=== PATIENT | male | born 1955 | race Caucasian/White ===

== ENCOUNTER 2017-03-29 09:05 | Observation (INO) | payer OTHER ==
[~2017-03-29] VITALS: Ht 175.3 cm; Wt 115.0 kg
[~2017-03-29 09:05] MED LIST: ALT/10 PO; AMLO2.5T PO; ASPI81TA28 PO; ATEN50TA8 PO; BUSP15TA70 PO; CYAN100T6 PO; INSPMPNVLG; LPT/40 PO; METF1000 PO; MULT-506 PO; PANT1TAB48 PO; SERT1TAB68 PO
[2017-03-29] MEDS ORDERED: ASPIRIN 324 MG CHEW PO STA (09:20)
--- NOTE | 2017-03-29 09:25 | EMERGENCY ROOM VISIT NOTE ---
History First contact with patient: 09:11 Chief Complaint: CHEST PAIN Stated Complaint: CHEST PAIN Nursing Triage Summary: pt reports he started yesterday in back between shoulders, this am pain in mid chest. denies nay sob, feels nauseated History of Present Illness The patient is a 62 year old male who presents to the Emergency Room via private vehicle accompanied by with complaints of "chest pain". The patient states that yesterday morning, he began with pain in his left sub- scapular region. He thought this could be a kidney stone, however this morning it progressed to epigastric/mid sternal chest pain. He rates the pain as 6/10, sharp in nature. He notes that he has a history of renal calculi. He also has a pacemaker. This was placed because his rhythm was "slow". The patient notes that his most recent episode of chest pain began around 6 AM, is not constant. There is associated nausea. He denies any nausea, shortness of breath. No history of blood clots. His pacemaker was placed here 2 years ago. He has not had aspirin yet this morning. Review of Systems A complete 10-point Review of Systems was discussed with the patient, with pertinent positives and negatives listed in the History of Present Illness. All remaining Review of Systems questions can be considered negative unless otherwise specified. Past Medical/Surgical History Medical Problems: (1) CAD in [place] artery (2) Depression (3) Diabetes mellitus type 2, insulin dependent (4) H/O renal calculi (5) HLD (hyperlipidemia) (6) HTN (hypertension) (7) Pacemaker Surgical Problems: (1) Hx of cholecystectomy (2) S/P cholecystectomy (3) Status post laparoscopic hernia repair Family History Diabetes mellitus FH: heart disease Hypertension Kidney disease Kidney stones Social History Smoking Status: Former Smoker Alcohol Use: occasionally Drug Use: none Marital Status: Housing Status: lives with family Occupation Status: employed Current/Historical Medications Scheduled Amlodipine (Norvasc), 2.5 MG PO QPM Aspirin (Aspirin Ec), 81 MG PO QAM Atenolol (Tenormin), 50 MG PO QPM Atorvastatin (Lipitor), 40 MG PO QPM Buspirone Hcl (Buspar), 15 MG PO BID Cyanocobalamin (Vitamin B12 100 Mcg), 100 MCG PO QAM Insulin Aspart (novoLOG INSULIN PUMP ), 1 EA N/A UD Metformin Hcl (Glucophage), 1,000 MG PO BID Multivitamin (Multivitamin), 1 TAB PO QAM Pantoprazole (Protonix), 40 MG PO QAM Ramipril (Altace), 10 MG PO QPM Sertraline Hcl (Zoloft), 100 MG PO BID Physical Exam Vital Signs Date Time Temp Pulse Resp B/P (MAP) Pulse Ox O2 Delivery O2 Flow Rate FiO2 03/29/17 11:27 60 18 161/84 95 Room Air 03/29/17 09:19 61 03/29/17 09:09 36.7 69 20 140/81 94 Room Air 03/29/17 09:05 93 Room Air Physical Exam VITAL SIGNS - Vital signs and nursing notes were reviewed. GENERAL - 62-year-old male appearing his stated age who is in no acute distress. Communicates well with provider and answers questions appropriately. SKIN - Without rashes. HEAD - NC/AT. LUNGS - Chest wall symmetric without accessory muscle use, intercostals retractions, or central cyanosis. Normal vesicular breath sounds CTA B/L. No wheezes, rales, or rhonchi appreciated. CARDIAC - RRR with S1/S2. No murmur, rubs, or gallops appreciated. ABDOMEN - Abdominal contour without pulsations or visible masses. BS normoactive all four quadrants. There is generalized tenderness to palpation in the inferior quadrants. No palpable masses, hepatosplenomegaly, or ascites noted. EXTREMITIES - No clubbing or peripheral cyanosis. No pretibial edema present. +5 /5 strength noted in UE/LE bilaterally. NEUROLOGIC - Cranial nerves II through XII grossly intact. Sensory intact to light touch throughout. PSYCH - A&O.Pt is very pleasant and interacts well with examiner. Medical Decision & Procedures ER Provider Diagnostic Interpretation: ABDOMEN 2VIEW W/PA CHEST RTN CLINICAL HISTORY: Chest pain, abdominal discomfort pain COMPARISON STUDY: 05/10/2015 FINDINGS: The soft tissues, psoas shadows, renal outlines and intestinal gas pattern appear normal. There is no evidence for bowel obstruction. There is no evidence for free intraperitoneal air. No abnormal abdominal calcifications are seen. A frontal view of the chest was performed and is unremarkable. IMPRESSION: Normal study. The above report was generated using voice recognition software. It may contain grammatical, syntax or spelling errors. Electronically signed by: Cain Randolph M.D. 03/29/2017 10:42 AM Dictated Date/Time: 03/29/2017 10:40 AM Laboratory Results 03/29/17 09:18 Red Blood Count 5.03, Mean Corpuscular Volume 88.1, Mean Corpuscular Hemoglobin 31.2, Mean Corpuscular Hemoglobin Concent 35.4, Mean Platelet Volume 9.5, Neutrophils (%) (Auto) 44.2, Lymphocytes (%) (Auto) 36.9, Monocytes (%) (Auto) 16.9, Eosinophils (%) (Auto) 1.4, Basophils (%) (Auto) 0.3, Neutrophils # (Auto ) 1.55, Lymphocytes # (Auto) 1.29, Monocytes # (Auto) 0.59, Eosinophils # (Auto ) 0.05, Basophils # (Auto) 0.01 03/29/17 09:18 Test 03/29/17 09:18 03/29/17 10:00 03/29/17 11:35 White Blood Count 3.50 K/uL (4.8-10.8) Red Blood Count 5.03 M/uL (4.7-6.1) Hemoglobin 15.7 g/dL (14.0-18.0) Hematocrit 44.3 % (42-52) Mean Corpuscular Volume 88.1 fL (80-100) Mean Corpuscular Hemoglobin 31.2 pg (25-34) Mean Corpuscular Hemoglobin Concent 35.4 g/dl (32-36) Platelet Count 126 K/uL (130-400) Mean Platelet Volume 9.5 fL (7.4-10.4) Neutrophils (%) (Auto) 44.2 % Lymphocytes (%) (Auto) 36.9 % Monocytes (%) (Auto) 16.9 % Eosinophils (%) (Auto) 1.4 % Basophils (%) (Auto) 0.3 % Neutrophils # (Auto) 1.55 K/uL (1.4-6.5) Lymphocytes # (Auto) 1.29 K/uL (1.2-3.4) Monocytes # (Auto) 0.59 K/uL (0.11-0.59) Eosinophils # (Auto) 0.05 K/uL (0-0.5) Basophils # (Auto) 0.01 K/uL (0-0.2) RDW Standard Deviation 41.4 fL (36.4-46.3) RDW Coefficient of Variation 13.0 % (11.5-14.5) Immature Granulocyte % (Auto) 0.3 % Immature Granulocyte # (Auto) 0.01 K/uL (0.00-0.02) Prothrombin Time 10.3 SECONDS (9.0-12.0) Prothromb Time International Ratio 1.0 (0.9-1.1) Activated Partial Thromboplast Time 25.9 SECONDS (21.0-31.0) Partial Thromboplastin Ratio 1.0 D-Dimer 330 ug/L FEU (0-500) Anion Gap 7.0 mmol/L (3-11) Est Creatinine Clear Calc Drug Dose 98.5 ml/min Estimated GFR () 97.7 Estimated GFR (Non- 84.3 BUN/Creatinine Ratio 20.7 (10-20) Calcium Level 9.4 mg/dl (8.5-10.1) Magnesium Level 1.8 mg/dl (1.8-2.4) Total Bilirubin 0.5 mg/dl (0.2-1) Aspartate Amino Transf (AST/SGOT) 17 U/L (15-37) Alanine Aminotransferase (ALT/SGPT) 35 U/L (12-78) Alkaline Phosphatase 101 U/L (45-117) Total Protein 7.6 gm/dl (6.4-8.2) Albumin 3.9 gm/dl (3.4-5.0) Globulin 3.7 gm/dl (2.5-4.0) Albumin/Globulin Ratio 1.1 (0.9-2) Amylase Level 27 U/L (25-115) Lipase 71 U/L (73-393) Thyroid Stimulating Hormone (TSH) 1.830 uIu/ml (0.300-4.500) Urine Color DK YELLOW Urine Appearance CLEAR (CLEAR) Urine pH 5.5 (4.5-7.5) Urine Specific [place] 1.026 (1.000-1.030) Urine Protein TRACE (NEG) Urine Glucose (UA) TRACE (NEG) Urine Ketones TRACE (NEG) Urine Occult Blood NEG (NEG) Urine Nitrite NEG (NEG) Urine Bilirubin NEG (NEG) Urine Urobilinogen NEG (NEG) Urine Leukocyte Esterase NEG (NEG) Urine WBC (Auto) 1-5 /hpf (0-5) Urine RBC (Auto) 0-4 /hpf (0-4) Urine Hyaline Casts (Auto) 1-5 /lpf (0-5) Urine Epithelial Cells (Auto) 5-10 /lpf (0-5) Urine Bacteria (Auto) NEG (NEG) Bedside Troponin I < 0.030 ng/ml (0-0.045) Medications Administered Medications (Trade) Dose Ordered Sig/Ritu Route Start Time Stop Time Status Last Admin Dose Admin Aspirin (Aspirin Chew) 324 mg NOW STAT PO 03/29/17 09:20 03/29/17 09:24 DC 03/29/17 09:50 324 MG Al Hydroxide/Mg Hydroxide (Maalox Susp) 30 ml STK-MED ONCE .ROUTE 03/29/17 11:26 03/29/17 11:27 DC 03/29/17 11:28 30 ML Lidocaine HCl (Viscous Lidocaine 2% Soln) 20 ml STK-MED ONCE .ROUTE 03/29/17 11:26 03/29/17 11:27 DC 03/29/17 11:28 20 ML Medical Decision Patient was seen and evaluated as above. After obtaining a thorough history and physical examination IV access was initiated, and the above workup was performed. Patient presents to us today with chest pain, and minimal abdominal discomfort. The patient does have an underlying history of pacemaker placement. EKG reveals a paced rhythm. No ectopy or ischemic change reported. This was compared to previous EKG in the [facility] system, and it appears that the paced rhythm has replaced a sinus rhythm. CBC reveals white blood cell count decreased at 3.5, no abnormalities in hemoglobin, platelet count is decreased at 126,000, however it appears that he has had low platelet counts in the past. D-dimer negative, coagulation studies unremarkable. CMP reveals BUN elevated at 20, glucose at 104, and lipase low at 71. TSH unremarkable. Troponin negative 2. Urine is negative for blood. This was assessed secondary to patient's history of kidney stones. Chest and abdomen x-ray are ordered and were negative. Patient initially had slight abdominal discomfort upon his entrance, however upon reassessment was not feeling any pain. He was given aspirin during his stay here. Because the patient's age, and underlying comorbidities I do believe that inpatient management for cardiac etiology rule out is important. Patient is in agreement. Patient was educated upon findings of today's visit. Case was discussed with my attending. Patient will be admitted to the hospital for further evaluation and management. Please refer to further dictation regarding his stay. In the evaluation and treatment of this patient following differential diagnoses were entertained: ACS, PE, nephrolithiasis, costochondritis, GERD, among others. Medication Reconcilliation Current Medication List: was personally reviewed by me Blood Pressure Screening Patient's blood pressure: Elevated blood pressure Blood pressure disposition: Elevated BP felt to be situational Impression Primary Impression: Chest pain Departure Information Dispostion Admitted as an inpatient Condition FAIR Referrals Yoshi Buitrago M.D. (PCP) Patient Instructions My [facility]
[2017-03-29 09:28] LABS: BASO % 0.3 %; BASO ABS # 0.01 K/uL (0-0.2); COMPLETE YES; EOS % 1.4 %; HEMATOCRIT 44.3 % (42-52); IG% 0.3 %; LYMPH % 36.9 %; LYMPH ABS # 1.29 K/uL (1.2-3.4); MEAN CELL VOLUME 88.1 fL (80-100); MEAN CORPUSCULAR HEMOGLOBIN 31.2 pg (25-34); MEAN CORPUSCULAR HGB CONC 35.4 g/dl (32-36); MEAN PLATELET VOLUME 9.5 fL (7.4-10.4); MONO % 16.9 %; NEUT % 44.2 %; PLATELET COUNT 126 K/uL (130-400); RED BLOOD COUNT 5.03 M/uL (4.7-6.1)
[2017-03-29 09:54] LABS: PROTHROMBIN TIME (PATIENT) 10.3 SECONDS (9.0-12.0)
[2017-03-29 10:03] LABS: BUN/CREATININE RATIO 20.7 (10-20); CALCIUM 9.4 mg/dl (8.5-10.1); CREATININE 0.95 mg/dl (0.60-1.40); MAGNESIUM 1.8 mg/dl (1.8-2.4); POTASSIUM 3.9 mmol/L (3.5-5.1)
[2017-03-29 10:14] LABS: ALB/GLOB RATIO 1.1 (0.9-2); THYROID STIMULATING HORMONE 1.83 uIu/ml (0.300-4.500)
[2017-03-29 10:26] LABS: URINE APPEARANCE CLEAR (CLEAR); URINE BILIRUBIN NEG (NEG); URINE COLOR DK YELLOW; URINE NITRITE NEG (NEG); URINE PH 5.5 (4.5-7.5); URINE SPECIFIC GRAVITY 1.026 (1.000-1.030); UROBILINOGEN NEG (NEG); ZZUR CULT IF INDIC CLEAN CATCH NO
[2017-03-29 10:27] LABS: MANUAL MICROSCOPIC REQUIRED? NO; REVIEW REQ? NO
--- NOTE | 2017-03-29 10:44 | DIAGNOSTIC IMAGING REPORT ---
ABDOMEN 2VIEW W/PA CHEST RTN CLINICAL HISTORY: Chest pain, abdominal discomfort pain COMPARISON STUDY: 05/10/2015 FINDINGS: The soft tissues, psoas shadows, renal outlines and intestinal gas pattern appear normal. There is no evidence for bowel obstruction. There is no evidence for free intraperitoneal air. No abnormal abdominal calcifications are seen. A frontal view of the chest was performed and is unremarkable. IMPRESSION: Normal study. The above report was generated using voice recognition software. It may contain grammatical, syntax or spelling errors. Electronically signed by: Cain Randolph M.D. 03/29/2017 10:42 AM Dictated Date/Time: 03/29/2017 10:40 AM
[2017-03-29] MEDS ORDERED: GI COCKTAIL PO STA (10:59)
[2017-03-29] MEDS ORDERED: LIDOCAINE HCL 2% VISC SOLN 20 ML UDC ONE (11:26)
[2017-03-29] MEDS ORDERED: ALUMINUM/MAGNESIUM SUSP 30 ML UDC ONE (11:26)
[2017-03-29] MEDS ORDERED: MoRPHine SULFATE 2 MG/ML CARP IV PRN (13:15)
[2017-03-29] MEDS ORDERED: ONDANSETRON INJ 2 MG/ML 2 ML VIAL IV PRN (13:15)
[2017-03-29] MEDS ORDERED: ACETAMINOPHEN 325 MG TAB PO PRN (13:15)
[2017-03-29] MEDS ORDERED: NITROGLYCERIN 0.4 MG SL PER TAB CHARGE SL PRN (13:15)
[2017-03-29] MEDS ORDERED: IV FLUIDS COMPLETED PRN (13:30)
[2017-03-29 13:49] VITALS: BP 177/92; PULSE 66; TEMP 36.7; O2SAT 92; Ht 175.3 cm; Wt 115.0 kg
[2017-03-29] MEDS ORDERED: PHARMACY GLYCEMIC MGMT CONSULT PRN (14:03)
--- NOTE | 2017-03-29 14:12 | Cardiology Consultation ---
Cardiology Consultation Requesting Physician: Dr. Khanna Attending Cake Icer: Dr. Moris Crandall History of Present Illness Patient is a 62 year old male seen for evaluation of chest discomfort. Developed left-sided back pain which radiated to his anterior chest at 4 AM on . Discomfort waxed and waned. He went to work for approximately 2 hours and then returned home. There was no associated shortness of breath. He essentially laid in bed for the majority of the day without recurrent symptoms. The pain recurred again at 4 AM today. Again the pain was intermittent and lasting up to a few minutes. No associated shortness of breath. No diaphoresis. There is associated nausea without vomiting. The pain is not positional or reproducible with palpation. No lightheadedness, dizziness, palpitations, syncope or near-syncope. Patient carries history of essentially normal coronary arteries by catheterization performed in 2013 with 40% LAD bridging. He reported episode of atypical chest discomfort in August which was evaluated by follow-up echocardiography at my office. There were no wall motion and modalities on that study. Patient has a dual-chamber pacemaker due to history of second-degree AV block. Also has history of asymptomatic episodes of paroxysmal atrial fibrillation declining oral anticoagulation in the past. Currently the patient is resting comfortably. Denies any chest discomfort at this time. Telemetry demonstrates an AV paced rhythm. Past Medical/Surgical History Problem List: Medical Problems: (1) DM (diabetes mellitus) (2) HTN (hypertension) (3) Kidney stone (4) PNA (pneumonia) Surgical Problems: (1) S/P cholecystectomy History Past Medical History: 1. September 2013 cardiac catheterization at [facility] [place] demonstrated no significant CAD , mild LAD intramyocardial bridging with 40% narrowing during systole. 2. Admission to [facility] November 2013 after an episode of syncope demonstrating second-degree AV block. Renay was withheld. Patient treated for Lyme's disease, however, AV block persisted and a dual-chamber pacemaker was implanted 02/2014. 3. Paroxysmal atrial fibrillation chads 2 score equals 2 4. DM-2 treated with insulin pump 5. Hypertension 6. Dyslipidemia 7. Nephrolithiasis 8. Depression Past Surgical History: 1. Cardiac catheterization 2. Lithotripsy 3. Laparoscopic repair of an incarcerated ventral hernia 04/2015 Social History: Former tobacco abuse with a [id number] history. Social alcohol use. and works at [employer]. Family History: Father with diabetes and from complications at age 49. Mother of a heart attack at age 70. No premature coronary disease sudden cardiac , or cerebrovascular accident. Review Of Systems General: The patient denies weight change, night sweats, fever, chills. Head: The patient denies headache and prior head trauma. Cardiovascular: The patient denies chest pain or chest discomfort, dyspnea on exertion, palpitations, PND, orthopnea, edema, spontaneous shortness of breath, syncope and near syncope. Pulmonary: The patient denies cough, wheeze, pleurisy, hemoptysis, sputum, and excessive snoring. Gastrointestinal: The patient denies nausea, vomiting, diarrhea, constipation, bloating, hematemesis, hematochezia, and abdominal pain. Skin: The patient denies diaphoresis and rash. Musculoskeletal: The patient denies joint pain, joint swelling, myalgia, back pain, neck pain and prior injuries. Neurological: The patient denies prior stroke and seizures Allergies Coded Allergies: No Known Allergies (Verified , 05/06/15) Medications Reported Home Medications Medications Dose Route/Sig Max Daily Dose Days Date Category Tenormin (Atenolol) 50 Mg Tab 50 Mg PO QPM 05/03/15 Reported Altace (Ramipril) 10 Mg Cap 10 Mg PO QPM 02/24/14 Reported Multivitamin (Multivitamins) Tab 1 Tab PO QAM 02/17/14 Reported novoLOG INSULIN PUMP (Insulin Aspart) 1 Ea Inj 1 Ea N/A UD 11/29/13 Reported Aspirin Ec (Aspirin) 81 Mg Tab 81 Mg PO QAM 11/28/13 Reported Vitamin B12 100 Mcg (Cyanocobalamin) 100 Mcg Tab 100 Mcg PO QAM 11/28/13 Reported Lipitor (Atorvastatin) 40 Mg Tab 40 Mg PO QPM 11/28/13 Reported Norvasc (Amlodipine Besylate) 2.5 Mg Tab 2.5 Mg PO QPM 11/28/13 Reported Buspar (Buspirone Hcl) 15 Mg Tab 15 Mg PO BID 11/28/13 Reported Zoloft (Sertraline Hcl) 100 Mg Tab 100 Mg PO BID 11/28/13 Reported Protonix (Pantoprazole) 40 Mg Tab 40 Mg PO QAM 11/28/13 Reported Glucophage (Metformin Hcl) 1,000 Mg Tab 1,000 Mg PO BID 11/28/13 Reported Physical Exam Vital Signs (Last 8hrs): Last 8 Hrs Date Time Temp Pulse Resp B/P (MAP) Pulse Ox O2 Delivery O2 Flow Rate FiO2 03/29/17 12:41 62 03/29/17 12:32 60 16 158/93 94 Room Air 03/29/17 11:27 60 18 161/84 95 Room Air 03/29/17 09:19 61 03/29/17 09:09 36.7 69 20 140/81 94 Room Air 03/29/17 09:05 93 Room Air General Appearance: Alert and Oriented x3. NAD. Head: Normocephalic Atraumatic. Eyes: PERRLA, EOMI, conjunctiva and sclera clear Neck: Supple. No carotid bruits noted. No JVD. No HJD. Respiratory: Breath sounds clear to auscultation bilaterally. No w/r/r. Cardiovascular: Reg rate and rhythm. S1 and S2 noted. No murmurs, rubs, gallops. PMI non displace. Abdomen: Normal bowel sounds, soft nontender. no abdominal bruits. Extremities: No edema, no clubbing or cyanosis. distal pulses 2/4 bilaterally. Neuro: No focal deficits. Psychiatric: Normal affect. Data Last 24 Hours Test 03/29/17 09:18 03/29/17 09:22 03/29/17 10:00 03/29/17 11:35 White Blood Count 3.50 K/uL Red Blood Count 5.03 M/uL Hemoglobin 15.7 g/dL Hematocrit 44.3 % Mean Corpuscular Volume 88.1 fL Mean Corpuscular Hemoglobin 31.2 pg Mean Corpuscular Hemoglobin Concent 35.4 g/dl Platelet Count 126 K/uL Mean Platelet Volume 9.5 fL Neutrophils (%) (Auto) 44.2 % Lymphocytes (%) (Auto) 36.9 % Monocytes (%) (Auto) 16.9 % Eosinophils (%) (Auto) 1.4 % Basophils (%) (Auto) 0.3 % Neutrophils # (Auto) 1.55 K/uL Lymphocytes # (Auto) 1.29 K/uL Monocytes # (Auto) 0.59 K/uL Eosinophils # (Auto) 0.05 K/uL Basophils # (Auto) 0.01 K/uL RDW Standard Deviation 41.4 fL RDW Coefficient of Variation 13.0 % Immature Granulocyte % (Auto) 0.3 % Immature Granulocyte # (Auto) 0.01 K/uL Prothrombin Time 10.3 SECONDS Prothromb Time International Ratio 1.0 Activated Partial Thromboplast Time 25.9 SECONDS Partial Thromboplastin Ratio 1.0 D-Dimer 330 ug/L FEU Sodium Level 140 mmol/L Potassium Level 3.9 mmol/L Chloride Level 106 mmol/L Carbon Dioxide Level 27 mmol/L Anion Gap 7.0 mmol/L Blood Urea Nitrogen 20 mg/dl Creatinine 0.95 mg/dl Est Creatinine Clear Calc Drug Dose 98.5 ml/min Estimated GFR () 97.7 Estimated GFR (Non- 84.3 BUN/Creatinine Ratio 20.7 Random Glucose 104 mg/dl Calcium Level 9.4 mg/dl Magnesium Level 1.8 mg/dl Total Bilirubin 0.5 mg/dl Aspartate Amino Transf (AST/SGOT) 17 U/L Alanine Aminotransferase (ALT/SGPT) 35 U/L Alkaline Phosphatase 101 U/L Total Protein 7.6 gm/dl Albumin 3.9 gm/dl Globulin 3.7 gm/dl Albumin/Globulin Ratio 1.1 Amylase Level 27 U/L Lipase 71 U/L Thyroid Stimulating Hormone (TSH) 1.830 uIu/ml Bedside Troponin I < 0.030 ng/ml < 0.030 ng/ml Urine Color DK YELLOW Urine Appearance CLEAR Urine pH 5.5 Urine Specific [place] 1.026 Urine Protein TRACE Urine Glucose (UA) TRACE Urine Ketones TRACE Urine Occult Blood NEG Urine Nitrite NEG Urine Bilirubin NEG Urine Urobilinogen NEG Urine Leukocyte Esterase NEG Urine WBC (Auto) 1-5 /hpf Urine RBC (Auto) 0-4 /hpf Urine Hyaline Casts (Auto) 1-5 /lpf Urine Epithelial Cells (Auto) 5-10 /lpf Urine Bacteria (Auto) NEG Imaging: Chest and abdominal x-ray within normal limits EKG: AV sequential pacing Telemetry reviewed: AV sequential pacing Assessment & Plan Final impression: 1. Atypical back and chest discomfort 2. Paroxysmal atrial fibrillation currently AV paced. Patient asymptomatic during episodes of atrial fibrillation in the past. He declines anticoagulation. 3. History of nonobstructive coronary disease with myocardial bridging involving the LAD in 2013. 4. Second-degree AV block status post permanent pacemaker implantation 5. Dyslipidemia 6. History of nephrolithiasis and lithotripsy Recommendations/discussion: Chronic care troponins are negative 2. Patient's ECG is nondiagnostic due to AV sequential pacing. I will obtain resting 2-D transthoracic echo to assess for any regional wall motion abnormalities. Cardiac enzymes will be cycled 3 sets for completeness. If cardiac testing is unremarkable would recommend pursuing noncardiac etiologies of back and chest discomfort including potential nephrolithiasis given character of pain described at this time. Musculoskeletal and gastroenterologic etiologies are also not excluded at this time. Continue telemetry monitoring during hospitalization to correlate any perceived symptoms with ECG abnormality. He will continue current cardiovascular medications as previously ordered. Further recommendations pending clinical course and results of testing. Thank you for allow me to take part in the care of your patient. Moris Crandall DO, FACC
[2017-03-29] MEDS ORDERED: INSULIN ASPART 100 UNITS/ML VIAL SC PRN (14:30)
[2017-03-29] MEDS ORDERED: GLUCAGON FOR INJ 1 MG VIAL SQ PRN (14:30)
[2017-03-29] MEDS ORDERED: GLUCOSE 10 TABS/TUBE PO PRN (14:30)
[2017-03-29] MEDS ORDERED: DEXTROSE 50% 50 ML SYR IV PRN (14:30)
[2017-03-29] MEDS ORDERED: GLUCOSE 40% GEL 15 GM TUBE PO PRN (14:30)
--- NOTE | 2017-03-29 14:32 | History and Physical ---
History & Physical Date & Time of Service: Mar 29, 2017 at 14:05 Chief Complaint: Chest Pain, back pain Primary Care Physician: Yoshi Buitrago M.D. History of Present Illness Source: patient This is a 62yo M with a PMH of CAD (non-obstructive), DM II on insulin-pump, HTN , HLD, A fib (not on anti-coagulation), GERD and h/o kidney stones who presents with chest pain x 1 day. Patient states that he started to experience bilateral flank pain yesterday with some associated nausea that felt similar to times he has passed kidney stones in the past. However, he did not have any urinary symptoms. This morning, pt was walking around at work when he started to experience a dull, aching chest pain located in left chest/mid-sternal region that radiated to his back. Pain is constant, 5/10 and does not improve with rest. Endorses associated nausea but denies any diaphoresis, palpitations, shortness of breath, abdominal pain, vomiting or MSK pain in his torso. Also says he has been under more emotional stress lately due to caring for his sick mother. Cardiac cath performed in 2013 showed mild LAD intramyocardial bridge causing 40% narrowing during systole. Echo in 01/23 showed a normal EF of 60-64% . As for back pain, patient states that pain has improved since yesterday and that he has not experienced any typical urinary symptoms, like as dysuria or hematuria, from kidney stones in the past. Past Medical/Surgical History Medical Problems: (1) DM (diabetes mellitus) Status: Chronic (2) HTN (hypertension) Status: Chronic (3) Kidney stone Status: Resolved (4) PNA (pneumonia) Status: Resolved Surgical Problems: (1) S/P cholecystectomy Status: Resolved Family History Diabetes mellitus FH: heart disease Hypertension Kidney disease Kidney stones Social History Smoking Status: Former Smoker (20 pack years) Alcohol Use: socially (1-2 drinks/week) Drug Use: none Marital Status: Occupational Status: employed Multi-Drug Resistant Organisms History of MDRO: No Allergies Coded Allergies: No Known Allergies (Verified , 05/06/15) Home Medications Scheduled Amlodipine (Norvasc), 2.5 MG PO QPM Aspirin (Aspirin Ec), 81 MG PO QAM Atenolol (Tenormin), 50 MG PO QPM Atorvastatin (Lipitor), 40 MG PO QPM Buspirone Hcl (Buspar), 15 MG PO BID Cyanocobalamin (Vitamin B12 100 Mcg), 100 MCG PO QAM Insulin Aspart (novoLOG INSULIN PUMP ), 1 EA N/A UD Metformin Hcl (Glucophage), 1,000 MG PO BID Multivitamin (Multivitamin), 1 TAB PO QAM Pantoprazole (Protonix), 40 MG PO QAM Ramipril (Altace), 10 MG PO QPM Sertraline Hcl (Zoloft), 100 MG PO BID Review of Systems Ten systems reviewed and negative except as noted in the HPI. Physical Exam Vital Signs Date Time Temp Pulse Resp B/P (MAP) Pulse Ox O2 Delivery O2 Flow Rate FiO2 03/29/17 12:41 62 03/29/17 12:32 60 16 158/93 94 Room Air 03/29/17 11:27 60 18 161/84 95 Room Air 03/29/17 09:19 61 03/29/17 09:09 36.7 69 20 140/81 94 Room Air 03/29/17 09:05 93 Room Air General Appearance: WD/WN, no apparent distress, + obese Head: normocephalic, atraumatic Eyes: normal inspection, PERRL ENT: normal ENT inspection, hearing grossly normal Neck: supple, thyroid normal, no JVD Respiratory/Chest: chest non-tender, lungs clear, normal breath sounds, no respiratory distress, no accessory muscle use Cardiovascular: regular rate, rhythm, no edema, no gallop, no murmur, normal peripheral pulses Abdomen/GI: normal bowel sounds, non tender, soft (protuberant abdomen) Back: normal inspection, no CVA tenderness, normal range of motion Extremities/Musculoskelatal: normal inspection, no calf tenderness, no pedal edema Neurologic/Psych: no motor/sensory deficits, alert, normal mood/affect, oriented x 3 Skin: normal color, warm/dry, no rash Lymphatic: no adenopathy Diagnostics Laboratory Results Results Past 24 Hours Test 03/29/17 09:18 03/29/17 09:22 03/29/17 10:00 03/29/17 11:35 Range/Units White Blood Count 3.50 4.8-10.8 K/uL Red Blood Count 5.03 4.7-6.1 M/uL Hemoglobin 15.7 14.0-18.0 g/dL Hematocrit 44.3 42-52 % Mean Corpuscular Volume 88.1 80-100 fL Mean Corpuscular Hemoglobin 31.2 25-34 pg Mean Corpuscular Hemoglobin Concent 35.4 32-36 g/dl Platelet Count 126 130-400 K/uL Mean Platelet Volume 9.5 7.4-10.4 fL Neutrophils (%) (Auto) 44.2 % Lymphocytes (%) (Auto) 36.9 % Monocytes (%) (Auto) 16.9 % Eosinophils (%) (Auto) 1.4 % Basophils (%) (Auto) 0.3 % Neutrophils # (Auto) 1.55 1.4-6.5 K/uL Lymphocytes # (Auto) 1.29 1.2-3.4 K/uL Monocytes # (Auto) 0.59 0.11-0.59 K/uL Eosinophils # (Auto) 0.05 0-0.5 K/uL Basophils # (Auto) 0.01 0-0.2 K/uL RDW Standard Deviation 41.4 36.4-46.3 fL RDW Coefficient of Variation 13.0 11.5-14.5 % Immature Granulocyte % (Auto) 0.3 % Immature Granulocyte # (Auto) 0.01 0.00-0.02 K/uL Prothrombin Time 10.3 9.0-12.0 SECONDS Prothromb Time International Ratio 1.0 0.9-1.1 Activated Partial Thromboplast Time 25.9 21.0-31.0 SECONDS Partial Thromboplastin Ratio 1.0 D-Dimer 330 0-500 ug/L FEU Sodium Level 140 136-145 mmol/L Potassium Level 3.9 3.5-5.1 mmol/L Chloride Level 106 98-107 mmol/L Carbon Dioxide Level 27 21-32 mmol/L Anion Gap 7.0 3-11 mmol/L Blood Urea Nitrogen 20 7-18 mg/dl Creatinine 0.95 0.60-1.40 mg/dl Est Creatinine Clear Calc Drug Dose 98.5 ml/min Estimated GFR () 97.7 Estimated GFR (Non- 84.3 BUN/Creatinine Ratio 20.7 10-20 Random Glucose 104 70-99 mg/dl Calcium Level 9.4 8.5-10.1 mg/dl Magnesium Level 1.8 1.8-2.4 mg/dl Total Bilirubin 0.5 0.2-1 mg/dl Aspartate Amino Transf (AST/SGOT) 17 15-37 U/L Alanine Aminotransferase (ALT/SGPT) 35 12-78 U/L Alkaline Phosphatase 101 45-117 U/L Total Protein 7.6 6.4-8.2 gm/dl Albumin 3.9 3.4-5.0 gm/dl Globulin 3.7 2.5-4.0 gm/dl Albumin/Globulin Ratio 1.1 0.9-2 Amylase Level 27 25-115 U/L Lipase 71 73-393 U/L Thyroid Stimulating Hormone (TSH) 1.830 0.300-4.500 uIu/ml Bedside Troponin I < 0.030 < 0.030 0-0.045 ng/ml Urine Color DK YELLOW Urine Appearance CLEAR CLEAR Urine pH 5.5 4.5-7.5 Urine Specific [place] 1.026 1.000-1.030 Urine Protein TRACE NEG Urine Glucose (UA) TRACE NEG Urine Ketones TRACE NEG Urine Occult Blood NEG NEG Urine Nitrite NEG NEG Urine Bilirubin NEG NEG Urine Urobilinogen NEG NEG Urine Leukocyte Esterase NEG NEG Urine WBC (Auto) 1-5 0-5 /hpf Urine RBC (Auto) 0-4 0-4 /hpf Urine Hyaline Casts (Auto) 1-5 0-5 /lpf Urine Epithelial Cells (Auto) 5-10 0-5 /lpf Urine Bacteria (Auto) NEG NEG CXR normal EKG 03/29/17: AV dual-paced rhythm. Impression Assessment and Plan Assessment: This is a 62yo M with a PMH of CAD (non-obstructive), DM II on insulin-pump, HTN, HLD, A fib (not on anti-coagulation), GERD and h/o kidney stones who presents with atypical chest pain and back pain. Plan: Chest pain, atypical: -R/o ACS; risk factors include CAD, DM II, HTN, HLD, obese. -Initial troponin negative x 2. -EKG-AV paced dual rhythm. No ischemia or elevated ST elevations present. -CXR-normal -Cardiac consult: ordered 2-D transthoracic echo to assess for any wall motion abnormalities as well as 3 sets of cardiac enzymes for completeness. -Due to atypical CP presentation, also need to explore other potential etiologies like potential nephrolithiasis, since pain originated in his back and radiated forward. -Also considering costochondritis, reflux and anxiety as other etiologies if cardiac work up continues to be negative. CAD (non-obstructed): -Cardiac cath in 2013 with mild LAD intramyocardial bridge causing 40% narrowing during systole. -Last echo in 01/23 showing normal EF of 60-64%. Repeating echo today. 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 Briefly 62M presents with chest pain. Patient had bilateral flank pain yesterday and he thought from kidney stones as he has history of them but in the morning today noticed retro sternal dull chest pain 5 /10 in severity radiating to back associated with nausea which prompted him to come to [facility]. Denies sob or sweating. No dizziness. no cough. No fever/chills. Currently resting comfortably and hemodynamically stable. p/e Ge . 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 Y/N: Yes Risk Level: High Given or contraindicated: Enoxaparin (Lovenox)SQ Social Service Consult None Apply
--- NOTE | 2017-03-29 14:35 | Pharmacy Progress Note ---
Glycemic Control Intl Consult Date of Service Mar 29, 2017. Scope Glycemic Pharmacist consulted by Dora Meyer PA-C on 03/29/2017 for glycemic control and to write orders per [facility] inpatient glycemic control protocol Objective Weight (Kilograms): 115.600 Accuchecks BSG (last 24hrs): Test 03/29/17 09:18 Random Glucose 104 mg/dl (70-99) Laboratory Data (last 24hrs) Test 03/29/17 09:18 Anion Gap 7.0 mmol/L BUN/Creatinine Ratio 20.7 Blood Urea Nitrogen 20 mg/dl Creatinine 0.95 mg/dl Potassium Level 3.9 mmol/L Sodium Level 140 mmol/L White Blood Count 3.50 K/uL Red Blood Count 5.03 M/uL Hemoglobin 15.7 g/dL Hematocrit 44.3 % Mean Corpuscular Volume 88.1 fL Mean Corpuscular Hemoglobin 31.2 pg Mean Corpuscular Hemoglobin Concent 35.4 g/dl Platelet Count 126 K/uL Mean Platelet Volume 9.5 fL Neutrophils (%) (Auto) 44.2 % Lymphocytes (%) (Auto) 36.9 % Monocytes (%) (Auto) 16.9 % Eosinophils (%) (Auto) 1.4 % Basophils (%) (Auto) 0.3 % Neutrophils # (Auto) 1.55 K/uL Lymphocytes # (Auto) 1.29 K/uL Monocytes # (Auto) 0.59 K/uL Eosinophils # (Auto) 0.05 K/uL Basophils # (Auto) 0.01 K/uL HbA1c Test 03/29/17 09:18 Recent Pertinent Medications Outpatient Anti-diabetic Regimen: * Novolog Pump (CR = 15 and CF = ?) * Basal pump: * midnight to 3 AM: 3.7 units/hr * 3 AM to 1700: 4 units/hr * 1700 to 3.7 units/hr * A1c = 7.2 % (date unknown) Risk Factors for Insulin Resistance: * Diet: diabetic diet Assessment & Plan ASSESSMENT: * Pt is to manage BSGs with insulin pump per outpatient settings. * RN will have patient read and sign agreement [id number] Insulin Pump Therapy Patient Agreement. * RN will provide and explain form [id number] Flowsheet for Patient * Patient will document their insulin dose given on NS-824 which is kept at the bedside, available to caregivers upon request, and which becomes part of the permanent medical record. If at any time the patients condition evidences that he/she is not able to manage the insulin pump (i.e. frequent hypo/hyperglycemia) Pharmacy will assume glycemic control by discontinuing the pump & managing with SQ basal bolus insulin regimen for the interim. PLAN FOR INPATIENT GLYCEMIC CONTROL: * Novolog Pump with parameters as above * patient to continue same regimen if NPO (confirmed this with Pierre pharmacist at [facility]) PLAN FOR DISCHARGE * Patient works intensely with glycemic pharmacist at [facility]. Can continue with pharmacist there to improve glycemic control. * Please note that the plan above was derived based on current level of insulin resistance and hospital stress. These recommendations are appropriate for inpatient admission only. Plan of care upon discharge will need to be reassessed to avoid potential outpatient hypo/hyperglycemia. Thank you.
[2017-03-29] MEDS ORDERED: CLONIDINE HCL 0.1 MG TAB PO PRN (15:45)
[2017-03-29 15:52] LABS: CKMB/CK RATIO 3.6 (0-3.0)
--- NOTE | 2017-03-29 16:32 | ECHOCARDIOGRAM REPORT ---
*NOTICE TO RECEIVING REPUBLICAN AGENCY This information is strictly Confidential and protected under [place] law. [place] law prohibits you from making any further disclosure of this information unless further disclosure is expressly permitted by the written consent of the person to whom it pertains or is authorized by law. A general authorization for the release of medical or other information is not sufficient for this purpose. Hospital accepts no responsibility if the information is made available to any other person, INCLUDING THE PATIENT. Interpretation Summary * Name: MILLIE SALMON Study Date: 03/29/2017 02:38 PM BP: 177/92 mmHg * Patient Location: [facility]\S\N280\S\2 HR: 64 * : 1955 (M/d/yyyy) Gender: Male Height: 69 in * Age: 62 yrs Ethnicity: [place] Weight: 254 lb * Ordering Physician: Suresh Crandall * Referring Physician: Self, Referred * Performed By: Supriya Adhikari RCS * * Reason For Study: CHEST PAIN * BSA: 2.3 m2 * The study was technically adequate. * There is no comparison study available. * -- Conclusions -- * Ejection Fraction = 60-65%. * There is moderate concentric left ventricular hypertrophy. * The left atrium is moderately dilated. * Grade I diastolic dysfunction, (abnormal relaxation pattern). * There is no pericardial effusion. * No significant valvular pathology. Procedure Details * A complete two-dimensional transthoracic echocardiogram was performed (2D, M-mode, Doppler and color flow Doppler). Left Ventricle * The left ventricle is normal in size. * There is moderate concentric left ventricular hypertrophy. * Left ventricular systolic function is normal. * Ejection Fraction = 60-65%. * The left ventricular wall motion is normal. Right Ventricle * The right ventricle is normal size. * The right ventricular systolic function is normal as assessed by tricuspid annular plane systolic excursion (TAPSE) (normal >1.5 cm). Atria * The left atrium is moderately dilated. * Right atrial size is normal. * There is no evidence of atrial septal defect, but resolution does not allow assessment for a patent foramen ovale. Mitral Valve * The mitral valve is normal. * There is mild mitral annular calcification. * There is no mitral valve stenosis. * Significant mitral regurgitation is absent. Tricuspid Valve * The tricuspid valve is normal. * There is no tricuspid stenosis. * Significant tricuspid regurgitation is absent. Aortic Valve * The aortic valve is trileaflet. * Aortic stenosis is absent. * There is no significant aortic regurgitation. Pulmonic Valve * The pulmonary valve is not well seen, but the Doppler examination is normal without significant regurgitation or stenosis. Great Vessels * The aortic root is normal size. Pericardium/Pleural * There is no pericardial effusion. Great Vessels * Normal inferior vena cava diameter and respiratory variation suggests normal central venous pressure. Left Ventricular Diastolic Function * Grade I diastolic dysfunction, (abnormal relaxation pattern). MMode 2D Measurements and Calculations IVSd 1.5 cm IVSs 1.8 cm LVIDd 5.4 cm LVIDs 3.5 cm LVPWd 1.4 cm LVPWs 1.7 cm IVS/LVPW 1.0 FS 35.4 % EDV(Teich) 143.1 ml ESV(Teich) 51.2 ml EF(Teich) 64.3 % EDV(cubed) 160.1 ml ESV(cubed) 43.2 ml EF(cubed) 73.0 % % IVS thick 19.3 % % LVPW thick 20.0 % LV mass(C)d 353.5 grams LV mass(C)dI 154.6 grams/m\S\2 LV mass(C)s 251.9 grams LV mass(C)sI 110.2 grams/m\S\2 SV(Teich) 92.0 ml SI(Teich) 40.2 ml/m\S\2 SV(cubed) 116.9 ml SI(cubed) 51.1 ml/m\S\2 Ao root diam 3.7 cm Ao root area 10.9 cm\S\2 ACS 2.3 cm LA dimension 4.6 cm LA/Ao 1.2 LVOT diam 2.0 cm LVOT area 3.3 cm\S\2 Doppler Measurements and Calculations MV E max dangelo 99.2 cm/sec MV A max dangelo 122.4 cm/sec MV E/A 0.81 MV P1/2t max dangelo 108.3 cm/sec MV P1/2t 97.0 msec MVA(P1/2t) 2.3 cm\S\2 MV dec slope 326.9 cm/sec\S\2 MV dec time 0.33 sec Ao V2 max 133.0 cm/sec Ao max PG 7.1 mmHg Ao max PG (full) 1.1 mmHg CLEOPATRA(V,A) 3.0 cm\S\2 CLEOPATRA(V,D) 3.0 cm\S\2 LV V1 max PG 6.0 mmHg LV V1 max 122.2 cm/sec PA V2 max 135.4 cm/sec PA max PG 7.3 mmHg
[2017-03-29] MEDS: NovoLOG INSULIN PUMP SCH ×2 (17:22→22:00)
[2017-03-29 19:44] VITALS: BP 161/91; PULSE 61; TEMP 36.6; O2SAT 96
[2017-03-29] MEDS ORDERED: ENALAPRIL MALEATE 10 MG TAB PO SCH (21:00)
[2017-03-29] MEDS ORDERED: ATORVASTATIN 20 MG TAB PO SCH (21:00)
[2017-03-29] MEDS ORDERED: NON-FORMULARY MEDICATION (Ramipril (Altace) 10 MG) PO SCH (21:00)
[2017-03-29] MEDS ORDERED: AMLODIPINE BESYLATE 5 MG TAB PO SCH (21:00)
[2017-03-29] MEDS ORDERED: ENOXAPARIN 40 MG/0.4 ML SYR SC SCH (21:00)
--- NOTE | 2017-03-29 21:09 | DIAGNOSTIC IMAGING REPORT ---
EXAMINATION: RENAL ULTRASOUND CLINICAL HISTORY: Back pain COMPARISON STUDY: None FINDINGS: The right kidney measures 13.1 cm. The left kidney measures 13.4 cm. There is no evidence of hydronephrosis. There are no renal masses. No bladder abnormalities were identified. The left ureteral jet was not visualized. IMPRESSION : Nonvisualization of the left ureteral jet. Otherwise normal renal ultrasound. Electronically signed by: Bunny Wilkes M.D. 03/29/2017 9:08 PM Dictated Date/Time: 03/29/2017 9:07 PM
[2017-03-29] MEDS: BusPIRone 15 MG TAB PO SCH (21:53)
[2017-03-29] MEDS: SERTRALINE HCL 100 MG TAB PO SCH (21:56)
[2017-03-29 23:25] VITALS: BP 150/78; PULSE 60; TEMP 36.6; O2SAT 93
[2017-03-30] MEDS ORDERED: NURSING VERBAL MED ORDER ONE
[2017-03-30 03:56] VITALS: BP 151/82; PULSE 63; TEMP 36.6; O2SAT 92
[2017-03-30] MEDS: NovoLOG INSULIN PUMP SCH ×2 (06:00→15:02)
[2017-03-30 07:04] LABS: CHOLESTEROL/HDL RATIO 4.5
[2017-03-30 07:24] LABS: ESTIMATED AVERAGE GLUCOSE 177 mg/dl; HA1C FLAG Normal (Normal)
[2017-03-30 08:00] VITALS: O2SAT 92
[2017-03-30 08:02] VITALS: BP 144/80; PULSE 62; TEMP 36.8; O2SAT 93
[2017-03-30] MEDS ORDERED: CYANOCOBALAMIN 100 MCG TAB (VIT B-12) PO SCH (09:00)
[2017-03-30] MEDS ORDERED: ASPIRIN 81 MG ECTAB PO SCH (09:00)
[2017-03-30] MEDS ORDERED: PANTOprazole SOD 40 MG TAB PO SCH (09:00)
[2017-03-30] MEDS ORDERED: MULTIVITAMIN TAB PO SCH (09:00)
--- NOTE | 2017-03-30 12:08 | Progress Note ---
Internal Med Progress Note Date of Service: Mar 30, 2017. Provider Documentation: SUBJECTIVE: Seen and examined at bedside. Feels better today Denies chest pain, SOB, dizziness Flank pain resolved OBJECTIVE: Vital Signs-as noted below Physical Exam: General Appearance:Moderately built and nourished, no apparent distress Head: normocephalic, Atraumatic Eyes: normal inspection, EOMI, PERRL Neck: supple, Trachea midline Respiratory/Chest: Normal breath sounds, CTA Cardiovascular: S1, S2, No murmur Abdomen/GI:Soft, Non tender, Bowel sounds present Extremities/Musculoskelatal:normal inspection, no edema Neurologic/Psych:AAOX3, grossly no focal neurological deficits Skin: normal color, warm Lab data as noted below. ASSESSMENT & PLAN: Chest pain, atypical: R/o ACS: risk factors include CAD, DM II, HTN, HLD, obese. 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 * There is moderate concentric left ventricular hypertrophy. * The left atrium is moderately dilated. * Grade I diastolic dysfunction, (abnormal relaxation pattern). * There is no pericardial effusion. * No significant valvular pathology. Vital Signs: Date Time Temp Pulse Resp B/P (MAP) Pulse Ox O2 Delivery O2 Flow Rate FiO2 03/30/17 08:02 36.8 62 18 144/80 (101) 93 Room Air 03/30/17 04:00 Room Air 03/30/17 04:00 Room Air 03/30/17 03:56 36.6 63 18 151/82 (105) 92 Room Air 03/30/17 00:00 Room Air 03/29/17 23:25 36.6 60 20 150/78 (102) 93 Room Air 03/29/17 20:00 Room Air 03/29/17 19:44 36.6 61 20 161/91 (114) 96 Room Air 03/29/17 16:00 Room Air 03/29/17 13:49 36.7 66 16 177/92 92 Room Air 03/29/17 12:41 62 03/29/17 12:32 60 16 158/93 94 Room Air Lab Results: Results Past 24 Hours Test 03/29/17 15:15 03/29/17 16:43 03/29/17 19:51 03/29/17 21:24 Range/Units Total Creatine Kinase 59 60 39-308 U/L Creatine Kinase MB 2.1 2.4 0.5-3.6 ng/ml Creatine Kinase MB Ratio 3.6 4.0 0-3.0 Troponin I < 0.015 < 0.015 0-0.045 ng/ml Bedside Glucose 121 123 70-99 mg/dl Test 03/30/17 05:58 03/30/17 06:10 Range/Units Triglycerides Level 225 0-150 mg/dl Cholesterol Level 104 0-200 mg/dl HDL Cholesterol 23 mg/dl LDL Cholesterol, Calculated 36 mg/dl VLDL Cholesterol, Calculated 45 mg/dl Cholesterol/HDL Ratio 4.5 Bedside Glucose 77 70-99 mg/dl
--- NOTE | 2017-03-30 12:10 | Discharge Summary ---
Discharge Summary Date of Service Mar 30, 2017. Discharge Summary Admission Date: Mar 29, 2017 at 12:25 Discharge Date: Mar 30, 2017 Discharge Disposition: Home Principal Diagnosis: Atypical chest pain Procedures: Renal USD; : Nonvisualization of the left ureteral jet. Otherwise normal renal ultrasound. Chest/Abd X ray: : Normal study. ECHO: * Ejection Fraction = 60-65%. * There is moderate concentric left ventricular hypertrophy. * The left atrium is moderately dilated. * Grade I diastolic dysfunction, (abnormal relaxation pattern). * There is no pericardial effusion. * No significant valvular pathology. Consultations: Cardiology Pending Studies/Follow-Up: Follow up with on 04/04/17 at 2:00pm Follow up with your institutional research director to get stress test as outpatient Medication Reconciliation Continued Medications: Amlodipine (Norvasc) 2.5 Mg Tab 2.5 MG PO QPM, TAB Aspirin (Aspirin Ec) 81 Mg Tab 81 MG PO QAM Atenolol (Tenormin) 50 Mg Tab 50 MG PO QPM, TAB Atorvastatin (Lipitor) 40 Mg Tab 40 MG PO QPM, TAB Buspirone Hcl (Buspar) 15 Mg Tab 15 MG PO BID, TAB Cyanocobalamin (Vitamin B12 100 Mcg) 100 Mcg Tab 100 MCG PO QAM, TAB Insulin Aspart (novoLOG INSULIN PUMP ) 1 Ea Inj 1 EA N/A UD, EA Metformin Hcl (Glucophage) 1,000 Mg Tab 1000 MG PO BID, TAB Multivitamin (Multivitamin) Tab 1 TAB PO QAM, TAB Pantoprazole (Protonix) 40 Mg Tab 40 MG PO QAM, #30 TAB Ramipril (Altace) 10 Mg Cap 10 MG PO QPM, CAP Sertraline Hcl (Zoloft) 100 Mg Tab 100 MG PO BID, TAB Admission Information HPI (per Admitting provider): This is a 62yo M with a PMH of CAD (non-obstructive), DM II on insulin-pump, HTN , HLD, A fib (not on anti-coagulation), GERD and h/o kidney stones who presents with chest pain x 1 day. Patient states that he started to experience bilateral flank pain yesterday with some associated nausea that felt similar to times he has passed kidney stones in the past. However, he did not have any urinary symptoms. This morning, pt was walking around at work when he started to experience a dull, aching chest pain located in left chest/mid-sternal region that radiated to his back. Pain is constant, 5/10 and does not improve with rest. Endorses associated nausea but denies any diaphoresis, palpitations, shortness of breath, abdominal pain, vomiting or MSK pain in his torso. Also says he has been under more emotional stress lately due to caring for his sick mother. Cardiac cath performed in 2013 showed mild LAD intramyocardial bridge causing 40% narrowing during systole. Echo in 01/23 showed a normal EF of 60-64% . As for back pain, patient states that pain has improved since yesterday and that he has not experienced any typical urinary symptoms, like as dysuria or hematuria, from kidney stones in the past. Physical Exam (per Admitting): General Appearance: WD/WN, no apparent distress, + obese Head: normocephalic, atraumatic Eyes: normal inspection, PERRL ENT: normal ENT inspection, hearing grossly normal Neck: supple, thyroid normal, no JVD Respiratory/Chest: chest non-tender, lungs clear, normal breath sounds, no respiratory distress, no accessory muscle use Cardiovascular: regular rate, rhythm, no edema, no gallop, no murmur, normal peripheral pulses Abdomen/GI: normal bowel sounds, non tender, soft (protuberant abdomen) Back: normal inspection, no CVA tenderness, normal range of motion Extremities/Musculoskelatal: normal inspection, no calf tenderness, no pedal edema Neurologic/Psych: no motor/sensory deficits, alert, normal mood/affect, oriented x 3 Skin: normal color, warm/dry, no rash Lymphatic: no adenopathy Hospital Course Chest pain, atypical: R/o ACS: risk factors include CAD, DM II, HTN, HLD, obese. 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 * There is moderate concentric left ventricular hypertrophy. * The left atrium is moderately dilated. * Grade I diastolic dysfunction, (abnormal relaxation pattern). * There is no pericardial effusion. * No significant valvular pathology. Total time spent on discharge = This includes examination of the patient, discharge planning, medication reconciliation, and communication with other providers. Discharge Instructions Discharge Instructions Date of Service Mar 30, 2017. Admission Reason for Admission: Chest Pain Discharge Discharge Diagnosis / Problem: Atypical chest pain Discharge Goals Goal(s): Decrease discomfort, Improve function Activity Recommendations Activity Limitations: resume your previous activity Exercise/Sports Limitations: as tolerated . Instructions / Follow-Up Instructions / Follow-Up Follow up with on 04/04/17 at 2:00pm Follow up with your institutional research director to get stress test as outpatient Seek immediate medical attention if your symptoms reoccur or worsen Current Hospital Diet Patient's current hospital diet: Diabetes Type 2 Diet, AHA Diet (Heart Healthy) Discharge Diet Recommended Diet: AHA Diet (Heart Healthy), Diabetes Type 2 Diet Pending Studies Studies pending at discharge: no Laboratory Results Hemoglobin A1c Test 03/29/17 09:18 Range/Units Estimated Average Glucose 177 mg/dl Hemoglobin A1c 7.8 H 4.5-5.6 % Lipid Panel Test 03/30/17 05:58 Range/Units Triglycerides Level 225 H 0-150 mg/dl Cholesterol Level 104 0-200 mg/dl HDL Cholesterol 23 mg/dl Cholesterol/HDL Ratio 4.5 LDL Cholesterol, Calculated 36 mg/dl Medical Emergencies . Who to Call and When: Medical Emergencies: If at any time you feel your situation is an emergency, please call 911 immediately. . Non-Emergent Contact Non-Emergency issues call your: Primary Care Provider, Dispersion Mixer Call Non-Emergent contact if: you have a fever, your pain is not controlled, your pain is worsening, your pain is unusual for you, you have any medication questions . . "Provider Documentation" section prepared by Patrick Barr. . VTE Core Measure Inpt VTE Proph given/why not?: Enoxaparin (Lovenox)SQ
[2017-03-30] MEDS: SERTRALINE HCL 100 MG TAB PO SCH (12:12)
[2017-03-30] MEDS: BusPIRone 15 MG TAB PO SCH (12:12)
[2017-03-30 15:49] VITALS: BP 90/48; PULSE 93; TEMP 36.4; O2SAT 96
[2017-03-30] MEDS ORDERED: AMLODIPINE BESYLATE 5 MG TAB PO SCH (21:00)
--- NOTE | 2017-03-31 00:49 | PROGRESS NOTE ---
DATE: 03/30/2017 CARDIOLOGY CONSULTATION FOLLOWUP The patient was seen and examined. Chart, laboratory studies, and telemetry were reviewed. SUBJECTIVE: The patient has had no further chest pain or back pain. Overnight, he has had some minimal right lower quadrant pain. Notes no dysuria or hematuria. Notes no tachypalpitations or dizziness. OBJECTIVE: VITAL SIGNS: Heart rate is 62 and blood pressure is 144/80. NECK: Thick, but there is no jugular venous distention. There are no carotid bruits. LUNGS: Reveal good aeration to the bases. CARDIOVASCULAR: Regular with normal S1 and S2. There is no murmur, gallop or rub. ABDOMEN: Soft. EXTREMITIES: Without cyanosis or clubbing. There is no peripheral edema of significance. DATA: Chest x-ray on admission revealed normal study. EKG this morning demonstrates AV sequential pacing. LABORATORY STUDIES: Revealed negative troponins x2. No CPK elevation. Cholesterol was 104. Glucose is 77. IMPRESSION: This 62-year-old male was admitted with atypical chest and back discomfort without signs or symptoms of acute myocardial ischemia by enzymatic examination. EKG limited by AV sequential pacing. Symptoms appear noncardiac in nature. Blood pressures have been trending slightly higher. RECOMMENDATIONS: Increase amlodipine to 5 mg per day. Assess for alternate source of symptoms. I would recommend stress nuclear imaging as an outpatient and the patient may be discharged for further cardiac evaluation. Arrangements were made for outpatient stress testing. [facility]
== END 2017-03-30 14:00 | disposition home or self-care (01) ==
LOC: C.EDB 09:06 → C.MED 12:25 → ENRESERV 12:46
PROVIDERS: ADMIT Internal Medicine; ATTEND Internal Medicine
DX: R07.89 Other chest pain (principal); I25.10 Atherosclerotic heart disease of native coronary artery without angina pectoris; I10 Essential (primary) hypertension; E78.5 Hyperlipidemia, unspecified; E11.9 Type 2 diabetes mellitus without complications; I48.91 Unspecified atrial fibrillation; K21.9 Gastro-esophageal reflux disease without esophagitis; Z87.891 Personal history of nicotine dependence; Z79.4 Long term (current) use of insulin; Z79.899 Other long term (current) drug therapy; Z79.82 Long term (current) use of aspirin; Z95.0 Presence of cardiac pacemaker; F32.9 Major depressive disorder, single episode, unspecified

== ENCOUNTER 2017-10-10 14:13 | Emergency (ER) | payer OTHER ==
[~2017-10-10] VITALS: Ht 175.3 cm; Wt 114.7 kg
[~2017-10-10 14:13] MED LIST changes: +PANT1TAB3 PO; -PANT1TAB48 PO
[2017-10-10 14:20] VITALS: BP 141/79; PULSE 79; TEMP 37.1; O2SAT 93; Ht 175.3 cm; Wt 114.7 kg
== END 2017-10-10 15:17 | disposition left against medical advice (07) ==
LOC: C.EDB 14:14
DX: R07.9 Chest pain, unspecified (principal)

== ENCOUNTER 2020-09-16 13:24 | Inpatient (IN) ==
[2020-09-16] MEDS ORDERED: SODIUM CHLORIDE 0.9% 500 ML IV SCH (14:00)
[2020-09-16] MEDS ORDERED: MoRPHine SULFATE 4 MG/ML 1 ML CARP\\VIAL IV STA (14:00)
[2020-09-16] MEDS ORDERED: ONDANSETRON INJ 2 MG/ML 2 ML VIAL IV STA (14:00)
--- NOTE | 2020-09-16 14:03 | Emergency Department Note ---
History of Present Illness General Chief Complaint: Abdominal Pain Stated Complaint: ABOMINAL PAIN, VOMITING Time Seen by Provider: 09/16/20 13:52 Source: patient Mode of arrival: ambulatory Limitations: no limitations History of Present Illness Provider Complaint: abdominal pain Maximum Pain Intensity: 6 This is a 65-year-old male who presents to the ED with a chief complaint of abdominal pain that started last night around 8 PM. He states that nausea and vomiting followed. He had a normal bowel movement yesterday afternoon. He reports that the pain is in the lower abdominal region diffusely. He reports that it is a constant pressure type pain with occasional sharp stabbing pains. He rates it a 5 out of 10. Occasionally radiates to the back. Denies any other symptoms. No fevers or urinary symptoms. Home Medications Medication Instructions Recorded Confirmed Type Novolog Insulin Pump 1 dose pk NOT APPLICABLE UD 06/20/19 08/05/20 History amlodipine 2.5 mg PO DAILY 06/20/19 08/05/20 History apixaban [Eliquis] 5 mg PO BID 06/20/19 08/05/20 History aspirin 81 mg PO DAILY 06/20/19 08/05/20 History atorvastatin 40 mg PO DAILY 06/20/19 08/05/20 History cyanocobalamin (vitamin B-12) 100 mcg PO DAILY 06/20/19 08/05/20 History [Vitamin B-12] furosemide [Lasix] 20 mg PO DAILY 06/20/19 08/05/20 History losartan 50 mg PO DAILY 06/20/19 08/05/20 History magnesium oxide 400 mg PO DAILY 06/20/19 08/05/20 History metformin 1,000 mg PO BID 06/20/19 08/05/20 History metoprolol succinate 100 mg PO DAILY 06/20/19 08/05/20 History multivitamin 1 tab PO DAILY 06/20/19 08/05/20 History pantoprazole 40 mg PO DAILY 06/20/19 08/05/20 History potassium chloride 10 meq PO DAILY 06/20/19 08/05/20 History sertraline [Zoloft] 50 mg PO DAILY 06/20/19 08/05/20 History sertraline [Zoloft] 100 mg PO DAILY 06/20/19 08/05/20 History ondansetron 4 mg PO Q8H PRN #10 tab 08/05/20 Rx oxycodone [Roxicodone] 5 mg PO Q6H PRN #12 tab 08/05/20 Rx tamsulosin [Flomax] 0.4 mg PO DAILY #14 cap 08/05/20 Rx Allergies Allergy/AdvReac Type Severity Reaction Status Date / Time No Known Allergies Allergy Verified 08/05/20 08:39 Past Med/Surg History Medical History CAD in tetlin artery Chest pain Diabetes Effusion of knee joint right H/O renal calculi HLD (hyperlipidemia) HTN (hypertension) Pacemaker Surgical History Hx of cholecystectomy S/P cholecystectomy Status post laparoscopic hernia repair Social History Smoking Status: Never smoker Feels Safe at Home: Yes Review of Systems A total of 10 systems reviewed and were otherwise negative Physical Exam Vital Signs: Vital Signs - 24 hr 09/16/20 13:26 Temperature 36.6 C Temperature Source Oral Pulse Rate 70 Respiratory Rate 16 Blood Pressure 126/65 Blood Pressure Scarlet n 85 Pulse Oximetry 92 Oxygen Delivery Me thod Room Air Sepsis Recent Feve r Within 48 Hours No Sepsis New/Unexpla ined Change in Men sada Status N/A Sepsis Action Take n by Nursing No Action Required Physical Exam: CONSTITUTIONAL/VITAL SIGNS: Reviewed / noted above. GENERAL: Non-toxic in appearance. INTEGUMENTARY: Warm, dry, and [place]. HEAD: Normocephalic. EYES: without scleral icterus or trauma. ENT/OROPHARYNX: clear and moist. LYMPHADENOPATHY/NECK: Is supple without lymphadenopathy or meningismus. RESPIRATORY: Lungs clear and equal. CARDIOVASCULAR: Regular rate and rhythm. GI/ABDOMEN: Soft and tender in the right as well as left lower quadrants. No organomegaly or pulsatile mass. No rebound or guarding. Normal bowel sounds. EXTREMITIES: Warm and well perfused. BACK: No CVA tenderness. NEUROLOGICAL: Intact without focal deficits. PSYCHIATRIC: normal affect. MUSCULOSKELETAL: Normally developed with good muscle tone. TRIAGE NURSING DOCUMENTATION REVIEWED. Course Administered Medications Discontinued Medications Sodium Chloride (Nss) 500 mls @ 999 mls/hr IV .Q31M FILIPE Stop: 09/16/20 14:30 Last Infusion: 09/16/20 15:16 Dose: 0 mls/hr Documented by: [id number] Admin: 09/16/20 14:42 Dose: 999 mls/hr Documented by: [id number] Morphine Sulfate (Morphine Sulfate 4 Mg/Ml 1 Ml Carp\Vial) 4 mg IV NOW STA Stop: 09/16/20 14:01 Last Admin: 09/16/20 14:42 Dose: 4 mg Documented by: [id number] Ondansetron HCl (Ondansetron Inj 2 Mg/Ml 2 Ml Vial) 4 mg IV NOW STA Stop: 09/16/20 14:01 Last Admin: 09/16/20 14:42 Dose: 4 mg Documented by: [id number] Medical Decision Making Differential Diagnosis Differential considered: pancreatitis, hepatitis, acute cholecystitis, AAA, UTI, pyelonephritis, kidney stones, appendicitis, diverticulitis, shingles, bowel obstruction, mesenteric ischemia, intussusception,hernia, testicular t orsion. Medical Records Attestation: I reviewed the patient's medical records. Home Medications Current Medication List: was personally reviewed by me Laboratory Data Attestation: I reviewed the patient's lab results. Result diagrams: 09/16/20 14:14 09/16/20 14:14 Lab Results 09/16/20 09/16/20 Range/Units 14:14 14:14 WBC 6.63 (4.8-10.8) K/uL RBC 5.29 (4.7-6.1) M/uL Hgb 13.9 L (14.0-18.0) g/dL Hct 43.6 (42-52) % MCV 82.4 (80-100) fL MCH 26.3 (25-34) pg MCHC 31.9 L (32-36) g/dL RDW Std Deviation 42.2 (36.4-46.3) fL RDW Coeff of Manoj 14.3 (11.5-14.5) % Plt Count 153 (130-400) K/uL MPV 9.4 (7.4-10.4) fL Immature Gran % (Auto) 0.3 % Neut % (Auto) 70.1 % Lymph % (Auto) 16.3 % [place] % (Auto) 13.3 % Eos % (Auto) 0.0 % Baso % (Auto) 0.0 % Neut # (Auto) 4.65 (1.4-6.5) K/uL Lymph # (Auto) 1.08 L (1.2-3.4) K/uL [place] # (Auto) 0.88 H (0.11-0.59) K/uL Eos # (Auto) 0.00 (0-0.5) K/uL Baso # (Auto) 0.00 (0-0.2) K/uL Immature Gran # (Auto) 0.02 (0.00-0.02) K/uL Sodium 140 (136-145) mmol/L Potassium 3.9 (3.5-5.1) mmol/L Chloride 106 (98-107) mmol/L Carbon Dioxide 30 (21-32) mmol/L Anion Gap 4.0 (3-11) BUN 29 H (7-18) mg/dl Creatinine 1.06 (0.6-1.4) mg/dl Est Cr Clr Drug Dosing 87.8 ml/min Est GFR ( Amer) 83.8 Est GFR (Non-Af Amer) 72.3 BUN/Creatinine Ratio 27.1 H (10-20) Glucose 107 H (70-99) mg/dl Calcium 9.6 (8.5-10.1) mg/dl Total Bilirubin 0.5 (0.2-1) mg/dl AST 20 (15-37) U/L ALT 38 (12-78) U/L Alkaline Phosphatase 119 H (45-117) U/L Total Protein 8.3 H (6.4-8.2) gm/dl Albumin 4.1 (3.4-5.0) gm/dl Globulin 4.2 H (2.5-4.0) gm/dl Albumin/Globulin Ratio 1.0 (0.9-2) Lipase 65 L (73-393) U/L Imaging Data Radiologist's Impression: CT scan of the abdomen pelvis:IMPRESSION: 1. Proximal small bowel obstructive pattern. No mass identified at the left upper quadrant transition zone 2. Bilateral nephrolithiasis. No ureteral or bladder calculi identified 3. Surgically absent gallbladder 4. Mild splenomegaly 5. Colonic diverticulosis. No evidence of acute diverticulitis. Normal appendix. MDM Narrative Patient presents with lower abdominal pain followed by nausea and vomiting started yesterday evening. Persist today. His exam reveals some tenderness in the lower abdomen. History of cholecystectomy and hernia repair in the past. Vital signs are normal. The CT scan of the abdomen pelvis shows a proximal small bowel obstruction. CBC and chemistry panel was unremarkable. BUN is 29. Lipase was negative. The patient was told the results of the test. An NG tube was ordered. I spoke with medicine and surgical service. They will see the patient. He was given IV morphine and IV fluids as well as IV Zofran during his stay. He did not have any vomiting while here. Impression & Plan SBO (small bowel obstruction) Discharge Plan Visit Data Chief Complaint: Abdominal Pain Stated Complaint: ABOMINAL PAIN, VOMITING ED Provider: Karlos Benítez Discharge Problem: SBO (small bowel obstruction) Patient Disposition: Being Evaluated by Hospitalist Forms Stand Alone Forms: My [facility] Prescriptions Prescriptions: No Action amlodipine 2.5 mg Tablet 2.5 mg PO DAILY RF: 0 Eliquis 5 mg Tablet 5 mg PO BID RF: 0 aspirin 81 mg Tablet,Delayed Release (Dr/Ec) 81 mg PO DAILY RF: 0 atorvastatin 40 mg Tablet 40 mg PO DAILY RF: 0 furosemide [Lasix] 20 mg Tablet 20 mg PO DAILY RF: 0 Novolog Insulin Pump 1 EA 1 dose pk Not Applicable UD RF: 0 losartan 50 mg Tablet 50 mg PO DAILY RF: 0 magnesium oxide 400 mg magnesium Capsule 400 mg PO DAILY RF: 0 metformin 1,000 mg Tablet 1,000 mg PO BID RF: 0 metoprolol succinate 100 mg Tablet Extended Release 24 Hr 100 mg PO DAILY RF: 0 multivitamin Tablet 1 tab PO DAILY RF: 0 pantoprazole 40 mg Tablet,Delayed Release (Dr/Ec) 40 mg PO DAILY RF: 0 potassium chloride 10 mEq Tablet Extended Release 10 meq PO DAILY RF: 0 cyanocobalamin (vitamin B-12) [Vitamin B-12] 100 mcg Tablet 100 mcg PO DAILY RF: 0 sertraline [Zoloft] 100 mg Tablet 100 mg PO DAILY RF: 0 sertraline [Zoloft] 50 mg Tablet 50 mg PO DAILY RF: 0 tamsulosin [Flomax] 0.4 mg capsule 0.4 mg PO DAILY Qty: 14 RF: 0 ondansetron 4 mg tablet,disintegrating 4 mg PO Q8H PRN (Reason: nausea and vomiting) Qty: 10 RF: 0 oxycodone [Roxicodone] 5 mg tablet 5 mg PO Q6H PRN (Reason: pain) Qty: 12 RF: 0 Referrals Referrals: Yoshi Buitrago MD [Primary Care Provider] -
[2020-09-16 14:32] LABS: Hematocrit (blood only) 43.6 % (42-52); Hemoglobin 13.9 g/dL (14.0-18.0); Immature Granulocytes # (auto) 0.02 K/uL (0.00-0.02); Immature Granulocytes % (auto) 0.3 %; Lymphocytes # (auto) 1.08 K/uL (1.2-3.4); Lymphocytes % (auto) 16.3 %; Mean Corpuscular Hemoglobin 26.3 pg (25-34); Mean Corpuscular Hgb Conc 31.9 g/dL (32-36); Mean Corpuscular Volume 82.4 fL (80-100); Mean Platelet Volume 9.4 fL (7.4-10.4); Monocytes # (auto) 0.88 K/uL (0.11-0.59); Monocytes % (auto) 13.3 %; Neutrophils # (auto) 4.65 K/uL (1.4-6.5); Neutrophils % (auto) 70.1 %; Platelet Count 153 K/uL (130-400); RDW Coefficient of Variation 14.3 % (11.5-14.5); RDW Standard Deviation 42.2 fL (36.4-46.3); Red Blood Count 5.29 M/uL (4.7-6.1); White Blood Count 6.63 K/uL (4.8-10.8)
[2020-09-16 14:54] LABS: Albumin Level 4.1 gm/dl (3.4-5.0); BUN Creatinine Ratio 27.1 (10-20); Calcium 9.6 mg/dl (8.5-10.1); Creatinine Clr Calc Pharmacy 87.8 ml/min; Est GFR (African American) 83.8; Est GFR (Non-African American) 72.3; Potassium 3.9 mmol/L (3.5-5.1)
[2020-09-16 14:57] LABS: Bilirubin,Total 0.5 mg/dl (0.2-1); Globulin 4.2 gm/dl (2.5-4.0); Total Protein 8.3 gm/dl (6.4-8.2)
--- NOTE | 2020-09-16 15:10 | CT Scan Report ---
CT SCAN OF THE ABDOMEN AND PELVIS WITHOUT CONTRAST CLINICAL HISTORY: Abdominal pain, nausea, vomiting. History of cholecystectomy. COMPARISON STUDY: 08/05/2020 TECHNIQUE: CT scan of the abdomen and pelvis was performed from the lung bases to the proximal femurs . Images are reviewed in the axial, sagittal, and coronal planes. IV contrast was not administered fo r this examination. A dose lowering technique was utilized adhering to the principles of ALARA. CT DOSE: 1495.40 mGy.cm FINDINGS: Lower chest: The heart is enlarged. There is a small pericardial effusion. There are dependent parenc hymal opacities statistically atelectatic. Liver: The unenhanced liver is normal in size, contour, and attenuation. There is no intrahepatic mac iary ductal dilatation. Gallbladder: Surgically absent Spleen: Minimally enlarged measuring 12.8 cm Pancreas: There is a stable 1 cm hypodense pancreatic tail lesion, likely representing a side branch IPMN. A few smaller subcentimeter low-density lesions are also present. Adrenal glands: There is mild low density adrenal gland thickening unchanged from the prior study Kidneys: There is a punctate lower pole right renal calculus. Several left renal calculi are visualiz ed, the largest of which measures 5 mm. There is a stable hyperdense 13 mm left renal cortical lesion likely representing a hyperdense cyst. There is minor perinephric stranding. There is no significant hydronephrosis. No ureteral or bladder calculi are visualized. Bowel: There are dilated proximal small bowel loops demonstrating formed fecal material. The distal s mall bowel is of normal caliber. The findings are indicative of a small bowel obstruction. There is a left upper quadrant transition zone. No lesion is visualized at the level of transition. The appendi x appears normal. There is colonic diverticulosis. There are no acute peridiverticular inflammatory c hanges. Peritoneum: There is no free air. There is no ascites. There is a fat-containing umbilical hernia. Th ere is a fat-containing ventral hernia status post mesh repair. There is also additional upper abdomi nal small fat-containing ventral hernia similar to the prior study. There is a stable adjacent small nodule. This likely represents a postsurgical hernia. Vasculature: The abdominal aorta is normal in course and caliber. Adenopathy: None. Pelvic viscera: The bladder, and pelvic viscera are unremarkable. Skeletal structures: No destructive osseous lesions are seen. There is a prominent L5-S1 disc osteoph yte complex IMPRESSION: 1. Proximal small bowel obstructive pattern. No mass identified at the left upper quadrant transition zone 2. Bilateral nephrolithiasis. No ureteral or bladder calculi identified 3. Surgically absent gallbladder 4. Mild splenomegaly 5. Colonic diverticulosis. No evidence of acute diverticulitis. Normal appendix. ACT 112: Negative or not required by law. Electronically signed by: Bunny Wilkes M.D. 09/16/2020 3:09 PM
--- NOTE | 2020-09-16 16:14 | Surgery Consultation ---
Date of Consultation September 16, 2020 Assessment & Plan (1) SBO (small bowel obstruction): No previous history of obstruction but several surgeries. No acute abdominal findings. NG to LIWS. Hopefully will resolve, although hold Eliquis if possible. Supervising Physician Co-Signing Physician Notes Patient seen and examined, labs and imaging reviewed, agree with above. 65-year-old male with history of laparoscopic cholecystectomy and a laparoscopic ventral hernia repair, presented to the emergency department with abdominal pain with nausea and vomiting. Normal bowel yesterday, but not passing flatus today. On exam he is afebrile stable vitals. His abdomen is soft, minimally tender to palpation, moderately distended. Labs are unremarkable. CT scan shows small bowel obstruction with some fecalization of the small bowel and possible transition point in left upper quadrant. At this point we will proceed with nonoperative management. Appreciate medicine admission of this patient. Continue NG tube, repeat KUB in the morning. Surgery will continue to follow. May consider contrasted study if not improved in the next few days. History of Present Illness History of Present Illness 65 y/o male with abdominal pain, N/V that began last evening and continued into today. No previous illness or obstruction. Has been eating more salads recently. Had lap jill and lap repair of umbilical hernia. Had colonoscopy 3 months ago. Allergies Allergy/AdvReac Type Severity Reaction Status Date / Time No Known Allergies Allergy Verified 08/05/20 08:39 Home Medications Medication Instructions Recorded Confirmed Type Novolog Insulin Pump 1 dose pk NOT APPLICABLE UD 06/20/19 09/16/20 History apixaban [Eliquis] 5 mg PO BID 06/20/19 09/16/20 History aspirin 81 mg PO DAILY 06/20/19 09/16/20 History atorvastatin 40 mg PO DAILY 06/20/19 09/16/20 History cyanocobalamin (vitamin B-12) 100 mcg PO DAILY 06/20/19 09/16/20 History [Vitamin B-12] losartan 50 mg PO DAILY 06/20/19 09/16/20 History magnesium oxide 400 mg PO DAILY 06/20/19 09/16/20 History metformin 1,000 mg PO BID 06/20/19 09/16/20 History metoprolol succinate 100 mg PO BID 06/20/19 09/16/20 History multivitamin 1 tab PO DAILY 06/20/19 09/16/20 History pantoprazole 40 mg PO DAILY 06/20/19 09/16/20 History potassium chloride 10 meq PO DAILY 06/20/19 09/16/20 History sertraline [Zoloft] 150 mg PO DAILY 06/20/19 09/16/20 History ondansetron 4 mg PO Q8H PRN #10 tab 08/05/20 09/16/20 Rx tamsulosin [Flomax] 0.4 mg PO DAILY #14 cap 08/05/20 09/16/20 Rx acetaminophen [Tylenol Extra 1,000 mg PO Q6H PRN 09/16/20 09/16/20 History Strength] albuterol sulfate 2 puff INHALATION Q4H PRN 09/16/20 09/16/20 History empagliflozin [Jardiance] 10 mg PO DAILY 09/16/20 09/16/20 History furosemide 40 mg PO DAILY 09/16/20 09/16/20 History umeclidinium [Incruse Ellipta] 1 inh INHALATION DAILY 09/16/20 09/16/20 History Patient History Medical History CAD in [place] artery Chest pain Diabetes Effusion of knee joint right H/O renal calculi HLD (hyperlipidemia) HTN (hypertension) Pacemaker Surgical History Hx of cholecystectomy S/P cholecystectomy Status post laparoscopic hernia repair Social History Smoking Status: Never smoker Hx Alcohol Use: Yes Alcohol type: beer Hx Substance Use: No Preferred Language: Upper Sorbian Communication Ability: Effective Frame Hand Required: No Beliefs That Will Affect Care: None Current Living Situation: Spouse Other Information That Helps Us Care for You: No Feels Safe at Home: Yes Safety Concerns: Feels Safe At This Time Assistive Devices: Denture - Upper, Denture - Lower and Glasses Review of Systems Review of Systems: All systems reviewed & are unremarkable except as noted in HPI & below Gastrointestinal: + abdominal pain, + nausea and + vomiting Physical Exam Constitutional: WD/WN, vitals as above Respiratory: normal respiratory effort Cardiovascular: Rate/Rhythm: regular rate Gastrointestinal (Abdomen): Inspection/Auscultation: + abdomen distended (mild) Percussion/Palpation: + abdomen tender (mild) and abdomen soft Results & Data ([facility]) Vital Signs (Past 12 Hours) Vital Signs Temp Pulse Resp BP Pulse Ox 09/16/20 13:26 36.6 C 70 16 126/65 92 PG Care Time/CCT Total # of Minutes Spent Total Time Spent with Patient: Total time spent is greater than 50% in coordination of care (as documented) at patient's floor/unit and/or counseling patient: Coding Level of Care Code 63409 Initial Inpt Care Lvl 1 Diagnoses SBO (small bowel obstruction) K56.609
--- NOTE | 2020-09-16 17:11 | XRay Report ---
XR KUB/Abdomen 1 view CLINICAL HISTORY: Evaluate nasogastric tube placement COMPARISON STUDY: Chest x-ray dated 03/29/2017 FINDINGS: A single view centered on hemidiaphragms is provided for interpretation. The heart is enlar ged. Pacemaker is visualized. There is an enteric tube with its tip projected over the gastric cardia . IMPRESSION: The recently placed enteric tube is positioned with its tip at the level of the gastric cardia. Consideration should be given to slight tube advancement. ACT 112: Negative or not required by law. Electronically signed by: Bunny Wilkes M.D. 09/16/2020 5:10 PM
--- NOTE | 2020-09-16 17:31 | History & Physical Report ---
Date of Service September 16, 2020 Assessment & Plan (1) SBO (small bowel obstruction): Pt is 65 y/o M with PMH insulin dependent DM II, atrial fibrillation on Eliquis, diastolic heart failure, intermittent heart block s/p pacemaker, HTN, dyslipidemia, GERD, depression, obesity presented to ER with complaint of abdominal pain started last evening. H/O cholecystectomy and hernia repair In ER patient afebrile, vitals stable. No leukocytosis. CT abdomen pelvis:proximal small bowel obstructive pattern. No mass identified at the left upper quadrant transition zone In ER was given morphine 4 mg IV, Zofran 4 mg IV, 500 mL NSS bolus. NG tube was placed with 300 mL output. KUB after NG tube placement and NG tube was further advanced by ER nurse NPO IVF Continue NG tube KUB in a.m. General surgical consult, saw patient in ER. Conservative measures at this time AM labs (2) Atrial fibrillation: On Eliquis Will convert oral metoprolol to IV Lopressor Hold Eliquis. Heparin SC for now (3) Chronic diastolic (congestive) heart failure: No significant fluid overload at this time Hold oral Lasix for now and monitor volume status closely (4) Diabetes mellitus type 2, insulin dependent: On insulin pump A1c: 8.7 on 07/2020 Turn off patient's insulin pump and managed with basal bolus insulin. Glycemic pharmacist consult for assistance and glycemic management (5) History of heart block: S/p pacemaker (6) HTN (hypertension): BP stable Will hold losartan for now and monitor closely. May need to consider resuming tomorrow or using different agent Oral metoprolol converted to IV Lopressor (7) HLD (hyperlipidemia): Hold statin for now since n.p.o. (8) Depression: Hold Zoloft for now (9) BPH (benign prostatic hyperplasia): Hold Flomax for now DVT Prophylaxis -Heparin SQ DNR/DNI as per discussion with pt Follows with Dr Buitrago for routine care Pt was seen and care coordinated with Dr Aparicio. See addendum History of Present Illness Chief Complaint: Abdominal pain Primary Care Provider: Yoshi Buitrago MD Pt is 65 y/o M with PMH insulin dependent DM II, atrial fibrillation on Eliquis, diastolic heart failure, intermittent heart block s/p pacemaker, HTN, dyslipidemia, GERD, depression, obesity presented to ER with complaint of abdominal pain started last evening. Patient states last night started with periumbilical and lower abdominal aching with intermittent sharp pains. Started with nausea and vomiting. Has had 3 total episodes of vomiting. Last BM was yesterday. Reports not passing flatus today. Last ate a piece of toast this morning and vomited after. No prior treatment. History cholecystectomy and hernia repair.Denies fever/chills, diaphoresis, hematochezia, melena, hematemesis AZEVEDO, dizziness, syncope, vision changes, neck pain, CP, SOB, orthopne a, palpitations, cough, sore throat, choking, otalgia, rhinorrhea, paresthesias, weakness, extremity weakness, extremity edema, rashes, urinary symptoms. Allergies Allergy/AdvReac Type Severity Reaction Status Date / Time No Known Allergies Allergy Verified 08/05/20 08:39 Home Medications Medication Instructions Recorded Confirmed Type Novolog Insulin Pump 1 dose pk NOT APPLICABLE UD 06/20/19 09/16/20 History apixaban [Eliquis] 5 mg PO BID 06/20/19 09/16/20 History aspirin 81 mg PO DAILY 06/20/19 09/16/20 History atorvastatin 40 mg PO DAILY 06/20/19 09/16/20 History cyanocobalamin (vitamin B-12) 100 mcg PO DAILY 06/20/19 09/16/20 History [Vitamin B-12] losartan 50 mg PO DAILY 06/20/19 09/16/20 History magnesium oxide 400 mg PO DAILY 06/20/19 09/16/20 History metformin 1,000 mg PO BID 06/20/19 09/16/20 History metoprolol succinate 100 mg PO BID 06/20/19 09/16/20 History multivitamin 1 tab PO DAILY 06/20/19 09/16/20 History pantoprazole 40 mg PO DAILY 06/20/19 09/16/20 History potassium chloride 10 meq PO DAILY 06/20/19 09/16/20 History sertraline [Zoloft] 150 mg PO DAILY 06/20/19 09/16/20 History ondansetron 4 mg PO Q8H PRN #10 tab 08/05/20 09/16/20 Rx tamsulosin [Flomax] 0.4 mg PO DAILY #14 cap 08/05/20 09/16/20 Rx acetaminophen [Tylenol Extra 1,000 mg PO Q6H PRN 09/16/20 09/16/20 History Strength] albuterol sulfate 2 puff INHALATION Q4H PRN 09/16/20 09/16/20 History empagliflozin [Jardiance] 10 mg PO DAILY 09/16/20 09/16/20 History furosemide 40 mg PO DAILY 09/16/20 09/16/20 History umeclidinium [Incruse Ellipta] 1 inh INHALATION DAILY 09/16/20 09/16/20 History Past Med/Surg History Medical History (Updated 09/16/20 @ 19:36 by Dariana Pinto PA-C) BPH (benign prostatic hyperplasia) CAD in [place] artery Chest pain Diabetes Effusion of knee joint right H/O renal calculi History of heart block HLD (hyperlipidemia) HTN (hypertension) Pacemaker Surgical History Hx of cholecystectomy S/P cholecystectomy Status post laparoscopic hernia repair Social History Smoking Status: Never smoker Hx Alcohol Use: Yes Alcohol type: beer Hx Substance Use: No Preferred Language: Faroese Communication Ability: Effective Dairy Consultant Required: No Beliefs That Will Affect Care: None Current Living Situation: Spouse Other Information That Helps Us Care for You: No Feels Safe at Home: Yes Safety Concerns: Feels Safe At This Time Assistive Devices: Denture - Upper, Denture - Lower and Glasses Review of Systems Review of Systems: All systems reviewed & are unremarkable except as noted in HPI & below Physical Exam Physical Exam: General: no distress, obese Head: normocephalic, atraumatic Eyes: PERRL, conjunctiva non-injected, anicteric ENT: normal inspection external ears, nose, mucous membranes moist Neck: supple, trachea midline Lungs: clear, no respiratory distress, no wheezing/rhonchi/rales CV: Irregularly irregular, 1+ pretibial edema Abd: Protuberant, hypoactive BS, soft, +tenderness palpation epigastric, RLQ, LLQ without rebound Ext: no cyanosis, no calf tenderness Neuro: A&O x 3, no focal deficits noted, normal affect Skin: warm, dry Results & Data Results & Data ([facility]) Vital Signs (Past 12 Hours) Vital Signs Temp Pulse Resp BP Pulse Ox 09/16/20 13:26 36.6 C 70 16 126/65 92 Laboratory Results Short CBC 09/16/20 Range/Units 14:14 WBC 6.63 (4.8-10.8) K/uL Hgb 13.9 L (14.0-18.0) g/dL Hct 43.6 (42-52) % Plt Count 153 (130-400) K/uL BMP 09/16/20 14:14 Sodium 140 Potassium 3.9 Chloride 106 Carbon Dioxide 30 BUN 29 H Creatinine 1.06 Glucose 107 H Calcium 9.6 Liver Function 09/16/20 Range/Units 14:14 Total Bilirubin 0.5 (0.2-1) mg/dl AST 20 (15-37) U/L ALT 38 (12-78) U/L Alkaline Phosphatase 119 H (45-117) U/L Albumin 4.1 (3.4-5.0) gm/dl Diagnostic Findings CT ABD/PELVIS: IMPRESSION: 1. Proximal small bowel obstructive pattern. No mass identified at the left upper quadrant transition zone 2. Bilateral nephrolithiasis. No ureteral or bladder calculi identified 3. Surgically absent gallbladder 4. Mild splenomegaly 5. Colonic diverticulosis. No evidence of acute diverticulitis. Normal appendix. KUB: IMPRESSION: The recently placed enteric tube is positioned with its tip at the level of the gastric cardia. Consideration should be given to slight tube advancement. ECG Findings: + paced rhythm Code Status & VTE Plan VTE Prophylaxis Plan VTE Prophylaxis will be ordered: Yes Supervising Physician Co-Signing Physician Notes Pt seen and examined by me, care coordinated with Thao Pinto PA-C, pls refer to her note above for further detail. Pt is 65 y/o M with insulin dependent DM II, atrial fibrillation on Eliquis, diastolic heart failure, intermittent heart block s/p pacemaker, HTN, dyslipidemia, GERD, depression, obesity who presents w/ abdominal pain that started last evening. + nausea and vomiting. Last BM was yesterday. Reports not passing flatus today. Last ate a piece of toast this morning and vomited after. No prior treatment. History cholecystectomy and hernia repair.Denies fever/chills, diaphoresis, hematochezia, melena, hematemesis AZEVEDO, dizziness, syncope,CP, SOB. In the ED CT abd. pelvis obtained c/w SBO, NG tube was placed and surgery was consulted. Currently pt is laying in bed in NAD, reports he feels better now. He is alert and oriented and answering questions appropriately. NG tube is placed. Abdomen is distended, but soft, obese, not rigid. Lungs are clear to auscultation, heart sounds irregular. Moves extremities. Cont. to closely monitor. Cont. NG tube for now, NPO. Monitor electrolytes. Repeat KUB in the morning. Atilio Aparicio MD
[2020-09-16] MEDS ORDERED: GLUCAGON FOR INJ 1 MG VIAL SQ PRN (19:44)
[2020-09-16] MEDS ORDERED: MoRPHine SULFATE 2 MG/ML CARP IV PRN (19:44)
[2020-09-16] MEDS ORDERED: DEXTROSE 50% 50 ML SYRINGE IV PRN (19:44)
[2020-09-16] MEDS ORDERED: SODIUM CHLORIDE 0.9% 1000ML 1,000 ML IV SCH (19:44)
[2020-09-16] MEDS ORDERED: METOPROLOL TARTRATE 1 MG/ML VIAL IV PRN (19:44)
[2020-09-16] MEDS ORDERED: GLUCOSE 10 TABS/TUBE PO PRN (19:44)
[2020-09-16] MEDS ORDERED: ALBUTEROL HFA 8 GM INHALER INH PRN (19:44)
[2020-09-16] MEDS ORDERED: ONDANSETRON INJ 2 MG/ML 2 ML VIAL IV PRN (19:44)
[2020-09-16] MEDS ORDERED: GLUCOSE 40% GEL 15 GM TUBE PO PRN (19:44)
[2020-09-16] MEDS ORDERED: PHARMACY GLYCEMIC MGMT CONSULT PRN (19:48)
[2020-09-16] MEDS: METOPROLOL TARTRATE 1 MG/ML VIAL IV SCH ×2 (20:45→23:50)
--- NOTE | 2020-09-16 20:56 | Pharmacy Report ---
Pharmacy Glycemic Short Note 2 - Date of Service September 16, 2020 - Glycemic Short BSG Results (Last 24 hours): 09/16/20 09/16/20 09/16/20 14:14 20:22 20:23 Glucose 107 H POC Glucose 63 L* 65 L* OUTPATIENT ANTIDIABETIC REGIMEN: Novolog insulin pump * Basal rates * Midnight-0500: 4.5 units/hr * 8566-1850: 5.2 units/hr * 1900-Midnight: 4.5 units/hr * Bolus: per bolus wizard * Insulin/carb ratio: 1 unit: 2.5 g carbs * Sensitivity factor: 20 * BSG goal: 120-150 mg/dL Metformin 1 g PO BIDM Jardiance 10 mg PO daily ASSESSMENT: * RR is a 65 year old male admitted for inpatient treatment of small bowel obstruction * Plan is for nonoperative management - NG tube placed * Discussed with admitting PA and decided to discontinue insulin pump, as patient will be NPO and patient is not confident in ability to manually adjust insulin pump settings * BSG of 107 mg/dL on presentation and 65 mg/dL HS * Confirmed with RN that pump is disconnected * Dextrose added to fluids by hospitalist (now D5/NSS @ 80 mL/hr) * Will plan to give less than 50% of home basal dose given NPO status and hypoglycemia PLAN FOR INPATIENT GLYCEMIC CONTROL: * Hold outpatient oral diabetes medications * Basal insulin * Lantus scale at 0000 to provide 35-55 units of Lantus (~30-50% of home basal) * Bolus insulin * NovoLog per scale ACHS or Q6hrs while NPO * Goal Range: Low 120 mg/dL - High 150 mg/dL * Correction Factor: 20 mg/dL/unit * Nutritional / Prandial insulin per carb ratio of 1 unit per 2.5 grams CHO consumed PLAN FOR DISCHARGE: * Will require transition back to insulin pump prior to discharge
[2020-09-16] MEDS: INSULIN ASPART 100 UNITS/ML 3 ML PEN SC SCH (21:24)
[2020-09-16] MEDS: D5W AND NSS 1,000 ML IV SCH (22:43)
[2020-09-16] MEDS: HEPARIN SOD 5,000 UNIT/0.5 ML VIAL SQ SCH (22:44)
[2020-09-17] MEDS ORDERED: INSULIN GLARGINE SOLOSTAR 100 UNITS/ML 3 ML PEN SC SCH
[2020-09-17] MEDS: INSULIN ASPART 100 UNITS/ML 3 ML PEN SC SCH ×6 (00:56→20:40)
[2020-09-17] MEDS: HEPARIN SOD 5,000 UNIT/0.5 ML VIAL SQ SCH ×3 (04:16→20:40)
[2020-09-17] MEDS: METOPROLOL TARTRATE 1 MG/ML VIAL IV SCH ×4 (04:59→22:59)
[2020-09-17 05:35] LABS: Appearance Urine Clear (Clear); Bacteria Urine Automated Negative (Negative); Bilirubin Urine Negative (Negative); Blood Urine Negative (Negative); Color Urine Dark Yellow; Epithelial Cell Urine Auto 20-30 /lpf (0-5); Glucose Urine UA 3+ (Negative); Ketones Urine Trace (Negative); Leukocyte Esterase Urine Negative (Negative); Nitrite Urine Negative (Negative); Protein Urine 1+ (Negative); RBC Urine Automated 0-4 /hpf (0-4); Specific Gravity Urine 1.035 (1.000-1.030); Urobilinogen Urine Negative (Negative)
[2020-09-17 07:56] LABS: Hematocrit (blood only) 40.7 % (42-52); Hemoglobin 12.6 g/dL (14.0-18.0); Mean Corpuscular Hemoglobin 26.4 pg (25-34); Mean Corpuscular Volume 85.1 fL (80-100); Mean Platelet Volume 9.2 fL (7.4-10.4); Platelet Count 136 K/uL (130-400); RDW Coefficient of Variation 14.5 % (11.5-14.5); RDW Standard Deviation 45.1 fL (36.4-46.3); Red Blood Count 4.78 M/uL (4.7-6.1); White Blood Count 4.05 K/uL (4.8-10.8)
--- NOTE | 2020-09-17 08:24 | Hospitalist Progress Note ---
Date of Service September 17, 2020 Assessment & Plan (1) SBO (small bowel obstruction): Pt is 65 y/o M with PMH insulin dependent DM II, atrial fibrillation on Eliquis, diastolic heart failure, intermittent heart block s/p pacemaker, HTN, dyslipidemia, GERD, depression, obesity presented to ER with complaint of abdominal pain started last evening. H/O cholecystectomy and hernia repair In ER patient afebrile, vitals stable. No leukocytosis. CT abdomen pelvis:proximal small bowel obstructive pattern. No mass identified at the left upper quadrant transition zone In ER was given morphine 4 mg IV, Zofran 4 mg IV, 500 mL NSS bolus. NG tube was placed with 300 mL output. KUB after NG tube placement and NG tube was further advanced by ER nurse NPO IVF Continue NG tube KUB in a.m. done, shows some improvement General surgical consult, saw patient in ER and this AM. Conservative measures at this time, continue NGT for now Follow AM labs (2) Atrial fibrillation: On Eliquis Converted oral metoprolol to IV Lopressor Hold Eliquis. Heparin SC for now (3) Chronic diastolic (congestive) heart failure: No significant fluid overload at this time Hold oral Lasix for now and monitor volume status closely (4) Diabetes mellitus type 2, insulin dependent: On insulin pump A1c: 8.7 on 07/2020 Turn off patient's insulin pump and managed with basal bolus insulin. Glycemic pharmacist consult for assistance and glycemic management (5) History of heart block: S/p pacemaker (6) HTN (hypertension): BP stable Will hold losartan for now and monitor closely. May need to consider resuming tomorrow or using different agent Oral metoprolol converted to IV Lopressor (7) HLD (hyperlipidemia): Hold statin for now since n.p.o. (8) Depression: Hold Zoloft for now (9) BPH (benign prostatic hyperplasia): Hold Flomax for now DVT Prophylaxis -Heparin SQ DNR/DNI as per discussion with pt Follows with Dr Buitrago for routine care Admission and Anticipated Discharge Date Admission Date: September 16, 2020 Subjective Pt seen in follow up of SBO. Pt had uneventful night. NG tube placed. Seen by surgery this AM. He started to have small amount of flatus. No BM. No nausea. Abd. discomfort improved. No fever, chills, chest pain, shortness of breath. Review of Systems Review of Systems: All systems reviewed & are unremarkable except as noted in HPI & below Constitutional: no fever and no chills Respiratory: no cough and no dyspnea Cardiovascular: no chest pain, no palpitations and no edema Gastrointestinal: + abdominal pain (much improved); no nausea and no vomiting Physical Exam Physical Exam: General: obese male laying in bed, in NAD, NG tube placed Head: normocephalic, atraumatic Eyes: PERRL, EOMI, conjunctiva non-injected, anicteric ENT: normal inspection external ears, nose, mucous membranes moist Neck: supple, trachea midline Lungs: clear, no respiratory distress, no wheezing/rhonchi/rales CV: Irregularly irregular, 1+ pretibial edema Abd: Protuberant, hypoactive BS, soft, +tenderness palpation LLQ without rebound Ext: no cyanosis, no calf tenderness Neuro: A&O x 3, no focal deficits noted, normal affect Skin: warm, dry Results & Data Results & Data ([facility]) Vital Signs (Past 12 Hours) Vital Signs Temp Pulse Pulse Resp BP Pulse Ox 09/17/20 07:29 60 09/17/20 06:45 36.8 C 80 20 142/66 H 92 09/17/20 04:59 52 L 09/17/20 03:48 37.0 C 60 15 137/69 92 09/17/20 03:10 60 09/16/20 23:50 56 L 09/16/20 23:00 36.7 C 83 20 155/75 H 94 09/16/20 20:45 59 L Laboratory Results 09/17/20 09/17/20 09/17/20 Range/Units Unknown 07:35 07:31 WBC (4.8-10.8) K/uL RBC (4.7-6.1) M/uL Hgb (14.0-18.0) g/dL Hct (42-52) % MCV (80-100) fL MCH (25-34) pg MCHC (32-36) g/dL RDW Std Deviation (36.4-46.3) fL RDW Coeff of Manoj (11.5-14.5) % Plt Count (130-400) K/uL MPV (7.4-10.4) fL Immature Gran % (Auto) % Neut % (Auto) % Lymph % (Auto) % [place] % (Auto) % Eos % (Auto) % Baso % (Auto) % Neut # (Auto) (1.4-6.5) K/uL Lymph # (Auto) (1.2-3.4) K/uL [place] # (Auto) (0.11-0.59) K/uL Eos # (Auto) (0-0.5) K/uL Baso # (Auto) (0-0.2) K/uL Immature Gran # (Auto) (0.00-0.02) K/uL Sodium 143 (136-145) mmol/L Potassium 4.0 (3.5-5.1) mmol/L Chloride 109 H (98-107) mmol/L Carbon Dioxide 29 (21-32) mmol/L Anion Gap 6.0 (3-11) BUN 33 H (7-18) mg/dl Creatinine 1.15 (0.6-1.4) mg/dl Est Cr Clr Drug Dosing 80.4 ml/min Est GFR ( Amer) 75.9 Est GFR (Non-Af Amer) 65.5 BUN/Creatinine Ratio 28.3 H (10-20) Glucose 208 H (70-99) mg/dl POC Glucose 205 H (70-99) mg/dl Calcium 9.1 (8.5-10.1) mg/dl Magnesium 2.1 (1.8-2.4) mg/dl Total Bilirubin (0.2-1) mg/dl AST (15-37) U/L ALT (12-78) U/L Alkaline Phosphatase (45-117) U/L Total Protein (6.4-8.2) gm/dl Albumin (3.4-5.0) gm/dl Globulin (2.5-4.0) gm/dl Albumin/Globulin Ratio (0.9-2) Lipase (73-393) U/L Urine Color Dark Yellow Urine Appearance Clear (Clear) Urine pH 5.0 (4.5-7.5) Ur Specific [place] 1.035 H (1.000-1.030) Urine Protein 1+ H (Negative) Urine Glucose (UA) 3+ H (Negative) Urine Ketones Trace H (Negative) Urine Blood Negative (Negative) Urine Nitrite Negative (Negative) Urine Bilirubin Negative (Negative) Urine Urobilinogen Negative (Negative) Ur Leukocyte Esterase Negative (Negative) Urine WBC (Auto) 10-30 H (0-5) /hpf Urine RBC (Auto) 0-4 (0-4) /hpf U Hyaline Cast (Auto) 5-10 H (0-5) /lpf U Epithel Cells (Auto) 20-30 H (0-5) /lpf Urine Bacteria (Auto) Negative (Negative) COVID-19 Eval Order SARS-CoV-2, RNA, NAAT (NEGATIVE) 09/17/20 09/17/20 09/17/20 Range/Units 07:31 03:54 00:53 WBC 4.05 L (4.8-10.8) K/uL RBC 4.78 (4.7-6.1) M/uL Hgb 12.6 L (14.0-18.0) g/dL Hct 40.7 L (42-52) % MCV 85.1 (80-100) fL MCH 26.4 (25-34) pg MCHC 31.0 L (32-36) g/dL RDW Std Deviation 45.1 (36.4-46.3) fL RDW Coeff of Manoj 14.5 (11.5-14.5) % Plt Count 136 (130-400) K/uL MPV 9.2 (7.4-10.4) fL Immature Gran % (Auto) % Neut % (Auto) % Lymph % (Auto) % [place] % (Auto) % Eos % (Auto) % Baso % (Auto) % Neut # (Auto) (1.4-6.5) K/uL Lymph # (Auto) (1.2-3.4) K/uL [place] # (Auto) (0.11-0.59) K/uL Eos # (Auto) (0-0.5) K/uL Baso # (Auto) (0-0.2) K/uL Immature Gran # (Auto) (0.00-0.02) K/uL Sodium (136-145) mmol/L Potassium (3.5-5.1) mmol/L Chloride (98-107) mmol/L Carbon Dioxide (21-32) mmol/L Anion Gap (3-11) BUN (7-18) mg/dl Creatinine (0.6-1.4) mg/dl Est Cr Clr Drug Dosing ml/min Est GFR ( Amer) Est GFR (Non-Af Amer) BUN/Creatinine Ratio (10-20) Glucose (70-99) mg/dl POC Glucose 183 H 149 H (70-99) mg/dl Calcium (8.5-10.1) mg/dl Magnesium (1.8-2.4) mg/dl Total Bilirubin (0.2-1) mg/dl AST (15-37) U/L ALT (12-78) U/L Alkaline Phosphatase (45-117) U/L Total Protein (6.4-8.2) gm/dl Albumin (3.4-5.0) gm/dl Globulin (2.5-4.0) gm/dl Albumin/Globulin Ratio (0.9-2) Lipase (73-393) U/L Urine Color Urine Appearance (Clear) Urine pH (4.5-7.5) Ur Specific [place] (1.000-1.030) Urine Protein (Negative) Urine Glucose (UA) (Negative) Urine Ketones (Negative) Urine Blood (Negative) Urine Nitrite (Negative) Urine Bilirubin (Negative) Urine Urobilinogen (Negative) Ur Leukocyte Esterase (Negative) Urine WBC (Auto) (0-5) /hpf Urine RBC (Auto) (0-4) /hpf U Hyaline Cast (Auto) (0-5) /lpf U Epithel Cells (Auto) (0-5) /lpf Urine Bacteria (Auto) (Negative) COVID-19 Eval Order SARS-CoV-2, RNA, NAAT (NEGATIVE) 09/16/20 09/16/20 09/16/20 Range/Units 21:49 20:23 20:22 WBC (4.8-10.8) K/uL RBC (4.7-6.1) M/uL Hgb (14.0-18.0) g/dL Hct (42-52) % MCV (80-100) fL MCH (25-34) pg MCHC (32-36) g/dL RDW Std Deviation (36.4-46.3) fL RDW Coeff of Manoj (11.5-14.5) % Plt Count (130-400) K/uL MPV (7.4-10.4) fL Immature Gran % (Auto) % Neut % (Auto) % Lymph % (Auto) % [place] % (Auto) % Eos % (Auto) % Baso % (Auto) % Neut # (Auto) (1.4-6.5) K/uL Lymph # (Auto) (1.2-3.4) K/uL [place] # (Auto) (0.11-0.59) K/uL Eos # (Auto) (0-0.5) K/uL Baso # (Auto) (0-0.2) K/uL Immature Gran # (Auto) (0.00-0.02) K/uL Sodium (136-145) mmol/L Potassium (3.5-5.1) mmol/L Chloride (98-107) mmol/L Carbon Dioxide (21-32) mmol/L Anion Gap (3-11) BUN (7-18) mg/dl Creatinine (0.6-1.4) mg/dl Est Cr Clr Drug Dosing ml/min Est GFR ( Amer) Est GFR (Non-Af Amer) BUN/Creatinine Ratio (10-20) Glucose (70-99) mg/dl POC Glucose 79 65 L* 63 L* (70-99) mg/dl Calcium (8.5-10.1) mg/dl Magnesium (1.8-2.4) mg/dl Total Bilirubin (0.2-1) mg/dl AST (15-37) U/L ALT (12-78) U/L Alkaline Phosphatase (45-117) U/L Total Protein (6.4-8.2) gm/dl Albumin (3.4-5.0) gm/dl Globulin (2.5-4.0) gm/dl Albumin/Globulin Ratio (0.9-2) Lipase (73-393) U/L Urine Color Urine Appearance (Clear) Urine pH (4.5-7.5) Ur Specific [place] (1.000-1.030) Urine Protein (Negative) Urine Glucose (UA) (Negative) Urine Ketones (Negative) Urine Blood (Negative) Urine Nitrite (Negative) Urine Bilirubin (Negative) Urine Urobilinogen (Negative) Ur Leukocyte Esterase (Negative) Urine WBC (Auto) (0-5) /hpf Urine RBC (Auto) (0-4) /hpf U Hyaline Cast (Auto) (0-5) /lpf U Epithel Cells (Auto) (0-5) /lpf Urine Bacteria (Auto) (Negative) COVID-19 Eval Order SARS-CoV-2, RNA, NAAT (NEGATIVE) 09/16/20 09/16/20 09/16/20 Range/Units 16:23 16:23 14:14 WBC (4.8-10.8) K/uL RBC (4.7-6.1) M/uL Hgb (14.0-18.0) g/dL Hct (42-52) % MCV (80-100) fL MCH (25-34) pg MCHC (32-36) g/dL RDW Std Deviation (36.4-46.3) fL RDW Coeff of Manoj (11.5-14.5) % Plt Count (130-400) K/uL MPV (7.4-10.4) fL Immature Gran % (Auto) % Neut % (Auto) % Lymph % (Auto) % [place] % (Auto) % Eos % (Auto) % Baso % (Auto) % Neut # (Auto) (1.4-6.5) K/uL Lymph # (Auto) (1.2-3.4) K/uL [place] # (Auto) (0.11-0.59) K/uL Eos # (Auto) (0-0.5) K/uL Baso # (Auto) (0-0.2) K/uL Immature Gran # (Auto) (0.00-0.02) K/uL Sodium 140 (136-145) mmol/L Potassium 3.9 (3.5-5.1) mmol/L Chloride 106 (98-107) mmol/L Carbon Dioxide 30 (21-32) mmol/L Anion Gap 4.0 (3-11) BUN 29 H (7-18) mg/dl Creatinine 1.06 (0.6-1.4) mg/dl Est Cr Clr Drug Dosing 87.8 ml/min Est GFR ( Amer) 83.8 Est GFR (Non-Af Amer) 72.3 BUN/Creatinine Ratio 27.1 H (10-20) Glucose 107 H (70-99) mg/dl POC Glucose (70-99) mg/dl Calcium 9.6 (8.5-10.1) mg/dl Magnesium (1.8-2.4) mg/dl Total Bilirubin 0.5 (0.2-1) mg/dl AST 20 (15-37) U/L ALT 38 (12-78) U/L Alkaline Phosphatase 119 H (45-117) U/L Total Protein 8.3 H (6.4-8.2) gm/dl Albumin 4.1 (3.4-5.0) gm/dl Globulin 4.2 H (2.5-4.0) gm/dl Albumin/Globulin Ratio 1.0 (0.9-2) Lipase 65 L (73-393) U/L Urine Color Urine Appearance (Clear) Urine pH (4.5-7.5) Ur Specific [place] (1.000-1.030) Urine Protein (Negative) Urine Glucose (UA) (Negative) Urine Ketones (Negative) Urine Blood (Negative) Urine Nitrite (Negative) Urine Bilirubin (Negative) Urine Urobilinogen (Negative) Ur Leukocyte Esterase (Negative) Urine WBC (Auto) (0-5) /hpf Urine RBC (Auto) (0-4) /hpf U Hyaline Cast (Auto) (0-5) /lpf U Epithel Cells (Auto) (0-5) /lpf Urine Bacteria (Auto) (Negative) COVID-19 Eval Order Covid19 IDNow [facility] SARS-CoV-2, RNA, NAAT NEGATIVE (NEGATIVE) 09/16/20 Range/Units 14:14 WBC 6.63 (4.8-10.8) K/uL RBC 5.29 (4.7-6.1) M/uL Hgb 13.9 L (14.0-18.0) g/dL Hct 43.6 (42-52) % MCV 82.4 (80-100) fL MCH 26.3 (25-34) pg MCHC 31.9 L (32-36) g/dL RDW Std Deviation 42.2 (36.4-46.3) fL RDW Coeff of Manoj 14.3 (11.5-14.5) % Plt Count 153 (130-400) K/uL MPV 9.4 (7.4-10.4) fL Immature Gran % (Auto) 0.3 % Neut % (Auto) 70.1 % Lymph % (Auto) 16.3 % [place] % (Auto) 13.3 % Eos % (Auto) 0.0 % Baso % (Auto) 0.0 % Neut # (Auto) 4.65 (1.4-6.5) K/uL Lymph # (Auto) 1.08 L (1.2-3.4) K/uL [place] # (Auto) 0.88 H (0.11-0.59) K/uL Eos # (Auto) 0.00 (0-0.5) K/uL Baso # (Auto) 0.00 (0-0.2) K/uL Immature Gran # (Auto) 0.02 (0.00-0.02) K/uL Sodium (136-145) mmol/L Potassium (3.5-5.1) mmol/L Chloride (98-107) mmol/L Carbon Dioxide (21-32) mmol/L Anion Gap (3-11) BUN (7-18) mg/dl Creatinine (0.6-1.4) mg/dl Est Cr Clr Drug Dosing ml/min Est GFR ( Amer) Est GFR (Non-Af Amer) BUN/Creatinine Ratio (10-20) Glucose (70-99) mg/dl POC Glucose (70-99) mg/dl Calcium (8.5-10.1) mg/dl Magnesium (1.8-2.4) mg/dl Total Bilirubin (0.2-1) mg/dl AST (15-37) U/L ALT (12-78) U/L Alkaline Phosphatase (45-117) U/L Total Protein (6.4-8.2) gm/dl Albumin (3.4-5.0) gm/dl Globulin (2.5-4.0) gm/dl Albumin/Globulin Ratio (0.9-2) Lipase (73-393) U/L Urine Color Urine Appearance (Clear) Urine pH (4.5-7.5) Ur Specific [place] (1.000-1.030) Urine Protein (Negative) Urine Glucose (UA) (Negative) Urine Ketones (Negative) Urine Blood (Negative) Urine Nitrite (Negative) Urine Bilirubin (Negative) Urine Urobilinogen (Negative) Ur Leukocyte Esterase (Negative) Urine WBC (Auto) (0-5) /hpf Urine RBC (Auto) (0-4) /hpf U Hyaline Cast (Auto) (0-5) /lpf U Epithel Cells (Auto) (0-5) /lpf Urine Bacteria (Auto) (Negative) COVID-19 Eval Order SARS-CoV-2, RNA, NAAT (NEGATIVE) Medications Administered Current Inpatient Medications Acetaminophen (Acetaminophen 1000 Mg/100 Ml Iv) 1,000 mg IV Q8H PRN PRN Reason: Pain or Fever Stop: 09/19/20 19:43 Albuterol (Albuterol Hfa 8 Gm Inhaler) 2 puffs INH Q4R PRN PRN Reason: Shortness Of Breath Or Wheezing Stop: 10/16/20 19:43 Dextrose (Dextrose 50% 50 Ml Syringe) 25 - 50 ml IV UD PRN; Protocol PRN Reason: Hypoglycemia Protocol Stop: 10/16/20 19:43 Glucagon (Glucagon For Inj 1 Mg Vial) 1 mg SQ UD PRN; Protocol PRN Reason: Hypoglycemia Protocol Stop: 10/16/20 19:43 Glucose (Glucose 10 Tabs/Tube) 4 - 8 tabs PO UD PRN; Protocol PRN Reason: Hypoglycemia Protocol Stop: 10/16/20 19:43 Glucose (Glucose 40% Gel 15 Gm Tube) 15 - 30 gm PO UD PRN; Protocol PRN Reason: Hypoglycemia Protocol Stop: 10/16/20 19:43 Heparin Sodium (Porcine) (Heparin Sod 5,000 Unit/0.5 Ml Vial) 5,000 units SQ Q8 FILIPE Stop: 10/16/20 21:59 Last Admin: 09/17/20 04:16 Dose: 5,000 units Documented by: Dextrose/Sodium Chloride (D5w And Nss) 1,000 mls @ 80 mls/hr IV .[id number] FILIPE Stop: 10/16/20 21:59 Last Admin: 09/16/20 22:43 Dose: 80 mls/hr Documented by: Insulin Aspart (Insulin Aspart 100 Units/Ml 3 Ml Pen) 0 units SC ACHS [facility] Stop: 10/16/20 20:59 Last Admin: 09/16/20 21:24 Dose: Not Given Documented by: Metoprolol Tartrate (Metoprolol Tartrate 1 Mg/Ml Vial) 5 mg IV Q6 FILIPE Stop: 10/16/20 19:59 Last Admin: 09/17/20 04:59 Dose: Not Given Documented by: Metoprolol Tartrate (Metoprolol Tartrate 1 Mg/Ml Vial) 2.5 mg IV Q6 PRN PRN Reason: tachycardia Stop: 10/16/20 19:43 Miscellaneous (Carbohydrates For Hypoglycemia ) 15 - 30 gm PO UD PRN PRN Reason: Hypoglycemia Protocol Stop: 10/16/20 19:43 Miscellaneous Information (Pharmacy Glycemic Mgmt Consult) 1 ea N/A UD PRN; Protocol PRN Reason: Consult Stop: 10/16/20 19:47 Morphine Sulfate (Morphine Sulfate 2 Mg/Ml Carp) 2 mg IV Q4H PRN PRN Reason: Severe Pain Stop: 09/30/20 19:43 Last Admin: 09/17/20 02:53 Dose: 2 mg Documented by: Ondansetron HCl (Ondansetron Inj 2 Mg/Ml 2 Ml Vial) 4 mg IV Q6H PRN PRN Reason: Nausea Stop: 10/16/20 19:43
[2020-09-17 08:27] LABS: BUN Creatinine Ratio 28.3 (10-20); Calcium 9.1 mg/dl (8.5-10.1); Creatinine Clr Calc Pharmacy 80.4 ml/min; Est GFR (African American) 75.9; Est GFR (Non-African American) 65.5; Magnesium 2.1 mg/dl (1.8-2.4)
--- NOTE | 2020-09-17 08:53 | Surgery Progress Note ---
Date of Service September 17, 2020 Assessment & Plan (1) SBO (small bowel obstruction): KUB slightly less bowel gas, not much colon gas cont NGT, IVF Admission and Anticipated Discharge Date Admission Date: September 16, 2020 Supervising Physician Co-Signing Physician Notes Patient seen and examined, labs and imaging reviewed, agree with above. [age]-year-old male admitted with small bowel obstruction. Feels slightly better than he did yesterday. He has passed a very small amount of flatus. On exam he is afebrile with stable vitals. His abdomen is soft, distended, nontender. NG tube with 250 overnight. Labs unremarkable. KUB difficult to appreciate but appears to have some persistent dilated small bowel loops. Continue with nonoperative management, no surgical intervention at this time. Surgery will continue to follow. Subjective less pain, no flatus, no BM Physical Exam Gastrointestinal (Abdomen): Inspection/Auscultation: + abdomen distended Percussion/Palpation: abdomen soft; abdomen nontender NG 250 overnight Results & Data ([facility]) Vital Signs (Past 12 Hours) Vital Signs Temp Pulse Pulse Resp BP Pulse Ox 09/17/20 07:29 60 09/17/20 06:45 36.8 C 80 20 142/66 H 92 09/17/20 04:59 52 L 09/17/20 03:48 37.0 C 60 15 137/69 92 09/17/20 03:10 60 09/16/20 23:50 56 L 09/16/20 23:00 36.7 C 83 20 155/75 H 94 PG Care Time/CCT Total # of Minutes Spent Total Time Spent with Patient: Total time spent is greater than 50% in coordination of care (as documented) at patient's floor/unit and/or counseling patient: Coding Level of Care Code 61327 Inpt Consult Level 1 Diagnoses SBO (small bowel obstruction) K56.609
--- NOTE | 2020-09-17 09:06 | XRay Report ---
KUB HISTORY: Follow up study in a patient with small bowel obstruction SBO COMPARISON: KUB and CT abdomen and pelvis 09/16/2020 FINDINGS: Cholecystectomy. Distal tip of enteric tube projects over the abdominal left upper quadrant in the expected location of the proximal gastric lumen. Cardiomegaly. Clear lung bases. Air-filled m ildly distended loop of large bowel within the right lower quadrant measures 7.7 cm transversely. No dilated small bowel identified. Left nephrolithiasis. Mild lumbar levoscoliosis. No acute fracture. IMPRESSION: 1. Distal tip of enteric tube projects over the abdominal left upper quadrant in the expected locatio n of the proximal gastric lumen. 2. Left nephrolithiasis. ACT 112: Negative or not required by law. The above report was generated using voice recognition software. It may contain grammatical, syntax o r spelling errors. Electronically signed by: Jose Flynn M.D. 09/17/2020 9:05 AM
[2020-09-17] MEDS ORDERED: INSULIN GLARGINE SOLOSTAR 100 UNITS/ML 3 ML PEN SC ONE ×2 (09:30→12:45)
[2020-09-17] MEDS: D5W AND NSS 1,000 ML IV SCH ×2 (10:11→22:46)
--- NOTE | 2020-09-17 11:06 | Electrocardiogram Report ---
Test Reason : Blood Pressure : / mmHG Vent. Rate : 061 BPM Atrial Rate : 060 BPM P-R Int : 000 ms QRS Dur : 164 ms QT Int : 512 ms P-R-T Axes : 000 -70 102 degrees QTc Int : 515 ms Ventricular-paced rhythm Abnormal ECG When compared with ECG of 24-JUN-2019 20:36, Vent. rate has decreased BY 19 BPM Confirmed by Ishaan Alas ([id number]) on 09/17/2020 11:05:43 AM Referred By: REFERRED SELF Confirmed By:Holland Alas
[2020-09-17] MEDS: ACETAMINOPHEN 1000 MG/100 ML IV IV PRN (15:14)
[2020-09-17] MEDS: INSULIN GLARGINE SOLOSTAR 100 UNITS/ML 3 ML PEN SC SCH (20:40)
[2020-09-18] MEDS: METOPROLOL TARTRATE 1 MG/ML VIAL IV SCH ×5 (00:12→23:43)
[2020-09-18] MEDS: ACETAMINOPHEN 1000 MG/100 ML IV IV PRN ×3 (00:12→20:21)
[2020-09-18] MEDS ORDERED: Nursing to Pharmacy Communication SCH (00:15)
[2020-09-18] MEDS: HEPARIN SOD 5,000 UNIT/0.5 ML VIAL SQ SCH ×3 (05:40→22:11)
[2020-09-18] MEDS: INSULIN ASPART 100 UNITS/ML 3 ML PEN SC SCH ×4 (05:46→23:51)
--- NOTE | 2020-09-18 07:42 | Hospitalist Progress Note ---
Date of Service September 18, 2020 Assessment & Plan (1) SBO (small bowel obstruction): Pt is 65 y/o M with PMH insulin dependent DM II, atrial fibrillation on Eliquis, diastolic heart failure, intermittent heart block s/p pacemaker, HTN, dyslipidemia, GERD, depression, obesity presented to ER with complaint of abdominal pain started last evening. H/O cholecystectomy and hernia repair In ER patient afebrile, vitals stable. No leukocytosis. CT abdomen pelvis:proximal small bowel obstructive pattern. No mass identified at the left upper quadrant transition zone In ER was given morphine 4 mg IV, Zofran 4 mg IV, 500 mL NSS bolus. NG tube was placed with 300 mL output. KUB after NG tube placement and NG tube was further advanced by ER nurse NPO IVF Continue NG tube KUB in a.m. done, shows improvement General surgical consulted. Conservative measures at this time, continue NGT for now Follow AM labs (2) Atrial fibrillation: On Eliquis Converted oral metoprolol to IV Lopressor Hold Eliquis. Heparin SC for now (3) Chronic diastolic (congestive) heart failure: No significant fluid overload at this time Hold oral Lasix for now and monitor volume status closely (4) Diabetes mellitus type 2, insulin dependent: On insulin pump A1c: 8.7 on 07/2020 Turn off patient's insulin pump and managed with basal bolus insulin. Glycemic pharmacist consult for assistance and glycemic management (5) History of heart block: S/p pacemaker (6) HTN (hypertension): BP stable Will hold losartan for now and monitor closely. May need to consider resuming tomorrow or using different agent Oral metoprolol converted to IV Lopressor (7) HLD (hyperlipidemia): Hold statin for now since n.p.o. (8) Depression: Hold Zoloft for now (9) BPH (benign prostatic hyperplasia): Hold Flomax for now DVT Prophylaxis -Heparin SQ DNR/DNI as per discussion with pt Follows with Dr Buitrago for routine care Admission and Anticipated Discharge Date Admission Date: September 16, 2020 Subjective Pt seen in a follow up of SBO. Pt is currently laying in bed in NAD. Reports having rough night d/t abdom. discomfort, now feeling much better though. NGT placed. Pt reports passing flatus, no BM yet. Denies fever, chills, chest pain, shortness of breath. Review of Systems Review of Systems: All systems reviewed & are unremarkable except as noted in HPI & below Constitutional: no fever and no chills Respiratory: no cough and no dyspnea Cardiovascular: no chest pain and no palpitations Gastrointestinal: + abdominal pain (much improved); no nausea and no vomiting Physical Exam Physical Exam: General: obese male laying in bed, in NAD, NG tube placed Head: normocephalic, atraumatic Eyes: PERRL, EOMI, conjunctiva non-injected, anicteric ENT: normal inspection external ears, nose, mucous membranes moist Neck: supple, trachea midline Lungs: clear, no respiratory distress, no wheezing/rhonchi/rales CV: Irregularly irregular, 1+ pretibial edema Abd: Protuberant, hypoactive BS, soft, +tenderness palpation LLQ without rebound Ext: no cyanosis, no calf tenderness Neuro: A&O x 3, no focal deficits noted, normal affect Skin: warm, dry Results & Data Results & Data ([facility]) Vital Signs (Past 12 Hours) Vital Signs Temp Pulse Pulse Resp BP BP Pulse Ox 09/18/20 07:37 36.4 C L 66 16 155/71 H 92 09/18/20 07:12 77 09/18/20 05:39 82 173/77 H 09/18/20 03:41 36.6 C 59 L 20 173/77 H 92 09/18/20 03:09 68 09/18/20 00:12 82 179/78 H 09/17/20 23:52 36.7 C 60 20 179/78 H 92 Laboratory Results 09/18/20 09/18/20 09/18/20 Range/Units 07:58 07:58 07:30 WBC 3.44 L (4.8-10.8) K/uL RBC 5.01 (4.7-6.1) M/uL Hgb 13.2 L (14.0-18.0) g/dL Hct 42.6 (42-52) % MCV 85.0 (80-100) fL MCH 26.3 (25-34) pg MCHC 31.0 L (32-36) g/dL RDW Std Deviation 44.8 (36.4-46.3) fL RDW Coeff of Manoj 14.6 H (11.5-14.5) % Plt Count 114 L (130-400) K/uL MPV 9.1 (7.4-10.4) fL Sodium 144 (136-145) mmol/L Potassium 3.6 (3.5-5.1) mmol/L Chloride 111 H (98-107) mmol/L Carbon Dioxide 29 (21-32) mmol/L Anion Gap 5.0 (3-11) BUN 29 H (7-18) mg/dl Creatinine 0.92 (0.6-1.4) mg/dl Est Cr Clr Drug Dosing 100.1 ml/min Est GFR ( Amer) 99.4 Est GFR (Non-Af Amer) 85.8 BUN/Creatinine Ratio 31.0 H (10-20) Glucose 174 H (70-99) mg/dl POC Glucose 157 H (70-99) mg/dl Calcium 9.3 (8.5-10.1) mg/dl Phosphorus 2.2 L (2.5-4.9) mg/dl Magnesium 2.2 (1.8-2.4) mg/dl 09/18/20 09/18/20 09/17/20 Range/Units 05:45 03:38 23:54 WBC (4.8-10.8) K/uL RBC (4.7-6.1) M/uL Hgb (14.0-18.0) g/dL Hct (42-52) % MCV (80-100) fL MCH (25-34) pg MCHC (32-36) g/dL RDW Std Deviation (36.4-46.3) fL RDW Coeff of Manoj (11.5-14.5) % Plt Count (130-400) K/uL MPV (7.4-10.4) fL Sodium (136-145) mmol/L Potassium (3.5-5.1) mmol/L Chloride (98-107) mmol/L Carbon Dioxide (21-32) mmol/L Anion Gap (3-11) BUN (7-18) mg/dl Creatinine (0.6-1.4) mg/dl Est Cr Clr Drug Dosing ml/min Est GFR ( Amer) Est GFR (Non-Af Amer) BUN/Creatinine Ratio (10-20) Glucose (70-99) mg/dl POC Glucose 171 H 173 H 165 H (70-99) mg/dl Calcium (8.5-10.1) mg/dl Phosphorus (2.5-4.9) mg/dl Magnesium (1.8-2.4) mg/dl 09/17/20 09/17/20 09/17/20 Range/Units 20:05 16:37 11:25 WBC (4.8-10.8) K/uL RBC (4.7-6.1) M/uL Hgb (14.0-18.0) g/dL Hct (42-52) % MCV (80-100) fL MCH (25-34) pg MCHC (32-36) g/dL RDW Std Deviation (36.4-46.3) fL RDW Coeff of Manoj (11.5-14.5) % Plt Count (130-400) K/uL MPV (7.4-10.4) fL Sodium (136-145) mmol/L Potassium (3.5-5.1) mmol/L Chloride (98-107) mmol/L Carbon Dioxide (21-32) mmol/L Anion Gap (3-11) BUN (7-18) mg/dl Creatinine (0.6-1.4) mg/dl Est Cr Clr Drug Dosing ml/min Est GFR ( Amer) Est GFR (Non-Af Amer) BUN/Creatinine Ratio (10-20) Glucose (70-99) mg/dl POC Glucose 175 H 199 H 213 H (70-99) mg/dl Calcium (8.5-10.1) mg/dl Phosphorus (2.5-4.9) mg/dl Magnesium (1.8-2.4) mg/dl Medications Administered Current Inpatient Medications Acetaminophen (Acetaminophen 1000 Mg/100 Ml Iv) 1,000 mg IV Q8H PRN PRN Reason: Pain or Fever Stop: 09/19/20 19:43 Last Admin: 09/18/20 00:12 Dose: 1,000 mg Documented by: Albuterol (Albuterol Hfa 8 Gm Inhaler) 2 puffs INH Q4R PRN PRN Reason: Shortness Of Breath Or Wheezing Stop: 10/16/20 19:43 Dextrose (Dextrose 50% 50 Ml Syringe) 25 - 50 ml IV UD PRN; Protocol PRN Reason: Hypoglycemia Protocol Stop: 10/16/20 19:43 Glucagon (Glucagon For Inj 1 Mg Vial) 1 mg SQ UD PRN; Protocol PRN Reason: Hypoglycemia Protocol Stop: 10/16/20 19:43 Glucose (Glucose 10 Tabs/Tube) 4 - 8 tabs PO UD PRN; Protocol PRN Reason: Hypoglycemia Protocol Stop: 10/16/20 19:43 Glucose (Glucose 40% Gel 15 Gm Tube) 15 - 30 gm PO UD PRN; Protocol PRN Reason: Hypoglycemia Protocol Stop: 10/16/20 19:43 Heparin Sodium (Porcine) (Heparin Sod 5,000 Unit/0.5 Ml Vial) 5,000 units SQ Q8 FILIPE Stop: 10/16/20 21:59 Last Admin: 09/18/20 05:40 Dose: 5,000 units Documented by: Dextrose/Sodium Chloride (D5w And Nss) 1,000 mls @ 80 mls/hr IV .[id number] FILIPE Stop: 10/16/20 21:59 Last Admin: 09/17/20 22:46 Dose: 80 mls/hr Documented by: Potassium Chloride (K Morgan / Wtr) 10 meq in 100 mls @ 100 mls/hr IV Q1H STA Stop: 09/18/20 10:10 Insulin Aspart (Insulin Aspart 100 Units/Ml 3 Ml Pen) 0 units SC Q6 FILIPE Stop: 10/18/20 05:59 Last Admin: 09/18/20 05:46 Dose: 2 units Documented by: Insulin Glargine (Insulin Glargine Solostar 100 Units/Ml 3 Ml Pen) 0 units SC BID [facility]; Protocol Stop: 10/17/20 20:59 Last Admin: 09/18/20 07:51 Dose: 50 units Documented by: Ketorolac Tromethamine (Ketorolac Tromethamine 15 Mg/Ml Vial) 15 mg IV Q6H PRN PRN Reason: Pain Stop: 09/23/20 09:02 Metoprolol Tartrate (Metoprolol Tartrate 1 Mg/Ml Vial) 5 mg IV Q6 FILIPE Stop: 10/16/20 19:59 Last Admin: 09/18/20 05:39 Dose: 5 mg Documented by: Metoprolol Tartrate (Metoprolol Tartrate 1 Mg/Ml Vial) 2.5 mg IV Q6 PRN PRN Reason: tachycardia Stop: 10/16/20 19:43 Miscellaneous (Carbohydrates For Hypoglycemia ) 15 - 30 gm PO UD PRN PRN Reason: Hypoglycemia Protocol Stop: 10/16/20 19:43 Miscellaneous Information (Pharmacy Glycemic Mgmt Consult) 1 ea N/A UD PRN; Protocol PRN Reason: Consult Stop: 10/16/20 19:47 Morphine Sulfate (Morphine Sulfate 2 Mg/Ml Carp) 2 mg IV Q4H PRN PRN Reason: Severe Pain Stop: 09/30/20 19:43 Last Admin: 09/17/20 02:53 Dose: 2 mg Documented by: Ondansetron HCl (Ondansetron Inj 2 Mg/Ml 2 Ml Vial) 4 mg IV Q6H PRN PRN Reason: Nausea Stop: 10/16/20 19:43 Potassium Phosphate (Potassium Phos 3 Mmol/1 Ml Infusion) 9 mmol IV NOW STA Stop: 09/18/20 09:13
[2020-09-18] MEDS: INSULIN GLARGINE SOLOSTAR 100 UNITS/ML 3 ML PEN SC SCH ×2 (07:51→20:14)
[2020-09-18 08:09] LABS: Hematocrit (blood only) 42.6 % (42-52); Hemoglobin 13.2 g/dL (14.0-18.0); Mean Corpuscular Hemoglobin 26.3 pg (25-34); Mean Platelet Volume 9.1 fL (7.4-10.4); Platelet Count 114 K/uL (130-400); RDW Coefficient of Variation 14.6 % (11.5-14.5); RDW Standard Deviation 44.8 fL (36.4-46.3); Red Blood Count 5.01 M/uL (4.7-6.1); White Blood Count 3.44 K/uL (4.8-10.8)
--- NOTE | 2020-09-18 08:29 | Surgery Progress Note ---
Date of Service September 18, 2020 Assessment & Plan (1) SBO (small bowel obstruction): Patient here with SBO Reporting some abdominal pain and mild nausea this AM On exam patient's abdomen is distended and with generalized abdominal ttp HR 50-60's NGT with 350cc documented Will review KUB from this AM, if continues passing flatus or has a BM can consider removal of NGT later For now continue NGT, may consider contrast study within 24-48 hours if not much improvement Admission and Anticipated Discharge Date Admission Date: September 16, 2020 Supervising Physician Co-Signing Physician Notes Patient seen and examined, imaging reviewed, agree with above. 65-year-old male admitted with small bowel obstruction, NG tube in place. Feels better than he did prior to admission and even better than yesterday. He did pass some more gas last night and thought he was going to have a bowel movement but did not. His abdomen is still slightly distended and minimally tender. On exam his abdomen is soft, obese, minimally tender to palpation with no guarding. KUB from today reviewed and is difficult to interpret based on body habitus but does show no evidence of air-fluid levels or significant bowel dilation. At this point we will continue with nonoperative management. If he passes more gas today or has a bowel movement we can consider clamping the NG tube or removing it. He may then start on clear liquids. If he shows no improvement over the next 24 to 48 hours we will consider contrasted study to further evaluate. Surgery will continue to follow Subjective Patient still has some abdominal pain and some mild nausea, but reports feeling better overall then yesterday. Says he is passing some amounts of flatus. No BM yet. Physical Exam Physical Exam: awake/alert, sitting at bedside Respiratory: normal respiratory effort Gastrointestinal (Abdomen): Inspection/Auscultation: + abdomen distended Percussion/Palpation: + abdomen tender NGT with 350cc documented Results & Data ([facility]) Vital Signs (Past 12 Hours) Vital Signs Temp Pulse Pulse Resp BP BP Pulse Ox 09/18/20 07:37 36.4 C L 66 16 155/71 H 92 09/18/20 07:12 77 09/18/20 05:39 82 173/77 H 09/18/20 03:41 36.6 C 59 L 20 173/77 H 92 09/18/20 03:09 68 09/18/20 00:12 82 179/78 H 09/17/20 23:52 36.7 C 60 20 179/78 H 92 PG Care Time/CCT Total # of Minutes Spent Total Time Spent with Patient: Total time spent is greater than 50% in coordination of care (as documented) at patient's floor/unit and/or counseling patient: Coding Level of Care Code 68411 Subseq Hosp Care Lvl 1 Diagnoses SBO (small bowel obstruction) K56.609
[2020-09-18 08:43] LABS: Calcium 9.3 mg/dl (8.5-10.1); Creatinine Clr Calc Pharmacy 100.1 ml/min; Est GFR (African American) 99.4; Est GFR (Non-African American) 85.8; Magnesium 2.2 mg/dl (1.8-2.4); Phosphorus 2.2 mg/dl (2.5-4.9); Potassium 3.6 mmol/L (3.5-5.1)
[2020-09-18] MEDS ORDERED: KETOROLAC TROMETHAMINE 15 MG/ML VIAL IV PRN (09:03)
[2020-09-18] MEDS ORDERED: POTASSIUM PHOS 3 MMOL/1 ML INFUSION IV STA (09:12)
[2020-09-18] MEDS ORDERED: POTASSIUM PHOSPHATE 9 MMOL in SODIUM CHLORIDE 0.9% 250 ML IV ONE (09:30)
--- NOTE | 2020-09-18 09:34 | XRay Report ---
XR KUB/Abdomen 1 view CLINICAL HISTORY: Abdominal pain and small bowel obstruction COMPARISON STUDY: 09/17/2020 FINDINGS: There is no pathologic bowel dilatation. There are surgical clips within the right upper qu adrant consistent with a prior cholecystectomy. There is a 2 mm calcification projected over the left renal shadow consistent with a calculus. There is an enteric tube at the level of the gastric cardia . The tube is looped back upon itself. IMPRESSION: 1. No evidence of pathologic bowel dilatation 2. Left-sided nephrolithiasis ACT 112: Negative or not required by law. Electronically signed by: Bunny Wilkes M.D. 09/18/2020 9:33 AM
[2020-09-18] MEDS: POTASSIUM CHLORIDE / WTR 10 MEQ/100 ML PLCT IV SCH ×2 (09:40→11:09)
[2020-09-18] MEDS: D5W AND NSS 1,000 ML IV SCH ×2 (10:23→23:40)
--- NOTE | 2020-09-18 14:01 | Pharmacy Report ---
Pharmacy Glycemic Short Note 2 - Date of Service September 18, 2020 - Glycemic Short BSG Results (Last 24 hours): 09/17/20 09/17/20 09/17/20 16:37 20:05 23:54 Glucose POC Glucose 199 H 175 H 165 H 09/18/20 09/18/20 09/18/20 03:38 05:45 07:30 Glucose POC Glucose 173 H 171 H 157 H 09/18/20 09/18/20 07:58 11:26 Glucose 174 H POC Glucose 160 H OUTPATIENT ANTIDIABETIC REGIMEN: Novolog insulin pump * Basal rates * Midnight-0500: 4.5 units/hr * 5171-7721: 5.2 units/hr * 1900-Midnight: 4.5 units/hr * Bolus: per bolus wizard * Insulin/carb ratio: 1 unit: 2.5 g carbs * Sensitivity factor: 20 * BSG goal: 120-150 mg/dL Metformin 1 g PO BIDM Jardiance 10 mg PO daily ASSESSMENT: 09/17: * Dale received 113 units of insulin yesterday (this is similar to home basal usage of ~118 units/day) * He remains NPO on D5NS @ 80 ml/hr * Fasting BSG of 171 mg/dL remains above goal but is trending downward. Continue basal insulin dosed per scale. Suspect he will require ~100 units/day. * Post prandial BSGs are improving. Continue current Novolog orders which were based on home regimen. 09/16: * RR is a 65 year old male admitted for inpatient treatment of small bowel obstruction * Plan is for nonoperative management - NG tube placed * Discussed with admitting PA and decided to discontinue insulin pump, as patient will be NPO and patient is not confident in ability to manually adjust insulin pump settings * BSG of 107 mg/dL on presentation and 65 mg/dL HS * Confirmed with RN that pump is disconnected * Dextrose added to fluids by hospitalist (now D5/NSS @ 80 mL/hr) * Will plan to give less than 50% of home basal dose given NPO status and hypoglycemia PLAN FOR INPATIENT GLYCEMIC CONTROL: * Hold outpatient oral diabetes medications * Basal insulin * Lantus per scale BID: * 40 units for BSG 100 mg/dL or less * 50 units for BSG 101-160 mg/dL * 55 units for BSG greater than 160 mg/dL * Bolus insulin * NovoLog per scale ACHS or Q6hrs while NPO * Goal Range: Low 120 mg/dL - High 150 mg/dL * Correction Factor: 15 mg/dL/unit * Nutritional / Prandial insulin per carb ratio of 1 unit per 2.5 grams CHO consumed PLAN FOR DISCHARGE: * Will require transition back to insulin pump prior to discharge
[2020-09-19] MEDS ORDERED: hydrALAZINE HCL 20 MG/ML VIAL IV ONE (04:22)
[2020-09-19] MEDS: METOPROLOL TARTRATE 1 MG/ML VIAL IV SCH ×2 (05:59→12:03)
[2020-09-19] MEDS: HEPARIN SOD 5,000 UNIT/0.5 ML VIAL SQ SCH ×3 (06:02→20:58)
[2020-09-19] MEDS: INSULIN ASPART 100 UNITS/ML 3 ML PEN SC SCH ×4 (06:09→20:59)
[2020-09-19 07:05] LABS: Hematocrit (blood only) 41.3 % (42-52); Hemoglobin 12.8 g/dL (14.0-18.0); Mean Corpuscular Hemoglobin 26.1 pg (25-34); Mean Corpuscular Volume 84.1 fL (80-100); Mean Platelet Volume 9.7 fL (7.4-10.4); Platelet Count 149 K/uL (130-400); RDW Coefficient of Variation 14.6 % (11.5-14.5); RDW Standard Deviation 44.7 fL (36.4-46.3); Red Blood Count 4.91 M/uL (4.7-6.1); White Blood Count 4.43 K/uL (4.8-10.8)
[2020-09-19 07:36] LABS: BUN Creatinine Ratio 30.4 (10-20); Calcium 9.3 mg/dl (8.5-10.1); Creatinine Clr Calc Pharmacy 109.6 ml/min; Est GFR (Non-African American) 90.6; Potassium 3.5 mmol/L (3.5-5.1)
--- NOTE | 2020-09-19 07:55 | Surgery Progress Note ---
Date of Service September 19, 2020 Assessment & Plan (1) SBO (small bowel obstruction): NG output increased but taking more ice will clamp NG Admission and Anticipated Discharge Date Admission Date: September 16, 2020 Supervising Physician Co-Signing Physician Notes Patient seen and examined, agree with above. 65-year-old male admitted with small bowel obstruction. He has continued to pass some flatus. His abdominal pain is mostly resolved. He has been taking ice chips so his NG tube output is slightly increased. On exam he is afebrile with stable vitals. His abdomen is obese and nontender. His x-ray from yesterday was again reviewed and showed no pathologic bowel dilation. At this point we will proceed with an NG tube clamp trial, if he tolerates and has minimal residuals we will pull the tube and advance him to clear liquids. Surgery will continue to follow. Subjective some flatus, has had 2 cups ice Physical Exam Gastrointestinal (Abdomen): Inspection/Auscultation: + abdomen distended (similar) Percussion/Palpation: abdomen soft; abdomen nontender Results & Data ([facility]) Vital Signs (Past 12 Hours) Vital Signs Temp Pulse Pulse Resp BP BP Pulse Ox 09/19/20 05:59 75 176/78 H 09/19/20 05:32 176/78 H 09/19/20 03:54 36.5 C 61 15 183/77 H 94 09/19/20 00:05 64 09/18/20 23:43 67 182/77 H 09/18/20 23:12 36.4 C L 67 18 182/77 H 95 09/18/20 20:11 36.6 C 64 15 190/78 H 97 PG Care Time/CCT Total # of Minutes Spent Total Time Spent with Patient: Total time spent is greater than 50% in coor dination of care (as documented) at patient's floor/unit and/or counseling patient: Coding Level of Care Code 44202 Subseq Hosp Care Lvl 1 Diagnoses SBO (small bowel obstruction) K56.609
--- NOTE | 2020-09-19 08:02 | Hospitalist Progress Note ---
Date of Service September 19, 2020 Assessment & Plan (1) SBO (small bowel obstruction): Pt is 65 y/o M with PMH insulin dependent DM II, atrial fibrillation on Eliquis, diastolic heart failure, intermittent heart block s/p pacemaker, HTN, dyslipidemia, GERD, depression, obesity presented to ER with complaint of abdominal pain started last evening. H/O cholecystectomy and hernia repair In ER patient afebrile, vitals stable. No leukocytosis. CT abdomen pelvis:proximal small bowel obstructive pattern. No mass identified at the left upper quadrant transition zone In ER was given morphine 4 mg IV, Zofran 4 mg IV, 500 mL NSS bolus. NG tube was placed with 300 mL output. KUB after NG tube placement and NG tube was further advanced by ER nurse NPO IVF Continue NG tube KUB in a.m. done, shows improvement General surgical consulted. Conservative measures at this time, continue NGT for now Clinically much improved, abdominal pain improved/ resolved, passing flatus, but no BM yet NGT clamped now (09/19/2020) Follow AM labs Hypokalemia - d/t NPO status replete and monitor (2) Atrial fibrillation: On Eliquis Converted oral metoprolol to IV Lopressor Hold Eliquis. Heparin SC for now (3) Chronic diastolic (congestive) heart failure: No significant fluid overload at this time Hold oral Lasix for now and monitor volume status closely (4) Diabetes mellitus type 2, insulin dependent: On insulin pump A1c: 8.7 on 07/2020 Turn off patient's insulin pump and managed with basal bolus insulin. Glycemic pharmacist consult for assistance and glycemic management (5) History of heart block: S/p pacemaker (6) HTN (hypertension): BP stable Will hold losartan for now and monitor closely. May need to consider resuming tomorrow or using different agent Oral metoprolol converted to IV Lopressor (7) HLD (hyperlipidemia): Hold statin for now since n.p.o. (8) Depression: Hold Zoloft for now (9) BPH (benign prostatic hyperplasia): Hold Flomax for now DVT Prophylaxis: Heparin SQ DNR/DNI as per discussion with pt Follows with Dr Buitrago for routine care Admission and Anticipated Discharge Date Admission Date: September 16, 2020 Subjective Pt seen in follow up of SBO. No acute events overnight. Pt is ambulating and passing flatus. Abdominal pain now seems resolved. No BM yet though. Plan to clamp NGT by surgery today. No fever, chills, chest pain, shortness of breath. Review of Systems Review of Systems: All systems reviewed & are unremarkable except as noted in HPI & below Constitutional: no fever and no chills Respiratory: no cough and no dyspnea Cardiovascular: no chest pain and no palpitations Gastrointestinal: + abdominal pain (much improved); no nausea and no vomiting Physical Exam Physical Exam: General: obese male sitting up in bed, in NAD, NG tube placed- now clamped Head: normocephalic, atraumatic Eyes: PERRL, EOMI, conjunctiva non-injected, anicteric ENT: normal inspection external ears, nose, mucous membranes moist Neck: supple, trachea midline Lungs: clear, no respiratory distress, no wheezing/rhonchi/rales CV: Irregularly irregular, 1+ pretibial edema Abd: Protuberant, hypoactive BS, soft, mild tenderness palpation LLQ without rebound (much improved) Ext: no cyanosis, no calf tenderness Neuro: A&O x 3, no focal deficits noted, normal affect Skin: warm, dry Results & Data Results & Data ([facility]) Vital Signs (Past 12 Hours) Vital Signs Temp Pulse Pulse Resp BP BP Pulse Ox 09/19/20 05:59 75 176/78 H 09/19/20 05:32 176/78 H 09/19/20 03:54 36.5 C 61 15 183/77 H 94 09/19/20 00:05 64 09/18/20 23:43 67 182/77 H 09/18/20 23:12 36.4 C L 67 18 182/77 H 95 09/18/20 20:11 36.6 C 64 15 190/78 H 97 Laboratory Results 09/19/20 09/19/20 09/19/20 Range/Units 07:20 06:20 06:20 WBC 4.43 L (4.8-10.8) K/uL RBC 4.91 (4.7-6.1) M/uL Hgb 12.8 L (14.0-18.0) g/dL Hct 41.3 L (42-52) % MCV 84.1 (80-100) fL MCH 26.1 (25-34) pg MCHC 31.0 L (32-36) g/dL RDW Std Deviation 44.7 (36.4-46.3) fL RDW Coeff of Manoj 14.6 H (11.5-14.5) % Plt Count 149 (130-400) K/uL MPV 9.7 (7.4-10.4) fL Sodium 146 H (136-145) mmol/L Potassium 3.5 (3.5-5.1) mmol/L Chloride 112 H (98-107) mmol/L Carbon Dioxide 28 (21-32) mmol/L Anion Gap 7.0 (3-11) BUN 26 H (7-18) mg/dl Creatinine 0.84 (0.6-1.4) mg/dl Est Cr Clr Drug Dosing 109.6 ml/min Est GFR ( Amer) 105.0 Est GFR (Non-Af Amer) 90.6 BUN/Creatinine Ratio 30.4 H (10-20) Glucose 158 H (70-99) mg/dl POC Glucose 161 H (70-99) mg/dl Calcium 9.3 (8.5-10.1) mg/dl Phosphorus 3.0 (2.5-4.9) mg/dl Magnesium 2.0 (1.8-2.4) mg/dl 09/19/20 09/18/20 09/18/20 Range/Units 03:55 23:34 20:12 WBC (4.8-10.8) K/uL RBC (4.7-6.1) M/uL Hgb (14.0-18.0) g/dL Hct (42-52) % MCV (80-100) fL MCH (25-34) pg MCHC (32-36) g/dL RDW Std Deviation (36.4-46.3) fL RDW Coeff of Manoj (11.5-14.5) % Plt Count (130-400) K/uL MPV (7.4-10.4) fL Sodium (136-145) mmol/L Potassium (3.5-5.1) mmol/L Chloride (98-107) mmol/L Carbon Dioxide (21-32) mmol/L Anion Gap (3-11) BUN (7-18) mg/dl Creatinine (0.6-1.4) mg/dl Est Cr Clr Drug Dosing ml/min Est GFR ( Amer) Est GFR (Non-Af Amer) BUN/Creatinine Ratio (10-20) Glucose (70-99) mg/dl POC Glucose 133 H 147 H 160 H (70-99) mg/dl Calcium (8.5-10.1) mg/dl Phosphorus (2.5-4.9) mg/dl Magnesium (1.8-2.4) mg/dl 09/18/20 09/18/20 09/18/20 Range/Units 16:28 11:26 07:58 WBC (4.8-10.8) K/uL RBC (4.7-6.1) M/uL Hgb (14.0-18.0) g/dL Hct (42-52) % MCV (80-100) fL MCH (25-34) pg MCHC (32-36) g/dL RDW Std Deviation (36.4-46.3) fL RDW Coeff of Manoj (11.5-14.5) % Plt Count (130-400) K/uL MPV (7.4-10.4) fL Sodium 144 (136-145) mmol/L Potassium 3.6 (3.5-5.1) mmol/L Chloride 111 H (98-107) mmol/L Carbon Dioxide 29 (21-32) mmol/L Anion Gap 5.0 (3-11) BUN 29 H (7-18) mg/dl Creatinine 0.92 (0.6-1.4) mg/dl Est Cr Clr Drug Dosing 100.1 ml/min Est GFR ( Amer) 99.4 Est GFR (Non-Af Amer) 85.8 BUN/Creatinine Ratio 31.0 H (10-20) Glucose 174 H (70-99) mg/dl POC Glucose 153 H 160 H (70-99) mg/dl Calcium 9.3 (8.5-10.1) mg/dl Phosphorus 2.2 L (2.5-4.9) mg/dl Magnesium 2.2 (1.8-2.4) mg/dl 09/18/20 Range/Units 07:58 WBC 3.44 L (4.8-10.8) K/uL RBC 5.01 (4.7-6.1) M/uL Hgb 13.2 L (14.0-18.0) g/dL Hct 42.6 (42-52) % MCV 85.0 (80-100) fL MCH 26.3 (25-34) pg MCHC 31.0 L (32-36) g/dL RDW Std Deviation 44.8 (36.4-46.3) fL RDW Coeff of Manoj 14.6 H (11.5-14.5) % Plt Count 114 L (130-400) K/uL MPV 9.1 (7.4-10.4) fL Sodium (136-145) mmol/L Potassium (3.5-5.1) mmol/L Chloride (98-107) mmol/L Carbon Dioxide (21-32) mmol/L Anion Gap (3-11) BUN (7-18) mg/dl Creatinine (0.6-1.4) mg/dl Est Cr Clr Drug Dosing ml/min Est GFR ( Amer) Est GFR (Non-Af Amer) BUN/Creatinine Ratio (10-20) Glucose (70-99) mg/dl POC Glucose (70-99) mg/dl Calcium (8.5-10.1) mg/dl Phosphorus (2.5-4.9) mg/dl Magnesium (1.8-2.4) mg/dl Medications Administered Current Inpatient Medications Acetaminophen (Acetaminophen 1000 Mg/100 Ml Iv) 1,000 mg IV Q8H PRN PRN Reason: Pain or Fever Stop: 09/19/20 19:43 Last Admin: 09/18/20 20:21 Dose: 1,000 mg Documented by: Albuterol (Albuterol Hfa 8 Gm Inhaler) 2 puffs INH Q4R PRN PRN Reason: Shortness Of Breath Or Wheezing Stop: 10/16/20 19:43 Dextrose (Dextrose 50% 50 Ml Syringe) 25 - 50 ml IV UD PRN; Protocol PRN Reason: Hypoglycemia Protocol Stop: 10/16/20 19:43 Glucagon (Glucagon For Inj 1 Mg Vial) 1 mg SQ UD PRN; Protocol PRN Reason: Hypoglycemia Protocol Stop: 10/16/20 19:43 Glucose (Glucose 10 Tabs/Tube) 4 - 8 tabs PO UD PRN; Protocol PRN Reason: Hypoglycemia Protocol Stop: 10/16/20 19:43 Glucose (Glucose 40% Gel 15 Gm Tube) 15 - 30 gm PO UD PRN; Protocol PRN Reason: Hypoglycemia Protocol Stop: 10/16/20 19:43 Heparin Sodium (Porcine) (Heparin Sod 5,000 Unit/0.5 Ml Vial) 5,000 units SQ Q8 FILIPE Stop: 10/16/20 21:59 Last Admin: 09/19/20 06:02 Dose: 5,000 units Documented by: Dextrose/Sodium Chloride (D5w And Nss) 1,000 mls @ 80 mls/hr IV .[id number] [facility] Stop: 10/16/20 21:59 Last Admin: 09/18/20 23:40 Dose: 80 mls/hr Documented by: Potassium Chloride (K Morgan / Wtr) 10 meq in 100 mls @ 100 mls/hr IV Q1H [facility] Stop: 09/19/20 10:29 Potassium Chloride/Dextrose/Sod Cl (D5w And 1/2nss + 20meq Kcl) 20 meq in 1,000 mls @ 80 mls/hr IV .[id number] [facility] Stop: 10/19/20 08:14 Insulin Aspart (Insulin Aspart 100 Units/Ml 3 Ml Pen) 0 units SC Q6 [facility] Stop: 10/18/20 05:59 Last Admin: 09/19/20 06:09 Dose: Not Given Documented by: Insulin Glargine (Insulin Glargine Solostar 100 Units/Ml 3 Ml Pen) 0 units SC BID [facility]; Protocol Stop: 10/17/20 20:59 Last Admin: 09/18/20 20:14 Dose: 50 units Documented by: Ketorolac Tromethamine (Ketorolac Tromethamine 15 Mg/Ml Vial) 15 mg IV Q6H PRN PRN Reason: Pain Stop: 09/23/20 09:02 Metoprolol Tartrate (Metoprolol Tartrate 1 Mg/Ml Vial) 5 mg IV Q6 [facility] Stop: 10/16/20 19:59 Last Admin: 09/19/20 05:59 Dose: 5 mg Documented by: Metoprolol Tartrate (Metoprolol Tartrate 1 Mg/Ml Vial) 2.5 mg IV Q6 PRN PRN Reason: tachycardia Stop: 10/16/20 19:43 Miscellaneous (Carbohydrates For Hypoglycemia ) 15 - 30 gm PO UD PRN PRN Reason: Hypoglycemia Protocol Stop: 10/16/20 19:43 Miscellaneous Information (Pharmacy Glycemic Mgmt Consult) 1 ea N/A UD PRN; Protocol PRN Reason: Consult Stop: 10/16/20 19:47 Morphine Sulfate (Morphine Sulfate 2 Mg/Ml Carp) 2 mg IV Q4H PRN PRN Reason: Severe Pain Stop: 09/30/20 19:43 Last Admin: 09/17/20 02:53 Dose: 2 mg Documented by: Ondansetron HCl (Ondansetron Inj 2 Mg/Ml 2 Ml Vial) 4 mg IV Q6H PRN PRN Reason: Nausea Stop: 10/16/20 19:43 Last Admin: 09/18/20 22:09 Dose: 4 mg Documented by:
[2020-09-19] MEDS: INSULIN GLARGINE SOLOSTAR 100 UNITS/ML 3 ML PEN SC SCH ×2 (08:07→20:59)
[2020-09-19] MEDS: POTASSIUM CHLORIDE / WTR 10 MEQ/100 ML PLCT IV SCH ×2 (08:56→09:59)
[2020-09-19] MEDS ORDERED: D5W AND 1/2NSS + 20MEQ KCL 20 MEQ/1,000 ML BAG IV SCH (09:00)
[2020-09-19] MEDS ORDERED: Nursing to Pharmacy Communication SCH (15:15)
[2020-09-19] MEDS ORDERED: hydrALAZINE 10 MG TAB PO PRN (15:59)
[2020-09-19] MEDS: ASPIRIN 81 MG ECTAB PO SCH (17:01)
[2020-09-19] MEDS: POTASSIUM CHLORIDE 10 MEQ TABCR PO SCH (17:03)
[2020-09-19] MEDS: MAGNESIUM OXIDE 400 MG TAB PO SCH (17:03)
[2020-09-19] MEDS: SERTRALINE HCL 50 MG TABLET PO SCH (17:04)
[2020-09-19] MEDS: TAMSULOSIN HCL 0.4 MG CAP PO SCH (17:04)
[2020-09-19] MEDS: METOPROLOL SUCC 50MG EXT REL TAB PO SCH (17:48)
[2020-09-20 06:05] LABS: Hematocrit (blood only) 37.5 % (42-52); Hemoglobin 11.7 g/dL (14.0-18.0); Mean Corpuscular Hemoglobin 26.1 pg (25-34); Mean Corpuscular Hgb Conc 31.2 g/dL (32-36); Mean Corpuscular Volume 83.5 fL (80-100); Mean Platelet Volume 9.9 fL (7.4-10.4); Platelet Count 134 K/uL (130-400); RDW Coefficient of Variation 14.4 % (11.5-14.5); Red Blood Count 4.49 M/uL (4.7-6.1); White Blood Count 3.52 K/uL (4.8-10.8)
[2020-09-20] MEDS: HEPARIN SOD 5,000 UNIT/0.5 ML VIAL SQ SCH (06:10)
[2020-09-20 06:50] LABS: BUN Creatinine Ratio 29.2 (10-20); Calcium 8.8 mg/dl (8.5-10.1); Creatinine Clr Calc Pharmacy 131.9 ml/min; Est GFR (African American) 113.2; Est GFR (Non-African American) 97.7; Phosphorus 3.9 mg/dl (2.5-4.9)
[2020-09-20] MEDS: CARBOHYDRATES FOR HYPOGLYCEMIA PO PRN ×3 (06:56→16:41)
[2020-09-20] MEDS: INSULIN ASPART 100 UNITS/ML 3 ML PEN SC SCH ×4 (07:34→20:11)
[2020-09-20] MEDS: TAMSULOSIN HCL 0.4 MG CAP PO SCH (07:35)
[2020-09-20] MEDS: SERTRALINE HCL 50 MG TABLET PO SCH (07:35)
[2020-09-20] MEDS: METOPROLOL SUCC 50MG EXT REL TAB PO SCH ×2 (07:35→20:09)
[2020-09-20] MEDS: MAGNESIUM OXIDE 400 MG TAB PO SCH (07:35)
[2020-09-20] MEDS: ASPIRIN 81 MG ECTAB PO SCH (07:35)
[2020-09-20] MEDS: POTASSIUM CHLORIDE 10 MEQ TABCR PO SCH (07:35)
[2020-09-20] MEDS: PANTOprazole 40 MG TAB PO SCH (07:35)
--- NOTE | 2020-09-20 08:35 | Hospitalist Progress Note ---
Date of Service September 20, 2020 Assessment & Plan (1) SBO (small bowel obstruction): Pt is 65 y/o M with PMH insulin dependent DM II, atrial fibrillation on Eliquis, diastolic heart failure, intermittent heart block s/p pacemaker, HTN, dyslipidemia, GERD, depression, obesity presented to ER with complaint of abdominal pain started last evening. H/O cholecystectomy and hernia repair In ER patient afebrile, vitals stable. No leukocytosis. CT abdomen pelvis:proximal small bowel obstructive pattern. No mass identified at the left upper quadrant transition zone In ER was given morphine 4 mg IV, Zofran 4 mg IV, 500 mL NSS bolus. NG tube was placed with 300 mL output. NPO initially, NGT placed on admission IVF Repeat KUB showed improvement General surgical consulted. Conservative measures at this time, continued NGT until 09/19/20 Clinically much improved, abdominal pain improved/ resolved, pt had a BM on 09/19/20 NGT removed (09/19/2020) Tolerating clear liquid diet, plan to switch to full liquid now (09/20) Follow AM labs Hypokalemia - d/t NPO status replete and monitor (2) Atrial fibrillation: On Eliquis Converted oral metoprolol to IV Lopressor Hold Eliquis. Heparin SC for now (3) Chronic diastolic (congestive) heart failure: No significant fluid overload at this time Hold oral Lasix for now and monitor volume status closely (4) Diabetes mellitus type 2, insulin dependent: On insulin pump A1c: 8.7 on 07/2020 Turn off patient's insulin pump and managed with basal bolus insulin. Glycemic pharmacist consult for assistance and glycemic management (5) History of heart block: S/p pacemaker (6) HTN (hypertension): BP stable Will hold losartan for now and monitor closely. May need to consider resuming tomorrow or using different agent Oral metoprolol converted to IV Lopressor (7) HLD (hyperlipidemia): Hold statin for now since n.p.o. (8) Depression: resumed Zoloft (9) BPH (benign prostatic hyperplasia): Resumed Flomax DVT Prophylaxis: Heparin SQ DNR/DNI as per discussion with pt Follows with Dr Buitrago for routine care Admission and Anticipated Discharge Date Admission Date: September 16, 2020 Subjective Pt seen in follow up of SBO. NGT removed yesterday. Pt had BM yesterday. Started on clear liquid diet which he's tolerating w/o issues. Abdominal pain resolved. No fever, chills, chest pain, shortness of breath. Ambulating. Review of Systems Review of Systems: All systems reviewed & are unremarkable except as noted in HPI & below Constitutional: no fever and no chills Respiratory: no cough and no dyspnea Cardiovascular: no chest pain and no palpitations Gastrointestinal: no abdominal pain, no nausea and no vomiting Physical Exam Physical Exam: General: obese male sitting up in bed, in NAD, NG tube removed (09/19/20) Head: normocephalic, atraumatic Eyes: PERRL, EOMI, conjunctiva non-injected, anicteric ENT: normal inspection external ears, nose, mucous membranes moist Neck: supple, trachea midline Lungs: clear, no respiratory distress, no wheezing/rhonchi/rales CV: Irregularly irregular, 1+ pretibial edema Abd: Protuberant, hypoactive BS, soft, no tenderness palpation Ext: no cyanosis, no calf tenderness Neuro: A&O x 3, no focal deficits noted, normal affect Skin: warm, dry Results & Data Results & Data ([facility]) Vital Signs (Past 12 Hours) Vital Signs Temp Pulse Pulse Resp BP BP Pulse Ox 09/20/20 07:12 36.7 C 63 16 138/70 94 09/20/20 03:00 36.5 C 48 L 20 93/53 L 90 09/20/20 00:15 62 09/19/20 23:43 36.8 C 63 20 125/79 93 Laboratory Results 09/20/20 09/20/20 09/20/20 Range/Units 07:32 07:15 07:13 WBC (4.8-10.8) K/uL RBC (4.7-6.1) M/uL Hgb (14.0-18.0) g/dL Hct (42-52) % MCV (80-100) fL MCH (25-34) pg MCHC (32-36) g/dL RDW Std Deviation (36.4-46.3) fL RDW Coeff of Manoj (11.5-14.5) % Plt Count (130-400) K/uL MPV (7.4-10.4) fL Sodium (136-145) mmol/L Potassium (3.5-5.1) mmol/L Chloride (98-107) mmol/L Carbon Dioxide (21-32) mmol/L Anion Gap (3-11) BUN (7-18) mg/dl Creatinine (0.6-1.4) mg/dl Est Cr Clr Drug Dosing ml/min Est GFR ( Amer) Est GFR (Non-Af Amer) BUN/Creatinine Ratio (10-20) Glucose (70-99) mg/dl POC Glucose 86 63 L* 58 L* (70-99) mg/dl Calcium (8.5-10.1) mg/dl Phosphorus (2.5-4.9) mg/dl Magnesium (1.8-2.4) mg/dl 09/20/20 09/20/20 09/20/20 Range/Units 06:54 06:53 05:33 WBC (4.8-10.8) K/uL RBC (4.7-6.1) M/uL Hgb (14.0-18.0) g/dL Hct (42-52) % MCV (80-100) fL MCH (25-34) pg MCHC (32-36) g/dL RDW Std Deviation (36.4-46.3) fL RDW Coeff of Manoj (11.5-14.5) % Plt Count (130-400) K/uL MPV (7.4-10.4) fL Sodium 142 (136-145) mmol/L Potassium 3.0 L (3.5-5.1) mmol/L Chloride 109 H (98-107) mmol/L Carbon Dioxide 30 (21-32) mmol/L Anion Gap 3.0 (3-11) BUN 20 H (7-18) mg/dl Creatinine 0.70 (0.6-1.4) mg/dl Est Cr Clr Drug Dosing 131.9 ml/min Est GFR ( Amer) 113.2 Est GFR (Non-Af Amer) 97.7 BUN/Creatinine Ratio 29.2 H (10-20) Glucose 48 L* (70-99) mg/dl POC Glucose 60 L* 60 L* (70-99) mg/dl Calcium 8.8 (8.5-10.1) mg/dl Phosphorus 3.9 (2.5-4.9) mg/dl Magnesium 2.0 (1.8-2.4) mg/dl 09/20/20 09/19/20 09/19/20 Range/Units 05:33 20:00 16:23 WBC 3.52 L (4.8-10.8) K/uL RBC 4.49 L (4.7-6.1) M/uL Hgb 11.7 L (14.0-18.0) g/dL Hct 37.5 L (42-52) % MCV 83.5 (80-100) fL MCH 26.1 (25-34) pg MCHC 31.2 L (32-36) g/dL RDW Std Deviation 44.0 (36.4-46.3) fL RDW Coeff of Manoj 14.4 (11.5-14.5) % Plt Count 134 (130-400) K/uL MPV 9.9 (7.4-10.4) fL Sodium (136-145) mmol/L Potassium (3.5-5.1) mmol/L Chloride (98-107) mmol/L Carbon Dioxide (21-32) mmol/L Anion Gap (3-11) BUN (7-18) mg/dl Creatinine (0.6-1.4) mg/dl Est Cr Clr Drug Dosing ml/min Est GFR ( Amer) Est GFR (Non-Af Amer) BUN/Creatinine Ratio (10-20) Glucose (70-99) mg/dl POC Glucose 112 H 154 H (70-99) mg/dl Calcium (8.5-10.1) mg/dl Phosphorus (2.5-4.9) mg/dl Magnesium (1.8-2.4) mg/dl 09/19/20 Range/Units 11:26 WBC (4.8-10.8) K/uL RBC (4.7-6.1) M/uL Hgb (14.0-18.0) g/dL Hct (42-52) % MCV (80-100) fL MCH (25-34) pg MCHC (32-36) g/dL RDW Std Deviation (36.4-46.3) fL RDW Coeff of Manoj (11.5-14.5) % Plt Count (130-400) K/uL MPV (7.4-10.4) fL Sodium (136-145) mmol/L Potassium (3.5-5.1) mmol/L Chloride (98-107) mmol/L Carbon Dioxide (21-32) mmol/L Anion Gap (3-11) BUN (7-18) mg/dl Creatinine (0.6-1.4) mg/dl Est Cr Clr Drug Dosing ml/min Est GFR ( Amer) Est GFR (Non-Af Amer) BUN/Creatinine Ratio (10-20) Glucose (70-99) mg/dl POC Glucose 154 H (70-99) mg/dl Calcium (8.5-10.1) mg/dl Phosphorus (2.5-4.9) mg/dl Magnesium (1.8-2.4) mg/dl Medications Administered Current Inpatient Medications Albuterol (Albuterol Hfa 8 Gm Inhaler) 2 puffs INH Q4R PRN PRN Reason: Shortness Of Breath Or Wheezing Stop: 10/16/20 19:43 Aspirin (Aspirin 81 Mg Ectab) 81 mg PO DAILY FILIPE Stop: 10/19/20 16:59 Last Admin: 09/20/20 07:35 Dose: 81 mg Documented by: Dextrose (Dextrose 50% 50 Ml Syringe) 25 - 50 ml IV UD PRN; Protocol PRN Reason: Hypoglycemia Protocol Stop: 10/16/20 19:43 Glucagon (Glucagon For Inj 1 Mg Vial) 1 mg SQ UD PRN; Protocol PRN Reason: Hypoglycemia Protocol Stop: 10/16/20 19:43 Glucose (Glucose 10 Tabs/Tube) 4 - 8 tabs PO UD PRN; Protocol PRN Reason: Hypoglycemia Protocol Stop: 10/16/20 19:43 Glucose (Glucose 40% Gel 15 Gm Tube) 15 - 30 gm PO UD PRN; Protocol PRN Reason: Hypoglycemia Protocol Stop: 10/16/20 19:43 Heparin Sodium (Porcine) (Heparin Sod 5,000 Unit/0.5 Ml Vial) 5,000 units SQ Q8 FILIPE Stop: 10/16/20 21:59 Last Admin: 09/20/20 06:10 Dose: 5,000 units Documented by: Hydralazine HCl (Hydralazine 10 Mg Tab) 10 mg PO Q4H PRN PRN Reason: hypertension Stop: 10/19/20 15:59 Dextrose/Sodium Chloride (D5w And Nss) 1,000 mls @ 80 mls/hr IV .[id number] [facility] Stop: 10/16/20 21:59 Last Infusion: 09/19/20 12:16 Dose: Infused Documented by: Insulin Aspart (Insulin Aspart 100 Units/Ml 3 Ml Pen) 0 units SC ACHS [facility] Stop: 10/18/20 05:59 Last Admin: 09/20/20 07:34 Dose: Not Given Documented by: Insulin Glargine (Insulin Glargine Solostar 100 Units/Ml 3 Ml Pen) 0 units SC BID [facility]; Protocol Stop: 10/17/20 20:59 Last Admin: 09/19/20 20:59 Dose: 55 units Documented by: Ketorolac Tromethamine (Ketorolac Tromethamine 15 Mg/Ml Vial) 15 mg IV Q6H PRN PRN Reason: Pain Stop: 09/23/20 09:02 Magnesium Oxide (Magnesium Oxide 400 Mg Tab) 400 mg PO DAILY [facility] Stop: 10/19/20 16:59 Last Admin: 09/20/20 07:35 Dose: 400 mg Documented by: Metoprolol Succinate (Metoprolol Succ 50mg Ext Rel Tab) 100 mg PO BID [facility] Stop: 10/19/20 20:59 Last Admin: 09/20/20 07:35 Dose: 100 mg Documented by: Metoprolol Tartrate (Metoprolol Tartrate 1 Mg/Ml Vial) 2.5 mg IV Q6 PRN PRN Reason: tachycardia Stop: 10/16/20 19:43 Miscellaneous (Carbohydrates For Hypoglycemia ) 15 - 30 gm PO UD PRN PRN Reason: Hypoglycemia Protocol Stop: 10/16/20 19:43 Last Admin: 09/20/20 07:18 Dose: 15 gm Documented by: Miscellaneous Information (Pharmacy Glycemic Mgmt Consult) 1 ea N/A UD PRN; Protocol PRN Reason: Consult Stop: 10/16/20 19:47 Morphine Sulfate (Morphine Sulfate 2 Mg/Ml Carp) 2 mg IV Q4H PRN PRN Reason: Severe Pain Stop: 09/30/20 19:43 Last Admin: 09/17/20 02:53 Dose: 2 mg Documented by: Ondansetron HCl (Ondansetron Inj 2 Mg/Ml 2 Ml Vial) 4 mg IV Q6H PRN PRN Reason: Nausea Stop: 10/16/20 19:43 Last Admin: 09/18/20 22:09 Dose: 4 mg Documented by: Pantoprazole Sodium (Pantoprazole 40 Mg Tab) 40 mg PO DAILY FILIPE Stop: 10/20/20 08:59 Last Admin: 09/20/20 07:35 Dose: 40 mg Documented by: Potassium Chloride (Potassium Chloride 10 Meq Tabcr) 10 meq PO DAILY FILIPE Stop: 10/19/20 16:59 Last Admin: 09/20/20 07:35 Dose: 10 meq Documented by: Potassium Chloride (Potassium Chloride Crtab 20 Meq Tabcr) 40 meq PO NOW STA Stop: 09/20/20 08:26 Sertraline HCl (Sertraline Hcl 50 Mg Tablet) 150 mg PO DAILY FILIPE Stop: 10/19/20 16:59 Last Admin: 09/20/20 07:35 Dose: 150 mg Documented by: Tamsulosin HCl (Tamsulosin Hcl 0.4 Mg Cap) 0.4 mg PO DAILY FILIPE Stop: 10/19/20 16:59 Last Admin: 09/20/20 07:35 Dose: 0.4 mg Documented by:
[2020-09-20] MEDS ORDERED: POTASSIUM CHLORIDE CRTAB 20 MEQ TABCR PO ONE (08:45)
[2020-09-20] MEDS: APIXABAN 5 MG TABLET PO SCH ×2 (09:06→20:08)
--- NOTE | 2020-09-20 09:49 | Pharmacy Report ---
Pharmacy Glycemic Short Note 2 - Date of Service September 20, 2020 - Glycemic Short BSG Results (Last 24 hours): 09/19/20 09/19/20 09/19/20 11:26 16:23 20:00 Glucose POC Glucose 154 H 154 H 112 H 09/20/20 09/20/20 09/20/20 05:33 06:53 06:54 Glucose 48 L* POC Glucose 60 L* 60 L* 09/20/20 09/20/20 09/20/20 07:13 07:15 07:32 Glucose POC Glucose 58 L* 63 L* 86 OUTPATIENT ANTIDIABETIC REGIMEN: Novolog insulin pump * Basal rates * Midnight-0500: 4.5 units/hr * 2596-6844: 5.2 units/hr * 1900-Midnight: 4.5 units/hr * Bolus: per bolus wizard * Insulin/carb ratio: 1 unit: 2.5 g carbs * Sensitivity factor: 20 * BSG goal: 120-150 mg/dL Metformin 1 g PO BIDM Jardiance 10 mg PO daily ASSESSMENT: 09/20 * Patient received total of 124 units of insulin yesterday, of which 105 units were basal (still decrease in basal from home regimen) * Fasting BSG lower this AM in 60s, treated per hypoglycemia protocol and on recheck 86 mg/dL. Lower BSG this AM likely related to too much basal insulin in addition to lack of PO intake and discontinued of IV fluids with dextrose * Plan to hold basal insulin this AM to ensure BSGs trending upward, will restart later today - plan to decrease ~40-50% * Diet had been resumed yesterday with dinner, BSG from dinner to HS trending down - may loosen CR PLAN FOR INPATIENT GLYCEMIC CONTROL: * Hold outpatient oral diabetes medications * Basal insulin * Lantus per scale HS * 40 units for BSG 100 mg/dL or less * 50 units for BSG 101-160 mg/dL * 55 units for BSG greater than 160 mg/dL * Bolus insulin * NovoLog per scale ACHS or Q6hrs while NPO * Goal Range: Low 120 mg/dL - High 150 mg/dL * Correction Factor: 15 mg/dL/unit * Nutritional / Prandial insulin per carb ratio of 1 unit per 4 grams CHO consumed PLAN FOR DISCHARGE: * Will require transition back to insulin pump prior to discharge
--- NOTE | 2020-09-20 11:30 | Surgery Progress Note ---
Date of Service September 20, 2020 Assessment & Plan (1) SBO (small bowel obstruction): 65-year-old male with clinically resolved small bowel obstruction. Advance to low fiber diet as tolerated Possible discharge this evening or tomorrow morning Patient made aware that small bowel obstructions may recur Surgery will follow peripherally, call with questions or concerns Admission and Anticipated Discharge Date Admission Date: September 16, 2020 Subjective 65-year-old male here for small bowel obstruction likely secondary to adhesions from prior surgery. Tolerated NG tube clamping trial yesterday with minimal residuals and the tube was removed. He has had several bowel movements since yesterday. He is not having any the symptoms he had on admission. He tolerated clear liquids and is scheduled to get a full liquid tray for lunch. Physical Exam Constitutional: WD/WN, vitals as above + obese Gastrointestinal (Abdomen): normal bowel sounds, soft, nontender, no hepatosplenomegaly Inspection/Auscultation: + abdominal surgical scar Results & Data ([facility]) Vital Signs (Past 12 Hours) Vital Signs Temp Pulse Pulse Resp BP BP Pulse Ox 09/20/20 11:22 36.4 C L 95 H 16 132/66 95 09/20/20 07:12 36.7 C 63 16 138/70 94 09/20/20 03:00 36.5 C 48 L 20 93/53 L 90 09/20/20 00:15 62 09/19/20 23:43 36.8 C 63 20 125/79 93 PG Care Time/CCT Total # of Minutes Spent Total Time Spent with Patient: Total time spent is greater than 50% in coordination of care (as documented) at patient's floor/unit and/or counseling patient: Coding Level of Care Code 82941 Inpt Consult Level 3 Diagnoses SBO (small bowel obstruction) K56.609
[2020-09-20] MEDS: INSULIN GLARGINE SOLOSTAR 100 UNITS/ML 3 ML PEN SC SCH (20:10)
[2020-09-21 06:05] LABS: Hematocrit (blood only) 36.7 % (42-52); Hemoglobin 11.6 g/dL (14.0-18.0); Mean Corpuscular Hemoglobin 26.2 pg (25-34); Mean Corpuscular Hgb Conc 31.6 g/dL (32-36); Mean Platelet Volume 9.2 fL (7.4-10.4); Platelet Count 140 K/uL (130-400); RDW Coefficient of Variation 14.5 % (11.5-14.5); RDW Standard Deviation 43.4 fL (36.4-46.3); Red Blood Count 4.42 M/uL (4.7-6.1); White Blood Count 2.81 K/uL (4.8-10.8)
[2020-09-21 06:59] LABS: BUN Creatinine Ratio 18.8 (10-20); Calcium 8.6 mg/dl (8.5-10.1); Creatinine Clr Calc Pharmacy 105.5 ml/min; Est GFR (Non-African American) 88.9; Potassium 3.6 mmol/L (3.5-5.1)
[2020-09-21] MEDS: CARBOHYDRATES FOR HYPOGLYCEMIA PO PRN (07:06)
[2020-09-21] MEDS: INSULIN ASPART 100 UNITS/ML 3 ML PEN SC SCH ×4 (08:02→20:49)
[2020-09-21] MEDS: SERTRALINE HCL 50 MG TABLET PO SCH (08:11)
[2020-09-21] MEDS: MAGNESIUM OXIDE 400 MG TAB PO SCH (08:12)
[2020-09-21] MEDS: ASPIRIN 81 MG ECTAB PO SCH (08:12)
[2020-09-21] MEDS: APIXABAN 5 MG TABLET PO SCH ×2 (08:12→19:53)
[2020-09-21] MEDS: POTASSIUM CHLORIDE 10 MEQ TABCR PO SCH (08:12)
[2020-09-21] MEDS: METOPROLOL SUCC 50MG EXT REL TAB PO SCH ×2 (08:12→19:52)
[2020-09-21] MEDS: TAMSULOSIN HCL 0.4 MG CAP PO SCH (08:12)
[2020-09-21] MEDS: PANTOprazole 40 MG TAB PO SCH (08:12)
--- NOTE | 2020-09-21 15:35 | Pharmacy Report ---
Pharmacy Glycemic Short Note 2 - Date of Service September 21, 2020 - Glycemic Short BSG Results (Last 24 hours): 09/20/20 09/20/20 09/20/20 16:37 16:38 16:57 Glucose POC Glucose 62 L* 59 L* 70 09/20/20 09/21/20 09/21/20 20:10 05:47 07:03 Glucose 49 L* POC Glucose 161 H 59 L* 09/21/20 09/21/20 07:21 11:13 Glucose POC Glucose 74 102 H OUTPATIENT ANTIDIABETIC REGIMEN: Novolog insulin pump * Basal rates * Midnight-0500: 4.5 units/hr * 4407-6363: 5.2 units/hr * 1900-Midnight: 4.5 units/hr * Bolus: per bolus wizard * Insulin/carb ratio: 1 unit: 2.5 g carbs * Sensitivity factor: 20 * BSG goal: 120-150 mg/dL Metformin 1 g PO BIDM Jardiance 10 mg PO daily ASSESSMENT: 09/21: * Patient received total 64 units of insulin yesterday: 50 units of Lantus + 14 units of bolus insulin. * Fasting BSG today was low and patient hypoglycemic despite basal insulin being reduced by 50% and Novolog parameters loosened yesterday. * Low BSGs were most likely due to IV infusion with D5 being stopped yesterday and patient with poor oral intake. * Lantus dose based on BSG scale is further reduced for tonight. * Novolog CR was also reduced. 09/20 * Patient received total of 124 units of insulin yesterday, of which 105 units were basal (still decrease in basal from home regimen) * Fasting BSG lower this AM in 60s, treated per hypoglycemia protocol and on recheck 86 mg/dL. Lower BSG this AM likely related to too much basal insulin in addition to lack of PO intake and discontinued of IV fluids with dextrose * Plan to hold basal insulin this AM to ensure BSGs trending upward, will res tart later today - plan to decrease ~40-50% * Diet had been resumed yesterday with dinner, BSG from dinner to HS trending down - may loosen CR PLAN FOR INPATIENT GLYCEMIC CONTROL: * Hold outpatient oral diabetes medications * Basal insulin: reduced * Lantus per scale HS * 35 units for BSG less than 200 mg/dL * 40 units for BSG 200 mg/dl or greater * Bolus insulin: loosened CR * NovoLog per scale ACHS or Q6hrs while NPO * Goal Range: Low 120 mg/dL - High 150 mg/dL * Correction Factor: 15 mg/dL/unit * Nutritional / Prandial insulin per carb ratio of 1 unit per 5 grams CHO consumed PLAN FOR DISCHARGE: * Will require transition back to insulin pump prior to discharge
--- NOTE | 2020-09-21 16:10 | Hospitalist Progress Note ---
Date of Service September 21, 2020 Assessment & Plan (1) SBO (small bowel obstruction): Patient is 65-year-old male with past medical history of diabetes mellitus type 2 on insulin pump, atrial fibrillation on Eliquis, diastolic heart failure, heart block status post pacemaker, hypertension, depression and GERD presented to the ED with abdominal pain. Patient was found to have small bowel obstruction. General surgery was consulted. His small bowel obstruction has resolved. Patient is currently tolerating solid diet. He is having bowel movement. Remains afebrile. White count is within normal limit. NG tube was placed which was removed on 09/19. Zofran as needed for nausea. Pancytopenia Possibly delusional. Remains afebrile. Lasix was held during this admission. Hypertension Systolic blood pressure in the 170s at this morning. Will start patient losartan 50 mg daily. Hypokalemia -resolved, 3.6 today (2) Atrial fibrillation: Toprol-XL 100 mg daily, aspirin and Eliquis was restarted. (3) Chronic diastolic (congestive) heart failure: Patient does not appear to be fluid overloaded at the moment. However Lasix was being held. Will be cautious with further fluids. (4) Diabetes mellitus type 2, insulin dependent: Patient is on insulin pump at home which is being held while inpatient. Last hemoglobin A1c at 8.7 in July 2020. Patient have had 2 episodes of hypoglycemia with glucose of 48 yesterday morning and 49 this morning. Continue with glycemic control per pharmacy. However will adjust regimen to prevent further hypoglycemic episodes. (5) History of heart block: S/p pacemaker (6) HTN (hypertension): Reported as above. Pressure in the 170s. Losartan has been restarted. (7) HLD (hyperlipidemia): We will restart Lipitor today. (8) Depression: Continue TOOLROOM MACHINIST Zoloft. (9) BPH (benign prostatic hyperplasia): Continued TOOLROOM MACHINIST Flomax. DVT Prophylaxis: Heparin SQ Patient is DNR/DNI. Admission and Anticipated Discharge Date Admission Date: September 16, 2020 Subjective Overall doing okay. Currently tolerating solid diet. He did have a bowel movement. Review of system is mainly negative. Denies any abdominal pain. However patient did have episode of hypoglycemia this morning with a glucose of 47 reports he really has these episodes at home. Patient is currently not on his sling pump while being inpatient. Also continues to be hypertensive with a pressure in the 170s this morning. Review of Systems Review of Systems: All systems reviewed & are unremarkable except as noted in HPI & below Physical Exam Physical Exam: General: A&Ox3. Currently having lunch, does not appear to be in any distress HENT: NCAT, MMM, EOMI Eyes: PERRLA Neck: Supple, normal range of motion CVS: normal rate and rhythm Resp: b/l good breath sounds Abdomen: Soft, nontender but distended Extremities: Absence of any edema Neuro: No gross focal deficits appreciated Skin: warm and dry, no rashes/lesions/errythema MSK: normal ROM, no joint swelling/erythema Results & Data Results & Data ([facility]) Vital Signs (Past 12 Hours) Vital Signs Temp Pulse Pulse Resp BP Pulse Ox 09/21/20 15:25 36.9 C 65 18 169/84 H 94 09/21/20 15:01 73 09/21/20 11:13 36.7 C 78 18 165/90 H 96 09/21/20 07:25 36.3 C L 80 18 172/72 H 95 Laboratory Results Laboratory Results - last 24 hr 09/20/20 09/20/20 09/20/20 16:37 16:38 16:57 WBC RBC Hgb Hct MCV MCH MCHC RDW Std Deviation RDW Coeff of Manoj Plt Count MPV Sodium Potassium Chloride Carbon Dioxide Anion Gap BUN Creatinine Est Cr Clr Drug Dosing Est GFR ( Amer) Est GFR (Non-Af Amer) BUN/Creatinine Ratio Glucose POC Glucose 62 L* 59 L* 70 Calcium 09/20/20 09/21/20 09/21/20 20:10 05:47 05:47 WBC 2.81 L RBC 4.42 L Hgb 11.6 L Hct 36.7 L MCV 83.0 MCH 26.2 MCHC 31.6 L RDW Std Deviation 43.4 RDW Coeff of Manoj 14.5 Plt Count 140 MPV 9.2 Sodium 141 Potassium 3.6 D Chloride 109 H Carbon Dioxide 29 Anion Gap 3.0 BUN 16 Creatinine 0.88 Est Cr Clr Drug Dosing 105.5 Est GFR ( Amer) 103.0 Est GFR (Non-Af Amer) 88.9 BUN/Creatinine Ratio 18.8 Glucose 49 L* POC Glucose 161 H Calcium 8.6 01/09/21/20 09/21/20 07:03 07:21 11:13 WBC RBC Hgb Hct MCV MCH MCHC RDW Std Deviation RDW Coeff of Manoj Plt Count MPV Sodium Potassium Chloride Carbon Dioxide Anion Gap BUN Creatinine Est Cr Clr Drug Dosing Est GFR ( Amer) Est GFR (Non-Af Amer) BUN/Creatinine Ratio Glucose POC Glucose 59 L* 74 102 H Calcium
[2020-09-21] MEDS: ATORVASTATIN 40 MG TAB PO SCH (16:48)
[2020-09-21] MEDS: LOSARTAN POTASSIUM 50 MG TAB PO SCH (16:48)
[2020-09-21] MEDS: INSULIN GLARGINE SOLOSTAR 100 UNITS/ML 3 ML PEN SC SCH (20:50)
[2020-09-22 06:25] LABS: Calcium 8.8 mg/dl (8.5-10.1); Creatinine Clr Calc Pharmacy 43.1 ml/min; Est GFR (African American) 102.5; Est GFR (Non-African American) 88.5; Potassium 3.7 mmol/L (3.5-5.1)
[2020-09-22] MEDS: LOSARTAN POTASSIUM 50 MG TAB PO SCH (07:33)
[2020-09-22] MEDS: APIXABAN 5 MG TABLET PO SCH (07:34)
[2020-09-22] MEDS: ASPIRIN 81 MG ECTAB PO SCH (07:34)
[2020-09-22] MEDS: ATORVASTATIN 40 MG TAB PO SCH (07:35)
[2020-09-22] MEDS: TAMSULOSIN HCL 0.4 MG CAP PO SCH (07:35)
[2020-09-22] MEDS: POTASSIUM CHLORIDE 10 MEQ TABCR PO SCH (07:35)
[2020-09-22] MEDS: SERTRALINE HCL 50 MG TABLET PO SCH (07:36)
[2020-09-22] MEDS: PANTOprazole 40 MG TAB PO SCH (07:36)
[2020-09-22] MEDS: MAGNESIUM OXIDE 400 MG TAB PO SCH (07:36)
[2020-09-22] MEDS: METOPROLOL SUCC 50MG EXT REL TAB PO SCH (07:36)
[2020-09-22] MEDS: INSULIN ASPART 100 UNITS/ML 3 ML PEN SC SCH ×2 (08:47→13:28)
[2020-09-22] MEDS ORDERED: FUROSEMIDE 40 MG TAB PO SCH (09:00)
[2020-09-22] MEDS ORDERED: LOSARTAN POTASSIUM 50 MG TAB PO ONE (12:30)
--- NOTE | 2020-09-22 12:31 | Discharge Summary ---
Date of Service September 22, 2020 Admission HPI Per Admitting Provider Pt is 65 y/o M with PMH insulin dependent DM II, atrial fibrillation on Eliquis, diastolic heart failure, intermittent heart block s/p pacemaker, HTN, dyslipidemia, GERD, depression, obesity presented to ER with complaint of abdominal pain started last evening. Patient states last night started with periumbilical and lower abdominal aching with intermittent sharp pains. Started with nausea and vomiting. Has had 3 total episodes of vomiting. Last BM was yesterday. Reports not passing flatus today. Last ate a piece of toast this morning and vomited after. No prior treatment. History cholecystectomy and h ernia repair.Denies fever/chills, diaphoresis, hematochezia, melena, hematemesis AZEVEDO, dizziness, syncope, vision changes, neck pain, CP, SOB, orthopnea, palpitations, cough, sore throat, choking, otalgia, rhinorrhea, paresthesias, weakness, extremity weakness, extremity edema, rashes, urinary symptoms. Admission Exam Per Admitting Provider General: A&Ox3. Currently having lunch, does not appear to be in any distress HENT: NCAT, MMM, EOMI Eyes: PERRLA Neck: Supple, normal range of motion CVS: normal rate and rhythm Resp: b/l good breath sounds Abdomen: Soft, nontender but distended Extremities: Absence of any edema Neuro: No gross focal deficits appreciated Skin: warm and dry, no rashes/lesions/errythema MSK: normal ROM, no joint swelling/erythema Principal Diagnosis Small bowel obstruction Discharge Exam Patient was seen and examined on the day of discharge. Nothing concerning. Nothing changed from the day prior. Doing okay. No new complaints. Discharge Data Allergies Allergy/AdvReac Type Severity Reaction Status Date / Time No Known Allergies Allergy Verified 08/05/20 08:39 Consultations 09/16/20 15:51 ED Decision to Admit Stat 09/16/20 19:44 Consult General Surgery Routine Ordered Studies 09/16/20 14:00 CT abd pelvis wo con Stat Hospital Course (1) SBO (small bowel obstruction): Patient is 65-year-old male with past medical history of diabetes mellitus type 2 on insulin pump, atrial fibrillation on Eliquis, diastolic heart failure, heart block status post pacemaker, hypertension, depression and GERD presented to the ED with abdominal pain. Patient was found to have small bowel obstruction. General surgery was consulted. His small bowel obstruction resolved. Patient was tolerating solid diet. He was having bowel movement. NG tube was placed which was removed on 09/19. Zofran as needed for nausea. Pancytopenia Possibly delusional. Remains afebrile. Lasix was held during this admission. Hypertension Systolic blood pressure in the 170s at this morning. Lasix and losartan was resumed prior to discharge. Statin was increased 200 mg daily. Patient will need to follow-up with PCP for further management of hypertensive regimen. (2) Atrial fibrillation: Toprol-XL 100 mg daily, aspirin and Eliquis. (3) Chronic diastolic (congestive) heart failure: Patient does not appear to be fluid overloaded at the moment. However Lasix was being held. Will be cautious with further fluids. (4) Diabetes mellitus type 2, insulin dependent: Patient is on insulin pump at home which is being held while inpatient. Last hemoglobin A1c at 8.7 in July 2020. Patient have had 2 episodes of hypoglycemia with glucose of 48 yesterday morning and 49 this morning. Continue with glycemic control per pharmacy. Patient will need to follow-up with his plastic eye technician for management for insulin pump and further adjustment. (5) History of heart block: S/p pacemaker (6) HTN (hypertension): Reported as above. Pressure in the 170s. Losartan was increased to 200 mg daily. (7) HLD (hyperlipidemia): Continue with Lipitor. (8) Depression: Continue CIRCULATOR Zoloft. (9) BPH (benign prostatic hyperplasia): Continued CIRCULATOR Flomax. DVT Prophylaxis: Heparin SQ Patient is DNR/DNI. Total Time Total Time Spent Total Time Spent (In Minutes): 35 Discharge Plan Discharge Items Patient Disposition: Home - Self-Care Reason For Visit: SBO Activity: Resume your previous activity Non-emergency contact: Primary Care Provider Call non-emergency contact if: your symptoms worsen, your pain is worsening and your pain is unusual for you Follow-up/Referrals: Yoshi Buitrago MD [Primary Care Provider] - (Date & Time 09/26/2020 12:40 PM Provider Yoshi Buitrago MD Department Internal Medicine [facility] ) Diet: Low Fiber Addtl Attending Provider Instructions: Follow-up with your family care doctor within the next 3 days. Losartan dose has been increased to 100 mg daily. Please monitor your blood pressure and consult with your family doctor regarding further recommendations. Pending Studies at Discharge: No Stand-Alone Forms: [facility], Smoking Cessation Medications and DC Order Prescriptions: Continued Eliquis 5 mg Tablet 5 mg PO BID RF: 0 aspirin 81 mg Tablet,Delayed Release (Dr/Ec) 81 mg PO DAILY RF: 0 atorvastatin 40 mg Tablet 40 mg PO DAILY RF: 0 Novolog Insulin Pump 1 EA 1 dose pk Not Applicable UD RF: 0 magnesium oxide 400 mg magnesium Capsule 400 mg PO DAILY RF: 0 metformin 1,000 mg Tablet 1,000 mg PO BID RF: 0 metoprolol succinate 100 mg Tablet Extended Release 24 Hr 100 mg PO BID RF: 0 multivitamin Tablet 1 tab PO DAILY RF: 0 pantoprazole 40 mg Tablet,Delayed Release (Dr/Ec) 40 mg PO DAILY RF: 0 potassium chloride 10 mEq Tablet Extended Release 10 meq PO DAILY RF: 0 cyanocobalamin (vitamin B-12) [Vitamin B-12] 100 mcg Tablet 100 mcg PO DAILY RF: 0 sertraline [Zoloft] 100 mg Tablet 150 mg PO DAILY RF: 0 acetaminophen [Tylenol Extra Strength] 500 mg Tablet 1,000 mg PO Q6H PRN (Reason: Pain) RF: 0 albuterol sulfate 90 mcg/actuation HFA aerosol inhaler 2 puff INHALATION Q4H PRN (Reason: Shortness Of Breath Or Wheezing) RF: 0 Incruse Ellipta 62.5 mcg/actuation blister with device 1 inh INHALATION DAILY RF: 0 furosemide 40 mg tablet 40 mg PO DAILY RF: 0 Jardiance 10 mg tablet 10 mg PO DAILY RF: 0 tamsulosin [Flomax] 0.4 mg capsule 0.4 mg PO DAILY Qty: 14 RF: 0 ondansetron 4 mg tablet,disintegrating 4 mg PO Q8H PRN (Reason: nausea and vomiting) Qty: 10 RF: 0 Changed losartan 50 mg Tablet 100 mg PO DAILY Qty: 60 RF: 0 Discharge Orders: Discharge Order (Routine); Ordered 09/22/20 Ordered By: Fidencio Arrington/Other Patient Handouts: Small Bowel Obstruction Admission Data Admit Date/Time: 09/16/20 16:14 Attending Provider: Fidencio Calvin Admit Provider: Milton Aparicio Primary Care Provider: Yoshi Buitrago Other Providers: Milton Aparicio ; Louie Wayne
== END 2020-09-22 13:50 | disposition home or self-care (01) | DRG 389 ==
LOC: ED 13:24 → SUATTDRO 16:14 → 2N 16:14

== ENCOUNTER 2021-07-18 14:01 | Inpatient (IN) ==
--- NOTE | 2021-07-18 15:45 | Emergency Department Note ---
History of Present Illness General Chief Complaint: Respiratory Problems Stated Complaint: TROUBLE BREATHING Time Seen by Provider: 07/18/21 15:34 History of Present Illness Provider Complaint: shortness of breath Onset (ago): day(s) (10) Severity: moderate Consistency/Duration: + progressively worsening Current Pain Intensity: 1 Relieved By: + upright position Exacerbated By: + lying flat and + exertion Context: no trauma/injury Known history of: congestive heart failure Associated symptoms: + chest pain and + orthopnea; no pain with inspiration, no fever, no cough, no wheezing, no sputum production, no lower extremity pain, no polyuria, no polydipsia, no paresthesias, no palpitations, no carpopedal spasm, no hemoptysis, no diaphoresis, no nausea/vomiting, no syncope, no abdominal pain, no rash, no sense of impending doom, no chest congestion, no dizziness or no lightheadedness Home Medications Medication Instructions Recorded Confirmed Type aspirin 81 mg tablet,delayed 81 mg PO QAM 06/20/19 07/18/21 History release atorvastatin 40 mg tablet 40 mg PO HS 06/20/19 07/18/21 History cyanocobalamin (vitamin B-12) 100 100 mcg PO QAM 06/20/19 07/18/21 History mcg tablet (Vitamin B-12) magnesium oxide 400 mg PO HS 06/20/19 07/18/21 History metformin 1,000 mg tablet 1,000 mg PO BID 06/20/19 07/18/21 History metoprolol succinate 100 mg 100 mg PO BID 06/20/19 07/18/21 History tablet,extended release 24 hr multivitamin 1 tab PO QAM 06/20/19 07/18/21 History pantoprazole 40 mg tablet,delayed 40 mg PO QAM 06/20/19 07/18/21 History release potassium chloride 10 mEq 10 meq PO BID 06/20/19 07/18/21 History tablet,extended release acetaminophen 500 mg tablet 1,000 mg PO Q6H PRN 09/16/20 07/18/21 History (Tylenol Extra Strength) albuterol sulfate 90 mcg/actuation 2 puff INHALATION Q4H PRN 09/16/20 07/18/21 History aerosol inhaler empagliflozin 10 mg tablet 10 mg PO QAM 09/16/20 07/18/21 History (Jardiance) furosemide 40 mg tablet See Rx Instructions .ROUTE .COMPLEX 09/16/20 07/18/21 History amlodipine 2.5 mg tablet 2.5 mg PO HS 03/03/21 07/18/21 History apixaban 5 mg tablet (Eliquis) 5 mg PO BID 03/03/21 07/18/21 History insulin aspart U-100 100 unit/mL 1 sliding scale dose CONTINUOUS 03/03/21 07/18/21 History subcutaneous solution (Novolog SUBCUTANEOUS INFUSION USEASDIRECTD U-100 Insulin aspart) losartan 100 mg tablet 100 mg PO HS 03/03/21 07/18/21 History ondansetron HCl 4 mg tablet 4 mg PO Q6H PRN #10 tab 03/04/21 07/18/21 Rx (Zofran) buspirone 10 mg tablet 10 mg PO QAM 07/10/21 07/18/21 History ropinirole 1 mg tablet 1 mg PO HS 07/10/21 07/18/21 History sertraline 100 mg tablet 100 mg PO QAM 07/10/21 07/18/21 History Allergies Allergy/AdvReac Type Severity Reaction Status Date / Time No Known Allergies Allergy Verified 07/18/21 17:40 Past Med/Surg History Medical History BPH (benign prostatic hyperplasia) CAD in [place] artery Chest pain Diabetes Effusion of knee joint right H/O renal calculi History of heart block HLD (hyperlipidemia) HTN (hypertension) Pacemaker SBO (small bowel obstruction) Surgical History Hx of cholecystectomy S/P cholecystectomy Status post laparoscopic hernia repair Social History Smoking Status: Former smoker Hx Alcohol Use: Yes Alcohol type: beer Hx Substance Use: No Preferred Language: Luxembourger Communication Ability: Effective Mmd Unit Teacher Required: No Beliefs That Will Affect Care: None Current Living Situation: Spouse Feels Safe at Home: Yes Assistive Devices: Glasses Review of Systems A total of 10 systems reviewed and were otherwise negative Physical Exam Vital Signs: Vital Signs - 24 hr 07/18/21 14:15 07/18/21 15:32 07/18/21 16:12 Temperature 36.2 C L Temperature Source Temporal Artery Sc an Pulse Rate 77 Pulse Rate [Apical ] 63 Pulse Rate [Left F issa] 64 Pulse Rhythm [Left Finger] Regular Pulse Strength [Le ft Finger] Normal Respiratory Rate 20 20 21 Respiratory Effort / Characteristics Non-Labored Sponta neous Spontaneous Respiratory Depth Normal Respiratory Patter n Regular Blood Pressure 130/71 Blood Pressure [Ri ght Arm] 137/68 Blood Pressure Scarlet n 90 Blood Pressure Scarlet n [Right Arm] 91 Blood Pressure Pos ition [Right Arm] Sitting Pulse Oximetry 92 94 93 Oxygen Delivery Me thod Room Air Room Air Room Air Oxygen Flow Rate Sepsis Recent Feve r Within 48 Hours No Sepsis New/Unexpla ined Change in Men sada Status No Sepsis Action Take n by Nursing No Action Required 07/18/21 16:39 07/18/21 16:44 Temperature Temperature Source Pulse Rate Pulse Rate [Apical ] 60 Pulse Rate [Left F issa] Pulse Rhythm [Left Finger] Pulse Strength [Le ft Finger] Respiratory Rate 22 Respiratory Effort / Characteristics Respiratory Depth Respiratory Patter n Blood Pressure Blood Pressure [Ri ght Arm] 148/70 H Blood Pressure Scarlet n Blood Pressure Scarlet n [Right Arm] 96 Blood Pressure Pos ition [Right Arm] Sitting Pulse Oximetry 85 L 95 Oxygen Delivery Me thod Room Air Nasal Cannula Oxygen Flow Rate 2 Sepsis Recent Feve r Within 48 Hours Sepsis New/Unexpla ined Change in Men sada Status Sepsis Action Take n by Nursing Physical Exam: Physical Exam GENERAL: He is oriented to person, place, and time. He appears well-developed and well-nourished. He does not appear distressed. HENT: Exam performed. - Head: Normocephalic and atraumatic. - Right Ear: External ear normal. No mastoid tenderness. - Left Ear: External ear normal. No mastoid tenderness. - Mouth/Throat: The oropharynx is clear and moist. No trismus in the jaw. No dental abscesses or uvula swelling. No oropharyngeal exudate or tonsillar abscesses. EYES: Conjunctivae and EOM are normal. Pupils are equal, round, and reactive to light. Right eye exhibits no discharge. Left eye exhibits no discharge. No scleral icterus. NECK: Normal range of motion. Neck supple. No JVD present. No spinous process tenderness present. No carotid bruit present. No rigidity. No tracheal deviation and normal range of motion present. No Brudzinski's sign and no Kernig's sign noted. CV: Normal rate, regular rhythm, normal heart sounds and intact distal pulses. Palpable radial pulses bue. PULM/CHEST: Inspiratory rales at the bases bilaterally. - Chest Wall: He exhibits no tenderness. ABD: The abdomen is soft. Bowel sounds are normal. He has no distension. No mass is present. There is no tenderness. There is no rebound, no guarding, no Swartz's sign and no tenderness at McBurney's point. Rovsig negative. MUSC/SKEL: Normal range of motion. 2+ pitting edema of the bilateral lower extremities. LYMPH: No cervical adenopathy. NEURO: He is alert and oriented to person, place, and time. He has normal strength. No cranial nerve deficit or sensory deficit. Coordination and gait normal. GCS eye subscore is 4. GCS verbal subscore is 5. GCS motor subscore is 6. Cerebellar tests wnl. SKIN: Skin is warm and dry. He is not diaphoretic. PSYCH: He has a normal mood and affect. Behavior is normal. Judgment and thought content normal. Course Course 1534: The patient was evaluated in room C1. A complete history and physical exam was performed Cardiac monitoring: An order was placed for continuous cardiac monitoring. The monitor shows a rate of 60 with paced rhythm 1715: While in the emergency department patient developed acute shortness of breath and became hypoxic on room air at 85%. Patient was given 1 sublingual nitro, 1 DuoNeb, and given 2 L nasal cannula oxygen. Patient's oxygen saturation is stable on 2 L nasal cannula. Patient is on Eliquis no concern for PE. Patient's labs show an elevated proBNP. Patient hyperglycemic alert and oriented x3. Patient tolerating p.o. Patient be given Lasix 40 mg IV push. [facility] Junie who states to admit to Dr. Paul Administered Medications Discontinued Medications Albuterol (Albut/Ipratrop 3mg/0.5mg Neb 3 Ml Vial) 3 ml NEB NOW STA Stop: 07/18/21 16:03 Last Admin: 07/18/21 16:12 Dose: 3 ml Documented by: [id number] Furosemide (Furosemide 40 Mg/4 Ml Vial) 40 mg IV ONE ONE Stop: 07/18/21 16:22 Last Admin: 07/18/21 16:40 Dose: 40 mg Documented by: [id number] Nitroglycerin (Nitroglycerin Sl 0.4 Mg/Tab Tab) 0.4 mg SL NOW STA Stop: 07/18/21 16:03 Last Admin: 07/18/21 16:04 Dose: 0.4 mg Documented by: [id number] Medical Decision Making Laboratory Data Result diagrams: 07/18/21 15:17 07/18/21 15:15 Lab Results 07/18/21 07/18/21 07/18/21 Range/Units 15:15 15:17 15:17 WBC 4.30 L (4.8-10.8) K/uL RBC 4.22 L (4.7-6.1) M/uL Hgb 9.6 L (14.0-18.0) g/dL Hct 33.3 L (42-52) % MCV 78.9 L (80-100) fL MCH 22.7 L (25-34) pg MCHC 28.8 L (32-36) g/dL RDW Std Deviation 56.6 H (36.4-46.3) fL RDW Coeff of Manoj 19.9 H (11.5-14.5) % Plt Count 164 (130-400) K/uL MPV 9.2 (7.4-10.4) fL Immature Gran % (Auto) 0.2 % Neut % (Auto) 64.3 % Lymph % (Auto) 16.7 % Boyle % (Auto) 16.0 % Eos % (Auto) 2.6 % Baso % (Auto) 0.2 % Neut # (Auto) 2.76 (1.4-6.5) K/uL Lymph # (Auto) 0.72 L (1.2-3.4) K/uL Boyle # (Auto) 0.69 H (0.11-0.59) K/uL Eos # (Auto) 0.11 (0-0.5) K/uL Baso # (Auto) 0.01 (0-0.2) K/uL Immature Gran # (Auto) 0.01 (0.00-0.02) K/uL PT 10.8 (9.0-12.0) Seconds INR 1.1 (0.9-1.1) APTT 27.2 (21.0-31.0) Seconds PTT Ratio 1.0 Sodium 143 (136-145) mmol/L Potassium 4.2 (3.5-5.1) mmol/L Chloride 111 H (98-107) mmol/L Carbon Dioxide 27 (21-32) mmol/L Anion Gap 5.0 (3-11) BUN 35 H (7-18) mg/dl Creatinine 1.02 (0.6-1.4) mg/dl Est Cr Clr Drug Dosing 89.1 ml/min Est GFR ( Amer) 87.1 ml/min Est GFR (Non-Af Amer) 75.2 ml/min BUN/Creatinine Ratio 33.9 H (10-20) Glucose 61 L (70-99) mg/dl POC Glucose (70-99) mg/dl Calcium 9.5 (8.5-10.1) mg/dl Total Bilirubin 0.7 (0.2-1) mg/dl AST 20 (15-37) U/L ALT 40 (12-78) U/L Alkaline Phosphatase 107 (45-117) U/L Troponin I < 0.015 (0-0.045) ng/ml NT-Pro-B Natriuret Pep 2226 H (0-900) pg/ml Total Protein 7.3 (6.4-8.2) gm/dl Albumin 3.6 (3.4-5.0) gm/dl Globulin 3.7 (2.5-4.0) gm/dl Albumin/Globulin Ratio 1.0 (0.9-2) COVID-19 Eval Order SARS-CoV-2 (PCR) (Negative) 07/18/21 07/18/21 07/18/21 Range/Units 16:19 16:19 18:13 WBC (4.8-10.8) K/uL RBC (4.7-6.1) M/uL Hgb (14.0-18.0) g/dL Hct (42-52) % MCV (80-100) fL MCH (25-34) pg MCHC (32-36) g/dL RDW Std Deviation (36.4-46.3) fL RDW Coeff of Manoj (11.5-14.5) % Plt Count (130-400) K/uL MPV (7.4-10.4) fL Immature Gran % (Auto) % Neut % (Auto) % Lymph % (Auto) % Boyle % (Auto) % Eos % (Auto) % Baso % (Auto) % Neut # (Auto) (1.4-6.5) K/uL Lymph # (Auto) (1.2-3.4) K/uL Boyle # (Auto) (0.11-0.59) K/uL Eos # (Auto) (0-0.5) K/uL Baso # (Auto) (0-0.2) K/uL Immature Gran # (Auto) (0.00-0.02) K/uL PT (9.0-12.0) Seconds INR (0.9-1.1) APTT (21.0-31.0) Seconds PTT Ratio Sodium (136-145) mmol/L Potassium (3.5-5.1) mmol/L Chloride (98-107) mmol/L Carbon Dioxide (21-32) mmol/L Anion Gap (3-11) BUN (7-18) mg/dl Creatinine (0.6-1.4) mg/dl Est Cr Clr Drug Dosing ml/min Est GFR ( Amer) ml/min Est GFR (Non-Af Amer) ml/min BUN/Creatinine Ratio (10-20) Glucose (70-99) mg/dl POC Glucose 57 L* (70-99) mg/dl Calcium (8.5-10.1) mg/dl Total Bilirubin (0.2-1) mg/dl AST (15-37) U/L ALT (12-78) U/L Alkaline Phosphatase (45-117) U/L Troponin I (0-0.045) ng/ml NT-Pro-B Natriuret Pep (0-900) pg/ml Total Protein (6.4-8.2) gm/dl Albumin (3.4-5.0) gm/dl Globulin (2.5-4.0) gm/dl Albumin/Globulin Ratio (0.9-2) COVID-19 Eval Order Covid19 at [facility] SARS-CoV-2 (PCR) POSITIVE A* (Negative) Imaging Data Radiologist's Impression: Chest X-Ray 07/18/21 15:06 XR chest 1V portable CLINICAL HISTORY: Chest Pain. COMPARISON STUDY: 07/10/2021 TECHNIQUE: 1 view of the chest FINDINGS: Single frontal view of the chest demonstrates the heart to again be mildly en larged with a 2-lead permanent cardiac pacer again seen. The lungs are clear of alveolar opacities. There is no evidence for pleural effusion. There is no evidence for vascular congestion. There is no acute osseous pathology. IMPRESSION: No acute cardiopulmonary disease. There is no significant interval change. ACT 112: Negative or not required by law. Electronically signed by: Kvng Sue M.D. 07/18/2021 3:56 PM ECG Data Interpretation: Paced rhythm with a rate of 62. QRS [address] elevation or ST depression. MDM Narrative While in the emergency department patient developed acute shortness of breath and became hypoxic on room air at 85%. Patient was given 1 sublingual nitro, 1 DuoNeb, and given 2 L nasal cannula oxygen. Patient's oxygen saturation is stable on 2 L nasal cannula. Patient is on Eliquis no concern for PE. Patient's labs show an elevated proBNP. Patient hyperglycemic alert and oriented x3. Patient tolerating p.o. Patient be given Lasix 40 mg IV push. [facility] with Junie who states to admit to Dr. Paul Impression & Plan Hypoxia, CHF exacerbation Critical Care Time Critical Care Time: Yes Total Critical Care Time: 39 I have personally spent greater than 39 minutes of critical care time in the direct management of this patient. This includes bedside care, interpretation of diagnostic studies, and testing, discussion with consultants, patient, and family members, and other required patient management activities. This 39 minutes is in excess of all separately billable procedures. Discharge Plan Visit Data Chief Complaint: Respiratory Problems Stated Complaint: TROUBLE BREATHING Discharge Problem: Hypoxia, CHF exacerbation Patient Disposition: Admitted As Inpatient Forms Stand Alone Forms: My [facility] Prescriptions Prescriptions: No Action aspirin 81 mg Tablet,Delayed Release (Dr/Ec) 81 mg PO QAM RF: 0 atorvastatin 40 mg Tablet 40 mg PO HS RF: 0 magnesium oxide 400 mg magnesium Capsule 400 mg PO HS RF: 0 metformin 1,000 mg Tablet 1,000 mg PO BID RF: 0 metoprolol succinate 100 mg Tablet Extended Release 24 Hr 100 mg PO BID RF: 0 multivitamin Tablet 1 tab PO QAM RF: 0 pantoprazole 40 mg Tablet,Delayed Release (Dr/Ec) 40 mg PO QAM RF: 0 potassium chloride 10 mEq Tablet Extended Release 10 meq PO BID RF: 0 cyanocobalamin (vitamin B-12) [Vitamin B-12] 100 mcg Tablet 100 mcg PO QAM RF: 0 acetaminophen [Tylenol Extra Strength] 500 mg Tablet 1,000 mg PO Q6H PRN (Reason: Pain) RF: 0 albuterol sulfate 90 mcg/actuation HFA aerosol inhaler 2 puff INHALATION Q4H PRN (Reason: Shortness Of Breath Or Wheezing) RF: 0 furosemide 40 mg tablet See Rx Instructions .ROUTE .COMPLEX RF: 0 Jardiance 10 mg tablet 10 mg PO QAM RF: 0 ropinirole 1 mg tablet 1 mg PO HS RF: 0 sertraline 100 mg tablet 100 mg PO QAM RF: 0 buspirone 10 mg tablet 10 mg PO QAM RF: 0 amlodipine 2.5 mg Tablet 2.5 mg PO HS RF: 0 insulin aspart U-100 [Novolog U-100 Insulin aspart] 100 unit/mL Solution 1 sliding scale dose continuous subcutaneous infusion USEASDIRECTD RF: 0 losartan 100 mg Tablet 100 mg PO HS RF: 0 Eliquis 5 mg Tablet 5 mg PO BID RF: 0 ondansetron HCl [Zofran] 4 mg tablet 4 mg PO Q6H PRN (Reason: nausea and vomiting) Qty: 10 RF: 0 Referrals Referrals: Yoshi Buitrago MD [Primary Care Provider] -
--- NOTE | 2021-07-18 15:57 | XRay Report ---
XR chest 1V portable CLINICAL HISTORY: Chest Pain. COMPARISON STUDY: 07/10/2021 TECHNIQUE: 1 view of the chest FINDINGS: Single frontal view of the chest demonstrates the heart to again be mildly enlarged with a 2-lead per manent cardiac pacer again seen. The lungs are clear of alveolar opacities. There is no evidence for pleural effusion. There is no evidence for vascular congestion. There is no acute osseous pathology. IMPRESSION: No acute cardiopulmonary disease. There is no significant interval change. ACT 112: Negative or not required by law. Electronically signed by: Kvng Sue M.D. 07/18/2021 3:56 PM
[2021-07-18 15:58] LABS: INR 1.1 (0.9-1.1); Partial Thromboplastin Time 27.2 Seconds (21.0-31.0); Prothrombin Time 10.8 Seconds (9.0-12.0)
[2021-07-18] MEDS ORDERED: ALBUT/IPRATROP 3MG/0.5MG NEB 3 ML VIAL NEB STA (16:02)
[2021-07-18] MEDS ORDERED: NITROGLYCERIN SL 0.4 MG/TAB TAB SL STA (16:02)
[2021-07-18 16:06] LABS: Albumin Level 3.6 gm/dl (3.4-5.0); Aspartate Aminotransferase 20 U/L (15-37); BUN Creatinine Ratio 33.9 (10-20); Blood Urea Nitrogen 35 mg/dl (7-18); Calcium 9.5 mg/dl (8.5-10.1); Carbon Dioxide 27 mmol/L (21-32); Chloride 111 mmol/L (98-107); Creatinine Clr Calc Pharmacy 89.1 ml/min; Est GFR (African American) 87.1 ml/min; Est GFR (Non-African American) 75.2 ml/min; Glucose 61 mg/dl (70-99); Potassium 4.2 mmol/L (3.5-5.1); Sodium 143 mmol/L (136-145)
[2021-07-18 16:11] LABS: Alanine Aminotransferase 40 U/L (12-78); Alkaline Phosphatase 107 U/L (45-117); Bilirubin,Total 0.7 mg/dl (0.2-1); Globulin 3.7 gm/dl (2.5-4.0); NT Pro B Type Natriuretic Pept 2226 pg/ml (0-900); Total Protein 7.3 gm/dl (6.4-8.2); Troponin I < 0.015 ng/ml (0-0.045)
[2021-07-18] MEDS ORDERED: FUROSEMIDE 40 MG/4 ML VIAL IV ONE (16:21)
[2021-07-18 16:41] LABS: Basophils # (auto) 0.01 K/uL (0-0.2); Basophils % (auto) 0.2 %; Eosinophils # (auto) 0.11 K/uL (0-0.5); Eosinophils % (auto) 2.6 %; Hematocrit (blood only) 33.3 % (42-52); Hemoglobin 9.6 g/dL (14.0-18.0); Immature Granulocytes # (auto) 0.01 K/uL (0.00-0.02); Immature Granulocytes % (auto) 0.2 %; Lymphocytes # (auto) 0.72 K/uL (1.2-3.4); Lymphocytes % (auto) 16.7 %; Mean Corpuscular Hemoglobin 22.7 pg (25-34); Mean Corpuscular Hgb Conc 28.8 g/dL (32-36); Mean Corpuscular Volume 78.9 fL (80-100); Mean Platelet Volume 9.2 fL (7.4-10.4); Monocytes # (auto) 0.69 K/uL (0.11-0.59); Neutrophils # (auto) 2.76 K/uL (1.4-6.5); Neutrophils % (auto) 64.3 %; Platelet Count 164 K/uL (130-400); RDW Coefficient of Variation 19.9 % (11.5-14.5); RDW Standard Deviation 56.6 fL (36.4-46.3); Red Blood Count 4.22 M/uL (4.7-6.1)
--- NOTE | 2021-07-18 17:26 | History & Physical Report ---
Date of Service July 18, 2021 Assessment & Plan (1) Acute on chronic diastolic CHF (congestive heart failure): Plan: -Admit to telemetry -Check 2D echo, last echo done in July 2020,With a preserved EF of 55-59%, was noted to have septal motion abnormal consistent with right ventricular pacemaker, diastolic dysfunction, mild aortic sclerosis, calcification of the posterior mitral valve, secondary mitral regurg - BNP elevated at 2226, -Daily weights, strict I's and O's, fluid restriction of 1500 mL -Continue aggressive diuresis, Lasix 40 mg BID, hold p.o. Lasix (had taken 80 mg x 2 days), continue with IV -Follow BMP to follow electrolytes with aggressive diuresis, currently WNL -Kidney function is stable with creatinine 1.02, BUN 35, monitor -Cardiology consulted -COVID-19 positive, hx of positive on 05/30/21 sp monoclonal antibody treatment (2) CAD in [place] artery: Plan: -History of such, continue antihypertensives, anticoagulation on Eliquis, Lasix (3) HTN (hypertension): Plan: -Continue metoprolol and amlodipine (4) HLD (hyperlipidemia): Plan: -Continue statin therapy, last lipid panel reviewed in [facility], stable (5) Atrial fibrillation: Plan: -Anticoagulated on Eliquis, rate controlled on metoprolol (6) Diabetes mellitus type 2, insulin dependent: Plan: - Labs were drawn as an outpatient today and showed A1c = 7.2 - ISS with accuchecks achs - Has insulin pump, continue - to bring in refill cartridge as typically changes every other day, refilled it on 07/18 prior to coming to ER - Consult glycemic pharmacy - Hold jardiance for now (7) Pacemaker: Plan: - Sp ventricular pacemaker -Was evaluated on 06/20/2021 and was functioning properly, 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 -Continue on Eliquis, baby aspirin, metoprolol (8) COPD (chronic obstructive pulmonary disease): Plan: -Given inhaler during last ER visit, has not seen significant improvement with using it -PFTs reported as normal from 09/23/2019 does not follow routinely with pulmonology as an outpatient - Does not wear supplemental O2 at baseline, currently requiring 2 L (9) COVID-19: Plan: -Previously was positive on 05/30/2021, received monoclonal antibody treatment and finished on 06/04, reviewed in epic -COVID-19 positive on admission today, will continue isolation for now -Possible reinfection, pt at bedside without symptoms -Previously vaccinated with Moderna in December-January 2021. (10) Morbid obesity: Plan: - BMI of 39.1, diet and exercise encouraged at bedside (11) Depression: Plan: -Continue BuSpar, sertraline 200 mg daily DVT ppx: - tedmeenu Delmymarleneis CODE: Full Dispo: From home, likely to remain in the hospital x 1-2 days History of Present Illness Chief Complaint: Shortness of breath Primary Care Provider: Yoshi Buitrago MD This is a 66-year-old male with PMHx of chronic diastolic CHF, HTN, A. fib on Eliquis CAD, HLD, DM type II, status post pacemaker insertion, COPD, morbid obesity with BMI of 39.4, depression, diabetic polyneuropathy, who presents with worsening shortness of breath, worsening edema in his lower legs and dyspnea on exertion. He initially presented to [facility] ER on 07/10/2021 with shortness of breath that had started 1-2 weeks prior to that. His chest x-ray at that time was clear. He was sent home with a rescue inhaler but reports that it has not improved his symptoms. Since that timeframe he has had worsening shortness of breath and has gained approximately 9 pounds in the last couple of weeks per his . His dry weight is 260 lbs. Patient admits to orthopnea and has been sleeping sitting upright in a recliner. Pt is having increased edema in his legs and feels his abdomen is swollen. Typically does not require supplemental O2, however here he is requiring 2 L on room air to maintain saturations. At home he takes Lasix 40 mg daily and has not missed any doses. Yesterday he doubled his dose per instruction from his PCP. Of note he was positive for Covid on 05/25/2021 and underwent monoclonal antibody treatment on 05/30/2021. He initially was better but now is more short of breath again. He again tested positive for COVID-19 on admission today. He admits to having a dry cough, but does not endorse any other symptoms. 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 BNP elevated at 2226, CXR reviewed and is clear, electrolytes are within normal limits. Was given 40 mg IV Lasix in the ER. Since Lasix administration he has urinated twice, is out total 625 mL urine in bedside urinal. COVID-19 positive on admission. Family history of heart disease. Allergies Allergy/AdvReac Type Severity Reaction Status Date / Time No Known Allergies Allergy Verified 07/18/21 17:40 Home Medications Medication Instructions Recorded Confirmed Type atorvastatin 40 mg tablet 40 mg PO HS 06/20/19 07/18/21 History cyanocobalamin (vitamin B-12) 100 100 mcg PO QAM 06/20/19 07/18/21 History mcg tablet (Vitamin B-12) magnesium oxide 400 mg PO HS 06/20/19 07/18/21 History metformin 1,000 mg tablet 1,000 mg PO BID 06/20/19 07/18/21 History metoprolol succinate 100 mg 100 mg PO BID 06/20/19 07/18/21 History tablet,extended release 24 hr multivitamin 1 tab PO QAM 06/20/19 07/18/21 History pantoprazole 40 mg tablet,delayed 40 mg PO QAM 06/20/19 07/18/21 History release potassium chloride 10 mEq 10 meq PO BID 06/20/19 07/18/21 History tablet,extended release albuterol sulfate 90 mcg/actuation 2 puff INHALATION Q4H PRN 09/16/20 07/18/21 History aerosol inhaler empagliflozin 10 mg tablet 10 mg PO QAM 09/16/20 07/18/21 History (Jardiance) furosemide 40 mg tablet See Rx Instructions .ROUTE .COMPLEX 09/16/20 07/18/21 History amlodipine 2.5 mg tablet 2.5 mg PO QAM 03/03/21 07/18/21 History apixaban 5 mg tablet (Eliquis) 5 mg PO BID 03/03/21 07/18/21 History insulin aspart U-100 100 unit/mL 1 sliding scale dose CONTINUOUS 03/03/21 07/18/21 History subcutaneous solution (Novolog SUBCUTANEOUS INFUSION USEASDIRECTD U-100 Insulin aspart) losartan 100 mg tablet 100 mg PO HS 03/03/21 07/18/21 History ondansetron HCl 4 mg tablet 4 mg PO Q6H PRN #10 tab 03/04/21 07/18/21 Rx (Zofran) buspirone 10 mg tablet 10 mg PO QAM 07/10/21 07/18/21 History ropinirole 1 mg tablet 1 mg PO HS 07/10/21 07/18/21 History sertraline 100 mg tablet 200 mg PO QAM 07/10/21 07/18/21 History dexamethasone 6 mg tablet 6 mg PO DAILY #7 tab 07/20/21 Rx Past Med/Surg History Medical History BPH (benign prostatic hyperplasia) CAD in [place] artery Chest pain Diabetes Effusion of knee joint right H/O renal calculi History of heart block HLD (hyperlipidemia) HTN (hypertension) Pacemaker SBO (small bowel obstruction) Surgical History Hx of cholecystectomy S/P cholecystectomy Status post laparoscopic hernia repair Social History Smoking Status: Former smoker Cigarettes Per Day: 2; Smoking End Date: 1982; Second Hand Exposure: No; Do You Dip or Chew Tobacco: Yes; Tobacco Cessation Education Requested by Patient: No Hx Alcohol Use: Yes Alcohol type: beer and hard liquor Hx Substance Use: No Preferred Language: Croatian Communication Ability: Effective Delineator Required: No Beliefs That Will Affect Care: None marital status: Current Living Situation: Spouse Other Information That Helps Us Care for You: No Feels Safe at Home: Yes Safety Concerns: Feels Safe At This Time Assistive Devices: Oxygen - Continuous Review of Systems Review of Systems: Constitutional: No fever, sweats or chills Eyes: No diplopia, no worsening or blurred vision ENT: normal hearing, no trouble swallowing Respiratory:+ dry cough, no sputum,+ dyspnea with minimal exertion and ADLs. Unable to walk more than 3 steps without becoming SOB> Cardiovascular: + chest pain substernal today, no radiation, tightness or pal pitations Abdomen: + Bloated, No pain, nausea, vomiting, diarrhea or constipation Musculoskeletal: No joint pain, calf pain, + lower extremity swelling Neurologic: No weakness, numbness/tingling, or balance problems Psychiatric: No anxiety or depression Skin: No rash or itch Physical Exam Physical Exam: General: awake, alert, no apparent distress, morbidly obese with BMI of 39.4 Head: Normocephalic, atraumatic ENT: PERRL, EOMI, no pharyngeal exudate, mucous membranes moist, JVD difficult to assess secondary to neck habitus Chest: On 2 LPM NC, faint crackles at bases bilaterally, no adventitious breath sounds Cardiac: Regular rate and rhythm, no murmur, no JVD, normal peripheral pulses, good capillary refill Abdominal: NABS x 4 quadrants, soft, + distended, nontender to palpation, no rebound or guarding, no fluid wave Extremities: Normal inspection, 2+ peripheral edema bilaterally, no erythema, calfs nontender to palpation Psych: Normal mood and affect Neuro: AAO x 3, strength intact bilaterally and rated 5/5, no motor deficits, speech is clear, no peripheral sensory deficits Results & Data Results & Data ([facility]) Vital Signs (Past 12 Hours) Vital Signs Temp Pulse Pulse Pulse Resp BP BP 07/18/21 16:44 07/18/21 16:39 60 22 148/70 H 07/18/21 16:12 63 21 07/18/21 15:32 64 20 137/68 07/18/21 14:15 36.2 C L 77 20 130/71 Pulse Ox 07/18/21 16:44 95 07/18/21 16:39 85 L 07/18/21 16:12 93 07/18/21 15:32 94 07/18/21 14:15 92 Laboratory Results Labs 07/18/21 07/18/21 07/18/21 15:15 15:17 15:17 WBC 4.30 L RBC 4.22 L Hgb 9.6 L Hct 33.3 L MCV 78.9 L MCH 22.7 L MCHC 28.8 L RDW Std Deviation 56.6 H RDW Coeff of Manoj 19.9 H Plt Count 164 MPV 9.2 Immature Gran % (Auto) 0.2 Neut % (Auto) 64.3 Lymph % (Auto) 16.7 [place] % (Auto) 16.0 Eos % (Auto) 2.6 Baso % (Auto) 0.2 Neut # (Auto) 2.76 Lymph # (Auto) 0.72 L [place] # (Auto) 0.69 H Eos # (Auto) 0.11 Baso # (Auto) 0.01 Immature Gran # (Auto) 0.01 PT 10.8 INR 1.1 APTT 27.2 PTT Ratio 1.0 Sodium 143 Potassium 4.2 Chloride 111 H Carbon Dioxide 27 Anion Gap 5.0 BUN 35 H Creatinine 1.02 Est Cr Clr Drug Dosing 89.1 Est GFR ( Amer) 87.1 Est GFR (Non-Af Amer) 75.2 BUN/Creatinine Ratio 33.9 H Glucose 61 L Calcium 9.5 Total Bilirubin 0.7 AST 20 ALT 40 Alkaline Phosphatase 107 Troponin I < 0.015 NT-Pro-B Natriuret Pep 2226 H Total Protein 7.3 Albumin 3.6 Globulin 3.7 Albumin/Globulin Ratio 1.0 COVID-19 Eval Order SARS-CoV-2 (PCR) 07/18/21 07/18/21 16:19 16:19 WBC RBC Hgb Hct MCV MCH MCHC RDW Std Deviation RDW Coeff of Manoj Plt Count MPV Immature Gran % (Auto) Neut % (Auto) Lymph % (Auto) [place] % (Auto) Eos % (Auto) Baso % (Auto) Neut # (Auto) Lymph # (Auto) [place] # (Auto) Eos # (Auto) Baso # (Auto) Immature Gran # (Auto) PT INR APTT PTT Ratio Sodium Potassium Chloride Carbon Dioxide Anion Gap BUN Creatinine Est Cr Clr Drug Dosing Est GFR ( Amer) Est GFR (Non-Af Amer) BUN/Creatinine Ratio Glucose Calcium Total Bilirubin AST ALT Alkaline Phosphatase Troponin I NT-Pro-B Natriuret Pep Total Protein Albumin Globulin Albumin/Globulin Ratio COVID-19 Eval Order Covid19 at [facility] SARS-CoV-2 (PCR) POSITIVE A* Diagnostic Findings Chest X-Ray 07/18/21 15:06 XR chest 1V portable CLINICAL HISTORY: Chest Pain. COMPARISON STUDY: 07/10/2021 TECHNIQUE: 1 view of the chest FINDINGS: Single frontal view of the chest demonstrates the heart to again be mildly enlarged with a 2-lead permanent cardiac pacer again seen. The lungs are clear of alveolar opacities. There is no evidence for pleural effusion. There is no evidence for vascular congestion. There is no acute osseous pathology. IMPRESSION: No acute cardiopulmonary disease. There is no significant interval change. ACT 112: Negative or not required by law. Electronically signed by: Kvng Sue M.D. 07/18/2021 3:56 PM ECG Additional Comments: 18-JUL-2021 15:20:40 [facility]-EDSTAT ROUTINE RETRIEVAL Ventricular-paced rhythm Abnormal ECG When compared with ECG of 10-JUL-2021 08:02, Vent. rate has decreased BY 2 BPM 25mm/s 10mm/mV 150Hz 9.0.9 12SL 241 FLY: 13 Referred by: REFERRED SELF Unconfirmed Vent. rate 62 BPM LA interval * ms QRS duration 160 ms QT/QTc 502/509 ms Supervising Physician Co-Signing Physician Notes Pt was seen and examined. Agreed with Junie Bethea exam, assessment and plan. 66-year-old male with PMHx of chronic diastolic CHF, HTN, A. fib on Eliquis CAD, HLD, DM type II, status post pacemaker insertion, COPD, morbid obesity with BMI of 39.4, depression, diabetic polyneuropathy, who presents with worsening shortness of breath and edema in his lower legs and dyspnea on exertion. Pt said that symptoms started about 2 weeks ago. he said that SOB worsening with minimal exertion. said that he gained about 9 lbs in the last few weeks. Pt was seen in the ER last week for SOB. He was sent home with a rescue inhaler but reports that it has not improved his symptoms. Lab on admission showed elevated proBNP 2226, COVID 19 positive. CXR on admission showed no acute cardiopulmonary disease. Outpatient documentation showed he was positive for Covid on 05/25/2021 and underwent monoclonal antibody treatment on 05/30/2021.Received lasix 40mg IV on admission. Will continue Lasix 40mg IV BID. Will consult cardiology. Will start on fluid restriction 1.5L daily. Monitor I/O. Will monitor BMP while on IV lasix. Doubt pt was reinfected for COVID 19, but will continue airborne precaution. Will continue monitor closely. MD Oleg
[2021-07-18] MEDS ORDERED: PHARMACY GLYCEMIC MGMT CONSULT PRN (18:21)
[2021-07-18] MEDS ORDERED: ACETAMINOPHEN 325 MG TAB PO PRN (22:37)
[2021-07-18] MEDS ORDERED: CARBOHYDRATES FOR HYPOGLYCEMIA PO PRN (22:37)
[2021-07-18] MEDS ORDERED: GLUCAGON FOR INJ 1 MG VIAL SQ PRN (22:37)
[2021-07-18] MEDS ORDERED: ONDANSETRON INJ 2 MG/ML 2 ML VIAL IV PRN (22:37)
[2021-07-18] MEDS ORDERED: GLUCOSE 10 TABS/TUBE PO PRN (22:37)
[2021-07-18] MEDS ORDERED: GLUCOSE 40% GEL 15 GM TUBE PO PRN (22:37)
[2021-07-18] MEDS ORDERED: DEXTROSE 50% 50 ML SYRINGE IV PRN (22:37)
[2021-07-18] MEDS: INSULIN ASPART 100 UNITS/ML 3 ML PEN SC SCH ×3 (23:04→23:06)
[2021-07-18] MEDS: ATORVASTATIN 40 MG TAB PO SCH (23:52)
[2021-07-18] MEDS: POTASSIUM CHLORIDE 10 MEQ TABCR PO SCH (23:52)
[2021-07-18] MEDS: APIXABAN 5 MG TABLET PO SCH (23:52)
[2021-07-18] MEDS: LOSARTAN POTASSIUM 50 MG TAB PO SCH (23:53)
[2021-07-18] MEDS: FUROSEMIDE 40 MG/4 ML VIAL IV SCH (23:53)
[2021-07-18] MEDS: MAGNESIUM OXIDE 400 MG TAB PO SCH (23:53)
[2021-07-18] MEDS: METOPROLOL SUCC 50MG EXT REL TAB PO SCH (23:54)
[2021-07-19] MEDS ORDERED: INSULIN GLARGINE SOLOSTAR 100 UNITS/ML 3 ML PEN SC SCH
[2021-07-19] MEDS: rOPINIRole HCL 1 MG TABLET PO SCH ×2 (00:07→21:09)
[2021-07-19] MEDS: INSULIN ASPART 100 UNITS/ML 3 ML PEN SC SCH ×6 (00:11→22:19)
[2021-07-19 07:30] LABS: Albumin Level 3.4 gm/dl (3.4-5.0); BUN Creatinine Ratio 28.9 (10-20); Calcium 8.9 mg/dl (8.5-10.1); Creatinine Clr Calc Pharmacy 80.8 ml/min; Est GFR (African American) 77.8 ml/min; Est GFR (Non-African American) 67.1 ml/min; Magnesium 2.3 mg/dl (1.8-2.4); Potassium 4.1 mmol/L (3.5-5.1)
[2021-07-19 07:32] LABS: Bilirubin,Total 1.1 mg/dl (0.2-1); Globulin 3.5 gm/dl (2.5-4.0); Total Protein 6.9 gm/dl (6.4-8.2)
[2021-07-19 08:08] LABS: Hematocrit (blood only) 30.4 % (42-52); Hemoglobin 8.7 g/dL (14.0-18.0); Mean Corpuscular Hemoglobin 22.4 pg (25-34); Mean Corpuscular Hgb Conc 28.6 g/dL (32-36); Mean Corpuscular Volume 78.4 fL (80-100); Mean Platelet Volume 9.4 fL (7.4-10.4); Platelet Count 154 K/uL (130-400); RDW Coefficient of Variation 19.8 % (11.5-14.5); RDW Standard Deviation 56.3 fL (36.4-46.3); Red Blood Count 3.88 M/uL (4.7-6.1); White Blood Count 4.03 K/uL (4.8-10.8)
[2021-07-19] MEDS: amLODIPine BESYLATE 5 MG TAB PO SCH (08:50)
[2021-07-19] MEDS: APIXABAN 5 MG TABLET PO SCH ×2 (08:50→21:10)
[2021-07-19] MEDS: FUROSEMIDE 40 MG/4 ML VIAL IV SCH ×2 (08:50→21:10)
[2021-07-19] MEDS: ASPIRIN 81 MG ECTAB PO SCH (08:50)
[2021-07-19] MEDS: busPIRone 5 MG TAB PO SCH ×2 (08:50→21:09)
[2021-07-19] MEDS: SERTRALINE HCL 100 MG TABLET PO SCH (08:51)
[2021-07-19] MEDS: CYANOCOBALAMIN (VITAMIN B-12) 100 MCG TABLET PO SCH (08:51)
[2021-07-19] MEDS: METOPROLOL SUCC 50MG EXT REL TAB PO SCH ×2 (08:51→21:24)
[2021-07-19] MEDS: PANTOprazole 40 MG TAB PO SCH (08:51)
[2021-07-19] MEDS: POTASSIUM CHLORIDE 10 MEQ TABCR PO SCH ×2 (08:51→21:07)
--- NOTE | 2021-07-19 11:58 | Cardiology Consultation ---
Date of Consultation July 19, 2021 Assessment & Plan (1) Acute on chronic diastolic CHF (congestive heart failure): (2) COVID-19: (3) Atrial fibrillation: (4) HTN (hypertension): Continue intravenous furosemide 40 mg twice daily. Follow daily weight, GFR, electrolytes, and fluid balance. Agree with fluid restriction to less than 1500 cc daily. Results of bedside 2D transthoracic echocardiogram discussed. LV systolic function within normal limits. Telemetry reveals rate controlled atrial fibrillation. Continue metoprolol and apixaban as previously ordered. Continue management of hypertension with amlodipine and losartan as ordered. Thank you for allow me to participate in the care of your patient. History of Present Illness Reason for Consultation: CHF Requesting Physician: Dr. Salcedo Attending Physician: Flores Salcedo MD History of Present Illness 66-year-old patient presented emergency department with within 1 week of progressive dyspnea, weight gain, lower extremity edema. Followed in the cardiology clinic for history of chronic A. fib, pacemaker, chronic diastolic heart failure, and hypertension. Diagnosed with COVID-19 infection approximately 8 weeks ago. Notes chronic dyspnea and cough since that time. Again he tested positive for COVID-19 on admission. Treated with intravenous furosemide with 1.8 L diuresis overnight. Continues to report orthopnea and edema. Wearing compression stockings. Preliminary review of bedside 2D transthoracic echocardiogram demonstrates preserved LV systolic function, no significant valvular pathology, and diastolic dysfunction. Allergies Allergy/AdvReac Type Severity Reaction Status Date / Time No Known Allergies Allergy Verified 07/18/21 17:40 Home Medications Medication Instructions Recorded Confirmed Type aspirin 81 mg tablet,delayed 81 mg PO QAM 06/20/19 07/18/21 History release atorvastatin 40 mg tablet 40 mg PO HS 06/20/19 07/18/21 History cyanocobalamin (vitamin B-12) 100 100 mcg PO QAM 06/20/19 07/18/21 History mcg tablet (Vitamin B-12) magnesium oxide 400 mg PO HS 06/20/19 07/18/21 History metformin 1,000 mg tablet 1,000 mg PO BID 06/20/19 07/18/21 History metoprolol succinate 100 mg 100 mg PO BID 06/20/19 07/18/21 History tablet,extended release 24 hr multivitamin 1 tab PO QAM 06/20/19 07/18/21 History pantoprazole 40 mg tablet,delayed 40 mg PO QAM 06/20/19 07/18/21 History release potassium chloride 10 mEq 10 meq PO BID 06/20/19 07/18/21 History tablet,extended release albuterol sulfate 90 mcg/actuation 2 puff INHALATION Q4H PRN 09/16/20 07/18/21 History aerosol inhaler empagliflozin 10 mg tablet 10 mg PO QAM 09/16/20 07/18/21 History (Jardiance) furosemide 40 mg tablet See Rx Instructions .ROUTE .COMPLEX 09/16/20 07/18/21 History amlodipine 2.5 mg tablet 2.5 mg PO QAM 03/03/21 07/18/21 History apixaban 5 mg tablet (Eliquis) 5 mg PO BID 03/03/21 07/18/21 History insulin aspart U-100 100 unit/mL 1 sliding scale dose CONTINUOUS 03/03/21 07/18/21 History subcutaneous solution (Novolog SUBCUTANEOUS INFUSION USEASDIRECTD U-100 Insulin aspart) losartan 100 mg tablet 100 mg PO HS 03/03/21 07/18/21 History ondansetron HCl 4 mg tablet 4 mg PO Q6H PRN #10 tab 03/04/21 07/18/21 Rx (Zofran) buspirone 10 mg tablet 10 mg PO QAM 07/10/21 07/18/21 History ropinirole 1 mg tablet 1 mg PO HS 07/10/21 07/18/21 History sertraline 100 mg tablet 200 mg PO QAM 07/10/21 07/18/21 History Patient History Medical History BPH (benign prostatic hyperplasia) CAD in [place] artery Chest pain Diabetes Effusion of knee joint right H/O renal calculi History of heart block HLD (hyperlipidemia) HTN (hypertension) Pacemaker SBO (small bowel obstruction) Surgical History Hx of cholecystectomy S/P cholecystectomy Status post laparoscopic hernia repair Social History Smoking Status: Former smoker Cigarettes Per Day: 2; Smoking End Date: 1982; Second Hand Exposure: No; Do You Dip or Chew Tobacco: Yes; Tobacco Cessation Education Requested by Patient: No Hx Alcohol Use: Yes Alcohol type: beer and hard liquor Hx Substance Use: No Preferred Language: Romanian Communication Ability: Effective Advanced Seal Delivery System Required: No Beliefs That Will Affect Care: None marital status: Current Living Situation: Spouse Other Information That Helps Us Care for You: No Feels Safe at Home: Yes Safety Concerns: Feels Safe At This Time Assistive Devices: Oxygen - Continuous Review of Systems Review of Systems: All systems reviewed & are unremarkable except as noted in Subjective Physical Exam Constitutional: well developed, well nourished and + obese Respiratory: no respiratory distress, no labored breathing and no retractions Auscultation: + rales (Bases bilateral); no rhonchi and no wheezes Cardiovascular: Rate/Rhythm: + irregularly irregular Heart Sounds: normal S1 and normal S2; no murmur Vessels: + JVD and radial pulses present; no carotid bruit Extremities: + edema (1+ bilateral pretibial edema) Gastrointestinal (Abdomen): Inspection/Auscultation: abdomen normal to inspection and normal bowel sounds; abdomen not distended Percussion/Palpation: abdomen soft; abdomen nontender, no guarding and abdomen not rigid Neurologic: CN's II-XI intact bilaterally and moves all extremities; no focal motor deficits Motor/Sensory: no tremor Psychiatric: A+Ox3, euthymic affect Results & Data ([facility]) Vital Signs (Past 12 Hours) Vital Signs Temp Pulse Pulse Resp BP Pulse Ox 07/19/21 10:36 67 07/19/21 07:56 36.3 C L 62 18 164/85 H 96 07/19/21 04:00 36.6 C 61 18 128/60 95 07/19/21 00:27 64
--- NOTE | 2021-07-19 13:25 | Electrocardiogram Report ---
Test Reason : Blood Pressure : / mmHG Vent. Rate : 062 BPM Atrial Rate : 300 BPM P-R Int : 000 ms QRS Dur : 160 ms QT Int : 502 ms P-R-T Axes : 000 -61 099 degrees QTc Int : 509 ms Ventricular-paced rhythm Abnormal ECG When compared with ECG of 10-JUL-2021 08:02, Vent. rate has decreased BY 2 BPM Confirmed by Nick Duckworth ([id number]) on 07/19/2021 1:25:20 PM Referred By: REFERRED SELF Confirmed By:Nick Duckworth
[2021-07-19] MEDS: INSULIN GLARGINE SOLOSTAR 100 UNITS/ML 3 ML PEN SC SCH ×2 (13:30→22:19)
--- NOTE | 2021-07-19 14:33 | Pharmacy Report ---
Pharmacy Glycemic Short Note 2 - Date of Service July 19, 2021 - Glycemic Short BSG Results (Last 24 hours): 07/18/21 07/18/21 07/18/21 15:15 18:13 18:28 Glucose 61 L POC Glucose 57 L* 91 07/18/21 07/18/21 07/18/21 21:10 21:40 23:50 Glucose POC Glucose 63 L* 89 175 H 07/19/21 07/19/21 07/19/21 04:30 06:25 07:52 Glucose 158 H POC Glucose 162 H 163 H 07/19/21 11:51 Glucose POC Glucose 231 H OUTPATIENT ANTIDIABETIC REGIMEN: * Metformin 1gm PO BID * Jardiance 10mg PO daily * Novolog insulin pump * Basal: 9647-9517 4.5 units/hr 7866-2204 5.2 units/hr 3430-9057 4.5 units/hr (117.8 units/day) * Bolus: Correction factor: 20mg/dL/unit (goal: 120-150mg/dL) Carb ratio: 1 unit per 2.2gm CHO * HbA1c: 7.2% (07/18/21) ASSESSMENT: * Mr Massey was admitted 11/9 pm with COVID-19. * Pt's insulin pump was placed on hold in the ED d/t hypoglycemia. Pt was initiated on SQ basal/bolus insulin on admission. * Will continue to adjust SQ insulin as needed. Plan to resume patient's insulin pump prior to discharge (likely Saturday morning). PLAN FOR INPATIENT GLYCEMIC CONTROL: * Hold outpatient oral diabetes medications * Basal insulin * Lantus 20 units SQ BID * Bolus insulin * NovoLog per scale ACHS or Q6hrs while NPO * Goal Range: Low 110 mg/dL - High 140 mg/dL * Correction Factor: 20 mg/dL/unit * Nutritional / Prandial insulin per carb ratio of 1 unit per 4 grams CHO consumed PLAN FOR DISCHARGE: * A1c: 7.2% * Anticipate that patient may resume insulin pump prior to discharge. * Pt was hypoglycemic on admission -- if this is a trend, patient will need to work with outpt providers to adjust insulin pump settings.
--- NOTE | 2021-07-19 16:47 | Hospitalist Progress Note ---
Date of Service July 19, 2021 Assessment & Plan (1) Acute on chronic diastolic CHF (congestive heart failure): Plan: -Check 2D echo, last echo done in July 2020,With a preserved EF of 55-59%, was noted to have septal motion abnormal consistent with right ventricular pacemaker, diastolic dysfunction, mild aortic sclerosis, calcification of the posterior mitral valve, secondary mitral regurg - BNP elevated at 2226, -Daily weights, strict I's and O's, fluid restriction of 1500 mL -Continue aggressive diuresis, Lasix 40 mg BID, hold p.o. Lasix (had taken 80 mg x 2 days), continue with IV -Follow BMP to follow electrolytes with aggressive diuresis, currently WNL -Kidney function is stable with creatinine 1.02, BUN 35, monitor -Cardiology consulted-appreciate input and recommendation (2) COVID-19: Plan: -Previously was positive on 05/30/2021, received monoclonal antibody treatment and finished on 06/04, reviewed in [facility] -COVID-19 positive on admission today, will continue isolation for now -Possible reinfection, pt at bedside without symptoms -Previously vaccinated with Moderna in December-January 2021. -Has been requiring up to 3 L of oxygen to maintain saturation -We will start dexamethasone (3) CAD in [place] artery: Plan: -History of such, continue antihypertensives, anticoagulation on Eliquis, Lasix (4) HTN (hypertension): Plan: -Continue metoprolol and amlodipine -Blood pressure is controlled (5) HLD (hyperlipidemia): Plan: -Continue statin therapy, last lipid panel reviewed in [facility], stable (6) Atrial fibrillation: Plan: -Anticoagulated on Eliquis, rate controlled on metoprolol (7) Diabetes mellitus type 2, insulin dependent: Plan: - Labs were drawn as an outpatient today and showed A1c = 7.2 - ISS with accuchecks achs - Has insulin pump, continue - to bring in refill cartridge as typically changes every other day, refilled it on 07/18 prior to coming to ER - Consult glycemic pharmacy - Hold jardiance for now (8) Pacemaker: Plan: - Sp ventricular pacemaker -Was evaluated on 06/20/2021 and was functioning properly, 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 -Continue on Eliquis, baby aspirin, metoprolol (9) COPD (chronic obstructive pulmonary disease): Plan: -Given inhaler during last ER visit, has not seen significant improvement with using it -PFTs reported as normal from 09/23/2019 does not follow routinely with pulmonology as an outpatient - Does not wear supplemental O2 at baseline, currently requiring 2 L -Will start dexamethasone for possible Covid pneumonia (10) Morbid obesity: Plan: - BMI of 39.1, diet and exercise encouraged at bedside (11) Depression: Plan: -Continue BuSpar, sertraline 200 mg daily DVT ppx: - Arley baum CODE: Full Dispo: From home, likely to remain in the hospital x 1-2 days Admission and Anticipated Discharge Date Admission Date: July 18, 2021 Subjective 07/19/2021 The patient was seen and examined in medical telemetry unit He has been feeling a little better and is still requiring 3 L of oxygen to maintain saturation Has cough and shortness of breath on minimal exertion Review of Systems Review of Systems: All systems reviewed and are unremarkable except as noted below Respiratory: Mild to moderate shortness of breath at rest and with exertion Physical Exam Physical Exam: Sitting at the edge of the bed with minimal distress Constitutional: well developed, well nourished, + ill appearing and + obese Eyes: PERRL, conjunctivae normal, anicteric sclerae ENMT: external ear and nose normal, oropharynx normal Neck: trachea midline, no thyromegaly Respiratory: + respiratory distress (Moderate shortness of breath at rest) and + cough Auscultation: + diminished lung sounds, + crackles (Crackles at the bases) and + wheezes (Minimal wheezing) Cardiovascular: Rate/Rhythm: regular rate and regular rhythm; not tachycardic Heart Sounds: normal S1 and normal S2; no murmur Extremities: no edema Gastrointestinal (Abdomen): Inspection/Auscultation: normal bowel sounds; abdomen not distended Percussion/Palpation: abdomen soft; abdomen nontender Musculoskeletal: No acute arthritis in any joint Neurologic: Alert, awake and oriented x3. No focal sensory and motor deficit appreciated Lymphatic: no cervical or axillary lymphadenopathy Results & Data Results & Data ([facility]) Vital Signs (Past 12 Hours) Vital Signs Temp Pulse Pulse Resp BP Pulse Ox 07/19/21 15:00 62 07/19/21 11:56 36.4 C L 86 16 131/63 99 07/19/21 11:04 98 07/19/21 10:36 67 07/19/21 07:56 36.3 C L 62 18 164/85 H 96 Laboratory Results Short CBC 07/19/21 Range/Units 06:25 WBC 4.03 L (4.8-10.8) K/uL Hgb 8.7 L (14.0-18.0) g/dL Hct 30.4 L (42-52) % Plt Count 154 (130-400) K/uL BMP 07/19/21 06:25 Sodium 141 Potassium 4.1 Chloride 108 H Carbon Dioxide 30 BUN 32 H Creatinine 1.12 Glucose 158 H Calcium 8.9 Liver Function 07/19/21 Range/Units 06:25 Total Bilirubin 1.1 H D (0.2-1) mg/dl AST 20 (15-37) U/L ALT 38 (12-78) U/L Alkaline Phosphatase 98 (45-117) U/L Albumin 3.4 (3.4-5.0) gm/dl Medications Administered Current Inpatient Medications Acetaminophen (Acetaminophen 325 Mg Tab) 650 mg PO Q4H PRN PRN Reason: Moderate Pain Stop: 08/17/21 22:36 Amlodipine Besylate (Amlodipine Besylate 5 Mg Tab) [facility] Stop: 08/18/21 08:59 Last Admin: 07/19/21 08:50 Dose: 2.5 mg Documented by: Apixaban (Apixaban 5 Mg Tablet) 5 mg PO BID [facility] Stop: 08/17/21 22:36 Last Admin: 07/19/21 08:50 Dose: 5 mg Documented by: Aspirin (Aspirin 81 Mg Ectab) 81 mg PO QAM [facility] Stop: 08/18/21 08:59 Last Admin: 07/19/21 08:50 Dose: 81 mg Documented by: Atorvastatin Calcium (Atorvastatin 40 Mg Tab) 40 mg PO HS [facility] Stop: 08/17/21 22:36 Last Admin: 07/18/21 23:52 Dose: 40 mg Documented by: Buspirone HCl (Buspirone 5 Mg Tab) 10 mg PO QAM [facility] Stop: 08/18/21 08:59 Last Admin: 07/19/21 08:50 Dose: 10 mg Documented by: Cyanocobalamin (Cyanocobalamin (Vitamin B-12) 100 Mcg Tablet) 100 mcg PO QAM [facility] Stop: 08/18/21 08:59 Last Admin: 07/19/21 08:51 Dose: 100 mcg Documented by: Dextrose (Dextrose 50% 50 Ml Syringe) 25 - 50 ml IV UD PRN; Protocol PRN Reason: Hypoglycemia Protocol Stop: 08/17/21 22:36 Furosemide (Furosemide 40 Mg/4 Ml Vial) 40 mg IV BID [facility] Stop: 08/17/21 22:36 Last Admin: 07/19/21 08:50 Dose: 40 mg Documented by: Glucagon (Glucagon For Inj 1 Mg Vial) 1 mg SQ UD PRN; Protocol PRN Reason: Hypoglycemia Protocol Stop: 08/17/21 22:36 Glucose (Glucose 10 Tabs/Tube) 4 - 8 tabs PO UD PRN; Protocol PRN Reason: Hypoglycemia Protocol Stop: 08/17/21 22:36 Glucose (Glucose 40% Gel 15 Gm Tube) 15 - 30 gm PO UD PRN; Protocol PRN Reason: Hypoglycemia Protocol Stop: 08/17/21 22:36 Insulin Aspart (Insulin Aspart 100 Units/Ml 3 Ml Pen) 0 units SC ACHS [facility]; Protocol Stop: 08/17/21 07:29 Last Admin: 07/19/21 12:15 Dose: 16 units Documented by: Insulin Glargine (Insulin Glargine Solostar 100 Units/Ml 3 Ml Pen) 20 units SC BID [facility]; Protocol Stop: 08/18/21 12:59 Last Admin: 07/19/21 13:30 Dose: 20 units Documented by: Losartan Potassium (Losartan Potassium 50 Mg Tab) 100 mg PO [facility] Stop: 08/17/21 22:36 Last Admin: 07/18/21 23:53 Dose: 100 mg Documented by: Magnesium Oxide (Magnesium Oxide 400 Mg Tab) 400 mg PO [facility] Stop: 08/17/21 22:36 Last Admin: 07/18/21 23:53 Dose: 400 mg Documented by: Metoprolol Succinate (Metoprolol Succ 50mg Ext Rel Tab) 100 mg PO BID [facility] Stop: 08/17/21 22:36 Last Admin: 07/19/21 08:51 Dose: 100 mg Documented by: Miscellaneous (Carbohydrates For Hypoglycemia ) 15 - 30 gm PO UD PRN PRN Reason: Hypoglycemia Protocol Stop: 08/17/21 22:36 Miscellaneous Information (Pharmacy Glycemic Mgmt Consult) 1 ea N/A UD PRN PRN Reason: Consult Stop: 08/17/21 18:20 Ondansetron HCl (Ondansetron Inj 2 Mg/Ml 2 Ml Vial) 4 mg IV Q4H PRN PRN Reason: Nausea And Vomiting Stop: 08/17/21 22:36 Pantoprazole Sodium (Pantoprazole 40 Mg Tab) 40 mg PO QAM [facility] Stop: 08/18/21 08:59 Last Admin: 07/19/21 08:51 Dose: 40 mg Documented by: Potassium Chloride (Potassium Chloride 10 Meq Tabcr) 10 meq PO BID [facility] Stop: 08/17/21 22:36 Last Admin: 07/19/21 08:51 Dose: 10 meq Documented by: Ropinirole HCl (Ropinirole Hcl 1 Mg Tablet) 1 mg PO HS [facility] Stop: 08/17/21 22:36 Last Admin: 07/19/21 00:07 Dose: 1 mg Documented by: Sertraline HCl (Sertraline Hcl 100 Mg Tablet) [facility] Stop: 08/18/21 08:59 Last Admin: 07/19/21 08:51 Dose: 200 mg Documented by:
[2021-07-19] MEDS: dexAMETHasone 6 MG in SYRINGE 0 ML IV SCH (18:42)
[2021-07-19] MEDS: LOSARTAN POTASSIUM 50 MG TAB PO SCH (21:08)
[2021-07-19] MEDS: ATORVASTATIN 40 MG TAB PO SCH (21:09)
[2021-07-19] MEDS: MAGNESIUM OXIDE 400 MG TAB PO SCH (21:10)
[2021-07-19] MEDS ORDERED: INSULIN HUMAN REGULAR PER UNIT 5 UNITS in SYRINGE 4.95 ML IV ONE (23:45)
[2021-07-20 06:35] LABS: Hematocrit (blood only) 30.6 % (42-52); Hemoglobin 9.1 g/dL (14.0-18.0); Mean Corpuscular Hgb Conc 29.7 g/dL (32-36); Mean Corpuscular Volume 77.5 fL (80-100); Mean Platelet Volume 8.8 fL (7.4-10.4); Platelet Count 146 K/uL (130-400); RDW Coefficient of Variation 19.3 % (11.5-14.5); Red Blood Count 3.95 M/uL (4.7-6.1); White Blood Count 3.73 K/uL (4.8-10.8)
[2021-07-20 06:45] LABS: Albumin Level 3.3 gm/dl (3.4-5.0); BUN Creatinine Ratio 32.9 (10-20); Creatinine Clr Calc Pharmacy 79.1 ml/min; Est GFR (African American) 75.4 ml/min; Potassium 4.5 mmol/L (3.5-5.1)
[2021-07-20 06:48] LABS: Albumin Globulin Ratio 0.9 (0.9-2); Globulin 3.7 gm/dl (2.5-4.0)
[2021-07-20] MEDS: METOPROLOL SUCC 50MG EXT REL TAB PO SCH (08:20)
[2021-07-20] MEDS: ASPIRIN 81 MG ECTAB PO SCH (08:21)
[2021-07-20] MEDS: PANTOprazole 40 MG TAB PO SCH (08:21)
[2021-07-20] MEDS: amLODIPine BESYLATE 5 MG TAB PO SCH (08:21)
[2021-07-20] MEDS: SERTRALINE HCL 100 MG TABLET PO SCH (08:21)
[2021-07-20] MEDS: POTASSIUM CHLORIDE 10 MEQ TABCR PO SCH (08:22)
[2021-07-20] MEDS: CYANOCOBALAMIN (VITAMIN B-12) 100 MCG TABLET PO SCH (08:22)
[2021-07-20] MEDS: APIXABAN 5 MG TABLET PO SCH (08:22)
[2021-07-20] MEDS: FUROSEMIDE 40 MG/4 ML VIAL IV SCH (08:22)
[2021-07-20] MEDS: dexAMETHasone 6 MG in SYRINGE 0 ML IV SCH (08:42)
[2021-07-20] MEDS: INSULIN ASPART 100 UNITS/ML 3 ML PEN SC SCH ×3 (08:51→17:45)
[2021-07-20] MEDS ORDERED: INSULIN GLARGINE SOLOSTAR 100 UNITS/ML 3 ML PEN SC SCH ×2 (09:00→18:00)
[2021-07-20] MEDS ORDERED: INSULIN HUMAN NPH SC SCH (09:00)
[2021-07-20 11:51] LABS: Iron 44 mcg/dl (35-175); Total Iron Binding Capacity 390 mcg/dl (250-450)
--- NOTE | 2021-07-20 13:07 | Cardiology Progress Note ---
Date of Service July 20, 2021 Assessment & Plan (1) Acute on chronic diastolic CHF (congestive heart failure): (2) COVID-19: (3) Atrial fibrillation: (4) HTN (hypertension): Plan: Transition patient to oral furosemide, 40 mg twice daily on Saturday, Saturday, a saturday, 40 mg daily on Saturday, , Saturday, and Saturday. Sodium restriction advised. Restrict fluid intake at home to less than 2 L daily. Results of bedside 2D transthoracic echocardiogram discussed. LV systolic function within normal limits. Telemetry reveals rate controlled atrial fibrillation. Continue metoprolol and apixaban as previously ordered. Continue management of hypertension with amlodipine and losartan as ordered. Outpatient cardiology follow-up in 1 week. Admission and Anticipated Discharge Date Admission Date: July 18, 2021 Subjective Patient seen examined the bedside. Feeling better from a cardiovascular perspective. Denies chest pain or dyspnea at rest. No orthopnea or PND. Fluid balance -1.6 L with two doses of intravenous furosemide. Telemetry reveals a ventricular paced rhythm in the 60s. Review of Systems Review of Systems: All systems reviewed & are unremarkable except as noted in Subjective Physical Exam Constitutional: well developed, well nourished and + obese Respiratory: no respiratory distress, no labored breathing and no retractions Auscultation: no rales, no rhonchi and no wheezes Cardiovascular: Rate/Rhythm: + irregularly irregular Heart Sounds: normal S1 and normal S2; no murmur Vessels: + JVD and radial pulses present; no carotid bruit Extremities: + edema (1+ bilateral pretibial edema) Gastrointestinal (Abdomen): Inspection/Auscultation: abdomen normal to inspection and normal bowel sounds; abdomen not distended Percussion/Palpation: abdomen soft; abdomen nontender, no guarding and abdomen not rigid Neurologic: CN's II-XI intact bilaterally and moves all extremities; no focal motor deficits Motor/Sensory: no tremor Psychiatric: A+Ox3, euthymic affect Results & Data ([facility]) Vital Signs (Past 12 Hours) Vital Signs Temp Pulse Pulse Pulse Pulse Pulse Pulse 07/20/21 12:10 79 78 79 68 07/20/21 08:00 36.6 C 65 65 07/20/21 04:48 36.8 C 61 Resp Resp Resp Resp Resp BP Pulse Ox 07/20/21 12:10 20 20 16 18 11/11/21 08:00 18 128/68 95 07/20/21 04:48 18 117/58 L 92 Pulse Ox Pulse Ox Pulse Ox Pulse Ox Pulse Ox 07/20/21 12:10 92 88 L 90 90 07/20/21 08:00 95 07/20/21 04:48
--- NOTE | 2021-07-20 14:10 | Pharmacy Report ---
Pharmacy Glycemic Short Note 2 - Date of Service July 20, 2021 - Glycemic Short BSG Results (Last 24 hours): 07/19/21 07/19/21 07/19/21 16:29 20:03 23:14 Glucose POC Glucose 174 H 173 H 307 H* 07/19/21 07/20/21 07/20/21 23:16 01:15 06:04 Glucose 268 H POC Glucose 348 H* 293 H 07/20/21 07/20/21 11:57 12:02 Glucose POC Glucose 307 H* 288 H OUTPATIENT ANTIDIABETIC REGIMEN: * Metformin 1gm PO BID * Jardiance 10mg PO daily * Novolog insulin pump * Basal: 7435-0102 4.5 units/hr 9594-8993 5.2 units/hr 8902-5957 4.5 units/hr (117.8 units/day) * Bolus: Correction factor: 20mg/dL/unit (goal: 120-150mg/dL) Carb ratio: 1 unit per 2.2gm CHO * HbA1c: 7.2% (07/18/21) ASSESSMENT: 07/20/21: * Mr Massey was started on IV dexamethasone last evening, which led to significant hyperglycemia. * NPH added this morning to help cover steroid-induced hyperglycemia. * Lantus also increased to more closely match patient's basal insulin needs from his pump. * Novolog parameters adjusted to provide additional carb coverage. * Will continue to adjust regimen as required. * If patient remains on IV steroids, likely will not be able to transition back to insulin pump tomorrow morning. 07/19 * Mr Massey was admitted 11/9 pm with COVID-19. * Pt's insulin pump was placed on hold in the ED d/t hypoglycemia. Pt was in itiated on SQ basal/bolus insulin on admission. * Will continue to adjust SQ insulin as needed. Plan to resume patient's insulin pump prior to discharge (likely Saturday morning). PLAN FOR INPATIENT GLYCEMIC CONTROL: * Hold outpatient oral diabetes medications * Basal insulin * Lantus 40 units SQ BID * Bolus insulin * NovoLog per scale ACHS or Q6hrs while NPO, plus 0000 and 0400 until BSGs stable * Goal Range: Low 110 mg/dL - High 140 mg/dL * Correction Factor: 20 mg/dL/unit * Nutritional / Prandial insulin per carb ratio of 1 unit per 3 grams CHO consumed PLAN FOR DISCHARGE: * A1c: 7.2% * Anticipate that patient may resume insulin pump prior to discharge. * Pt was hypoglycemic on admission -- if this is a trend, patient will need to work with outpt providers to adjust insulin pump settings. * It pt will be discharged on steroids, will likely require adjustments to pump settings to provide additional coverage.
--- NOTE | 2021-07-20 14:31 | Hospitalist Progress Note ---
Date of Service July 20, 2021 Assessment & Plan (1) Acute on chronic diastolic CHF (congestive heart failure): Plan: -Check 2D echo, last echo done in July 2020,With a preserved EF of 55-59%, was noted to have septal motion abnormal consistent with right ventricular pacemaker, diastolic dysfunction, mild aortic sclerosis, calcification of the posterior mitral valve, secondary mitral regurg - BNP elevated at 2226, -Daily weights, strict I's and O's, fluid restriction of 1500 mL -Continue aggressive diuresis, Lasix 40 mg BID, hold p.o. Lasix (had taken 80 mg x 2 days), continue with IV -Follow BMP to follow electrolytes with aggressive diuresis, currently WNL -Kidney function is stable with creatinine 1.02, BUN 35, monitor -Cardiology consulted-appreciate input and recommendation -Clinically not better and has been ambulating without any difficulties -He will be discharged home this afternoon Anemia Hemoglobin remains around 9 Iron studies have been negative B12 and folate are pending Has had colonoscopy as an outpatient May need to have a occult blood test and possible EGD down the line as an outpatient (2) COVID-19: Plan: -Previously was positive on 05/30/2021, received monoclonal antibody treatment and finished on 06/04, reviewed in [facility] -COVID-19 positive on admission today, will continue isolation for now -Possible reinfection, pt at bedside without symptoms -Previously vaccinated with Moderna in December-January 2021. -Has been requiring up to 3 L of oxygen to maintain saturation -We will start dexamethasone -Has had to do steps O2 saturation test done today and he will require 2 L of oxygen with ambulation -He will be discharged this afternoon (3) CAD in [place] artery: Plan: -History of such, continue antihypertensives, anticoagulation on Eliquis, Lasix (4) HTN (hypertension): Plan: -Continue metoprolol and amlodipine -Blood pressure is controlled (5) HLD (hyperlipidemia): Plan: -Continue statin therapy, last lipid panel reviewed in [facility], stable (6) Atrial fibrillation: Plan: -Anticoagulated on Eliquis, rate controlled on metoprolol (7) Diabetes mellitus type 2, insulin dependent: Plan: - Labs were drawn as an outpatient today and showed A1c = 7.2 - ISS with accuchecks achs - Has insulin pump, continue - to bring in refill cartridge as typically changes every other day, refilled it on 07/18 prior to coming to ER - Consult glycemic pharmacy - Hold jardiance for now -He can restart his insulin pump on discharge but he will need additional 30 units of NPH with the dose of dexamethasone daily for the next 7 days -This was discussed with the in detail (8) Pacemaker: Plan: - Sp ventricular pacemaker -Was evaluated on 06/20/2021 and was functioning properly, 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 -Continue on Eliquis, baby aspirin, metoprolol (9) COPD (chronic obstructive pulmonary disease): Plan: -Given inhaler during last ER visit, has not seen significant improvement with using it -PFTs reported as normal from 09/23/2019 does not follow routinely with pulmonology as an outpatient - Does not wear supplemental O2 at baseline, currently requiring 2 L -Will start dexamethasone for possible Covid pneumonia (10) Morbid obesity: Plan: - BMI of 39.1, diet and exercise encouraged at bedside (11) Depression: Plan: -Continue BuSpar, sertraline 200 mg daily DVT ppx: - teds, Eliquis CODE: Full Dispo: From home, likely to remain in the hospital x 1-2 days Will be discharged home this afternoon Admission and Anticipated Discharge Date Admission Date: July 18, 2021 Subjective 07/19/2021 The patient was seen and examined in medical telemetry unit He has been feeling a little better and is still requiring 3 L of oxygen to maintain saturation Has cough and shortness of breath on minimal exertion 07/20/2021 The patient was seen and examined in medical telemetry unit and in the Covid room He has been feeling much better and does not require any oxygen at rest Denies any chest pain, palpitation or dizziness No problem with urine and bowel habit He wants to go home today Review of Systems Review of Systems: All systems reviewed and are unremarkable except as noted below Respiratory: Mild to moderate shortness of breath at rest and with exertion Physical Exam Physical Exam: Sitting at the edge of the bed with minimal distress Constitutional: well developed, well nourished, + ill appearing and + obese Eyes: PERRL, conjunctivae normal, anicteric sclerae ENMT: external ear and nose normal, oropharynx normal Neck: trachea midline, no thyromegaly Respiratory: + respiratory distress (Moderate shortness of breath at rest) and + cough Auscultation: + diminished lung sounds, + crackles (Crackles at the bases) and + wheezes (Minimal wheezing) Cardiovascular: Rate/Rhythm: regular rate and regular rhythm; not tachycardic Heart Sounds: normal S1 and normal S2; no murmur Extremities: no edema Gastrointestinal (Abdomen): Inspection/Auscultation: normal bowel sounds; abdomen not distended Percussion/Palpation: abdomen soft; abdomen nontender Musculoskeletal: No acute arthritis in any joint Neurologic: Alert, awake and oriented x3. No focal sensory or motor deficit appreciated Lymphatic: no cervical or axillary lymphadenopathy Results & Data Results & Data ([facility]) Vital Signs (Past 12 Hours) Vital Signs Temp Pulse Pulse Pulse Pulse Pulse Pulse 07/20/21 12:10 79 78 79 68 07/20/21 08:00 36.6 C 65 65 07/20/21 04:48 36.8 C 61 Resp Resp Resp Resp Resp BP Pulse Ox 07/20/21 12:10 20 20 16 18 07/20/21 08:00 18 128/68 95 07/20/21 04:48 18 117/58 L 92 Pulse Ox Pulse Ox Pulse Ox Pulse Ox Pulse Ox 07/20/21 12:10 92 88 L 90 90 07/20/21 08:00 95 07/20/21 04:48 Laboratory Results Short CBC 07/20/21 Range/Units 06:04 WBC 3.73 L (4.8-10.8) K/uL Hgb 9.1 L (14.0-18.0) g/dL Hct 30.6 L (42-52) % Plt Count 146 (130-400) K/uL BMP 07/20/21 06:04 Sodium 137 Potassium 4.5 Chloride 105 Carbon Dioxide 26 BUN 38 H Creatinine 1.15 Glucose 268 H Calcium 9.0 Liver Function 07/20/21 Range/Units 06:04 Total Bilirubin 1.0 (0.2-1) mg/dl AST 11 L (15-37) U/L ALT 33 (12-78) U/L Alkaline Phosphatase 107 (45-117) U/L Albumin 3.3 L (3.4-5.0) gm/dl Medications Administered Current Inpatient Medications Acetaminophen (Acetaminophen 325 Mg Tab) 650 mg PO Q4H PRN PRN Reason: Moderate Pain Stop: 08/17/21 22:36 Amlodipine Besylate (Amlodipine Besylate 5 Mg Tab) 2.5 mg PO QAM [facility] Stop: 08/18/21 08:59 Last Admin: 07/20/21 08:21 Dose: 2.5 mg Documented by: Apixaban (Apixaban 5 Mg Tablet) 5 mg PO BID [facility] Stop: 08/17/21 22:36 Last Admin: 07/20/21 08:22 Dose: 5 mg Documented by: Atorvastatin Calcium (Atorvastatin 40 Mg Tab) 40 mg PO HS [facility] Stop: 08/17/21 22:36 Last Admin: 07/19/21 21:09 Dose: 40 mg Documented by: Buspirone HCl (Buspirone 5 Mg Tab) 10 mg PO QAM [facility] Stop: 08/18/21 08:59 Last Admin: 07/19/21 21:09 Dose: 10 mg Documented by: Cyanocobalamin (Cyanocobalamin (Vitamin B-12) 100 Mcg Tablet) 100 mcg PO QAM [facility] Stop: 08/18/21 08:59 Last Admin: 07/20/21 08:22 Dose: 100 mcg Documented by: Dextrose (Dextrose 50% 50 Ml Syringe) 25 - 50 ml IV UD PRN; Protocol PRN Reason: Hypoglycemia Protocol Stop: 08/17/21 22:36 Furosemide (Furosemide 40 Mg/4 Ml Vial) 40 mg IV BID [facility] Stop: 08/17/21 22:36 Last Admin: 07/20/21 08:22 Dose: 40 mg Documented by: Glucagon (Glucagon For Inj 1 Mg Vial) 1 mg SQ UD PRN; Protocol PRN Reason: Hypoglycemia Protocol Stop: 08/17/21 22:36 Glucose (Glucose 10 Tabs/Tube) 4 - 8 tabs PO UD PRN; Protocol PRN Reason: Hypoglycemia Protocol Stop: 08/17/21 22:36 Glucose (Glucose 40% Gel 15 Gm Tube) 15 - 30 gm PO UD PRN; Protocol PRN Reason: Hypoglycemia Protocol Stop: 08/17/21 22:36 Dexamethasone 6 mg/ Syringe 1.5 mls @ 1 mls/min IV Q24H [facility] Stop: 08/18/21 17:59 Last Admin: 07/20/21 08:42 Dose: 1 mls/min Documented by: Insulin Aspart (Insulin Aspart 100 Units/Ml 3 Ml Pen) 0 units SC ACHS [facility]; Protocol Stop: 12/09/21 07:29 Last Admin: 07/20/21 12:28 Dose: 25 units Documented by: Insulin Aspart (Insulin Aspart 100 Units/Ml 3 Ml Pen) 0 units SC 0000,0400 [facility]; Protocol Stop: 07/21/21 04:01 Insulin Glargine (Insulin Glargine Solostar 100 Units/Ml 3 Ml Pen) 40 units SC BID [facility]; Protocol Stop: 08/19/21 17:59 Insulin Human NPH (Insulin Human Nph) 35 units SC DAILY [facility] Stop: 08/19/21 08:59 Last Admin: 07/20/21 08:52 Dose: 35 units Documented by: Losartan Potassium (Losartan Potassium 50 Mg Tab) [address] [facility] Stop: 08/17/21 22:36 Last Admin: 07/19/21 21:08 Dose: 100 mg Documented by: Magnesium Oxide (Magnesium Oxide 400 Mg Tab) 400 mg PO HS [facility] Stop: 08/17/21 22:36 Last Admin: 07/19/21 21:10 Dose: 400 mg Documented by: Metoprolol Succinate (Metoprolol Succ 50mg Ext Rel Tab) 100 mg PO BID [facility] Stop: 08/17/21 22:36 Last Admin: 07/20/21 08:20 Dose: 100 mg Documented by: Miscellaneous (Carbohydrates For Hypoglycemia ) 15 - 30 gm PO UD PRN PRN Reason: Hypoglycemia Protocol Stop: 08/17/21 22:36 Miscellaneous Information (Pharmacy Glycemic Mgmt Consult) 1 ea N/A UD PRN PRN Reason: Consult Stop: 08/17/21 18:20 Ondansetron HCl (Ondansetron Inj 2 Mg/Ml 2 Ml Vial) 4 mg IV Q4H PRN PRN Reason: Nausea And Vomiting Stop: 08/17/21 22:36 Pantoprazole Sodium (Pantoprazole 40 Mg Tab) [facility] Stop: 08/18/21 08:59 Last Admin: 07/20/21 08:21 Dose: 40 mg Documented by: Potassium Chloride (Potassium Chloride 10 Meq Tabcr) 10 meq PO BID [facility] Stop: 08/17/21 22:36 Last Admin: 07/20/21 08:22 Dose: 10 meq Documented by: Ropinirole HCl (Ropinirole Hcl 1 Mg Tablet) [address] [facility] Stop: 08/17/21 22:36 Last Admin: 07/19/21 21:09 Dose: 1 mg Documented by: Sertraline HCl (Sertraline Hcl 100 Mg Tablet) [facility] Stop: 08/18/21 08:59 Last Admin: 07/20/21 08:21 Dose: 200 mg Documented by:
[2021-07-20 22:50] LABS: Folate (Folic Acid) > 20.00 ng/ml (>5.38); Vitamin B12 514 pg/ml (193-986)
[2021-07-21] MEDS ORDERED: INSULIN ASPART 100 UNITS/ML 3 ML PEN SC SCH
--- NOTE | 2021-07-21 08:20 | Discharge Summary ---
Date of Service July 21, 2021 Admission HPI Per Admitting Provider This is a 66-year-old male with PMHx of chronic diastolic CHF, HTN, A. fib on Eliquis CAD, HLD, DM type II, status post pacemaker insertion, COPD, morbid obesity with BMI of 39.4, depression, diabetic polyneuropathy, who presents with worsening shortness of breath, worsening edema in his lower legs and dyspnea on exertion. He initially presented to [facility] ER on 07/10/2021 with shortness of breath that had started 1-2 weeks prior to that. His chest x-ray at that time was clear. He was sent home with a rescue inhaler but reports that it has not improved his symptoms. Since that timeframe he has had worsening shortness of breath and has gained approximately 9 pounds in the last couple of weeks per his . His dry weight is 260 lbs. Patient admits to orthopnea and has been sleeping sitting upright in a recliner. Pt is having increased edema in his legs and feels his abdomen is swollen. Typically does not require supplemental O2, however here he is requiring 2 L on room air to maintain saturations. At home he takes Lasix 40 mg daily and has not missed any doses. Yesterday he doubled his dose per instruction from his PCP. Of note he was positive for Covid on 05/25/2021 and underwent monoclonal antibody treatment on 05/30/2021. He initially was better but now is more short of breath again. He again tested positive for COVID-19 on admission today. He admits to having a dry cough, but does not endorse any other symptoms. 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 BNP elevated at 2226, CXR reviewed and is clear, electrolytes are within normal limits. Was given 40 mg IV Lasix in the ER. Since Lasix administration he has urinated twice, is out total 625 mL urine in bedside urinal. COVID-19 positive on admission. Family history of heart disease. Admission Exam Per Admitting Provider Physical Exam: General: awake, alert, no apparent distress, morbidly obese with BMI of 39.4 Head: Normocephalic, atraumatic ENT: PERRL, EOMI, no pharyngeal exudate, mucous membranes moist, JVD difficult to assess secondary to neck habitus Chest: On 2 LPM NC, faint crackles at bases bilaterally, no adventitious breath sounds Cardiac: Regular rate and rhythm, no murmur, no JVD, normal peripheral pulses, good capillary refill Abdominal: NABS x 4 quadrants, soft, + distended, nontender to palpation, no rebound or guarding, no fluid wave Extremities: Normal inspection, 2+ peripheral edema bilaterally, no erythema, calfs nontender to palpation Psych: Normal mood and affect Neuro: AAO x 3, strength intact bilaterally and rated 5/5, no motor deficits, speech is clear, no peripheral sensory deficits Principal Diagnosis Acute on chronic diastolic CHF, COVID-19 infection, atrial fibrillation on Eliquis, COPD, diabetes on insulin pump, chronic anemia Discharge Exam Sitting at the edge of the bed with minimal distress Constitutional well developed, well nourished, + ill appearing and + obese Eyes PERRL, conjunctivae normal, anicteric sclerae ENMT external ear and nose normal, oropharynx normal Neck trachea midline, no thyromegaly Respiratory + respiratory distress (Moderate shortness of breath at rest) and + cough Auscultation: + diminished lung sounds, + crackles (Crackles at the bases) and + wheezes (Minimal wheezing) Cardiovascular Rate/Rhythm: regular rate and regular rhythm; not tachycardic Heart Sounds: normal S1 and normal S2; no murmur Extremities: no edema Gastrointestinal (Abdomen) Inspection/Auscultation: normal bowel sounds; abdomen not distended Percussion/Palpation: abdomen soft; abdomen nontender Lymphatic no cervical or axillary lymphadenopathy Discharge Data Allergies Allergy/AdvReac Type Severity Reaction Status Date / Time No Known Allergies Allergy Verified 07/18/21 17:40 Consultations 07/18/21 17:13 ED Decision to Admit Stat 07/18/21 22:37 Consult Cardiology Routine Hospital Course (1) Acute on chronic diastolic CHF (congestive heart failure): -Check 2D echo, last echo done in July 2020,With a preserved EF of 55- 59%, was noted to have septal motion abnormal consistent with right ventricular pacemaker, diastolic dysfunction, mild aortic sclerosis, calcification of the posterior mitral valve, secondary mitral regurg - BNP elevated at 2226, -Daily weights, strict I's and O's, fluid restriction of 1500 mL -Continue aggressive diuresis, Lasix 40 mg BID, hold p.o. Lasix (had taken 80 mg x 2 days), continue with IV -Follow BMP to follow electrolytes with aggressive diuresis, currently WNL -Kidney function is stable with creatinine 1.02, BUN 35, monitor -Cardiology consulted-appreciate input and recommendation -Clinically not better and has been ambulating without any difficulties -He will be discharged home this afternoon Anemia Hemoglobin remains around 9 Iron studies have been negative B12 and folate are pending Has had colonoscopy as an outpatient May need to have a occult blood test and possible EGD down the line as an outpatient (2) COVID-19: -Previously was positive on 05/30/2021, received monoclonal antibody treatment and finished on 06/04, reviewed in [facility] -COVID-19 positive on admission today, will continue isolation for now -Possible reinfection, pt at bedside without symptoms -Previously vaccinated with Moderna in December-January 2021. -Has been requiring up to 3 L of oxygen to maintain saturation -We will start dexamethasone -Has had to do steps O2 saturation test done today and he will require 2 L of oxygen with ambulation -He will be discharged this afternoon (3) CAD in [place] artery: -History of such, continue antihypertensives, anticoagulation on Eliquis, Lasix (4) HTN (hypertension): -Continue metoprolol and amlodipine -Blood pressure is controlled (5) HLD (hyperlipidemia): -Continue statin therapy, last lipid panel reviewed in [facility], stable (6) Atrial fibrillation: -Anticoagulated on Eliquis, rate controlled on metoprolol (7) Diabetes mellitus type 2, insulin dependent: - Labs were drawn as an outpatient today and showed A1c = 7.2 - ISS with accuchecks [facility] - Has insulin pump, continue - to bring in refill cartridge as typically changes every other day, refilled it on 07/18 prior to coming to ER - Consult glycemic pharmacy - Hold jardiance for now -He can restart his insulin pump on discharge but he will need additional 30 units of NPH with the dose of dexamethasone daily for the next 7 days -This was discussed with the in detail (8) Pacemaker: - Sp ventricular pacemaker -Was evaluated on 06/20/2021 and was functioning properly, device is nearing [employer], 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 -Continue on Eliquis, baby aspirin, metoprolol (9) COPD (chronic obstructive pulmonary disease): -Given inhaler during last ER visit, has not seen significant improvement with using it -PFTs reported as normal from 09/23/2019 does not follow routinely with pulmo nology as an outpatient - Does not wear supplemental O2 at baseline, currently requiring 2 L -Will start dexamethasone for possible Covid pneumonia (10) Morbid obesity: - BMI of 39.1, diet and exercise encouraged at bedside (11) Depression: -Continue BuSpar, sertraline 200 mg daily DVT ppx: - tedmeenu, Delmyquis CODE: Full Dispo: From home, likely to remain in the hospital x 1-2 days Will be discharged home this afternoon Total Time Total Time Spent Total Time Spent (In Minutes): 35 minutes Discharge Plan Discharge Items Patient Disposition: Home - Home Health Services Reason For Visit: CHF EXACERBATION Discharge Diagnosis: Acute on chronic diastolic CHF, COVID-19 infection, atrial fibrillation on Eliquis, COPD, diabetes on insulin pump, chronic anemia Activity: Resume your previous activity Non-emergency contact: Primary Care Provider Call non-emergency contact if: you have any medication questions and your symptoms worsen Follow-up/Referrals: Yoshi Buitrago MD [Primary Care Provider] - 07/25/21 2:20 pm Diet: Carb Consistent or DM2 and Heart Healthy Addtl Attending Provider Instructions: Patient was to avoid falls Please finish the course of steroid You can restart your pump as before but will need to take additional 30 units of insulin daily with the steroid(Dexamethasone) pill for 7 days only Please take oxygen as advised Please discuss with your primary care provider for additional work-up to find out the cause for your anemia Please maintain isolation precaution for 7 days as per CDC guidelines Home Isolation COVID-19 Instructions The following information about Home Isolation is from the CDC Website: https://www.cdc.gov/coronavirus/2019-ncov/hcp/rksbihhs-kacirvr-xhdjyb.html Stay home except to get medical care People who are mildly ill with COVID-19 are able to isolate at home during their illness. You should restrict activities outside your home, except for getting medical care. Do not go to work, school, or public areas. Avoid using public transportation, ride-sharing, or taxis. Separate yourself from other people and animals in your home People: As much as possible, you should stay in a specific room and away from other people in your home. Also, you should use a separate bathroom, if available. Animals: You should restrict contact with pets and other animals while you are sick with COVID-19, just like you would around other people. Although there have not been reports of pets or other animals becoming sick with COVID-19, it is still recommended that people sick with COVID-19 limit contact with animals until more information is known about the virus. When possible, have another member of your household care for your animals while you are sick. If you are sick with COVID-19, avoid contact with your pet, including petting, snuggling, being kissed or licked, and sharing food. If you must care for your pet or be around animals while you are sick, wash your hands before and after you interact with pets and wear a face mask. Call ahead before visiting your doctor If you have a medical appointment, call the healthcare provider and tell them that you have or may have COVID-19. This will help the healthcare providers office take steps to keep other people from getting infected or exposed. Wear a face mask You should wear a face mask when you are around other people (e.g., sharing a room or vehicle) or pets and before you enter a healthcare providers office. If you are not able to wear a face mask (for example, because it causes trouble breathing), then people who live with you should not stay in the same room with you, or they should wear a face mask if they enter your room. Cover your coughs and sneezes Cover your mouth and nose with a tissue when you cough or sneeze. Throw used tissues in a lined trash can. Immediately wash your hands with soap and water for at least 20 seconds or, if soap and water are not available, clean your hands with an alcohol-based hand export documents clerk that contains at least 60% alcohol. Clean your hands often Wash your hands often with soap and water for at least 20 seconds, especially after blowing your nose, coughing, or sneezing; going to the bathroom; and before eating or preparing food. If soap and water are not readily available, use an alcohol-based hand export documents clerk with at least 60% alcohol, covering all surfaces of your hands and rubbing them together until they feel dry. Soap and water are the best option if hands are visibly dirty. Avoid touching your eyes, nose, and mouth with unwashed hands. Avoid sharing personal household items You should not share dishes, drinking glasses, cups, eating utensils, towels, or bedding with other people or pets in your home. After using these items, they should be washed thoroughly with soap and water. Clean all high-touch surfaces everyday High touch surfaces include counters, tabletops, doorknobs, bathroom fixtures, toilets, phones, keyboards, tablets, and bedside tables. Also, clean any surfaces that may have blood, stool, or body fluids on them. Use a household cleaning spray or wipe, according to the label instructions. Labels contain instructions for safe and effective use of the cleaning product including precautions you should take when applying the product, such as wearing gloves and making sure you have good ventilation during use of the product. Monitor your symptoms Seek prompt medical attention if your illness is worsening (e.g., difficulty breathing).Beforeseeking care, call your healthcare provider and tell them that you have, or are being evaluated for, COVID-19. Put on a face mask before you enter the facility. These steps will help the healthcare providers office to keep other people in the office or waiting room from getting infected or exposed. Ask your healthcare provider to call the local or state health department. Persons who are placed under active monitoring or facilitated self- monitoring should follow instructions provided by their local health department or occupational health professionals, as appropriate. When working with your local health department check their available hours. If you have a medical emergency and need to call 911, notify the dispatch personnel that you have, or are being evaluated for COVID-19. If possible, put on a face mask before emergency medical services arrive. Discontinuing home isolation Patients with confirmed COVID-19 should remain under home isolation precautions until the risk of secondary transmission to others is thought to be low. The decision to discontinue home isolation precautions should be made on a [id number] basis, in consultation with healthcare providers and state and local health departments. Pending Studies at Discharge: No Stand-Alone Forms: My [employer], Smoking Cessation Medications and DC Order Prescriptions: New dexamethasone 6 mg tablet 6 mg PO DAILY Qty: 7 RF: 0 Continued atorvastatin 40 mg Tablet 40 mg PO HS RF: 0 magnesium oxide 400 mg magnesium Capsule 400 mg PO HS RF: 0 metformin 1,000 mg Tablet 1,000 mg PO BID RF: 0 metoprolol succinate 100 mg Tablet Extended Release 24 Hr 100 mg PO BID RF: 0 multivitamin Tablet 1 tab PO QAM RF: 0 pantoprazole 40 mg Tablet,Delayed Release (Dr/Ec) 40 mg PO QAM RF: 0 potassium chloride 10 mEq Tablet Extended Release 10 meq PO BID RF: 0 cyanocobalamin (vitamin B-12) [Vitamin B-12] 100 mcg Tablet 100 mcg PO QAM RF: 0 albuterol sulfate 90 mcg/actuation HFA aerosol inhaler 2 puff INHALATION Q4H PRN (Reason: Shortness Of Breath Or Wheezing) RF: 0 furosemide 40 mg tablet See Rx Instructions .ROUTE .COMPLEX RF: 0 Jardiance 10 mg tablet 10 mg PO QAM RF: 0 ropinirole 1 mg tablet 1 mg PO HS RF: 0 sertraline 100 mg tablet 200 mg PO QAM RF: 0 buspirone 10 mg tablet 10 mg PO QAM RF: 0 amlodipine 2.5 mg Tablet 2.5 mg PO QAM RF: 0 insulin aspart U-100 [Novolog U-100 Insulin aspart] 100 unit/mL Solution 1 sliding scale dose continuous subcutaneous infusion USEASDIRECTD RF: 0 losartan 100 mg Tablet 100 mg PO HS RF: 0 Eliquis 5 mg Tablet 5 mg PO BID RF: 0 ondansetron HCl [Zofran] 4 mg tablet 4 mg PO Q6H PRN (Reason: nausea and vomiting) Qty: 10 RF: 0 Discontinued aspirin 81 mg Tablet,Delayed Release (Dr/Ec) 81 mg PO QAM RF: 0 Discharge Orders: Discharge Order (Routine); Ordered 07/20/21 Ordered By: Flores Salcedo Admission Data Admit Date/Time: 07/18/21 17:32 Attending Provider: Flores Salcedo Admit Provider: Mercedes Dejesus Primary Care Provider: Yoshi Buitrago Other Providers: Mercedes Dejesus ; Suresh Crandall Other Interventions: Discharge Summary Assessment (RN) Last Done: 07/20/21 15:15
== END 2021-07-20 18:59 | disposition home health service (06) | DRG 291 ==
LOC: ED 14:01 → 2W 17:32 → SUATTDRO 17:32 → 2W 21:53
DX: Z90.49 Acquired absence of other specified parts of digestive tract; I11.0 Hypertensive heart disease with heart failure; I25.10 Atherosclerotic heart disease of native coronary artery without angina pectoris; I48.91 Unspecified atrial fibrillation; Z68.39 Body mass index [BMI] 39.0-39.9, adult; I50.33 Acute on chronic diastolic (congestive) heart failure; Z79.84 Long term (current) use of oral hypoglycemic drugs; E78.5 Hyperlipidemia, unspecified; F32.A Depression, unspecified; J44.9 Chronic obstructive pulmonary disease, unspecified; Z79.01 Long term (current) use of anticoagulants; Z87.891 Personal history of nicotine dependence; Z79.82 Long term (current) use of aspirin; Z95.0 Presence of cardiac pacemaker; E11.9 Type 2 diabetes mellitus without complications; E66.01 Morbid (severe) obesity due to excess calories; U07.1 COVID-19

== ENCOUNTER 2022-04-04 22:22 | Inpatient (IN) ==
[2022-04-04] MEDS ORDERED: ACETAMINOPHEN 1,000 MG/100 ML VIAL IV STA (23:39)
[2022-04-04] MEDS ORDERED: ONDANSETRON INJ 2 MG/ML 2 ML VIAL IV STA (23:39)
[2022-04-04] MEDS ORDERED: fentaNYL citrate 100 MCG/2 ML VIAL IV STA (23:39)
--- NOTE | 2022-04-05 00:17 | Emergency Department Note ---
History of Present Illness General Chief complaint: Abdominal Pain Stated complaint: ABDOMINAL PAIN Time Seen by Provider: 04/04/22 23:22 Source: patient Mode of arrival: ambulatory Limitations: no limitations History of Present Illness Provider complaint: Abdominal pain, nausea and Onset (ago): hour(s) 4 Location: abdomen Radiation: non-radiation Maximum Pain Intensity: 7 Associated symptoms: + fever/chills, + malaise and + nausea/vomiting Treatments prior to arrival: none This is a 67-year-old male presents emergency department with concern for abdominal pain, nausea and vomiting. He states symptoms began this evening shortly after dinner. He states he developed a lower abdominal pain first and then had evolving nausea which eventually led to recurrent vomiting. He denies any hematemesis. Patient states he did have a bowel movement earlier today that seemed loose compared to his usual. He denies any black or bloody stools. He denies fevers, states he does break out in a sweat and feel chilled with episodes of vomiting. Patient has had prior abdominal surgeries and is concerned for a bowel obstruction which she has had previously. Patient states he does feel bloated and distended. He denies any chest pain, shortness of breath. No recent URI symptoms. No recent medication changes. Pt seen during a time of high acuity and national emergency pandemic while wearing PPE. Home Medications Medication Instructions Recorded Confirmed Type atorvastatin 40 mg tablet 40 mg PO HS 06/20/19 04/05/22 History cyanocobalamin (vitamin B-12) 100 100 mcg PO QAM 06/20/19 04/05/22 History mcg tablet (Vitamin B-12) magnesium oxide 400 mg PO HS 06/20/19 04/05/22 History metformin 1,000 mg tablet 1,000 mg PO BID 06/20/19 04/05/22 History metoprolol succinate 100 mg 100 mg PO BID 06/20/19 04/05/22 History tablet,extended release 24 hr multivitamin 1 tab PO QAM 06/20/19 04/05/22 History pantoprazole 40 mg tablet,delayed 40 mg PO QAM 06/20/19 04/05/22 History release potassium chloride 10 mEq 20 meq PO QAM 06/20/19 04/05/22 History tablet,extended release empagliflozin 10 mg tablet 10 mg PO QAM 09/16/20 04/05/22 History (Jardiance) furosemide 40 mg tablet 40 mg PO AMHS 09/16/20 04/05/22 History amlodipine 2.5 mg tablet 2.5 mg PO QAM 03/03/21 04/05/22 History apixaban 5 mg tablet (Eliquis) 5 mg PO BID 03/03/21 04/05/22 History insulin aspart U-100 100 unit/mL 1 sliding scale dose continuous 03/03/21 04/05/22 History subcutaneous solution (Novolog subcutaneous infusion USEASDIRECTD U-100 Insulin aspart) ropinirole 1 mg tablet 1 mg PO HS 07/10/21 04/05/22 History sertraline 100 mg tablet 200 mg PO QAM 07/10/21 04/05/22 History buspirone 15 mg tablet 15 mg PO BID 04/05/22 04/05/22 History valsartan 80 mg tablet 80 mg PO QAM 04/05/22 04/05/22 History Allergies Allergy/AdvReac Type Severity Reaction Status Date / Time No Known Allergies Allergy Verified 04/05/22 03:02 Past Med/Surg History Medical History BPH (benign prostatic hyperplasia) CAD in [place] artery Chest pain Diabetes Effusion of knee joint right H/O renal calculi History of heart block HLD (hyperlipidemia) HTN (hypertension) Pacemaker SBO (small bowel obstruction) Surgical History Hx of cholecystectomy S/P cholecystectomy Status post laparoscopic hernia repair Social History Smoking Status: Never smoker Cigarettes Per Day: 2; Second Hand Exposure: No; Hx Alcohol Use: Yes Alcohol type: beer Hx Substance Use: No Preferred Language: Turkish Communication Ability: Effective Clerk Guide Required: No Beliefs That Will Affect Care: None marital status: Current Living Situation: Spouse Other Information That Helps Us Care for You: No Feels Safe at Home: Yes Safety Concerns: Feels Safe At This Time Assistive Devices: Glasses Review of Systems A total of 10 systems reviewed and were otherwise negative All systems reviewed & are unremarkable except as noted in HPI & below Physical Exam Vital Signs Vital Signs - 24 hr 04/04/22 22:31 04/05/22 00:22 Temperature 36.4 C L Temperature Source Temporal Artery Scan Pulse Rate 76 Pulse Rate [Apical] 60 Respiratory Rate 16 18 Respiratory Effort / Characteristics Non-Labored Spontaneous Non-Labored Spontaneous Respiratory Depth Normal Normal Blood Pressure 169/90 H Blood Pressure [Right Arm] 162/87 H Blood Pressure Mean 116 Blood Pressure Mean [Right Arm] 112 Blood Pressure Position Sitting Pulse Oximetry 94 92 Oxygen Delivery Method Room Air Sepsis Recent Fever Within 48 Hours No Sepsis New/Unexplained Change in Mental Status N/A Sepsis Action Taken by Nursing No Action Required GENERAL: alert, well appearing, well nourished, no distress, non-toxic EYE EXAM: normal conjunctiva, PERRL and EOM's grossly intact OROPHARYNX: no exudate, no erythema, lips, buccal mucosa, and tongue normal and mucous membranes are dry NECK: supple, no nuchal rigidity, no adenopathy, non-tender LUNGS: Clear to auscultation. Normal chest wall mechanics, no w/r/r HEART: no murmurs, S1 normal and S2 normal ABDOMEN: abdomen soft, tenderness noted central lower abdomen, normo-active bowel sounds, no masses, no rebound or guarding. BACK: Back is symmetrical on inspection and there is no deformity, no midline tenderness, no CVA tenderness. SKIN: no rashes and no bruising UPPER EXTREMITIES: upper extremities are grossly normal. FROM, nml pulses b/l. LOWER EXTREMITIES: No pitting edema. FROM, nml pulses b/l. NEURO EXAM: Normal sensorium, cranial nerves II-XII grossly intact, normal speech, no gross weakness of arms, no gross weakness of legs. Gross sensation intact. Course Course 0309: General surgery contacted about high-grade bowel obstruction. Will admit to medicine. They would like NG tube placed which I did discuss with the patient at bedside. Administered Medications Amlodipine Besylate (Amlodipine Besylate 5 Mg Tab) 2.5 mg PO QAM FILIEP Stop: 05/05/22 08:59 Last Admin: 04/06/22 07:38 Dose: 2.5 mg Documented By: Admin: 04/05/22 09:30 Dose: 2.5 mg Documented By: [place] Atorvastatin Calcium (Atorvastatin 40 Mg Tab) 40 mg PO FILIPE Stop: 05/05/22 20:59 Last Admin: 04/06/22 21:18 Dose: 40 mg Documented By: Admin: 04/05/22 20:42 Dose: 40 mg Documented By: Buspirone HCl (Buspirone 15 Mg Tab) 15 mg PO BID FILIPE Stop: 05/05/22 08:59 Last Admin: 04/06/22 21:18 Dose: 15 mg Documented By: Admin: 04/06/22 07:38 Dose: 15 mg Documented By: Admin: 04/05/22 20:42 Dose: 15 mg Documented By: Admin: 04/05/22 09:29 Dose: 15 mg Documented By: [place] Cyanocobalamin (Cyanocobalamin (B-12) 100 Mcg Tablet) 100 mcg PO QAM FILIPE Stop: 05/05/22 08:59 Last Admin: 04/06/22 07:38 Dose: 100 mcg Documented By: Admin: 04/05/22 09:29 Dose: 100 mcg Documented By: [place] Sodium Chloride (1/2 Nss) 1,000 mls @ 60 mls/hr IV .[id number] FILIPE Stop: 05/05/22 20:59 Last Admin: 04/06/22 12:09 Dose: 60 mls/hr Documented By: Infusion: 04/06/22 12:09 Dose: 60 mls/hr Documented By: Admin: 04/05/22 20:43 Dose: 60 mls/hr Documented By: Heparin Sodium/Dextrose (Heparin Sodium/Dextrose) 25,000 units in 500 mls @ 30 mls/hr IV .[id number] FILIPE; Protocol Stop: 05/05/22 05:14 Last Titration: 04/06/22 20:56 Dose: 1,500 units/hr, 30 mls/hr Documented By: PRETTY Co-signed By: Titration: 04/06/22 19:12 Dose: 1,500 units/hr, 30 mls/hr Documented By: PRETTY Co-signed By: [place] Titration: 04/06/22 14:15 Dose: 1,500 units/hr, 30 mls/hr Documented By: [place] Co-signed By: MALCOLM Admin: 04/06/22 11:57 Dose: 1,300 units/hr, 26 mls/hr Documented By: [place] Co-signed By: [id number] Titration: 04/06/22 11:57 Dose: 0 units/hr, 0 mls/hr Documented By: [place] Co-signed By: [id number] Titration: 04/06/22 08:00 Dose: 0 units/hr, 0 mls/hr Documented By: [place] Co-signed By: [id number] Titration: 04/06/22 07:26 Dose: 1,300 units/hr, 26 mls/hr Documented By: [place] Co-signed By: NHAN Admin: 04/06/22 06:46 Dose: 1,200 units/hr, 24 mls/hr Documented By: Co-signed By: [place] Titration: 04/06/22 06:46 Dose: 1,200 units/hr, 24 mls/hr Documented By: Co-signed By: [place] Titration: 04/06/22 04:31 Dose: 1,200 units/hr, 24 mls/hr Documented By: Co-signed By: [place](2) Titration: 04/05/22 20:08 Dose: 1,200 units/hr, 24 mls/hr Documented By: Co-signed By: [place](2) Titration: 04/05/22 18:56 Dose: 1,200 units/hr, 24 mls/hr Documented By: Co-signed By: [place] Titration: 04/05/22 12:40 Dose: 1,200 units/hr, 24 mls/hr Documented By: [place] Co-signed By: [id number] Admin: 04/05/22 06:09 Dose: 1,000 units/hr, 20 mls/hr Documented By: ELLYN Co-signed By: CC Acetaminophen (Ofirmev) 1,000 mg in 100 mls @ 400 mls/hr IV Q8H PRN PRN Reason: pain/fever Stop: 04/08/22 05:29 Last Infusion: 04/06/22 18:23 Dose: 0 mls/hr Documented By: Admin: 04/06/22 18:03 Dose: 400 mls/hr Documented By: Infusion: 04/06/22 06:08 Dose: 0 mls/hr Documented By: Admin: 04/06/22 05:47 Dose: 400 mls/hr Documented By: Infusion: 04/05/22 23:00 Dose: 0 mls/hr Documented By: Admin: 04/05/22 22:36 Dose: 400 mls/hr Documented By: Infusion: 04/05/22 12:15 Dose: 0 mls/hr Documented By: Admin: 04/05/22 11:58 Dose: 400 mls/hr Documented By: [place] Pantoprazole Sodium 40 mg/ (Syringe) 10 mls @ 5 mls/min IV DAILY@1100 [facility] Stop: 05/06/22 10:59 Last Admin: 04/06/22 12:09 Dose: 5 mls/min Documented By: [place] Insulin Aspart (Insulin Aspart Per Unit) 0 units SC Q6 FILIPE Stop: 05/05/22 05:59 Last Admin: 04/06/22 18:00 Dose: 1 units Documented By: [place] Co-signed By: PATRICIA Admin: 04/06/22 12:08 Dose: 1 units Documented By: [place] Co-signed By: PATRICIA Admin: 04/06/22 05:58 Dose: 2 units Documented By: PRETTY Co-signed By: [place](2) Admin: 04/06/22 00:18 Dose: 1 units Documented By: PRETTY Co-signed By: JUAN ALBERTO Admin: 04/05/22 18:04 Dose: 2 units Documented By: [place] Co-signed By: JACKIE Admin: 04/05/22 11:40 Dose: Not Given Documented By: Admin: 04/05/22 06:41 Dose: Not Given Documented By: ELLYN Co-signed By: IDRIS Metoprolol Tartrate (Metoprolol Tartrate 1 Mg/Ml Vial) 2.5 mg IV Q6 [facility] Stop: 05/05/22 05:59 Last Admin: 04/06/22 17:59 Dose: 2.5 mg Documented By: Admin: 04/06/22 12:08 Dose: 2.5 mg Documented By: Admin: 04/06/22 05:59 Dose: 2.5 mg Documented By: Admin: 04/06/22 00:23 Dose: 2.5 mg Documented By: Admin: 04/05/22 18:02 Dose: 2.5 mg Documented By: Admin: 04/05/22 11:53 Dose: 2.5 mg Documented By: Admin: 04/05/22 06:09 Dose: 2.5 mg Documented By: ELLYN Morphine Sulfate (Morphine Sulfate 4 Mg/Ml 1 Ml Carp\Vial) 4 mg IV Q2H PRN PRN Reason: moderate/severe Pain Stop: 04/20/22 07:49 Last Admin: 04/06/22 17:04 Dose: 4 mg Documented By: Admin: 04/06/22 14:09 Dose: 4 mg Documented By: [place] [facility]ivitamins ([facility]ivitamin Tab) [facility] [place]: 05/05/22 08:59 Last Admin: 04/06/22 07:38 Dose: 1 tab Documented By: Admin: 04/05/22 09:30 Dose: 1 tab Documented By: [place] Pantoprazole Sodium (Pantoprazole 40 Mg Tab) 40 mg PO QA FILIPE Stop: 05/05/22 08:59 Last Admin: 04/05/22 09:30 Dose: 40 mg Documented By: [place] Ropinirole HCl (Ropinirole Hcl 1 Mg Tablet) 1 mg PO HS [facility] Stop: 05/05/22 20:59 Last Admin: 04/06/22 21:18 Dose: 1 mg Documented By: Admin: 04/05/22 20:43 Dose: 1 mg Documented By: Sertraline HCl (Sertraline Hcl 100 Mg Tablet) [facility] [place]: 05/05/22 08:59 Last Admin: 04/06/22 07:38 Dose: 200 mg Documented By: Admin: 04/05/22 09:29 Dose: 200 mg Documented By: [place] Valsartan (Valsartan 80 Mg Tab) [facility] [place]: 05/05/22 08:59 Last Admin: 04/06/22 07:38 Dose: 80 mg Documented By: Admin: 04/05/22 09:29 Dose: 80 mg Documented By: [place] Discontinued Medications Fentanyl Citrate (Fentanyl Citrate 100 Mcg/2 Ml Vial) 50 mcg IV NOW STA Stop: 04/04/22 23:40 Last Admin: 04/05/22 00:44 Dose: 50 mcg Documented By: AKSalty Heparin Sodium (Porcine) (Heparin Sod (Porcine) 1000 Unit/Ml) 4,000 units IV ONE STA Stop: 04/06/22 14:18 Last Admin: 04/06/22 14:31 Dose: 4,000 units Documented By: [place] Co-signed By: NHAN Sodium Chloride (Nss 1000ml) 1,000 mls @ 250 mls/hr IV .Q4H FILIPE Stop: 05/04/22 23:44 Last Admin: 04/05/22 08:31 Dose: Not Given Documented By: Infusion: 04/05/22 08:30 Dose: 0 mls/hr Documented By: Admin: 04/05/22 00:45 Dose: 250 mls/hr Documented By: JEN Acetaminophen (Ofirmev) 1,000 mg in 100 mls @ 400 mls/hr IV NOW STA Stop: 04/04/22 23:53 Last Infusion: 04/05/22 08:30 Dose: 0 mls/hr Documented By: Admin: 04/05/22 00:44 Dose: 400 mls/hr Documented By: JEN Sodium Chloride (1/2 Nss) 1,000 mls @ 60 mls/hr IV .[id number] STA Stop: 04/05/22 20:45 Last Infusion: 04/05/22 20:46 Dose: 0 mls/hr Documented By: Admin: 04/05/22 04:18 Dose: 60 mls/hr Documented By: ELLYN Heparin Sodium (Porcine) 4,000 (units/ Syringe) 4 mls @ 10 mls/min IV NOW STA Stop: 04/05/22 13:04 Last Admin: 04/05/22 13:25 Dose: 10 mls/min Documented By: [place] Co-signed By: [id number] Insulin Glargine (Lantus Per Unit Charge) 35 units SQ ONE ONE Stop: 04/05/22 06:01 Last Admin: 04/05/22 06:57 Dose: 35 units Documented By: ELLYN Co-signed By: CDV Insulin Glargine (Lantus Per Unit Charge) 40 units SQ TODAY@0730 ONE Stop: 04/06/22 07:31 Last Admin: 04/06/22 07:33 Dose: 40 units Documented By: [place] Co-signed By: PATRICIA Ioversol (Optiray 320 100ml) 100 ml IV ONCE ONE Stop: 04/05/22 01:42 Last Admin: 04/05/22 01:41 Dose: 93 ml Documented By: BHARGAVI Morphine Sulfate (Morphine Sulfate 4 Mg/Ml 1 Ml Carp\Vial) 4 mg IV NOW STA Stop: 04/05/22 03:15 Last Admin: 04/05/22 04:18 Dose: 4 mg Documented By: ELLYN Ondansetron HCl (Ondansetron Inj 2 Mg/Ml 2 Ml Vial) 4 mg IV NOW STA Stop: 04/04/22 23:40 Last Admin: 04/05/22 00:44 Dose: 4 mg Documented By: JEN Medical Decision Making Differential Diagnosis Differential diagnoses includes but is not limited to gastritis, peptic ulcer disease, GERD, gallbladder disease, pancreatitis, small bowel obstruction, acute coronary syndrome, pericarditis, ischemic bowel, irritable bowel disease, irr itable bowel syndrome, appendicitis, diverticulitis, malignancy, hernia, urinary tract infection, torsion, [/ectopic (if female)], perforation, trauma, infectious. Medical Records Attestation: I reviewed the patient's medical records. Home Medications Current Medication List: was personally reviewed by me Laboratory Data Attestation: I reviewed the patient's lab results. Result diagrams: 04/06/22 06:23 04/06/22 06:23 Lab Results 04/05/22 04/05/22 04/05/22 Range/Units 00:09 00:09 00:09 WBC 4.72 L (4.8-10.8) K/ul RBC 5.75 (4.63-6.08) M/uL Hgb 16.0 (14.0-18.0) g/dl Hct 50.3 (40.1-51.0) % MCV 87.5 (80.0-100.0) fL MCH 27.8 (25.0-34.0) pg MCHC 31.8 L (32.0-36.0) g/dL RDW Std Deviation 45.3 (36.4-46.3) fL RDW Coeff of Manoj 14.3 (11.5-14.5) % Plt Count 128 L (130-400) K/uL MPV 9.3 L (9.4-12.4) fL Immature Gran % (Auto) 0.4 % Neut % (Auto) 65.8 % Lymph % (Auto) 16.7 % [place] % (Auto) 16.1 % Eos % (Auto) 0.8 % Baso % (Auto) 0.2 % Neut # (Auto) 3.10 (1.4-6.5) K/uL Lymph # (Auto) 0.79 L (1.2-3.4) K/uL [place] # (Auto) 0.76 (0.24-0.82) K/uL Eos # (Auto) 0.04 (0-0.50) K/uL Baso # (Auto) 0.01 (0-0.2) K/uL Immature Gran # (Auto) 0.02 (0.00-0.02) K/uL APTT (21.0-31.0) Seconds PTT Ratio Sodium 141 (136-145) mmol/L Potassium 4.3 (3.5-5.1) mmol/L Chloride 105 (98-107) mmol/L Carbon Dioxide 27 (21-32) mmol/L Anion Gap 9 (3-11) BUN 25 H (6-23) mg/dl Creatinine 1.17 (0.6-1.4) mg/dl Est Cr Clr Drug Dosing 75.5 ml/min Est GFR ( Amer) 73.3 ml/min Est GFR (Non-Af Amer) 63.2 ml/min BUN/Creatinine Ratio 21.4 H (10-20) Glucose 123 H (70-99(Fasting)) mg/dl Estimat Average Glucose mg/dl Hemoglobin A1c (4.5-5.6) % Lactate 0.9 (0.4-2.0) mmol/L Calcium 9.9 (8.5-10.1) mg/dl Magnesium 2.1 (1.7-2.4) mg/dl Total Bilirubin 0.7 (0.2-1.0) mg/dl AST 29 (13-39) U/L ALT 34 (7-52) U/L Alkaline Phosphatase 104 (34-104) U/L Total Protein 8.0 (6.0-8.3) gm/dl Albumin 4.7 (3.4-5.0) gm/dl Globulin 3.3 (2.5-4.0) gm/dl Albumin/Globulin Ratio 1.4 (0.9-2) Lipase 13 (11-82) U/L 04/05/22 04/05/22 Range/Units 00:09 00:09 WBC (4.8-10.8) K/ul RBC (4.63-6.08) M/uL Hgb (14.0-18.0) g/dl Hct (40.1-51.0) % MCV (80.0-100.0) fL MCH (25.0-34.0) pg MCHC (32.0-36.0) g/dL RDW Std Deviation (36.4-46.3) fL RDW Coeff of Manoj (11.5-14.5) % Plt Count (130-400) K/uL MPV (9.4-12.4) fL Immature Gran % (Auto) % Neut % (Auto) % Lymph % (Auto) % [place] % (Auto) % Eos % (Auto) % Baso % (Auto) % Neut # (Auto) (1.4-6.5) K/uL Lymph # (Auto) (1.2-3.4) K/uL [place] # (Auto) (0.24-0.82) K/uL Eos # (Auto) (0-0.50) K/uL Baso # (Auto) (0-0.2) K/uL Immature Gran # (Auto) (0.00-0.02) K/uL APTT 28.8 (21.0-31.0) Seconds PTT Ratio 1.0 Sodium (136-145) mmol/L Potassium (3.5-5.1) mmol/L Chloride (98-107) mmol/L Carbon Dioxide (21-32) mmol/L Anion Gap (3-11) BUN (6-23) mg/dl Creatinine (0.6-1.4) mg/dl Est Cr Clr Drug Dosing ml/min Est GFR ( Amer) ml/min Est GFR (Non-Af Amer) ml/min BUN/Creatinine Ratio (10-20) Glucose (70-99(Fasting)) mg/dl Estimat Average Glucose 206 mg/dl Hemoglobin A1c 8.8 H (4.5-5.6) % Lactate (0.4-2.0) mmol/L Calcium (8.5-10.1) mg/dl Magnesium (1.7-2.4) mg/dl Total Bilirubin (0.2-1.0) mg/dl AST (13-39) U/L ALT (7-52) U/L Alkaline Phosphatase (34-104) U/L Total Protein (6.0-8.3) gm/dl Albumin (3.4-5.0) gm/dl Globulin (2.5-4.0) gm/dl Albumin/Globulin Ratio (0.9-2) Lipase (11-82) U/L Imaging Data Radiologist's Impression: CT abdomen and pelvis with contrast: Dilated loops of small bowel measuring up to 5.4 cm in the central abdomen with a collapsed appearance of distal small bowel loops. Findings compatible with a high-grade small bowel obstruction potentially related to adhesions. Nonobstructive renal calyceal stones noted on the left. Status postcholecystectomy. Radiologist: Terrence Zapata MD ECG Data Attestation: I personally reviewed and interpreted this ECG as follows: Indication: + abdominal pain Rate (beats per minute): 62 Rhythm: + other ECG Intervals/blocks: + IVCD and + Prolonged QT ECG [place]: + Left axis deviation ECG ST segments: + Nonspecific ST abnormalities Additional Comments: Paced MDM Narrative An order was placed for continuous cardiac monitoring. The monitor shows a rate of _66_ with _paced__ rhythm. This is a 67-year-old male presents emergency department due to concern for abrupt onset of abdominal pain, nausea and vomiting similar to her prior bowel obstruction. Patient has had prior abdominal surgery. Patient was afebrile and hemodynamically stable. Labs drawn and sent, and patient sent for CT imaging. CT did reveal high-grade bowel obstruction and general surgery was contacted. They requested placement of an NG tube and admission to the hospitalist service, however the PA did come and see the patient at bedside. Patient updated on r esults and plan, verbalized understanding and was in agreement. I do not suspect other concurrent infectious etiology. Impression & Plan Abdominal pain, Small bowel obstruction Discharge Plan Visit Data Chief Complaint: Abdominal Pain Stated Complaint: ABDOMINAL PAIN ED Provider: Lilian Ornelas Discharge Problem: Abdominal pain, Small bowel obstruction Patient Disposition: Admitted As Inpatient Discharge Instructions Interventions: ED Discharge Assessment Last Done: 04/05/22 06:23
[2022-04-05 00:27] LABS: Basophils # (auto) 0.01 K/uL (0-0.2); Basophils % (auto) 0.2 %; Eosinophils # (auto) 0.04 K/uL (0-0.50); Eosinophils % (auto) 0.8 %; Hematocrit (blood only) 50.3 % (40.1-51.0); Immature Granulocytes # (auto) 0.02 K/uL (0.00-0.02); Immature Granulocytes % (auto) 0.4 %; Lymphocytes # (auto) 0.79 K/uL (1.2-3.4); Lymphocytes % (auto) 16.7 %; Mean Corpuscular Hemoglobin 27.8 pg (25.0-34.0); Mean Corpuscular Hgb Conc 31.8 g/dL (32.0-36.0); Mean Corpuscular Volume 87.5 fL (80.0-100.0); Mean Platelet Volume 9.3 fL (9.4-12.4); Monocytes # (auto) 0.76 K/uL (0.24-0.82); Monocytes % (auto) 16.1 %; Neutrophils % (auto) 65.8 %; Platelet Count 128 K/uL (130-400); RDW Coefficient of Variation 14.3 % (11.5-14.5); RDW Standard Deviation 45.3 fL (36.4-46.3); Red Blood Count 5.75 M/uL (4.63-6.08); White Blood Count 4.72 K/ul (4.8-10.8)
[2022-04-05] MEDS: SODIUM CHLORIDE 0.9% 1000ML 1,000 ML IV SCH ×2 (00:45→08:31)
[2022-04-05 01:02] LABS: Albumin Globulin Ratio 1.4 (0.9-2); Albumin Level 4.7 gm/dl (3.4-5.0); BUN Creatinine Ratio 21.4 (10-20); Bilirubin,Total 0.7 mg/dl (0.2-1.0); Calcium 9.9 mg/dl (8.5-10.1); Creatinine Clr Calc Pharmacy 75.5 ml/min; Est GFR (African American) 73.3 ml/min; Est GFR (Non-African American) 63.2 ml/min; Globulin 3.3 gm/dl (2.5-4.0); Magnesium 2.1 mg/dl (1.7-2.4); Potassium 4.3 mmol/L (3.5-5.1)
[2022-04-05] MEDS ORDERED: OPTIRAY 320 100ml IV ONE (01:41)
[2022-04-05] MEDS ORDERED: MoRPHine SULFATE 4 MG/ML 1 ML CARP\\VIAL IV STA (03:14)
--- NOTE | 2022-04-05 03:25 | History & Physical Report ---
Date of Service April 05, 2022 Assessment & Plan (1) Small bowel obstruction: Plan: HTN, elevated secondary to illness chronic diastolic heart failure, euvolemic to dry SSS status post PPM, paced rhythm on on Eliquis hx pulmonary hypertension hx CAD Stable pulmonary status COPD, DM2 insulin pump, suboptimal control as of recent hemoglobin A1c of 8.1 last February 2021 chronic thrombocytopenia as per records past tobacco abuse Medical telemetry given BP elevation and need for IV beta-agatha administration while NGT in place Bowel rest Surgery consult Re: SBO (Patient already seen by provider at the emergency room.) Pharmacy glycemic control consultation given history of DM2 on insulin pump, update hemoglobin A1c DVT prophylaxis. IV heparin while Eliquis on hold Full code Text document was generated using Qeexo voice recognition software. It may contain grammatical or spelling errors. Kindly contact undersigned for clarification of any documentation item in question. History of Present Illness Chief Complaint: Abdominal pain Primary Care Provider: Yoshi Buitrago MD History obtained from patient, family, and records. Medical history significant for chronic diastolic heart failure (EF 60 to 65%, TTE 2020), SSS status post PPM on Eliquis, pulmonary hypertension, CAD, hypertension, COPD, DM2 insulin pump, chronic thrombocytopenia as per records, past tobacco abuse. Last confinement July 2021 for decompensated heart failure, COVID-19 infection. Last night, patient noted achy lower abdominal pain going up followed by nausea, emesis. Stools in the morning. No fever, no chills, no chest pain, no SOB. Patient consulted ER for evaluation. 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 Allergies Allergy/AdvReac Type Severity Reaction Status Date / Time No Known Allergies Allergy Verified 04/05/22 03:02 Home Medications Medication Instructions Recorded Confirmed Type atorvastatin 40 mg tablet 40 mg PO HS 06/20/19 04/05/22 History cyanocobalamin (vitamin B-12) 100 100 mcg PO QAM 06/20/19 04/05/22 History mcg tablet (Vitamin B-12) magnesium oxide 400 mg PO HS 06/20/19 04/05/22 History metformin 1,000 mg tablet 1,000 mg PO BID 06/20/19 04/05/22 History metoprolol succinate 100 mg 100 mg PO BID 06/20/19 04/05/22 History tablet,extended release 24 hr multivitamin 1 tab PO QAM 06/20/19 04/05/22 History pantoprazole 40 mg tablet,delayed 40 mg PO QAM 06/20/19 04/05/22 History release potassium chloride 10 mEq 20 meq PO QAM 06/20/19 04/05/22 History tablet,extended release empagliflozin 10 mg tablet 10 mg PO QAM 09/16/20 04/05/22 History (Jardiance) furosemide 40 mg tablet 40 mg PO AMHS 09/16/20 04/05/22 History amlodipine 2.5 mg tablet 2.5 mg PO QAM 03/03/21 04/05/22 History apixaban 5 mg tablet (Eliquis) 5 mg PO BID 03/03/21 04/05/22 History insulin aspart U-100 100 unit/mL 1 sliding scale dose continuous 03/03/21 04/05/22 History subcutaneous solution (Novolog subcutaneous infusion USEASDIRECTD U-100 Insulin aspart) ropinirole 1 mg tablet 1 mg PO HS 07/10/21 04/05/22 History sertraline 100 mg tablet 200 mg PO QAM 07/10/21 04/05/22 History buspirone 15 mg tablet 15 mg PO BID 04/05/22 04/05/22 History valsartan 80 mg tablet 80 mg PO QAM 04/05/22 04/05/22 History Past Med/Surg History Medical History BPH (benign prostatic hyperplasia) CAD in [place] artery Chest pain Diabetes Effusion of knee joint right H/O renal calculi History of heart block HLD (hyperlipidemia) HTN (hypertension) Pacemaker SBO (small bowel obstruction) Surgical History Hx of cholecystectomy S/P cholecystectomy Status post laparoscopic hernia repair Social History Smoking Status: Former smoker Cigarettes Per Day: 2; Second Hand Exposure: No; Hx Alcohol Use: Yes Alcohol type: beer and hard liquor Hx Substance Use: No Preferred Language: Swiss Communication Ability: Effective 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 Beliefs That Will Affect Care: None marital status: Current Living Situation: Spouse Feels Safe at Home: Yes Assistive Devices: Oxygen - Continuous Review of Systems Review of Systems: As per HPI, all other systems reviewed and negative Physical Exam Physical Exam: GENERAL: Comfortable, pleasant, obese, no respiratory distress SKIN: Normal color, warm HEENT: Alopecia, Rives palpebral conjunctivae, no ptosis, dry buccal mucosa NECK : Supple, short neck, no tenderness CHEST : Decreased breath sounds, no tenderness HEART : RRR, no obvious murmurs ABDOMEN: Some distention, central abdominal tenderness EXTREMITIES : Minimal LE swelling, no LE tenderness, no other conspicuous deformities noted NEUROLOGIC : Coherent, no facial asymmetry, no other gross focality Results & Data Results & Data ([facility]) Vital Signs (Past 12 Hours) Vital Signs Temp Pulse Pulse Resp BP BP Pulse Ox 04/05/22 00:22 60 18 162/87 H 92 04/04/22 22:31 36.4 C L 76 16 169/90 H 94 O2 Del Method 04/05/22 00:22 04/04/22 22:31 Room Air Laboratory Results Laboratory Results WBC 4.72 K/ul (4.8-10.8) L 04/05/22 00:09 RBC 5.75 M/uL (4.63-6.08) 04/05/22 00:09 Hgb 16.0 g/dl (14.0-18.0) 04/05/22 00:09 Hct 50.3 % (40.1-51.0) 04/05/22 00:09 MCV 87.5 fL (80.0-100.0) 04/05/22 00:09 MCH 27.8 pg (25.0-34.0) 04/05/22 00:09 MCHC 31.8 g/dL (32.0-36.0) L 04/05/22 00:09 RDW Std Deviation 45.3 fL (36.4-46.3) 04/05/22 00:09 RDW Coeff of Manoj 14.3 % (11.5-14.5) 04/05/22 00:09 Plt Count 128 K/uL (130-400) L 04/05/22 00:09 MPV 9.3 fL (9.4-12.4) L 04/05/22 00:09 Immature Gran % (Auto) 0.4 % 04/05/22 00:09 Neut % (Auto) 65.8 % 04/05/22 00:09 Lymph % (Auto) 16.7 % 04/05/22 00:09 [place] % (Auto) 16.1 % 04/05/22 00:09 Eos % (Auto) 0.8 % 04/05/22 00:09 Baso % (Auto) 0.2 % 04/05/22 00:09 Neut # (Auto) 3.10 K/uL (1.4-6.5) 04/05/22 00:09 Lymph # (Auto) 0.79 K/uL (1.2-3.4) L 04/05/22 00:09 [place] # (Auto) 0.76 K/uL (0.24-0.82) 04/05/22 00:09 Eos # (Auto) 0.04 K/uL (0-0.50) 04/05/22 00:09 Baso # (Auto) 0.01 K/uL (0-0.2) 04/05/22 00:09 Immature Gran # (Auto) 0.02 K/uL (0.00-0.02) 04/05/22 00:09 Sodium 141 mmol/L (136-145) 04/05/22 00:09 Potassium 4.3 mmol/L (3.5-5.1) 04/05/22 00:09 Chloride 105 mmol/L (98-107) 04/05/22 00:09 Carbon Dioxide 27 mmol/L (21-32) 04/05/22 00:09 Anion Gap 9 (3-11) 04/05/22 00:09 BUN 25 mg/dl (6-23) H 04/05/22 00:09 Creatinine 1.17 mg/dl (0.6-1.4) 04/05/22 00:09 Est Cr Clr Drug Dosing 75.5 ml/min 04/05/22 00:09 Est GFR ( Amer) 73.3 ml/min 04/05/22 00:09 Est GFR (Non-Af Amer) 63.2 ml/min 04/05/22 00:09 BUN/Creatinine Ratio 21.4 (10-20) H 04/05/22 00:09 Glucose 123 mg/dl (70-99(Fasting)) H 04/05/22 00:09 Lactate 0.9 mmol/L (0.4-2.0) 04/05/22 00:09 Calcium 9.9 mg/dl (8.5-10.1) 04/05/22 00:09 Magnesium 2.1 mg/dl (1.7-2.4) 04/05/22 00:09 Total Bilirubin 0.7 mg/dl (0.2-1.0) 04/05/22 00:09 AST 29 U/L (13-39) 04/05/22 00:09 ALT 34 U/L (7-52) 04/05/22 00:09 Alkaline Phosphatase 104 U/L (34-104) 04/05/22 00:09 Total Protein 8.0 gm/dl (6.0-8.3) 04/05/22 00:09 Albumin 4.7 gm/dl (3.4-5.0) 04/05/22 00:09 Globulin 3.3 gm/dl (2.5-4.0) 04/05/22 00:09 Albumin/Globulin Ratio 1.4 (0.9-2) 04/05/22 00:09 Lipase 13 U/L (11-82) 04/05/22 00:[address] abdomen pelvis initial read: Dilated loops of small bowel measure up to 5.4 cmin the central abdomen with a collapsed appearance of distal small bowel loops. Findings compatible with a high-grade small bowel obstruction potentially related to adhesions. Nonobstructive renal calyceal stones noted on the left Status post cholecystectomy EKG as per my interpretation: Rate 60, paced rhythm
--- NOTE | 2022-04-05 03:42 | Surgery Consultation ---
Date of Consultation April 05, 2022 Assessment & Plan (1) Small bowel obstruction: I discussed with the treating emergency room physician and the patient will require admission to the hospital for this problem. Due to his multiple medical comorbidities we will request medical admission, proceeding as follows: Implement n.p.o. status Provide hydration with IV fluids Due to the CT scan findings and patient's clinical status I do feel he would benefit from NG tube decompression. The treating emergency room physician has ordered this modality and the patient is agreeable. I would like to place the NG tube to low continuous suction. I discussed with the patient the above and told him that his small bowel obstruction is likely on the basis of adhesions from prior surgeries. Hopefully will be able to manage this in a conservative manner, similar to his previous episode of small bowel obstruction. The patient takes Eliquis and would recommend holding this medication at this time. I have discussed with the admitting medical service and they feel that the patient does require anticoagulation so they will hold his Eliquis and place the patient on a heparin drip. If any procedures are required during his hospital course his heparin will have to be held accordingly. Management of his chronic medical problems as directed by the medical service as above. pt seen. still with some mild abdominal discomfort and distension. he did just have a bm and passed some gas continue conservative management. recheck KUB tomorrow. History of Present Illness Reason for Consultation: Small bowel obstruction History of Present Illness Is a 67-year-old male who presented to the emergency department secondary to abdominal pain. Patient reports that he does have a history of abdominal surgeries. He has had a cholecystectomy and he is also had a ventrl hernia repair utilizing mesh.Patient notes that he has had a prior history of small bowel obstruction on 1 occasion. This occurred in September 2020. During this admission the patient was treated successfully in a conservative manner with bowel rest and NG tube decompression. He did not require surgery. Patient no abe that he was in his usual state of health feeling fine on 04/03/2022, however after his evening meal on 04/04/2022 he developed some abdominal pain in his lower abdomen described as an ache. He said that the pain did not radiate. With this pain he had associated nausea and vomiting. He notes he was able to move his bowels the day prior to his symptoms beginning but when his symptoms began he was no longer able to pass flatus and has not had a bowel movement since. He therefore presented to the emergency department. He has had at least 1 episode of emesis since arrival to the emergency department. He denies any fevers, shakes, or chills. He does not note any modifying factors to his pain. Today in the emergency department patient had labs and imaging which I independently reviewed. CT scan of the abdomen and pelvis showed the patient had dilated loops of small bowel measuring up to 5.4 cm in the central abdomen. The distal small bowel appeared decompressed. This was felt to represent a high-grade small bowel obstruction likely related to adhesions. Patient's stomach appeared to have a moderate amount of fluid in it. There did not appear to be any intraperitoneal free air. Labs include a CBC were white blood cell count was 4.7. Hemoglobin, and hematocrit were noted to be normal. His platelet count was 120,000. Chemistry profile showed sodium and potassium are both normal. His BUN was slightly elevated at 25 but creatinine was normal. Lactic acid level was 0.9 which was nonelevated. There is no significant elevation of LFTs or lipase. An EKG showed a paced rhythm. At the time of my interview the patient was resting comfortably in bed and he was in no distress. Allergies Allergy/AdvReac Type Severity Reaction Status Date / Time No Known Allergies Allergy Verified 04/05/22 03:02 Home Medications Medication Instructions Recorded Confirmed Type atorvastatin 40 mg tablet 40 mg PO HS 06/20/19 04/05/22 History cyanocobalamin (vitamin B-12) 100 100 mcg PO QAM 06/20/19 04/05/22 History mcg tablet (Vitamin B-12) magnesium oxide 400 mg PO HS 06/20/19 04/05/22 History metformin 1,000 mg tablet 1,000 mg PO BID 06/20/19 04/05/22 History metoprolol succinate 100 mg 100 mg PO BID 06/20/19 04/05/22 History tablet,extended release 24 hr multivitamin 1 tab PO QAM 06/20/19 04/05/22 History pantoprazole 40 mg tablet,delayed 40 mg PO QAM 06/20/19 04/05/22 History release potassium chloride 10 mEq 20 meq PO QAM 06/20/19 04/05/22 History tablet,extended release empagliflozin 10 mg tablet 10 mg PO QAM 09/16/20 04/05/22 History (Jardiance) furosemide 40 mg tablet 40 mg PO AMHS 09/16/20 04/05/22 History amlodipine 2.5 mg tablet 2.5 mg PO QAM 03/03/21 04/05/22 History apixaban 5 mg tablet (Eliquis) 5 mg PO BID 03/03/21 04/05/22 History insulin aspart U-100 100 unit/mL 1 sliding scale dose continuous 03/03/21 04/05/22 History subcutaneous solution (Novolog subcutaneous infusion USEASDIRECTD U-100 Insulin aspart) ropinirole 1 mg tablet 1 mg PO HS 07/10/21 04/05/22 History sertraline 100 mg tablet 200 mg PO QAM 07/10/21 04/05/22 History buspirone 15 mg tablet 15 mg PO BID 04/05/22 04/05/22 History valsartan 80 mg tablet 80 mg PO QAM 04/05/22 04/05/22 History Patient History Medical History BPH (benign prostatic hyperplasia) CAD in [place] artery Chest pain Diabetes Effusion of knee joint right H/O renal calculi History of heart block HLD (hyperlipidemia) HTN (hypertension) Pacemaker SBO (small bowel obstruction) Surgical History Hx of cholecystectomy S/P cholecystectomy Status post laparoscopic hernia repair Social History Smoking Status: Never smoker Cigarettes Per Day: 2; Second Hand Exposure: No; Hx Alcohol Use: Yes Alcohol type: beer Hx Substance Use: No Preferred Language: [place] Communication Ability: Effective 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 Beliefs That Will Affect Care: None marital status: Current Living Situation: Spouse Other Information That Helps Us Care for You: No Feels Safe at Home: Yes Safety Concerns: Feels Safe At This Time Assistive Devices: Oxygen - Continuous Review of Systems Constitutional: no fever and no chills Eyes: no eye pain Ear, Nose, Mouth, Throat: no ear pain Respiratory: no cough and no dyspnea Cardiovascular: no chest pain Gastrointestinal: as per Subjective / HPI, + abdominal pain, + nausea and + vomiting Genitourinary: no dysuria Musculoskeletal: no back pain Integumentary: no rash Neurologic: no localized weakness Physical Exam Constitutional: well developed and well nourished; no acute distress Eyes: + anicteric sclerae; no conjunctival abnormality ENMT: Ears: no hearing impairment and no external ear abnormality Mouth: no oropharynx abnormality Neck: trachea midline Respiratory: normal respiratory effort; no respiratory distress and no labored breathing Cardiovascular: Rate/Rhythm: regular rate and regular rhythm Vessels: dorsalis pedis pulses present Gastrointestinal (Abdomen): Abdomen is rotund and mildly distended. The patient did have some high-pitched bowel sounds. He had pain with palpation which was greatest just below the umbilicus. I was unable to palpate any fascial defects. There is no rebound tenderness or guarding. There is tympany noted to percussion. Musculoskeletal: No calf tenderness, feet are warm and well-perfused Skin: no rashes Neurologic: moves all extremities Psychiatric: A+Ox3, euthymic affect Results & Data ([facility]) Vital Signs (Past 12 Hours) Vital Signs Temp Pulse Pulse Resp BP BP Pulse Ox 04/05/22 00:22 60 18 162/87 H 92 04/04/22 22:31 36.4 C L 76 16 169/90 H 94 O2 Del Method 04/05/22 00:22 04/04/22 22:31 Room Air PG Care Time/CCT Total # of Minutes Spent Total Time Spent with Patient: Total time spent is greater than 50% in coordination of care (as documented) at patient's floor/unit and/or counseling patient: Coding Level of Care Code 16941 Inpt Consult Level 5 Diagnoses Small bowel obstruction K56.609
[2022-04-05 03:54] LABS: Partial Thromboplastin Time 28.8 Seconds (21.0-31.0)
[2022-04-05] MEDS ORDERED: SODIUM CHLORIDE 0.45 % 1,000 ML IV STA (04:06)
[2022-04-05] MEDS ORDERED: Heparin IV Adult Wt-Based Low-Dose *NO* Bolus Protocol IV STA (05:15)
[2022-04-05] MEDS ORDERED: PHARMACY GLYCEMIC MGMT CONSULT PRN (05:30)
[2022-04-05] MEDS ORDERED: HEPARIN SODIUM/DEXTROSE 25,000 UNITS/500 ML BAG IV SCH (05:30)
[2022-04-05] MEDS ORDERED: PROMETHAZINE HCL 12.5 MG in SODIUM CHLORIDE 0.9% 50 ML IV PRN (05:30)
[2022-04-05] MEDS ORDERED: Heparin IV Adult Wt-Based Low-Dose *NO* Bolus Protocol IV ONE (05:30)
[2022-04-05] MEDS ORDERED: GLUCOSE 40% GEL 15 GM TUBE PO PRN (06:00)
[2022-04-05] MEDS ORDERED: GLUCOSE 10 TAB/TUBE PO PRN (06:00)
[2022-04-05] MEDS ORDERED: CARBOHYDRATES FOR HYPOGLYCEMIA PO PRN (06:00)
[2022-04-05] MEDS ORDERED: DEXTROSE 50% 50 ML SYRINGE IV PRN (06:00)
[2022-04-05] MEDS ORDERED: LANTUS PER UNIT CHARGE SQ ONE (06:00)
[2022-04-05] MEDS ORDERED: GLUCAGON FOR INJ 1 MG VIAL IM PRN (06:00)
[2022-04-05] MEDS: HEPARIN SODIUM/DEXTROSE 25,000 UNITS/500 ML BAG IV SCH (06:09)
[2022-04-05] MEDS: METOPROLOL TARTRATE 1 MG/ML VIAL IV SCH ×3 (06:09→18:02)
[2022-04-05] MEDS: INSULIN ASPART PER UNIT SC SCH ×3 (06:41→18:04)
--- NOTE | 2022-04-05 06:42 | XRay Report ---
KUB CLINICAL HISTORY: ngt placement COMPARISON STUDY: CT of the abdomen and pelvis performed earlier today. FINDINGS: Dual-lead left subclavian pacemaker is partially imaged. Tip of nasogastric tube projects o stacie the proximal body of the stomach. The tube could be advanced an additional 3 cm. Suspected dilate d small bowel loops are better depicted on CT. IMPRESSION: Tip of nasogastric tube projects over the proximal body of the stomach. The tube could b e advanced an additional 3 cm. ACT 112: Negative or not required by law. Electronically signed by: Rian Simon M.D. 04/05/2022 6:41 AM
[2022-04-05 07:38] LABS: Estimated Average Glucose 206 mg/dl; Hemoglobin A1C 8.8 % (4.5-5.6)
--- NOTE | 2022-04-05 08:35 | CT Scan Report ---
CT OF THE ABDOMEN AND PELVIS WITH CONTRAST CLINICAL HISTORY: Abdominal pain, nausea and vomiting. History of small bowel obstruction. COMPARISON STUDY: CT of the abdomen and pelvis March 03, 2021. TECHNIQUE: Following IV administration of 93 mL of Optiray, axial images of the abdomen and pelvis we re obtained from the lung bases to the proximal femurs. Images were reviewed in the axial, sagittal, and coronal planes. IV contrast was administered without complication. Automated exposure control wa s utilized for the study. A dose lowering technique was utilized adhering to the principles of ALARA . CT DOSE: 1667.25 mGy.cm FINDINGS: No pneumatosis, free air or portal venous gas is present. There are several loops of modera tely dilated proximal small bowel. Transition point within the mid jejunum on axial image 207 of 506 is noted. Distal small bowel is decompressed. There is no significant biliary ductal dilatation statu s post cholecystectomy. Spleen, adrenal glands and right kidney are unremarkable. Left renal calculi measure up to 5 mm. There are no ureteral calculi. There is no hydronephrosis. Innumerable small cyst ic lesions within the pancreas are noted. These measure up to approximately 2.3 cm. There is no pancr eatic ductal dilatation. No evidence for a bowel obstruction. Colonic diverticulosis is noted without evidence for acute diverticulitis. Previous ventral hernia repair with mesh is noted. There is a sma ll fat-containing umbilical hernia. A small fat-containing upper abdominal ventral hernia is noted wi th a stable adjacent 1.4 cm omental nodule. No acute fracture or suspicious lesion within the visuali zed skeletal structures. There is no lymphadenopathy. IMPRESSION: 1. Findings consistent with a proximal small bowel obstruction, as described above. 2. Left-sided nephrolithiasis. No ureteral calculi. 3. Numerous cystic lesions within the pancreas. These are indeterminate but low suspicion. Nonemergen t pancreatic protocol MRI could be obtained for further evaluation. ACT 112: Negative or not required by law. Electronically signed by: Rian Simon M.D. 04/05/2022 8:02 AM
--- NOTE | 2022-04-05 09:00 | Pharmacy Report ---
Pharmacy Glycemic Short Note 2 - Date of Service April 05, 2022 - Glycemic Short BSG Results (Last 24 hours): 04/05/22 04/05/22 00:09 06:34 Glucose 123 H POC Glucose 126 H OUTPATIENT ANTIDIABETIC REGIMEN: * Metformin 1gm PO BID * Jardiance 10mg PO daily * Novolog insulin pump - settings taken from 07/2021 admission * Basal: 0948-9284 4.5 units/hr 6857-0526 5.2 units/hr 9024-8046 4.5 units/hr (117.8 units/day) * Bolus: Correction factor: 20mg/dL/unit (goal: 120-150mg/dL) Carb ratio: 1 unit per 2.2gm CHO ASSESSMENT: * 67 year old male admitted with small bowel obstruction. Type 2 diabetic managed on insulin pump at home, typically up to 150 units/day of insulin. NPO currently, surgery consulted * Patient known to glycemic service from other admissions and insulin needs are typically much less. Lantus 35 units ordered for this morning for NPO status. PLAN FOR INPATIENT GLYCEMIC CONTROL: * Hold outpatient oral diabetes medications * Basal insulin * Lantus 35 units x 1 * Bolus insulin * NovoLog per scale ACHS or Q6hrs while NPO * Goal Range: Low 110 mg/dL - High 140 mg/dL * Correction Factor: 20 mg/dL/unit * Nutritional / Prandial insulin per carb ratio of 1 unit per 7 grams CHO consumed
[2022-04-05] MEDS: CYANOCOBALAMIN (B-12) 100 MCG TABLET PO SCH (09:29)
[2022-04-05] MEDS: busPIRone 15 MG TAB PO SCH ×2 (09:29→20:42)
[2022-04-05] MEDS: VALSARTAN 80 MG TAB PO SCH (09:29)
[2022-04-05] MEDS: SERTRALINE HCL 100 MG TABLET PO SCH (09:29)
[2022-04-05] MEDS: PANTOprazole 40 MG TAB PO SCH (09:30)
[2022-04-05] MEDS: MULTIVITAMIN TAB PO SCH (09:30)
[2022-04-05] MEDS: amLODIPine BESYLATE 5 MG TAB PO SCH (09:30)
[2022-04-05] MEDS: ACETAMINOPHEN 1,000 MG/100 ML VIAL IV PRN ×2 (11:58→22:36)
[2022-04-05 12:31] LABS: Partial Thromboplastin Ratio 1.3; Partial Thromboplastin Time 35.1 Seconds (21.0-31.0)
[2022-04-05] MEDS ORDERED: HEPARIN IV BOLUS 4,000 UNITS in SYRINGE 0 ML IV STA (13:03)
--- NOTE | 2022-04-05 13:16 | Hospitalist Progress Note ---
Date of Service April 05, 2022 Assessment & Plan (1) Small bowel obstruction: Plan: Admitted with abdominal pain, nausea and vomiting History of significant abdominal surgery in the past Intestinal obstruction is likely secondary to additions N.p.o., NGT for suction, IV fluid and pain medications Appreciate surgery input and recommendation Patient remains stable (2) Chronic diastolic (congestive) heart failure: Plan: Chronic diastolic heart failure, euvolemic to dry (3) Atrial fibrillation: Plan: SSS status post PPM, paced rhythm on on Eliquis (4) Diabetes mellitus type 2, insulin dependent: Plan: DM2 insulin pump, suboptimal control as of recent hemoglobin A1c of 8.1 last February 2021 Pharmacy glycemic control consultation given history of DM2 on insulin pump, update hemoglobin A1c (5) HTN (hypertension): Plan: HTN, elevated secondary to illness hx pulmonary hypertension Blood pressure remains mildly elevated and will monitor (6) Morbid obesity: Plan Stable pulmonary status COPD chronic thrombocytopenia as per records past tobacco abuse DVT prophylaxis. IV heparin while Eliquis on hold Full code Admission and Anticipated Discharge Date Admission Date: April 05, 2022 Subjective 04/05/2022 The patient was seen and examined in medical telemetry unit Has been complaining of a little more swelling of the abdomen with pain and nausea He has not passed any gas and bowel is not moved Review of Systems Review of Systems: All systems reviewed and are unremarkable except as noted below Physical Exam Physical Exam: Lying in bed with some discomfort due to abdominal distention and pain Constitutional: well developed, well nourished, + ill appearing and + obese Eyes: PERRL, conjunctivae normal, anicteric sclerae ENMT: external ear and nose normal, oropharynx normal Neck: trachea midline, no thyromegaly Respiratory: no respiratory distress Auscultation: + diminished lung sounds; no crackles Cardiovascular: Rate/Rhythm: regular rate and regular rhythm; not tachycardic Heart Sounds: normal S1, normal S2 and + murmur Extremities: + edema (Trace edema bilaterally) Gastrointestinal (Abdomen): Inspection/Auscultation: + abdomen distended; + abnormal bowel sounds Percussion/Palpation: + abdomen tender and abdomen soft Musculoskeletal: No acute arthritis in any joint Neurologic: Alert, awake and oriented x3. No focal sensory or no motor d eficit appreciated Psychiatric: A+Ox3, euthymic affect Lymphatic: no cervical or axillary lymphadenopathy Results & Data Results & Data ([facility]) Vital Signs (Past 12 Hours) Vital Signs Temp Pulse Pulse Resp BP BP Pulse Ox 04/05/22 11:53 61 168/89 H 04/05/22 11:53 36.8 C 61 18 168/89 H 92 04/05/22 08:00 36.5 C 60 18 138/72 94 04/05/22 09:00 61 04/05/22 07:50 61 18 125/74 93 04/05/22 06:28 04/05/22 06:15 64 18 149/90 H 96 04/05/22 06:09 66 137/74 Pulse Ox O2 Del Method O2 Del Method 04/05/22 11:53 04/05/22 11:53 Room Air 04/05/22 08:00 Room Air 04/05/22 09:00 04/05/22 07:50 Room Air 04/05/22 06:28 93 Room Air 04/05/22 06:15 Room Air 04/05/22 06:09 Laboratory Results Short CBC 04/05/22 Range/Units 00:09 WBC 4.72 L (4.8-10.8) K/ul Hgb 16.0 (14.0-18.0) g/dl Hct 50.3 (40.1-51.0) % Plt Count 128 L (130-400) K/uL BMP 04/05/22 00:09 Sodium 141 Potassium 4.3 Chloride 105 Carbon Dioxide 27 BUN 25 H Creatinine 1.17 Glucose 123 H Calcium 9.9 Liver Function 04/05/22 Range/Units 00:09 Total Bilirubin 0.7 (0.2-1.0) mg/dl AST 29 (13-39) U/L ALT 34 (7-52) U/L Alkaline Phosphatase 104 (34-104) U/L Albumin 4.7 (3.4-5.0) gm/dl Medications Administered Current Inpatient Medications Amlodipine Besylate (Amlodipine Besylate 5 Mg Tab) 2.5 mg PO QAM [facility] Stop: 05/05/22 08:59 Last Admin: 04/05/22 09:30 Dose: 2.5 mg Atorvastatin Calcium (Atorvastatin 40 Mg Tab) 40 mg PO HS [facility] Stop: 05/05/22 20:59 Buspirone HCl (Buspirone 15 Mg Tab) 15 mg PO BID [facility] Stop: 05/05/22 08:59 Last Admin: 04/05/22 09:29 Dose: 15 mg Cyanocobalamin (Cyanocobalamin (B-12) 100 Mcg Tablet) 100 mcg PO QAM [facility] Stop: 05/05/22 08:59 Last Admin: 04/05/22 09:29 Dose: 100 mcg Dextrose (Dextrose 50% 50 Ml Syringe) 25 - 50 ml IV UD PRN; Protocol PRN Reason: Hypoglycemia Protocol Stop: 05/05/22 05:59 Glucagon (Glucagon For Inj 1 Mg Vial) 1 mg IM UD PRN; Protocol PRN Reason: Hypoglycemia Protocol Stop: 05/05/22 05:59 Glucose (Glucose 40% Gel 15 Gm Tube) 15 - 30 gm PO UD PRN; Protocol PRN Reason: Hypoglycemia Protocol Stop: 05/05/22 05:59 Glucose (Glucose 10 Tab/Tube) 4 - 8 tab PO UD PRN; Protocol PRN Reason: Hypoglycemia Protocol Stop: 05/05/22 05:59 Sodium Chloride (1/2 Nss) 1,000 mls @ 60 mls/hr IV .[id number] Stop: 04/05/22 20:45 Last Admin: 04/05/22 04:18 Dose: 60 mls/hr Sodium Chloride (1/2 Nss) 1,000 mls @ 60 mls/hr IV .[id number] [facility] Stop: 05/05/22 20:59 Heparin Sodium/Dextrose (Heparin Sodium/Dextrose) 25,000 units in 500 mls @ 24 mls/hr IV .[id number] [facility]; Protocol Stop: 05/05/22 05:14 Last Titration: 04/05/22 12:40 Dose: 1,200 units/hr, 24 mls/hr Acetaminophen (Ofirmev) 1,000 mg in 100 mls @ 400 mls/hr IV Q8H PRN PRN Reason: pain/fever Stop: 04/08/22 05:29 Last Infusion: 04/05/22 12:15 Dose: Infused Promethazine HCl 12.5 mg/ (Sodium Chloride) 50.5 mls @ 202 mls/hr IV Q6H PRN PRN Reason: Nausea And Vomiting Stop: 05/05/22 05:29 Insulin Aspart (Insulin Aspart Per Unit) 0 units SC Q6 [facility] Stop: 05/05/22 05:59 Last Admin: 04/05/22 11:40 Dose: Not Given Metoprolol Tartrate (Metoprolol Tartrate 1 Mg/Ml Vial) 2.5 mg IV Q6 [facility] Stop: 05/05/22 05:59 Last Admin: 04/05/22 11:53 Dose: 2.5 mg Miscellaneous (Carbohydrates For Hypoglycemia ) 15 - 30 gm PO UD PRN PRN Reason: Hypoglycemia Treatment Stop: 05/05/22 05:59 Miscellaneous Information (Pharmacy Glycemic Mgmt Consult) 1 each N/A UD PRN PRN Reason: Consult Stop: 05/05/22 05:29 Multivitamins (Multivitamin Tab) 1 tab PO QAM [facility] Stop: 05/05/22 08:59 Last Admin: 04/05/22 09:30 Dose: 1 tab Pantoprazole Sodium (Pantoprazole 40 Mg Tab) 40 mg PO QAM [facility] Stop: 05/05/22 08:59 Last Admin: 04/05/22 09:30 Dose: 40 mg Ropinirole HCl (Ropinirole Hcl 1 Mg Tablet) 1 mg PO HS [facility] Stop: 05/05/22 20:59 Sertraline HCl (Sertraline Hcl 100 Mg Tablet) 200 mg PO QAM [facility] Stop: 05/05/22 08:59 Last Admin: 04/05/22 09:29 Dose: 200 mg Valsartan (Valsartan 80 Mg Tab) 80 mg PO QAM [facility] Stop: 05/05/22 08:59 Last Admin: 04/05/22 09:29 Dose: 80 mg
[2022-04-05] MEDS ORDERED: hydrALAZINE HCL 20 MG/ML VIAL IV PRN (13:30)
--- NOTE | 2022-04-05 17:31 | Electrocardiogram Report ---
Test Reason : Blood Pressure : / mmHG Vent. Rate : 062 BPM Atrial Rate : 057 BPM P-R Int : 000 ms QRS Dur : 172 ms QT Int : 502 ms P-R-T Axes : 000 -77 087 degrees QTc Int : 509 ms Ventricular-paced rhythm Abnormal ECG When compared with ECG of 18-JUL-2021 15:20, No significant change was found Confirmed by Efrain Jha ([id number]) on 04/05/2022 5:31:30 PM Referred By: REFERRED SELF Confirmed By:Efrain Jha
[2022-04-05 19:24] LABS: Partial Thromboplastin Ratio 1.7
[2022-04-05 19:59] LABS: Partial Thromboplastin Time 46.8 Seconds (21.0-31.0)
[2022-04-05] MEDS: ATORVASTATIN 40 MG TAB PO SCH (20:42)
[2022-04-05] MEDS: SODIUM CHLORIDE 0.45 % 1,000 ML IV SCH (20:43)
[2022-04-05] MEDS: rOPINIRole HCL 1 MG TABLET PO SCH (20:43)
[2022-04-06] MEDS: INSULIN ASPART PER UNIT SC SCH ×4 (00:18→18:00)
[2022-04-06] MEDS: METOPROLOL TARTRATE 1 MG/ML VIAL IV SCH ×4 (00:23→17:59)
[2022-04-06] MEDS: ACETAMINOPHEN 1,000 MG/100 ML VIAL IV PRN ×2 (05:47→18:03)
[2022-04-06] MEDS: HEPARIN SODIUM/DEXTROSE 25,000 UNITS/500 ML BAG IV SCH ×2 (06:46→11:57)
[2022-04-06 06:50] LABS: Basophils # (auto) 0.01 K/uL (0-0.2); Basophils % (auto) 0.4 %; Eosinophils # (auto) 0.04 K/uL (0-0.50); Eosinophils % (auto) 1.4 %; Hematocrit (blood only) 46.7 % (40.1-51.0); Hemoglobin 14.8 g/dl (14.0-18.0); Lymphocytes # (auto) 0.71 K/uL (1.2-3.4); Lymphocytes % (auto) 25.4 %; Mean Corpuscular Hemoglobin 27.9 pg (25.0-34.0); Mean Corpuscular Hgb Conc 31.7 g/dL (32.0-36.0); Mean Corpuscular Volume 88.1 fL (80.0-100.0); Mean Platelet Volume 9.7 fL (9.4-12.4); Monocytes % (auto) 21.4 %; Neutrophils # (auto) 1.44 K/uL (1.4-6.5); Neutrophils % (auto) 51.4 %; Platelet Count 101 K/uL (130-400); RDW Coefficient of Variation 14.2 % (11.5-14.5); RDW Standard Deviation 45.9 fL (36.4-46.3)
[2022-04-06 07:19] LABS: RBC Morphology Unremarkable
[2022-04-06 07:25] LABS: Partial Thromboplastin Ratio 1.4; Partial Thromboplastin Time 39.8 Seconds (21.0-31.0)
[2022-04-06] MEDS ORDERED: LANTUS PER UNIT CHARGE SQ ONE (07:30)
[2022-04-06] MEDS: busPIRone 15 MG TAB PO SCH ×2 (07:38→21:18)
[2022-04-06] MEDS: VALSARTAN 80 MG TAB PO SCH (07:38)
[2022-04-06] MEDS: CYANOCOBALAMIN (B-12) 100 MCG TABLET PO SCH (07:38)
[2022-04-06] MEDS: MULTIVITAMIN TAB PO SCH (07:38)
[2022-04-06] MEDS: amLODIPine BESYLATE 5 MG TAB PO SCH (07:38)
[2022-04-06] MEDS: SERTRALINE HCL 100 MG TABLET PO SCH (07:38)
[2022-04-06 07:41] LABS: BUN Creatinine Ratio 25.6 (10-20); Calcium 8.9 mg/dl (8.5-10.1); Creatinine Clr Calc Pharmacy 98.3 ml/min; Est GFR (African American) 100.6 ml/min; Est GFR (Non-African American) 86.8 ml/min; Potassium 4.2 mmol/L (3.5-5.1)
--- NOTE | 2022-04-06 07:54 | Surgery Progress Note ---
Date of Service April 06, 2022 Assessment & Plan (1) Abdominal pain: (2) Small bowel obstruction: Plan: will obtain sbft today. try and avoid surgery if possible. ngt appears in good position on kub. Admission and Anticipated Discharge Date Admission Date: April 05, 2022 Subjective pt continues to have diffuse abdominal discomfort. +flatus but no further bm. pain slightly improved from last night. Physical Exam Constitutional: WD/WN, vitals as above no acute distress and not ill appearing Eyes: PERRL, conjunctivae normal, anicteric sclerae EOM intact bilaterally ENMT: external ear and nose normal, oropharynx normal Ears: no hearing impairment Neck: trachea midline, no thyromegaly Respiratory: normal respiratory effort; no respiratory distress and does not use accessory muscles Cardiovascular: Rate/Rhythm: regular rate and regular rhythm Gastrointestinal (Abdomen): +softer/less distended than yesterday. mild diffuse ttp. no g/r/r. Skin: no rashes, warm and dry Psychiatric: Orientation: alert, oriented x 3 and cooperative Results & Data ([facility]) Vital Signs (Past 12 Hours) Vital Signs Temp Pulse Pulse Pulse Resp BP BP 04/06/22 07:00 62 04/06/22 06:28 04/06/22 06:00 04/06/22 05:59 60 175/84 H 04/06/22 05:53 60 22 175/84 H 04/06/22 03:10 36.7 C 62 18 154/87 H 04/06/22 00:44 61 04/06/22 00:23 60 146/80 H 04/06/22 00:07 36.6 C 60 18 146/80 H 04/05/22 19:59 36.6 C 61 18 155/77 H Pulse Ox Pulse Ox O2 Del Method O2 Del Method 04/06/22 07:00 04/06/22 06:28 Room Air 04/06/22 06:00 93 Room Air 04/06/22 05:59 04/06/22 05:53 93 Room Air 04/06/22 03:10 92 Room Air 04/06/22 00:44 04/06/22 00:23 04/06/22 00:07 91 Room Air 04/05/22 19:59 93 Room Air PG Care Time/CCT Total # of Minutes Spent Total Time Spent with Patient: Total time spent is greater than 50% in coordination of care (as documented) at patient's floor/unit and/or counseling patient: Coding Level of Care Code 30832 Subseq Hosp Care Lvl 3 Diagnoses Abdominal pain R10.9 Small bowel obstruction K56.609
--- NOTE | 2022-04-06 09:14 | Fluoroscopy Report ---
[place] small bowel follow through CLINICAL HISTORY: Small bowel obstruction. Follow-up. COMPARISON STUDY: Abdomen and pelvis CT 03/28/2022. FLUOROSCOPY TIME: None.. FINDINGS: A total of 300 cc of diluted Optiray 320 were placed in the indwelling nasogastric tube. 6 overhead images of the abdomen and pelvis were submitted. Hall Cleaner images demonstrate a prior cholecyste ctomy and bilateral nephrolithiasis. A few dilated gas-filled loops of small bowel noted within the l eft upper quadrant measuring up to 4.6 cm. Nasogastric tube terminates in the stomach. The proximal j ejunal loops are dilated up to 5.9 cm. However, these dilated loops of proximal small bowel taper to a normal caliber within the mid to distal small bowel segments. No clear transition point identified. The terminal ileum is normally distensible. Contrast reached the cecum by 20 minutes. IMPRESSION: Dilated proximal loops of small bowel within the left upper quadrant which taper to a nor mal caliber. There is no delay of contrast through the bowel. Therefore, this could represent a focal ileus or low-grade partial small bowel obstruction. ACT 112: Negative or not required by law. Electronically signed by: Lauro Rodriguez M.D. 04/06/2022 9:13 AM
--- NOTE | 2022-04-06 11:15 | Communication Note ---
Date of Service: April 06, 2022 Contrast reaches colon at 20 min Had BM before and two after SBFT will remove NG, ice for today and consider clears in AM
[2022-04-06] MEDS: SODIUM CHLORIDE 0.45 % 1,000 ML IV SCH (12:09)
[2022-04-06] MEDS: PANTOprazole 40 MG in SYRINGE 0 ML IV SCH (12:09)
--- NOTE | 2022-04-06 13:58 | Pharmacy Report ---
Pharmacy Glycemic Short Note 2 - Date of Service April 06, 2022 - Glycemic Short BSG Results (Last 24 hours): 04/05/22 04/06/22 04/06/22 17:59 00:11 05:52 Glucose POC Glucose 165 H 159 H 171 H 04/06/22 04/06/22 06:23 12:02 Glucose 168 H POC Glucose 160 H OUTPATIENT ANTIDIABETIC REGIMEN: * Metformin 1gm PO BID * Jardiance 10mg PO daily * Novolog insulin pump - settings taken from 07/2021 admission * Basal: 2539-0163 4.5 units/hr 5508-0001 5.2 units/hr 9111-0616 4.5 units/hr (117.8 units/day) * Bolus: Correction factor: 20mg/dL/unit (goal: 120-150mg/dL) Carb ratio: 1 unit per 2.2gm CHO ASSESSMENT: 04/06 * Patient continues to be NPO with consideration of Clears in AM, lantus dose to be reassessed at that time * Fasting this AM 171 mg/dL, increased lantus to 40 units * continue current novolog parameters 04/05 * 67 year old male admitted with small bowel obstruction. Type 2 diabetic managed on insulin pump at home, typically up to 150 units/day of insulin. NPO currently, surgery consulted * Patient known to glycemic service from other admissions and insulin needs are typically much less. Lantus 35 units ordered for this morning for NPO status. PLAN FOR INPATIENT GLYCEMIC CONTROL: * Hold outpatient oral diabetes medications * Basal insulin * Lantus 40 units x 1 * Bolus insulin * NovoLog per scale ACHS or Q6hrs while NPO * Goal Range: Low 110 mg/dL - High 140 mg/dL * Correction Factor: 20 mg/dL/unit * Nutritional / Prandial insulin per carb ratio of 1 unit per 7 grams CHO consumed
[2022-04-06 14:09] LABS: Partial Thromboplastin Ratio 1.2; Partial Thromboplastin Time 33.7 Seconds (21.0-31.0)
[2022-04-06] MEDS: MoRPHine SULFATE 4 MG/ML 1 ML CARP\\VIAL IV PRN ×2 (14:09→17:04)
[2022-04-06] MEDS ORDERED: HEPARIN SOD (PORCINE) 1000 UNIT/ML IV STA (14:17)
--- NOTE | 2022-04-06 15:38 | Hospitalist Progress Note ---
Date of Service April 06, 2022 Assessment & Plan (1) Small bowel obstruction: Plan: Admitted with abdominal pain, nausea and vomiting History of significant abdominal surgery in the past Intestinal obstruction is likely secondary to additions N.p.o., NGT for suction, IV fluid and pain medications Appreciate surgery input and recommendation Patient remains stable Feels much better today and the NG tube is out Decreasing abdominal distention and moved his bowel We will continue current management (2) Chronic diastolic (congestive) heart failure: Plan: Chronic diastolic heart failure, euvolemic to dry No signs and or symptoms of fluid overload (3) Atrial fibrillation: Plan: SSS status post PPM, paced rhythm on on Eliquis Eliquis is on hold now Has been on intravenous heparin (4) Diabetes mellitus type 2, insulin dependent: Plan: DM2 insulin pump, suboptimal control as of recent hemoglobin A1c of 8.1 last February 2021 Pharmacy glycemic control consultation given history of DM2 on insulin pump, update hemoglobin A1c (5) HTN (hypertension): Plan: HTN, elevated secondary to illness hx pulmonary hypertension Blood pressure remains mildly elevated and will monitor (6) Morbid obesity: Plan Stable pulmonary status COPD chronic thrombocytopenia as per records past tobacco abuse DVT prophylaxis. IV heparin while Eliquis on hold Full code Admission and Anticipated Discharge Date Admission Date: April 05, 2022 Subjective 04/05/2022 The patient was seen and examined in medical telemetry unit Has been complaining of a little more swelling of the abdomen with pain and nausea He has not passed any gas and bowel is not moved 04/06/2022 The patient was seen and examined in medical telemetry unit He has been feeling a little better and the NG tube is out Less abdominal distention and he has moved his bowel and passing gas normally Review of Systems Review of Systems: All systems reviewed and are unremarkable except as noted below Gastrointestinal: Improved abdominal distention and pain Physical Exam Physical Exam: Lying in bed with some discomfort due to abdominal distention and pain Constitutional: well developed, well nourished, + ill appearing and + obese Eyes: PERRL, conjunctivae normal, anicteric sclerae ENMT: external ear and nose normal, oropharynx normal Neck: trachea midline, no thyromegaly Respiratory: no respiratory distress Auscultation: + diminished lung so unds; no crackles Cardiovascular: Rate/Rhythm: regular rate and regular rhythm; not tachycardic Heart Sounds: normal S1, normal S2 and + murmur Extremities: + edema (Trace edema bilaterally) Gastrointestinal (Abdomen): Inspection/Auscultation: + abdomen distended and normal bowel sounds Percussion/Palpation: + abdomen tender (Minimally tender) and abdomen soft Musculoskeletal: No acute arthritis in any joint Neurologic: normal touch/pain/proprioception, CN's II-XI intact bilaterally and moves all extremities Psychiatric: A+Ox3, euthymic affect Lymphatic: no cervical or axillary lymphadenopathy Results & Data Results & Data ([facility]) Vital Signs (Past 12 Hours) Vital Signs Temp Pulse Pulse Pulse Resp BP BP 04/06/22 14:55 60 04/06/22 12:08 60 147/76 H 04/06/22 11:12 36.5 C 63 17 153/84 H 04/06/22 08:07 36.9 C 60 16 171/78 H 04/06/22 07:00 62 04/06/22 06:28 04/06/22 06:00 04/06/22 05:59 60 175/84 H 04/06/22 05:53 60 22 175/84 H Pulse Ox Pulse Ox O2 Del Method O2 Del Method 04/06/22 14:55 04/06/22 12:08 04/06/22 11:12 93 Room Air 04/06/22 08:07 89 L Nasal Cannula 04/06/22 07:00 04/06/22 06:28 Room Air 04/06/22 06:00 93 Room Air 04/06/22 05:59 04/06/22 05:53 93 Room Air Laboratory Results Short CBC 04/06/22 Range/Units 06:23 WBC 2.80 L (4.8-10.8) K/ul Hgb 14.8 (14.0-18.0) g/dl Hct 46.7 (40.1-51.0) % Plt Count 101 L (130-400) K/uL BMP 04/06/22 06:23 Sodium 138 Potassium 4.2 Chloride 105 Carbon Dioxide 26 BUN 23 Creatinine 0.90 Glucose 168 H Calcium 8.9 Medications Administered Current Inpatient Medications Amlodipine Besylate (Amlodipine Besylate 5 Mg Tab) 2.5 mg PO QAM [facility] Stop: 05/05/22 08:59 Last Admin: 04/06/22 07:38 Dose: 2.5 mg Atorvastatin Calcium (Atorvastatin 40 Mg Tab) 40 mg PO HS [facility] Stop: 05/05/22 20:59 Last Admin: 04/05/22 20:42 Dose: 40 mg Buspirone HCl (Buspirone 15 Mg Tab) 15 mg PO BID [facility] Stop: 05/05/22 08:59 Last Admin: 04/06/22 07:38 Dose: 15 mg Cyanocobalamin (Cyanocobalamin (B-12) 100 Mcg Tablet) 100 mcg PO QAM [facility] Stop: 05/05/22 08:59 Last Admin: 04/06/22 07:38 Dose: 100 mcg Dextrose (Dextrose 50% 50 Ml Syringe) 25 - 50 ml IV UD PRN; Protocol PRN Reason: Hypoglycemia Protocol Stop: 05/05/22 05:59 Glucagon (Glucagon For Inj 1 Mg Vial) 1 mg IM UD PRN; Protocol PRN Reason: Hypoglycemia Protocol Stop: 05/05/22 05:59 Glucose (Glucose 40% Gel 15 Gm Tube) 15 - 30 gm PO UD PRN; Protocol PRN Reason: Hypoglycemia Protocol Stop: 05/05/22 05:59 Glucose (Glucose 10 Tab/Tube) 4 - 8 tab PO UD PRN; Protocol PRN Reason: Hypoglycemia Protocol Stop: 05/05/22 05:59 Hydralazine HCl (Hydralazine Hcl 20 Mg/Ml Vial) 10 mg IV Q6H PRN PRN Reason: Blood Pressure - High >sys 160 Stop: 05/05/22 13:29 Sodium Chloride (1/2 Nss) 1,000 mls @ 60 mls/hr IV .[id number] [facility] Stop: 05/05/22 20:59 Last Admin: 04/06/22 12:09 Dose: 60 mls/hr Heparin Sodium/Dextrose (Heparin Sodium/Dextrose) 25,000 units in 500 mls @ 30 mls/hr IV .[id number] [facility]; Protocol Stop: 05/05/22 05:14 Last Titration: 04/06/22 14:15 Dose: 1,500 units/hr, 30 mls/hr Acetaminophen (Ofirmev) 1,000 mg in 100 mls @ 400 mls/hr IV Q8H PRN PRN Reason: pain/fever Stop: 04/08/22 05:29 Last Infusion: 04/06/22 06:08 Dose: Infused Promethazine HCl 12.5 mg/ (Sodium Chloride) 50.5 mls @ 202 mls/hr IV Q6H PRN PRN Reason: Nausea And Vomiting Stop: 05/05/22 05:29 Pantoprazole Sodium 40 mg/ (Syringe) 10 mls @ 5 mls/min IV DAILY@1100 [facility] Stop: 05/06/22 10:59 Last Admin: 04/06/22 12:09 Dose: 5 mls/min Insulin Aspart (Insulin Aspart Per Unit) 0 units SC Q6 [facility] Stop: 05/05/22 05:59 Last Admin: 04/06/22 12:08 Dose: 1 units Metoprolol Tartrate (Metoprolol Tartrate 1 Mg/Ml Vial) 2.5 mg IV Q6 [facility] Stop: 05/05/22 05:59 Last Admin: 04/06/22 12:08 Dose: 2.5 mg Miscellaneous (Carbohydrates For Hypoglycemia ) 15 - 30 gm PO UD PRN PRN Reason: Hypoglycemia Treatment Stop: 05/05/22 05:59 Miscellaneous Information (Pharmacy Glycemic Mgmt Consult) 1 each N/A UD PRN PRN Reason: Consult Stop: 05/05/22 05:29 Morphine Sulfate (Morphine Sulfate 4 Mg/Ml 1 Ml Carp\Vial) 4 mg IV Q2H PRN PRN Reason: moderate/severe Pain Stop: 04/20/22 07:49 Last Admin: 04/06/22 14:09 Dose: 4 mg Multivitamins (Multivitamin Tab) 1 tab PO QAM [facility] Stop: 05/05/22 08:59 Last Admin: 04/06/22 07:38 Dose: 1 tab Pantoprazole Sodium (Pantoprazole 40 Mg Tab) 40 mg PO QAM [facility] Stop: 05/05/22 08:59 Last Admin: 04/05/22 09:30 Dose: 40 mg Ropinirole HCl (Ropinirole Hcl 1 Mg Tablet) 1 mg PO HS [facility] Stop: 05/05/22 20:59 Last Admin: 04/05/22 20:43 Dose: 1 mg Sertraline HCl (Sertraline Hcl 100 Mg Tablet) [facility] [place] Stop: 05/05/22 08:59 Last Admin: 04/06/22 07:38 Dose: 200 mg Valsartan (Valsartan 80 Mg Tab) 80 mg PO QAM [facility] Stop: 05/05/22 08:59 Last Admin: 04/06/22 07:38 Dose: 80 mg
[2022-04-06 20:27] LABS: Partial Thromboplastin Ratio 1.9
[2022-04-06 20:29] LABS: Partial Thromboplastin Time 52.4 Seconds (21.0-31.0)
[2022-04-06] MEDS: rOPINIRole HCL 1 MG TABLET PO SCH (21:18)
[2022-04-06] MEDS: ATORVASTATIN 40 MG TAB PO SCH (21:18)
[2022-04-07] MEDS: METOPROLOL TARTRATE 1 MG/ML VIAL IV SCH ×4 (00:24→17:53)
[2022-04-07] MEDS: INSULIN ASPART PER UNIT SC SCH ×5 (00:24→20:21)
[2022-04-07] MEDS: ACETAMINOPHEN 1,000 MG/100 ML VIAL IV PRN (01:13)
[2022-04-07] MEDS: SODIUM CHLORIDE 0.45 % 1,000 ML IV SCH (04:21)
[2022-04-07] MEDS: HEPARIN SODIUM/DEXTROSE 25,000 UNITS/500 ML BAG IV SCH ×2 (04:22→20:55)
[2022-04-07 07:13] LABS: BUN Creatinine Ratio 18.2 (10-20); Creatinine Clr Calc Pharmacy 100.4 ml/min; Est GFR (African American) 101.6 ml/min; Est GFR (Non-African American) 87.6 ml/min; Magnesium 1.9 mg/dl (1.7-2.4); Phosphorus 2.7 mg/dl (2.5-4.9); Potassium 3.5 mmol/L (3.5-5.1)
[2022-04-07 07:22] LABS: Partial Thromboplastin Ratio 1.8
[2022-04-07] MEDS ORDERED: LANTUS PER UNIT CHARGE SQ ONE ×2 (07:30→21:00)
--- NOTE | 2022-04-07 08:17 | Surgery Progress Note ---
Date of Service April 07, 2022 Assessment & Plan (1) Small bowel obstruction: Plan: improving can start clears, d/c IVF if tolerates liquids can restart Eliquis tonight or tomorrow Admission and Anticipated Discharge Date Admission Date: April 05, 2022 Supervising Physician Co-Signing Physician Notes Pnt S&E, agree with above. Admitted with sbo, sbft yest with resolved obstruction, having mult loose bm's. afvss, abd benign. advance to low fiber as tolerated. surgery will follow. Subjective no nausea, upper abd pressure improved, bowels moving Physical Exam Gastrointestinal (Abdomen): Inspection/Auscultation: + abdomen distended (minimal) Percussion/Palpation: abdomen soft; abdomen nontender Results & Data ([facility]) Vital Signs (Past 12 Hours) Vital Signs Temp Pulse Pulse Resp BP BP Pulse Ox 04/07/22 06:00 04/07/22 06:00 04/07/22 05:52 72 160/91 H 04/07/22 03:23 36.9 C 69 18 134/74 90 04/07/22 00:24 62 134/73 04/06/22 23:42 60 04/06/22 22:44 37.2 C 66 18 134/73 90 Pulse Ox O2 Del Method O2 Del Method 04/07/22 06:00 95 Room Air 04/07/22 06:00 Room Air 04/07/22 05:52 04/07/22 03:23 Room Air 04/07/22 00:24 04/06/22 23:42 04/06/22 22:44 Room Air PG Care Time/CCT Total # of Minutes Spent Total Time Spent with Patient: Total time spent is greater than 50% in coordination of care (as documented) at patient's floor/unit and/or counseling patient: Coding Level of Care Code 71906 Subseq Hosp Care Lvl 1 Diagnoses Small bowel obstruction K56.609
[2022-04-07] MEDS: SERTRALINE HCL 100 MG TABLET PO SCH (09:05)
[2022-04-07] MEDS: busPIRone 15 MG TAB PO SCH ×2 (09:05→20:56)
[2022-04-07] MEDS: amLODIPine BESYLATE 5 MG TAB PO SCH (09:06)
[2022-04-07] MEDS: VALSARTAN 80 MG TAB PO SCH (09:06)
[2022-04-07] MEDS: CYANOCOBALAMIN (B-12) 100 MCG TABLET PO SCH (09:06)
[2022-04-07] MEDS: MULTIVITAMIN TAB PO SCH (09:10)
[2022-04-07] MEDS ORDERED: Nursing to Pharmacy Communication SCH (12:00)
[2022-04-07] MEDS: PANTOprazole 40 MG in SYRINGE 0 ML IV SCH (12:47)
--- NOTE | 2022-04-07 12:50 | Hospitalist Progress Note ---
Date of Service April 07, 2022 Assessment & Plan (1) Small bowel obstruction: Plan: Admitted with abdominal pain, nausea and vomiting History of significant abdominal surgery in the past Intestinal obstruction is likely secondary to additions Improving with conservative management. Small bowel xray 04/06 shows dilated proximal loops of small bowel within the left upper quadrant which taper to a normal caliber. There is no delay of contrast through the bowel. Therefore, this could represent a focal ileus or low-grade partial small bowel obstruction. Surgery following- clears today , ivf discontinued, start eliquis tonight or tomorrow depending on how he tolerates po intake (2) Chronic diastolic (congestive) heart failure: Plan: Chronic diastolic heart failure, euvolemic No signs and or symptoms of fluid overload. lasix on hold. resume as indicated. (3) Atrial fibrillation: Plan: SSS status post PPM, paced rhythm on on Eliquis On iv heparin, eliquis on hold (4) Diabetes mellitus type 2, insulin dependent: Plan: DM2 on insulin pump, suboptimal control as A1c 8.8 Glycemic pharmacist managing (5) HTN (hypertension): Plan: continue valsartan, lopressor, norvasc. (6) Morbid obesity: Plan DVT prophylaxis. IV heparin, Eliquis on hold Dispo- pending resolution of SBO and ability to tolerate diet without issues. Anticipate discharge in 1-2 days if continues to improve. Admission and Anticipated Discharge Date Admission Date: April 05, 2022 Subjective Feels better. No N/V. Had abd pain last night but none today. Had multiple BM after the contrast yesterday. He is ready to try clears today. Physical Exam Physical Exam: General: Lying comfortably in bed, not in distress, on room air HEENT: EOMI, EBER, MMM Chest: Clear breath sounds bilaterally, no wheezes or crackles CVS: Regular rate and rhythm, normal heart sounds, no murmur Abdomen: Soft, non tender, distended, normal bowel sounds Neuro: Awake, alert, oriented, conversing well, non focal Extremities: No cyanosis, clubbing or edema Results & Data Results & Data ([facility]) Vital Signs (Past 12 Hours) Vital Signs Temp Pulse Pulse Resp BP BP BP 04/07/22 11:55 36.6 C 64 20 171/79 H 04/07/22 08:00 36.6 C 67 20 166/83 H 04/07/22 06:00 04/07/22 06:00 04/07/22 05:52 72 160/91 H 04/07/22 03:23 36.9 C 69 18 134/74 Pulse Ox Pulse Ox O2 Del Method O2 Del Method 04/07/22 11:55 94 Room Air 04/07/22 08:00 94 Room Air 04/07/22 06:00 95 Room Air 04/07/22 06:00 Room Air 04/07/22 05:52 04/07/22 03:23 90 Room Air Laboratory Results [facility] 04/07/22 06:26 Sodium 138 Potassium 3.5 Chloride 103 Carbon Dioxide 29 BUN 16 Creatinine 0.88 Glucose 118 H Calcium 9.0 Medications Administered Current Inpatient Medications Amlodipine Besylate (Amlodipine Besylate 5 Mg Tab) 2.5 mg PO QAM [facility] Stop: 05/05/22 08:59 Last Admin: 04/07/22 09:06 Dose: 2.5 mg Atorvastatin Calcium (Atorvastatin 40 Mg Tab) 40 mg PO HS [facility] Stop: 05/05/22 20:59 Last Admin: 04/06/22 21:18 Dose: 40 mg Buspirone HCl (Buspirone 15 Mg Tab) 15 mg PO BID [facility] Stop: 05/05/22 08:59 Last Admin: 04/07/22 09:05 Dose: 15 mg Cyanocobalamin (Cyanocobalamin (B-12) 100 Mcg Tablet) 100 mcg PO QAM [facility] Stop: 05/05/22 08:59 Last Admin: 04/07/22 09:06 Dose: 100 mcg Dextrose (Dextrose 50% 50 Ml Syringe) 25 - 50 ml IV UD PRN; Protocol PRN Reason: Hypoglycemia Protocol Stop: 05/05/22 05:59 Glucagon (Glucagon For Inj 1 Mg Vial) 1 mg IM UD PRN; Protocol PRN Reason: Hypoglycemia Protocol Stop: 05/05/22 05:59 Glucose (Glucose 40% Gel 15 Gm Tube) 15 - 30 gm PO UD PRN; Protocol PRN Reason: Hypoglycemia Protocol Stop: 05/05/22 05:59 Glucose (Glucose 10 Tab/Tube) 4 - 8 tab PO UD PRN; Protocol PRN Reason: Hypoglycemia Protocol Stop: 05/05/22 05:59 Hydralazine HCl (Hydralazine Hcl 20 Mg/Ml Vial) 10 mg IV Q6H PRN PRN Reason: Blood Pressure - High >sys 160 Stop: 05/05/22 13:29 Heparin Sodium/Dextrose (Heparin Sodium/Dextrose) 25,000 units in 500 mls @ 30 mls/hr IV .[id number] [facility]; Protocol Stop: 05/05/22 05:14 Last Titration: 04/07/22 09:00 Dose: 1,500 units/hr, 30 mls/hr Acetaminophen (Ofirmev) 1,000 mg in 100 mls @ 400 mls/hr IV Q8H PRN PRN Reason: pain/fever Stop: 04/08/22 05:29 Last Infusion: 04/07/22 01:30 Dose: Infused Promethazine HCl 12.5 mg/ (Sodium Chloride) 50.5 mls @ 202 mls/hr IV Q6H PRN PRN Reason: Nausea And Vomiting Stop: 05/05/22 05:29 Pantoprazole Sodium 40 mg/ (Syringe) 10 mls @ 5 mls/min IV DAILY@1100 [facility] Stop: 05/06/22 10:59 Last Admin: 04/06/22 12:09 Dose: 5 mls/min Insulin Aspart (Insulin Aspart Per Unit) 0 units SC ACHS [facility] Stop: 05/05/22 05:59 Metoprolol Tartrate (Metoprolol Tartrate 1 Mg/Ml Vial) 2.5 mg IV Q6 [facility] Stop: 05/05/22 05:59 Last Admin: 04/07/22 05:52 Dose: 2.5 mg Miscellaneous (Carbohydrates For Hypoglycemia ) 15 - 30 gm PO UD PRN PRN Reason: Hypoglycemia Treatment Stop: 05/05/22 05:59 Miscellaneous Information (Pharmacy Glycemic Mgmt Consult) 1 each N/A UD PRN PRN Reason: Consult Stop: 05/05/22 05:29 Morphine Sulfate (Morphine Sulfate 4 Mg/Ml 1 Ml Carp\Vial) 4 mg IV Q2H PRN PRN Reason: moderate/severe Pain Stop: 04/20/22 07:49 Last Admin: 04/06/22 17:04 Dose: 4 mg Multivitamins (Multivitamin Tab) 1 tab PO QAM [facility] Stop: 05/05/22 08:59 Last Admin: 04/07/22 09:10 Dose: 1 tab Pantoprazole Sodium (Pantoprazole 40 Mg Tab) 40 mg PO QAM [facility] Stop: 05/05/22 08:59 Last Admin: 04/05/22 09:30 Dose: 40 mg Ropinirole HCl (Ropinirole Hcl 1 Mg Tablet) 1 mg PO HS [facility] Stop: 05/05/22 20:59 Last Admin: 04/06/22 21:18 Dose: 1 mg Sertraline HCl (Sertraline Hcl 100 Mg Tablet) 200 mg PO QAM [facility] Stop: 05/05/22 08:59 Last Admin: 04/07/22 09:05 Dose: 200 mg Valsartan (Valsartan 80 Mg Tab) 80 mg PO QAM [facility] Stop: 05/05/22 08:59 Last Admin: 04/07/22 09:06 Dose: 80 mg
[2022-04-07] MEDS: rOPINIRole HCL 1 MG TABLET PO SCH (20:56)
[2022-04-07] MEDS: METOPROLOL SUCC 25MG EXT REL TAB PO SCH (20:56)
[2022-04-07] MEDS: ATORVASTATIN 40 MG TAB PO SCH (20:56)
[2022-04-07] MEDS: MoRPHine SULFATE 4 MG/ML 1 ML CARP\\VIAL IV PRN (22:58)
[2022-04-08 07:58] LABS: Hemoglobin 13.6 g/dl (14.0-18.0); Mean Corpuscular Hgb Conc 32.4 g/dL (32.0-36.0); Mean Corpuscular Volume 86.4 fL (80.0-100.0); Mean Platelet Volume 9.4 fL (9.4-12.4); Platelet Count 93 K/uL (130-400); RDW Coefficient of Variation 14.2 % (11.5-14.5); Red Blood Count 4.86 M/uL (4.63-6.08); White Blood Count 1.88 K/ul (4.8-10.8)
[2022-04-08 08:00] LABS: BUN Creatinine Ratio 16.1 (10-20); Calcium 8.7 mg/dl (8.5-10.1); Creatinine Clr Calc Pharmacy 100.3 ml/min; Est GFR (African American) 102.1 ml/min; Est GFR (Non-African American) 88.1 ml/min; Potassium 3.5 mmol/L (3.5-5.1)
[2022-04-08 08:02] LABS: Partial Thromboplastin Ratio 1.7
[2022-04-08 08:03] LABS: Partial Thromboplastin Time 45.5 Seconds (21.0-31.0)
[2022-04-08 08:06] LABS: Eosinophils # (auto) 0.06 K/uL (0-0.50); Eosinophils % (auto) 3.2 %; Immature Granulocytes # (auto) 0.01 K/uL (0.00-0.02); Immature Granulocytes % (auto) 0.5 %; Lymphocytes # (auto) 0.36 K/uL (1.2-3.4); Lymphocytes % (auto) 19.1 %; Monocytes % (auto) 31.9 %; Neutrophils # (auto) 0.85 K/uL (1.4-6.5); Neutrophils % (auto) 45.3 %; Platelet Estimate Decreased (Normal)
[2022-04-08] MEDS: APIXABAN 5 MG TABLET PO SCH ×2 (09:00→21:44)
[2022-04-08] MEDS ORDERED: LANTUS PER UNIT CHARGE SQ SCH ×2 (09:00)
[2022-04-08] MEDS: busPIRone 15 MG TAB PO SCH ×2 (09:01→21:11)
[2022-04-08] MEDS: METOPROLOL SUCC 25MG EXT REL TAB PO SCH (09:01)
[2022-04-08] MEDS: SERTRALINE HCL 100 MG TABLET PO SCH (09:01)
[2022-04-08] MEDS: amLODIPine BESYLATE 5 MG TAB PO SCH (09:02)
[2022-04-08] MEDS: VALSARTAN 80 MG TAB PO SCH (09:02)
[2022-04-08] MEDS: MULTIVITAMIN TAB PO SCH (09:02)
[2022-04-08] MEDS: CYANOCOBALAMIN (B-12) 100 MCG TABLET PO SCH (09:03)
[2022-04-08] MEDS: INSULIN ASPART PER UNIT SC SCH ×4 (09:08→21:12)
--- NOTE | 2022-04-08 09:32 | Surgery Progress Note ---
Date of Service April 08, 2022 Assessment & Plan (1) Small bowel obstruction: Plan: resolved sbo advance to low fiber diet surgery will sign off, call with questions or concerns Admission and Anticipated Discharge Date Admission Date: April 05, 2022 Subjective sbo, resolved. tolerated liquids. Physical Exam Constitutional: WD/WN, vitals as above Gastrointestinal (Abdomen): normal bowel sounds, soft, nontender, no hepatosplenomegaly Results & Data ([facility]) Vital Signs (Past 12 Hours) Vital Signs Temp Pulse Pulse Resp BP BP Pulse Ox 04/08/22 08:00 36.7 C 77 18 166/80 H 93 04/08/22 07:12 72 04/08/22 06:00 167/92 H 04/08/22 05:25 04/08/22 05:25 04/08/22 04:55 36.7 C 62 18 183/72 H 92 04/07/22 23:42 164/90 H 04/07/22 22:49 36.6 C 70 20 182/80 H 93 04/07/22 23:07 71 Pulse Ox O2 Del Method O2 Del Method 04/08/22 08:00 Room Air 04/08/22 07:12 04/08/22 06:00 04/08/22 05:25 92 Room Air 04/08/22 05:25 Room Air 04/08/22 04:55 Room Air 04/07/22 23:42 04/07/22 22:49 Room Air 04/07/22 23:07 Laboratory Results Laboratory Results - last 24 hr 04/07/22 04/07/22 04/07/22 11:38 16:34 20:09 WBC RBC Hgb Hct MCV MCH MCHC RDW Std Deviation RDW Coeff of Manoj Plt Count MPV Immature Gran % (Auto) Neut % (Auto) Lymph % (Auto) [place] % (Auto) Eos % (Auto) Baso % (Auto) Neut # (Auto) Lymph # (Auto) [place] # (Auto) Eos # (Auto) Baso # (Auto) Immature Gran # (Auto) Platelet Estimate APTT PTT Ratio Sodium Potassium Chloride Carbon Dioxide Anion Gap BUN Creatinine Est Cr Clr Drug Dosing Est GFR ( Amer) Est GFR (Non-Af Amer) BUN/Creatinine Ratio Glucose POC Glucose 186 H 118 H 138 H Calcium 04/08/22 04/08/22 04/08/22 07:10 07:10 07:10 WBC 1.88 L RBC 4.86 Hgb 13.6 L Hct 42.0 MCV 86.4 MCH 28.0 MCHC 32.4 RDW Std Deviation 45.0 RDW Coeff of Manoj 14.2 Plt Count 93 L MPV 9.4 Immature Gran % (Auto) 0.5 Neut % (Auto) 45.3 Lymph % (Auto) 19.1 [place] % (Auto) 31.9 Eos % (Auto) 3.2 Baso % (Auto) 0.0 Neut # (Auto) 0.85 L* Lymph # (Auto) 0.36 L [place] # (Auto) 0.60 Eos # (Auto) 0.06 Baso # (Auto) 0.00 Immature Gran # (Auto) 0.01 Platelet Estimate Decreased L APTT 45.5 H* PTT Ratio 1.7 Sodium 140 Potassium 3.5 Chloride 106 Carbon Dioxide 27 Anion Gap 7 BUN 14 Creatinine 0.87 Est Cr Clr Drug Dosing 100.3 Est GFR ( Amer) 102.1 Est GFR (Non-Af Amer) 88.1 BUN/Creatinine Ratio 16.1 Glucose 176 H POC Glucose Calcium 8.7 04/08/22 07:49 WBC RBC Hgb Hct MCV MCH MCHC RDW Std Deviation RDW Coeff of Manoj Plt Count MPV Immature Gran % (Auto) Neut % (Auto) Lymph % (Auto) [place] % (Auto) Eos % (Auto) Baso % (Auto) Neut # (Auto) Lymph # (Auto) [place] # (Auto) Eos # (Auto) Baso # (Auto) Immature Gran # (Auto) Platelet Estimate APTT PTT Ratio Sodium Potassium Chloride Carbon Dioxide Anion Gap BUN Creatinine Est Cr Clr Drug Dosing Est GFR ( Amer) Est GFR (Non-Af Amer) BUN/Creatinine Ratio Glucose POC Glucose 180 H Calcium PG Care Time/CCT Total # of Minutes Spent Total Time Spent with Patient: Total time spent is greater than 50% in coordination of care (as documented) at patient's floor/unit and/or counseling patient: Coding Level of Care Code 88209 Inpt Consult Level 2 Diagnoses Small bowel obstruction K56.609
--- NOTE | 2022-04-08 09:40 | Pharmacy Report ---
Pharmacy Glycemic Short Note 2 - Date of Service April 08, 2022 - Glycemic Short BSG Results (Last 24 hours): 04/07/22 04/07/22 04/07/22 11:38 16:34 20:09 Glucose POC Glucose 186 H 118 H 138 H 04/08/22 04/08/22 07:10 07:49 Glucose 176 H POC Glucose 180 H OUTPATIENT ANTIDIABETIC REGIMEN: * Metformin 1gm PO BID * Jardiance 10mg PO daily * Novolog insulin pump - settings taken from 07/2021 admission * Basal: [id number] 4.5 units/hr [id number] 5.2 units/hr 4101-5259 4.5 units/hr (117.8 units/day) * Bolus: Correction factor: 20mg/dL/unit (goal: 120-150mg/dL) Carb ratio: 1 unit per 2.2gm CHO HbA1c: 8.8% (04/05/22) ASSESSMENT: 04/08 * BSGs remain reasonably well-controlled * Received 57 units of insulin yesterday (40 units of Lantus and 17 units of Novolog) * Diet advanced to clears yesterday and advanced again to low fiber today * Will tighten carb coverage today given elevation at lunchtime today * Elevated fasting BSG this morning (180 mg/dL), will increase basal insulin today 04/06 * Patient continues to be NPO with consideration of Clears in AM, lantus dose to be reassessed at that time * Fasting this AM 171 mg/dL, increased lantus to 40 units * continue current novolog parameters 04/05 * 67 year old male admitted with small bowel obstruction. Type 2 diabetic managed on insulin pump at home, typically up to 150 units/day of insulin. NPO currently, surgery consulted * Patient known to glycemic service from other admissions and insulin needs are typically much less. Lantus 35 units ordered for this morning for NPO status. PLAN FOR INPATIENT GLYCEMIC CONTROL: * Hold outpatient oral diabetes medications * Basal insulin - increase * Lantus 40 units SC daily, 5 units SC x 1 with lunch * Bolus insulin - tighten carb ratio * NovoLog per scale ACHS or Q6hrs while NPO * Goal Range: Low 110 mg/dL - High 140 mg/dL * Correction Factor: 20 mg/dL/unit * Nutritional / Prandial insulin per carb ratio of 1 unit per 5 grams CHO consumed
[2022-04-08] MEDS ORDERED: LANTUS PER UNIT CHARGE SQ ONE (12:15)
[2022-04-08] MEDS: PANTOprazole 40 MG in SYRINGE 0 ML IV SCH (13:02)
--- NOTE | 2022-04-08 13:53 | Hospitalist Progress Note ---
Date of Service April 08, 2022 Assessment & Plan (1) Small bowel obstruction: Plan: Admitted with abdominal pain, nausea and vomiting History of significant abdominal surgery in the past Intestinal obstruction is likely secondary to additions Improving with conservative management. Small bowel xray 04/06 shows dilated proximal loops of small bowel within the left upper quadrant which taper to a normal caliber. There is no delay of contrast through the bowel. Therefore, this could represent a focal ileus or low-grade partial small bowel obstruction. Surgery signed off- advanced diet to low fiber today. (2) Chronic diastolic (congestive) heart failure: Plan: Chronic diastolic heart failure, euvolemic No signs and or symptoms of fluid overload. lasix on hold. resume likely from tomorrow (3) Atrial fibrillation: Plan: SSS status post PPM, paced rhythm, on Eliquis s/p heparin drip (4) Diabetes mellitus type 2, insulin dependent: Plan: DM2 on insulin pump, suboptimal control as A1c 8.8 Glycemic pharmacist managing (5) HTN (hypertension): Plan: continue valsartan, toprol, norvasc. (6) Morbid obesity: Plan Neutropenia/leucopenia/thrombocytopenia- mild, no fever, heparin drip discontinued. Recheck labs in am DVT prophylaxis. eliquis Dispo- anticipate discharge tomorrow if tolerating diet well without issues and neutropenia improves Admission and Anticipated Discharge Date Admission Date: April 05, 2022 Subjective He feels better. Had abd pain last night but none today. Tolerating clears well without issues. ready for regular food. No N/V. Having bowel movements. Hopes to ambulate today now the drips are discontinued. Physical Exam Physical Exam: General: Sitting comfortably in bed, not in distress, on room air HEENT: EOMI, EBER, MMM Chest: Clear breath sounds bilaterally, no wheezes or crackles CVS: Regular rate and rhythm, normal heart sounds, no murmur Abdomen: Soft, non tender, distended, normal bowel sounds Neuro: Awake, alert, oriented, conversing well, non focal Extremities: No cyanosis, clubbing or edema Results & Data Results & Data [facility]) Vital Signs (Past 12 Hours) Vital Signs Temp Pulse Pulse Resp BP Pulse Ox Pulse Ox 04/08/22 11:24 36.7 C 109 H 18 151/91 H 92 04/08/22 08:00 36.7 C 77 18 166/80 H 93 04/08/22 07:12 72 04/08/22 06:00 167/92 H 04/08/22 05:25 92 04/08/22 05:25 04/08/22 04:55 36.7 C 62 18 183/72 H 92 O2 Del Method O2 Del Method 04/08/22 11:24 Room Air 04/08/22 08:00 Room Air 04/08/22 07:12 04/08/22 06:00 04/08/22 05:25 Room Air 04/08/22 05:25 Room Air 04/08/22 04:55 Room Air Laboratory Results Short CBC 04/08/22 Range/Units 07:10 WBC 1.88 L (4.8-10.8) K/ul Hgb 13.6 L (14.0-18.0) g/dl Hct 42.0 (40.1-51.0) % Plt Count 93 L (130-400) K/uL BMP 04/08/22 07:10 Sodium 140 Potassium 3.5 Chloride 106 Carbon Dioxide 27 BUN 14 Creatinine 0.87 Glucose 176 H Calcium 8.7 Medications Administered Current Inpatient Medications Amlodipine Besylate (Amlodipine Besylate 5 Mg Tab) 2.5 mg PO QAM [facility] Stop: 05/05/22 08:59 Last Admin: 04/08/22 09:02 Dose: 2.5 mg Apixaban (Apixaban 5 Mg Tablet) 5 mg PO BID [facility] Stop: 05/08/22 08:59 Last Admin: 04/08/22 09:00 Dose: 5 mg Atorvastatin Calcium (Atorvastatin 40 Mg Tab) 40 mg PO HS [facility] Stop: 05/05/22 20:59 Last Admin: 04/07/22 20:56 Dose: 40 mg Buspirone HCl (Buspirone 15 Mg Tab) 15 mg PO BID [facility] Stop: 05/05/22 08:59 Last Admin: 04/08/22 09:01 Dose: 15 mg Cyanocobalamin (Cyanocobalamin (B-12) 100 Mcg Tablet) 100 mcg PO QAM [facility] Stop: 05/05/22 08:59 Last Admin: 04/08/22 09:03 Dose: 100 mcg Dextrose (Dextrose 50% 50 Ml Syringe) 25 - 50 ml IV UD PRN; Protocol PRN Reason: Hypoglycemia Protocol Stop: 05/05/22 05:59 Glucagon (Glucagon For Inj 1 Mg Vial) 1 mg IM UD PRN; Protocol PRN Reason: Hypoglycemia Protocol Stop: 05/05/22 05:59 Glucose (Glucose 40% Gel 15 Gm Tube) 15 - 30 gm PO UD PRN; Protocol PRN Reason: Hypoglycemia Protocol Stop: 05/05/22 05:59 Glucose (Glucose 10 Tab/Tube) 4 - 8 tab PO UD PRN; Protocol PRN Reason: Hypoglycemia Protocol Stop: 05/05/22 05:59 Hydralazine HCl (Hydralazine Hcl 20 Mg/Ml Vial) 10 mg IV Q6H PRN PRN Reason: Blood Pressure - High >sys 160 Stop: 05/05/22 13:29 Promethazine HCl 12.5 mg/ (Sodium Chloride) 50.5 mls @ 202 mls/hr IV Q6H PRN PRN Reason: Nausea And Vomiting Stop: 05/05/22 05:29 Pantoprazole Sodium 40 mg/ (Syringe) 10 mls @ 5 mls/min IV DAILY@1100 [facility] Stop: 05/06/22 10:59 Last Admin: 04/08/22 13:02 Dose: 5 mls/min Insulin Aspart (Insulin Aspart Per Unit) 0 units SC ACHS [facility] Stop: 05/05/22 05:59 Last Admin: 04/08/22 13:04 Dose: 18 units Insulin Glargine (Lantus Per Unit Charge) 45 units SQ DAILY [facility] Stop: 05/09/22 08:59 Metoprolol Succinate (Metoprolol Succ 50mg Ext Rel Tab) 100 mg PO BID [facility] Stop: 05/08/22 20:59 Miscellaneous (Carbohydrates For Hypoglycemia ) 15 - 30 gm PO UD PRN PRN Reason: Hypoglycemia Treatment Stop: 05/05/22 05:59 Miscellaneous Information (Pharmacy Glycemic Mgmt Consult) 1 each N/A UD PRN PRN Reason: Consult Stop: 05/05/22 05:29 Morphine Sulfate (Morphine Sulfate 4 Mg/Ml 1 Ml Carp\Vial) 4 mg IV Q2H PRN PRN Reason: moderate/severe Pain Stop: 04/20/22 07:49 Last Admin: 04/07/22 22:58 Dose: 4 mg Multivitamins (Multivitamin Tab) 1 tab PO QAM [facility] Stop: 05/05/22 08:59 Last Admin: 04/08/22 09:02 Dose: 1 tab Pantoprazole Sodium (Pantoprazole 40 Mg Tab) 40 mg PO QAM [facility] Stop: 05/05/22 08:59 Last Admin: 04/05/22 09:30 Dose: 40 mg Ropinirole HCl (Ropinirole Hcl 1 Mg Tablet) 1 mg PO [facility] Stop: 05/05/22 20:59 Last Admin: 04/07/22 20:56 Dose: 1 mg Sertraline HCl (Sertraline Hcl 100 Mg Tablet) 200 mg PO QA [facility] Stop: 05/05/22 08:59 Last Admin: 04/08/22 09:01 Dose: 200 mg Valsartan (Valsartan 80 Mg Tab) 80 mg PO QA [facility] Stop: 05/05/22 08:59 Last Admin: 04/08/22 09:02 Dose: 80 mg
[2022-04-08] MEDS: FUROSEMIDE 40 MG TAB PO SCH (16:58)
[2022-04-08] MEDS: METOPROLOL SUCC 50MG EXT REL TAB PO SCH (21:11)
[2022-04-08] MEDS: rOPINIRole HCL 1 MG TABLET PO SCH (21:11)
[2022-04-08] MEDS: ATORVASTATIN 40 MG TAB PO SCH (21:11)
[2022-04-09] MEDS ORDERED: MELATONIN 3 MG TAB PO PRN (01:52)
[2022-04-09 06:45] LABS: Hematocrit (blood only) 42.1 % (40.1-51.0); Hemoglobin 13.4 g/dl (14.0-18.0); Mean Platelet Volume 10.1 fL (9.4-12.4); Platelet Count 100 K/uL (130-400); White Blood Count 2.29 K/ul (4.8-10.8)
[2022-04-09 07:12] LABS: Mean Corpuscular Hemoglobin 27.6 pg (25.0-34.0); Mean Corpuscular Hgb Conc 31.8 g/dL (32.0-36.0); Mean Corpuscular Volume 86.8 fL (80.0-100.0); RDW Standard Deviation 43.8 fL (36.4-46.3); Red Blood Count 4.85 M/uL (4.63-6.08); Tear Drop Cells 1+
[2022-04-09 07:13] LABS: BUN Creatinine Ratio 20.7 (10-20); Calcium 8.8 mg/dl (8.5-10.1); Creatinine Clr Calc Pharmacy 106.4 ml/min; Eosinophils # (auto) 0.07 K/uL (0-0.50); Eosinophils % (auto) 3.1 %; Est GFR (African American) 104.6 ml/min; Est GFR (Non-African American) 90.2 ml/min; Immature Granulocytes # (auto) 0.02 K/uL (0.00-0.02); Immature Granulocytes % (auto) 0.9 %; Lymphocytes # (auto) 0.63 K/uL (1.2-3.4); Lymphocytes % (auto) 27.5 %; Monocytes # (auto) 0.67 K/uL (0.24-0.82); Monocytes % (auto) 29.3 %; Neutrophils % (auto) 39.2 %; Potassium 3.4 mmol/L (3.5-5.1)
[2022-04-09] MEDS: FUROSEMIDE 40 MG TAB PO SCH (08:58)
[2022-04-09] MEDS: APIXABAN 5 MG TABLET PO SCH (08:58)
[2022-04-09] MEDS: busPIRone 15 MG TAB PO SCH (08:58)
[2022-04-09] MEDS: amLODIPine BESYLATE 5 MG TAB PO SCH (08:58)
[2022-04-09] MEDS: MULTIVITAMIN TAB PO SCH (08:59)
[2022-04-09] MEDS: CYANOCOBALAMIN (B-12) 100 MCG TABLET PO SCH (08:59)
[2022-04-09] MEDS: VALSARTAN 80 MG TAB PO SCH (08:59)
[2022-04-09] MEDS: METOPROLOL SUCC 50MG EXT REL TAB PO SCH (08:59)
[2022-04-09] MEDS: PANTOprazole 40 MG TAB PO SCH (08:59)
[2022-04-09] MEDS: SERTRALINE HCL 100 MG TABLET PO SCH (08:59)
[2022-04-09] MEDS ORDERED: FUROSEMIDE 40 MG TAB PO SCH (09:00)
[2022-04-09] MEDS ORDERED: LANTUS PER UNIT CHARGE SQ SCH (09:00)
[2022-04-09] MEDS: INSULIN ASPART PER UNIT SC SCH (09:00)
--- NOTE | 2022-04-09 13:21 | Discharge Summary ---
Date of Service April 09, 2022 Admission HPI Per Admitting Provider History obtained from patient, family, and records. Medical history significant for chronic diastolic heart failure (EF 60 to 65%, TTE 2020), SSS status post PPM on Eliquis, pulmonary hypertension, CAD, hypertension, COPD, DM2 insulin pump, chronic thrombocytopenia as per records, past tobacco abuse. Last confinement July 2021 for decompensated heart failure, COVID-19 infection. Last night, patient noted achy lower abdominal pain going up followed by nausea, emesis. Stools in the morning. No fever, no chills, no chest pain, no SOB. Patient consulted ER for evaluation. 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 Admission Exam Per Admitting Provider GENERAL: Comfortable, pleasant, obese, no respiratory distress SKIN: Normal color, warm HEENT: Alopecia, Delaplaine palpebral conjunctivae, no ptosis, dry buccal mucosa NECK : Supple, short neck, no tenderness CHEST : Decreased breath sounds, no tenderness HEART : RRR, no obvious murmurs ABDOMEN: Some distention, central abdominal tenderness EXTREMITIES : Minimal LE swelling, no LE tenderness, no other conspicuous deformities noted NEUROLOGIC : Coherent, no facial asymmetry, no other gross focality Principal Diagnosis SBO Discharge Exam General: Sitting comfortably in bed, not in distress, on room air HEENT: EOMI, EBER, MMM Chest: Clear breath sounds bilaterally, no wheezes or crackles CVS: Regular rate and rhythm, normal heart sounds, no murmur Abdomen: Soft, non tender, distended, normal bowel sounds Neuro: Awake, alert, oriented, conversing well, non focal Extremities: No cyanosis, clubbing or edema Discharge Data Allergies Allergy/AdvReac Type Severity Reaction Status Date / Time No Known Allergies Allergy Verified 04/05/22 03:02 Consultations 04/05/22 03:15 Consult General Surgery Routine Ordered Studies 04/04/22 23:39 CT abd pelvis IV con only Urgent 04/06/22 07:51 SBFT Modified Swallow [FL small bowel follow through] Urgent Laboratory Results WBC 2.29 K/ul (4.8-10.8) L 04/09/22 06:03 RBC 4.85 M/uL (4.63-6.08) 04/09/22 06:03 Hgb 13.4 g/dl (14.0-18.0) L 04/09/22 06:03 Hct 42.1 % (40.1-51.0) 04/09/22 06:03 MCV 86.8 fL (80.0-100.0) 04/09/22 06:03 MCH 27.6 pg (25.0-34.0) 04/09/22 06:03 MCHC 31.8 g/dL (32.0-36.0) L 04/09/22 06:03 RDW Std Deviation 43.8 fL (36.4-46.3) 04/09/22 06:03 RDW Coeff of Manoj 14.0 % (11.5-14.5) 04/09/22 06:03 Plt Count 100 K/uL (130-400) L 04/09/22 06:03 MPV 10.1 fL (9.4-12.4) 04/09/22 06:03 Immature Gran % (Auto) 0.9 % 04/09/22 06:03 Neut % (Auto) 39.2 % 04/09/22 06:03 Lymph % (Auto) 27.5 % 04/09/22 06:03 Gallia % (Auto) 29.3 % 04/09/22 06:03 Eos % (Auto) 3.1 % 04/09/22 06:03 Baso % (Auto) 0.0 % 04/09/22 06:03 Neut # (Auto) 0.90 K/uL (1.4-6.5) L* 04/09/22 06:03 Lymph # (Auto) 0.63 K/uL (1.2-3.4) L 04/09/22 06:03 Gallia # (Auto) 0.67 K/uL (0.24-0.82) 04/09/22 06:03 Eos # (Auto) 0.07 K/uL (0-0.50) 04/09/22 06:03 Baso # (Auto) 0.00 K/uL (0-0.2) 04/09/22 06:03 Immature Gran # (Auto) 0.02 K/uL (0.00-0.02) 04/09/22 06:03 Platelet Estimate Decreased (Normal) L 04/08/22 07:10 RBC Morphology Unremarkable 04/06/22 06:23 Tear Drop Cells 1+ 04/09/22 06:03 APTT 45.5 Seconds (21.0-31.0) H* 04/08/22 07:10 PTT Ratio 1.7 04/08/22 07:10 Sodium 139 mmol/L (136-145) 04/09/22 06:03 Potassium 3.4 mmol/L (3.5-5.1) L 04/09/22 06:03 Chloride 105 mmol/L (98-107) 04/09/22 06:03 Carbon Dioxide 27 mmol/L (21-32) 04/09/22 06:03 Anion Gap 7 (3-11) 04/09/22 06:03 BUN 17 mg/dl (6-23) 04/09/22 06:03 Creatinine 0.82 mg/dl (0.6-1.4) 04/09/22 06:03 Est Cr Clr Drug Dosing 106.4 ml/min 04/09/22 06:03 Est GFR ( Amer) 104.6 ml/min 04/09/22 06:03 Est GFR (Non-Af Amer) 90.2 ml/min 04/09/22 06:03 BUN/Creatinine Ratio 20.7 (10-20) H 04/09/22 06:03 Glucose 169 mg/dl (70-99(Fasting)) H 04/09/22 06:03 POC Glucose 154 mg/dl (70-99) H 04/09/22 07:47 Estimat Average Glucose 206 mg/dl 04/05/22 00:09 Hemoglobin A1c 8.8 % (4.5-5.6) H 04/05/22 00:09 Lactate 0.9 mmol/L (0.4-2.0) 04/05/22 00:09 Calcium 8.8 mg/dl (8.5-10.1) 04/09/22 06:03 Phosphorus 2.7 mg/dl (2.5-4.9) 04/07/22 06:26 Magnesium 1.9 mg/dl (1.7-2.4) 04/07/22 06:26 Total Bilirubin 0.7 mg/dl (0.2-1.0) 04/05/22 00:09 AST 29 U/L (13-39) 04/05/22 00:09 ALT 34 U/L (7-52) 04/05/22 00:09 Alkaline Phosphatase 104 U/L (34-104) 04/05/22 00:09 Total Protein 8.0 gm/dl (6.0-8.3) 04/05/22 00:09 Albumin 4.7 gm/dl (3.4-5.0) 04/05/22 00:09 Globulin 3.3 gm/dl (2.5-4.0) 04/05/22 00:09 Albumin/Globulin Ratio 1.4 (0.9-2) 04/05/22 00:09 Lipase 13 U/L (11-82) 04/05/22 00:09 SARS-CoV-2, RNA, NAAT NEGATIVE (NEGATIVE) 04/05/22 04:14 Impressions Abdomen/Pelvis CT 04/04/22 23:39 CT OF THE ABDOMEN AND PELVIS WITH CONTRAST CLINICAL HISTORY: Abdominal pain, nausea and vomiting. History of small bowel obstruction. COMPARISON STUDY: CT of the abdomen and pelvis March 03, 2021. TECHNIQUE: Following IV administration of 93 mL of Optiray, axial images of the abdomen and pelvis were obtained from the lung bases to the proximal femurs. Images were reviewed in the axial, sagittal, and coronal planes. IV contrast was administered without complication. Automated exposure control was utilized for the study. A dose lowering technique was utilized adhering to the principles of ALARA. CT DOSE: 1667.25 mGy.cm FINDINGS: No pneumatosis, free air or portal venous gas is present. There are several loops of moderately dilated proximal small bowel. Transition point within the mid jejunum on axial image 207 of 506 is noted. Distal small bowel is decompressed. There is no significant biliary ductal dilatation status post cholecystectomy. Spleen, adrenal glands and right kidney are unremarkable. Left renal calculi measure up to 5 mm. There are no ureteral calculi. There is no hydronephrosis. Innumerable small cystic lesions within the pancreas are noted. These measure up to approximately 2.3 cm. There is no pancreatic ductal dilatation. No evidence for a bowel obstruction. Colonic diverticulosis is noted without evidence for acute diverticulitis. Previous ventral hernia repair with mesh is noted. There is a small fat-containing umbilical hernia. A small fat- containing upper abdominal ventral hernia is noted with a stable adjacent 1.4 cm omental nodule. No acute fracture or suspicious lesion within the visualized skeletal structures. There is no lymphadenopathy. IMPRESSION: 1. Findings consistent with a proximal small bowel obstruction, as described above. 2. Left-sided nephrolithiasis. No ureteral calculi. 3. Numerous cystic lesions within the pancreas. These are indeterminate but low suspicion. Nonemergent pancreatic protocol MRI could be obtained for further evaluation. ACT 112: Negative or not required by law. Electronically signed by: iRan Simon M.D. 04/05/2022 8:02 AM KUB X-Ray 04/05/22 04:29 KUB CLINICAL HISTORY: ngt placement COMPARISON STUDY: CT of the abdomen and pelvis performed earlier today. FINDINGS: Dual-lead left subclavian pacemaker is partially imaged. Tip of nasogastric tube projects over the proximal body of the stomach. The tube could be advanced an additional 3 cm. Suspected dilated small bowel loops are better depicted on CT. IMPRESSION: Tip of nasogastric tube projects over the proximal body of the stomach. The tube could be advanced an additional 3 cm. ACT 112: Negative or not required by law. Electronically signed by: Rian Simon M.D. 04/05/2022 6:41 AM Small Bowel X-Ray 04/06/22 07:51 FL small bowel follow through CLINICAL HISTORY: Small bowel obstruction. Follow-up. COMPARISON STUDY: Abdomen and pelvis CT 03/28/2022. FLUOROSCOPY TIME: None.. FINDINGS: A total of 300 cc of diluted Optiray 320 were placed in the indwelling nasogastric tube. 6 overhead images of the abdomen and pelvis were submitted. [employer] images demonstrate a prior cholecystectomy and bilateral nephrolithiasis. A few dilated gas-filled loops of small bowel noted within the left upper quadrant measuring up to 4.6 cm. Nasogastric tube terminates in the stomach. The proximal jejunal loops are dilated up to 5.9 cm. However, these dilated loops of proximal small bowel taper to a normal caliber within the mid to distal small bowel segments. No clear transition point identified. The terminal ileum is normally distensible. Contrast reached the cecum by 20 minutes. IMPRESSION: Dilated proximal loops of small bowel within the left upper quadrant which taper to a normal caliber. There is no delay of contrast through the bowel. Therefore, this could represent a focal ileus or low-grade partial small bowel obstruction. ACT 112: Negative or not required by law. Electronically signed by: Lauro Rodriguez M.D. 04/06/2022 9:13 AM Hospital Course (1) Small bowel obstruction: Admitted with abdominal pain, nausea and vomiting History of significant abdominal surgery in the past Intestinal obstruction is likely secondary to additions Resolved with conservative management- npo, bowel rest, NG tube. Small bowel xray 04/06 shows dilated proximal loops of small bowel within the left upper quadrant which taper to a normal caliber. There is no delay of contrast through the bowel. Therefore, this could represent a focal ileus or low-grade partial small bowel obstruction. Now tolerating low fiber diet since yesterday with no issues- no N/V/abd pain. Having BM. Surgery signed off. (2) Chronic diastolic (congestive) heart failure: Chronic diastolic heart failure, euvolemic No signs and or symptoms of fluid overload. continue lasix (3) Atrial fibrillation: SSS status post PPM, paced rhythm, on Eliquis s/p heparin drip (4) Diabetes mellitus type 2, insulin dependent: DM2 on insulin pump, suboptimal control as A1c 8.8. continue home regimen, follow up with PCP for further management (5) HTN (hypertension): continue valsartan, toprol, norvasc. (6) Morbid obesity: Plan Neutropenia/leucopenia/thrombocytopenia- improving. Recommend repeat CBC in a week and follow up with PCP He is comfortable and stable for discharge home. Anxious for discharge. Ambulating independently. Total Time Total Time Spent Total Time Spent (In Minutes): 40 Discharge Plan Discharge Items Patient Disposition: Home - Self-Care Reason For Visit: SBO, ELEVATED BP Discharge Diagnosis: SBO Activity: Resume your previous activity Non-emergency contact: Primary Care Provider Call non-emergency contact if: you have any medication questions, your symptoms worsen, your pain is not controlled and you have a fever Follow-up/Referrals: Yoshi Buitrago MD [Primary Care Provider] - (Date & Time 04/13/2022 12:00 PM Provider Yoshi Buitrago MD Department Family Medicine [facility] ) Diet: Carb Consistent or DM2, Heart Healthy and Low Sodium (2gm) Fluids: 1800ml (7 cups) Addtl Attending Provider Instructions: We have not changed any of your home medications. If you have recurrence of symptoms (vomiting, increasing abdominal pain, unable to keep things down etc), please come back to the emergency. Recommend repeat blood work (CBC) in a week and follow up with family doctor. Pending Studies at Discharge: No Stand-Alone Forms: My [facility], Smoking Cessation Medications and DC Order Prescriptions: Continued atorvastatin 40 mg Tablet 40 mg PO HS magnesium oxide 400 mg magnesium Capsule 400 mg PO HS metformin 1,000 mg Tablet 1,000 mg PO BID metoprolol succinate 100 mg Tablet Extended Release 24 Hr 100 mg PO BID multivitamin Tablet 1 tab PO QAM pantoprazole 40 mg Tablet,Delayed Release (Dr/Ec) 40 mg PO QAM potassium chloride 10 mEq Tablet Extended Release 20 meq PO QAM cyanocobalamin (vitamin B-12) [Vitamin B-12] 100 mcg Tablet 100 mcg PO QAM furosemide 40 mg tablet 40 mg PO [facility] Rx Instructions: takes an extra lasix twice per week Jardiance 10 mg tablet 10 mg PO QAM ropinirole 1 mg tablet 1 mg PO HS Rx Instructions: take 1-3 hours before bed sertraline 100 mg tablet 200 mg PO QAM amlodipine 2.5 mg Tablet 2.5 mg PO QAM insulin aspart U-100 [Novolog U-100 Insulin aspart] 100 unit/mL Solution 1 sliding scale dose continuous subcutaneous infusion USEASDIRECTD Rx Instructions: sliding scale in insulin pump up to 150 units daily Eliquis 5 mg Tablet 5 mg PO BID buspirone 15 mg tablet 15 mg PO BID valsartan 80 mg tablet 80 mg PO QAM Discharge Orders: Discharge Order (Routine); Ordered 04/09/22 Ordered By: Tomas Dudley Admission Data Admit Date/Time: 04/05/22 03:58 Attending Provider: Tomas Dudley Admit Provider: Wilton Saravia Primary Care Provider: Yoshi Buitrago Other Providers: Rehan Spangler Other Interventions: Discharge Summary Assessment (RN) Last Done: 04/09/22 09:41
== END 2022-04-09 10:18 | disposition home or self-care (01) | DRG 389 ==
LOC: ED 22:22 → EDINP 04-05 03:58 → SUATTDRO 04-05 03:58 → 2N 04-05 06:23

== ENCOUNTER 2025-04-02 12:18 | Inpatient (IN) ==
[2025-04-02] MEDS: SODIUM CHLORIDE 0.9% 1,000 ML IV SCH ×2 (13:08→20:07)
--- NOTE | 2025-04-02 13:23 | Emergency Department Note ---
Impression & Plan COVID-19, Ambulatory dysfunction ED Provider Note Name: MILLIE SALMON Age: 70 Sex: Male Arrives Via: Walk-In Informant: Patient & ED Provider: Anibal Canchola MD Chief Complaint: fevers Impression: As per impressions above Medical Decision Making: Pleasant 70-year-old gentleman who recently had low back surgery a month ago and has a history of CAD, dyslipidemia, diabetes, hypertension, A-fib amongst others on Eliquis amongst others. He arrives for evaluation of worsening weakness fatigue and fevers. He does have low back pain at the site of the surgical incision however states it is unchanged and is having no significant focal neurologic deficits. He has diffuse weakness. Examination is not consistent with a spinal infection from a physical exam perspective. Given the lack of significant low back pain nor neurodeficits would hold off on immediate neuroimaging of the back. He has no significant headache nor neurologic deficits thus would hold off on CT imaging of the brain at this time as well laboratory workup does show a mildly elevated lactate but so does the BUN seem elevated. He was given some IV fluids with plan to repeat lactate. COVID testing is positive. There is no other clear bacterial infection at this time so we will hold off on antibiotics. I did obtain cultures however. Patient does not require 30/kg IV fluids as he is COVID-positive and is not hypotensive at this time. Given degree of weakness fatigue and per some confusion I do think that hospitalization would be reasonable in the setting of a positive COVID result. Patient is comfortable with this plan. Triage/Nursing Notes reviewed by Me External Chart Review by me: Patient's discharge summary from 04/09/2022 at the time when patient was admitted for small bowel obstruction allowed review of the patient's past medical history. Differential:Viral syndrome, otitis, pharyngitis, pneumonia, influenza, meningitis, urinary tract infection, sepsis, bacteremia, as well as other pathologies. Vital Signs: reviewed and remarkable for no significant abnormalities Interventions: nss bolu Labs:ED labs Reviewed by me and remarkable for mildly elevated lactate along with positive COVID testing Imagin view chest x-ray as per my interpretation no infiltrate or effusion appreciated. EKG:As per my interpretation. Indication weakness. Ventricular paced at 90 bpm QTc of 469. There is no ectopy nor ischemia. When compared to EKG of January 27, 2024 there is no significant change. Cardiac/Tele Monitoring: Cardiac Monitoring: An Order was placed for continuous cardiac monitoring. The monitor shows a rate of 90 with a paced rhythm. Consults:Discussed with hospitalist who will further evaluate and manage. Plan: Disposition:Hospitalization. Condition: Fair History of Present Illness: 70-year-old gentleman arrives for evaluation of fevers. Patient awoke this morning with fevers, chills, weakness. He is having some mild confusion as well. Notes recent back surgery about a month ago. His back has not been hurting him any more than typical though. He has though developed a cough and some mild shortness of breath throughout the day. Denies any falls, trauma, injuries. He is not having any abdominal pain, chest pain, syncope. He has not had any recent leg swelling or rashes. He does not have any focal weakness. No known sick contacts. Denies any sore throat, runny nose, headache, neck stiffness. Past Medical History:See Below Home Medications:See Below Allergies: No known drug allergy Vitals:Blood Pressure: 133/90, Pulse 90, RR 19, T 36.8C, O2 95% on RA Physical Exam: GENERAL: Patient is tired, dehydrated appearing and in mild distress. Warm to touch RESPIRATORY: No dyspnea. Clear to auscultation and equal bilaterally. CARDIOVASCULAR: Regular rate and rhythm.No murmur appreciated. GASTROINTESTINAL: Abdomen soft, non-tender, no peritonitis. BACK: No midline tenderness, no CVA tenderness. Surgical site without swelling, drainage nor erythema. Of note patient was wearing a back brace which she was able to easily remove and while a bit uncomfortable sitting up no significant pain beyond that. EXTREMITIES: Normal motion all extremities, no cyanosis, no edema. NEUROLOGIC: Alert and oriented. No focal neurologic deficits appreciated SKIN: No rash, no jaundice, no diaphoresis. PSYCH: Appropriate GCS: 15 ED Course: Times/Reassessments: Repeat evaluation of patient he is awake alert oriented in no distress. He is comfortable plan for hospitalization. Anibal Canchola MD Past Med/Surg History Problem List (Updated 04/02/25 @ 18:43 by Anibal Canchola MD) Ambulatory dysfunction (Acute) Generalized weakness Metabolic encephalopathy Sepsis Morbid obesity COVID-19 (Acute) COPD (chronic obstructive pulmonary disease) Acute on chronic diastolic CHF (congestive heart failure) BPH (benign prostatic hyperplasia) History of heart block Chronic diastolic (congestive) heart failure Atrial fibrillation Chest pain (Acute) Depression (Chronic) CAD in [place] artery (Chronic) HLD (hyperlipidemia) (Chronic) Diabetes mellitus type 2, insulin dependent (Chronic) Pacemaker (Chronic) HTN (hypertension) (Chronic) H/O renal calculi (Chronic) Medical History (Updated 04/02/25 @ 18:43 by Anibal Canchola MD) SBO (small bowel obstruction) Diabetes Effusion of knee joint right Surgical History (Updated 04/02/25 @ 16:56 by Dariana Pinto PA-C) History of lumbar fusion 03/04/25. [facility] [place] Hx of cholecystectomy S/P cholecystectomy Status post laparoscopic hernia repair History of esophagogastroduodenoscopy (EGD) Family History (Updated 04/02/25 @ 16:56 by Dariana Pinto PA-C) Other Coronary heart disease Diabetes Social History Smoking Status: Former smoker Tobacco Type: Cigarettes Cigarettes Per Day: 2; Second Hand Exposure: No; Do You Dip or Chew Tobacco: Yes; Hx Alcohol Use: Yes Alcohol type: beer Hx Substance Use: No Preferred Language: Mongolian Communication Ability: Effective Machinery [employer] Required: No Beliefs That Will Affect Care: None marital status: Current Living Situation: Spouse Feels Safe at Home: Yes Assistive Devices: Glasses Allergies Allergies Allergy/AdvReac Type Severity Reaction Status Date / Time No Known Allergies Allergy Verified 04/02/25 15:21 Home Meds Home Medications Medication Instructions Recorded Confirmed apixaban 5 mg tablet (Eliquis) 5 mg PO BID 04/02/25 04/02/25 atorvastatin 40 mg tablet 40 mg PO DAILY 04/02/25 04/02/25 buspirone 15 mg tablet 15 mg PO BID 04/02/25 04/02/25 cyanocobalamin (vitamin B-12) 500 500 mcg PO DAILY 04/02/25 04/02/25 mcg tablet dulaglutide 3 mg/0.5 mL 3 mg subcut WK 04/02/25 04/02/25 subcutaneous pen injector (Trulicity) empagliflozin 10 mg tablet 10 mg PO DAILY 04/02/25 04/02/25 (Jardiance) furosemide 40 mg tablet 40 mg PO BID 04/02/25 04/02/25 gabapentin 300 mg capsule 300 mg PO BID 04/02/25 04/02/25 insulin aspart U-100 100 unit/mL 5 unit subcut UD 04/02/25 04/02/25 (3 mL) subcutaneous pen (Novolog FlexPen U-100 Insulin aspart) insulin aspart U-100 100 unit/mL 7 unit subcut DAILYBB 04/02/25 04/02/25 (3 mL) subcutaneous pen (Novolog FlexPen U-100 Insulin aspart) insulin aspart U-100 100 unit/mL 9 unit subcut UD 04/02/25 04/02/25 (3 mL) subcutaneous pen (Novolog FlexPen U-100 Insulin aspart) insulin glargine 100 unit/mL (3 32 unit subcut HS 04/02/25 04/02/25 mL) subcutaneous pen (Lantus Solostar U-100 Insulin) insulin glargine 100 unit/mL (3 38 unit subcut DAILY 04/02/25 04/02/25 mL) subcutaneous pen (Lantus Solostar U-100 Insulin) iron,carbonyl 65 mg-vitamin C 125 1 tab PO DAILY 04/02/25 04/02/25 mg tablet,delayed release (Vitron-C) metformin 1,000 mg tablet 1,000 mg PO BID 04/02/25 04/02/25 metoprolol succinate 100 mg 100 mg PO BID 04/02/25 04/02/25 tablet,extended release 24 hr oxycodone 5 mg tablet 5 mg PO Q6H PRN Severe Pain (Scale 04/02/25 04/02/25 Score 7-10) pantoprazole 40 mg tablet,delayed 40 mg PO DAILY 04/02/25 04/02/25 release ropinirole 4 mg tablet 4 mg PO HS 04/02/25 04/02/25 sennosides 8.6 mg tablet 8.6 mg PO BID PRN Constipation 04/02/25 04/02/25 sertraline 100 mg tablet 200 mg PO DAILY 04/02/25 04/02/25 spironolactone 25 mg tablet 12.5 mg PO MOWEFR 04/02/25 04/02/25 valsartan 80 mg tablet 80 mg PO DAILY 04/02/25 04/02/25 Results & Data (ED) Vital Signs Vital Signs - 24 hr 04/02/25 12:26 04/02/25 12:44 04/02/25 12:48 Temperature 36.8 C Temperature Source Temporal Artery Scan Pulse Rate 101 H 90 Pulse Rate [Apical] Pulse Rate from SpO2 Sensor Respiratory Rate 19 Respiratory Effort / Characteristics Respiratory Depth Blood Pressure 133/90 122/87 Blood Pressure [Left Arm] Blood Pressure Mean 104 96 Blood Pressure Mean [Left Arm] Blood Pressure Position [Left Arm] Pulse Oximetry 95 Oxygen Delivery Method Sepsis Recent Fever Within 48 Hours No Sepsis New/Unexplained Change in Mental Status N/A Sepsis Action Taken by Nursing No Action Required 04/02/25 13:03 04/02/25 13:09 04/02/25 13:27 Temperature Temperature Source Pulse Rate 97 H 105 H Pulse Rate [Apical] Pulse Rate from SpO2 Sensor 90 Respiratory Rate 18 15 Respiratory Effort / Characteristics Respiratory Depth Blood Pressure 114/76 Blood Pressure [Left Arm] Blood Pressure Mean 79 Blood Pressure Mean [Left Arm] Blood Pressure Position [Left Arm] Pulse Oximetry Oxygen Delivery Method Sepsis Recent Fever Within 48 Hours Sepsis New/Unexplained Change in Mental Status Sepsis Action Taken by Nursing 04/02/25 13:30 04/02/25 13:42 04/02/25 14:00 Temperature Temperature Source Pulse Rate 105 H 107 H Pulse Rate [Apical] Pulse Rate from SpO2 Sensor Respiratory Rate 23 20 Respiratory Effort / Characteristics Respiratory Depth Blood Pressure 132/80 Blood Pressure [Left Arm] Blood Pressure Mean 116 Blood Pressure Mean [Left Arm] Blood Pressure Position [Left Arm] Pulse Oximetry Oxygen Delivery Method Sepsis Recent Fever Within 48 Hours Sepsis New/Unexplained Change in Mental Status Sepsis Action Taken by Nursing 04/02/25 14:30 04/02/25 14:57 04/02/25 15:00 Temperature Temperature Source Pulse Rate 103 H 90 Pulse Rate [Apical] Pulse Rate from SpO2 Sensor Respiratory Rate 22 20 22 Respiratory Effort / Characteristics Respiratory Depth Blood Pressure Blood Pressure [Left Arm] Blood Pressure Mean Blood Pressure Mean [Left Arm] Blood Pressure Position [Left Arm] Pulse Oximetry Oxygen Delivery Method Sepsis Recent Fever Within 48 Hours Sepsis New/Unexplained Change in Mental Status Sepsis Action Taken by Nursing 04/02/25 15:01 04/02/25 15:15 04/02/25 15:27 Temperature Temperature Source Pulse Rate 103 H 103 H Pulse Rate [Apical] Pulse Rate from SpO2 Sensor 97 H 163 H Respiratory Rate 21 19 Respiratory Effort / Characteristics Respiratory Depth Blood Pressure Blood Pressure [Left Arm] Blood Pressure Mean Blood Pressure Mean [Left Arm] Blood Pressure Position [Left Arm] Pulse Oximetry 94 92 90 Oxygen Delivery Method Room Air Sepsis Recent Fever Within 48 Hours Sepsis New/Unexplained Change in Mental Status Sepsis Action Taken by Nursing 04/02/25 15:30 04/02/25 15:30 04/02/25 15:39 Temperature Temperature Source Pulse Rate Pulse Rate [Apical] Pulse Rate from SpO2 Sensor Respiratory Rate 21 Respiratory Effort / Characteristics Respiratory Depth Blood Pressure 137/97 137/97 Blood Pressure [Left Arm] Blood Pressure Mean 107 107 Blood Pressure Mean [Left Arm] Blood Pressure Position [Left Arm] Pulse Oximetry Oxygen Delivery Method Sepsis Recent Fever Within 48 Hours Sepsis New/Unexplained Change in Mental Status Sepsis Action Taken by Nursing 04/02/25 15:48 04/02/25 15:51 04/02/25 16:00 Temperature 39.3 C H Temperature Source Oral Pulse Rate 95 H 102 H Pulse Rate [Apical] 92 H Pulse Rate from SpO2 Sensor 96 H 96 H Respiratory Rate 26 H 26 H 20 Respiratory Effort / Characteristics Non-Labored Spontaneous SOB on Exertion Respiratory Depth Normal Blood Pressure Blood Pressure [Left Arm] 124/79 Blood Pressure Mean Blood Pressure Mean [Left Arm] 94 Blood Pressure Position [Left Arm] Semi-fowlers Pulse Oximetry 91 90 91 Oxygen Delivery Method Room Air Sepsis Recent Fever Within 48 Hours Sepsis New/Unexplained Change in Mental Status Sepsis Action Taken by Nursing 04/02/25 16:00 04/02/25 16:05 04/02/25 16:05 Temperature Temperature Source Pulse Rate 101 H Pulse Rate [Apical] Pulse Rate from SpO2 Sensor 97 H Respiratory Rate 24 Respiratory Effort / Characteristics Respiratory Depth Blood Pressure 124/79 124/79 Blood Pressure [Left Arm] Blood Pressure Mean 103 103 Blood Pressure Mean [Left Arm] Blood Pressure Position [Left Arm] Pulse Oximetry 94 Oxygen Delivery Method Sepsis Recent Fever Within 48 Hours Sepsis New/Unexplained Change in Mental Status Sepsis Action Taken by Nursing 04/02/25 16:09 04/02/25 16:16 04/02/25 16:24 Temperature Temperature Source Pulse Rate 107 H 95 H Pulse Rate [Apical] Pulse Rate from SpO2 Sensor 94 H Respiratory Rate 26 H 25 H Respiratory Effort / Characteristics Respiratory Depth Blood Pressure 130/67 Blood Pressure [Left Arm] Blood Pressure Mean 79 Blood Pressure Mean [Left Arm] Blood Pressure Position [Left Arm] Pulse Oximetry 89 L 94 Oxygen Delivery Method Sepsis Recent Fever Within 48 Hours Sepsis New/Unexplained Change in Mental Status Sepsis Action Taken by Nursing 04/02/25 16:30 04/02/25 16:30 04/02/25 16:30 Temperature Temperature Source Pulse Rate Pulse Rate [Apical] 101 H Pulse Rate from SpO2 Sensor Respiratory Rate 26 H Respiratory Effort / Characteristics Respiratory Depth Blood Pressure 134/94 134/94 Blood Pressure [Left Arm] Blood Pressure Mean 108 108 Blood Pressure Mean [Left Arm] Blood Pressure Position [Left Arm] Pulse Oximetry 96 Oxygen Delivery Method Room Air Sepsis Recent Fever Within 48 Hours Sepsis New/Unexplained Change in Mental Status Sepsis Action Taken by Nursing 04/02/25 16:30 04/02/25 16:42 04/02/25 16:48 Temperature Temperature Source Pulse Rate 97 H 96 H 112 H Pulse Rate [Apical] Pulse Rate from SpO2 Sensor 92 H 99 H Respiratory Rate 23 26 H Respiratory Effort / Characteristics Respiratory Depth Blood Pressure Blood Pressure [Left Arm] Blood Pressure Mean Blood Pressure Mean [Left Arm] Blood Pressure Position [Left Arm] Pulse Oximetry 95 88 L Oxygen Delivery Method Sepsis Recent Fever Within 48 Hours Sepsis New/Unexplained Change in Mental Status Sepsis Action Taken by Nursing 04/02/25 17:00 04/02/25 17:00 04/02/25 17:06 Temperature Temperature Source Pulse Rate 106 H Pulse Rate [Apical] 103 H Pulse Rate from SpO2 Sensor 105 H Respiratory Rate 26 H 33 H Respiratory Effort / Characteristics Respiratory Depth Normal Blood Pressure 160/73 H Blood Pressure [Left Arm] 160/73 H Blood Pressure Mean 82 Blood Pressure Mean [Left Arm] 102 Blood Pressure Position [Left Arm] Pulse Oximetry 92 93 Oxygen Delivery Method Room Air Sepsis Recent Fever Within 48 Hours Sepsis New/Unexplained Change in Mental Status Sepsis Action Taken by Nursing 04/02/25 18:03 04/02/25 18:03 04/02/25 18:06 Temperature Temperature Source Pulse Rate Pulse Rate [Apical] Pulse Rate from SpO2 Sensor 100 H Respiratory Rate Respiratory Effort / Characteristics Respiratory Depth Blood Pressure 116/68 116/68 Blood Pressure [Left Arm] Blood Pressure Mean 68 68 Blood Pressure Mean [Left Arm] Blood Pressure Position [Left Arm] Pulse Oximetry 93 Oxygen Delivery Method Sepsis Recent Fever Within 48 Hours Sepsis New/Unexplained Change in Mental Status Sepsis Action Taken by Nursing 04/02/25 18:12 04/02/25 18:15 04/02/25 18:15 Temperature Temperature Source Pulse Rate 100 H Pulse Rate [Apical] Pulse Rate from SpO2 Sensor 94 H 104 H Respiratory Rate 26 H Respiratory Effort / Characteristics Respiratory Depth Blood Pressure 99/64 L Blood Pressure [Left Arm] Blood Pressure Mean 80 Blood Pressure Mean [Left Arm] Blood Pressure Position [Left Arm] Pulse Oximetry 91 92 Oxygen Delivery Method Sepsis Recent Fever Within 48 Hours Sepsis New/Unexplained Change in Mental Status Sepsis Action Taken by Nursing 04/02/25 18:22 Temperature Temperature Source Pulse Rate Pulse Rate [Apical] 96 H Pulse Rate from SpO2 Sensor Respiratory Rate 24 Respiratory Effort / Characteristics Non-Labored Spontaneous Respiratory Depth Normal Blood Pressure Blood Pressure [Left Arm] 114/66 Blood Pressure Mean Blood Pressure Mean [Left Arm] 82 Blood Pressure Position [Left Arm] Semi-fowlers Pulse Oximetry 93 Oxygen Delivery Method Room Air Sepsis Recent Fever Within 48 Hours Sepsis New/Unexplained Change in Mental Status Sepsis Action Taken by Nursing Laboratory Data 04/02/25 13:02 04/02/25 13:02 Lab Results 04/02/25 04/02/25 04/02/25 Range/Units 13:02 13:39 15:54 WBC 1.05 L (4.8-10.8) K/ul RBC 4.85 (4.70-6.10) M/uL Hgb 14.5 (14.0-18.0) g/dl Hct 44.2 (42.0-52.0) % MCV 91.1 (80.0-100.0) fL MCH 29.9 (25.0-34.0) pg MCHC 32.8 (32.0-36.0) g/dL RDW Std Deviation 48.9 H (36.4-46.3) fL RDW Coeff of Manoj 14.7 H (11.5-14.5) % Plt Count 100 L (130-400) K/uL MPV 9.0 L (9.4-12.4) fL Neutrophils % (Manual) 41 % Lymphocytes % (Manual) 14 % Monocytes % (Manual) 26 % Eosinophils % (Manual) 2 % Basophils % (Manual) 1 % Metamyelocytes % (Man) 1 % Myelocytes % (Man) 2 % Neutrophils # (Manual) 0.43 L (1.40-6.50) K/uL Total Absolute Neuts 0.43 L* (1.4-6.5) K/uL Lymphocytes # (Manual) 0.15 L (1.2-3.4) K/uL Total Abs Lymphocytes 0.28 L (1.2-3.4) K/uL Monocytes # (Manual) 0.27 (0.11-0.59) K/uL Eosinophils # (Manual) 0.02 (0-0.50) K/uL Basophils # (Manual) 0.01 (0-0.2) K/uL Metamyelocytes # (Man) 0.01 H (0-0) K/uL Myelocytes # (Manual) 0.02 H (0-0) K/uL Large Granular Lymphs 13 % # Lrg Granular Lymphs 0.14 K/uL Sodium 136 (136-145) mmol/L Potassium 4.8 (3.5-5.1) mmol/L Chloride 99 (98-107) mmol/L Carbon Dioxide 30 (21-32) mmol/L Anion Gap 7 (3-11) BUN 26 H (6-23) mg/dl Creatinine 1.11 (0.6-1.4) mg/dl Est Cr Clr Drug Dosing Not Reportable eGFR 70.55 BUN/Creatinine Ratio 23.4 H (10-20) Glucose 177 H (70-99(Fasting)) mg/dl Lactate 2.1 H* 2.8 H* (0.4-2.0) mmol/L Calcium 9.5 (8.6-10.3) mg/dl Magnesium 2.1 (1.7-2.4) mg/dl Total Bilirubin 0.9 (0.2-1.0) mg/dl Direct Bilirubin 0.2 (0-0.2) mg/dl AST 18 (13-39) U/L ALT 22 (7-52) U/L Alkaline Phosphatase 153 H (34-104) U/L Troponin I High Sens 16.1 (0-20) pg/ml Total Protein 7.1 (6.0-8.3) gm/dl Albumin 4.2 (3.4-5.0) gm/dl Procalcitonin 0.05 (0-0.5) ng/ml Urine Color Yellow Urine Appearance Clear (Clear) Urine pH >= 9.0 H (4.5-7.5) Ur Specific Arrey 1.028 (1.000-1.030) Urine Protein Trace H (Negative) Urine Glucose (UA) 2+ H (Negative) Urine Ketones Negative (Negative) Urine Blood Negative (Negative) Urine Nitrite Negative (Negative) Urine Bilirubin Negative (Negative) Urine Urobilinogen Negative (Negative) Ur Leukocyte Esterase Negative (Negative) Urine WBC (Auto) 0-5 (0-5) /hpf Urine RBC (Auto) 0-2 (0-2) /hpf U Hyaline Cast (Auto) 0-2 (0-2) /lpf U Epithel Cells (Auto) 0-2 (0-2) /hpf Urine Bacteria (Auto) None Seen (None Seen) Urine Comment Nasal Screen MRSA (PCR) (Negative) Anaplasma Smear See Comment Babesia Smear See Comment Lyme Disease Screen Positive H (Negative) Lyme Tier 2 IgG Confirm Positive H (Negative) Lyme Tier 2 IgM Confirm Negative (Negative) SARS-CoV-2 (PCR) POSITIVE A (Negative) Influenza Type A (PCR) Negative (Neg) Influenza Type B (PCR) Negative (Neg) RSV (RT-PCR) Negative (Neg) 04/02/25 Range/Units 16:09 WBC (4.8-10.8) K/ul RBC (4.70-6.10) M/uL Hgb (14.0-18.0) g/dl Hct (42.0-52.0) % MCV (80.0-100.0) fL MCH (25.0-34.0) pg MCHC (32.0-36.0) g/dL RDW Std Deviation (36.4-46.3) fL RDW Coeff of Manoj (11.5-14.5) % Plt Count (130-400) K/uL MPV (9.4-12.4) fL Neutrophils % (Manual) % Lymphocytes % (Manual) % Monocytes % (Manual) % Eosinophils % (Manual) % Basophils % (Manual) % Metamyelocytes % (Man) % Myelocytes % (Man) % Neutrophils # (Manual) (1.40-6.50) K/uL Total Absolute Neuts (1.4-6.5) K/uL Lymphocytes # (Manual) (1.2-3.4) K/uL Total Abs Lymphocytes (1.2-3.4) K/uL Monocytes # (Manual) (0.11-0.59) K/uL Eosinophils # (Manual) (0-0.50) K/uL Basophils # (Manual) (0-0.2) K/uL Metamyelocytes # (Man) (0-0) K/uL Myelocytes # (Manual) (0-0) K/uL Large Granular Lymphs % # Lrg Granular Lymphs K/uL Sodium (136-145) mmol/L Potassium (3.5-5.1) mmol/L Chloride (98-107) mmol/L Carbon Dioxide (21-32) mmol/L Anion Gap (3-11) BUN (6-23) mg/dl Creatinine (0.6-1.4) mg/dl Est Cr Clr Drug Dosing eGFR BUN/Creatinine Ratio (10-20) Glucose (70-99(Fasting)) mg/dl Lactate (0.4-2.0) mmol/L Calcium (8.6-10.3) mg/dl Magnesium (1.7-2.4) mg/dl Total Bilirubin (0.2-1.0) mg/dl Direct Bilirubin (0-0.2) mg/dl AST (13-39) U/L ALT (7-52) U/L Alkaline Phosphatase (34-104) U/L Troponin I High Sens (0-20) pg/ml Total Protein (6.0-8.3) gm/dl Albumin (3.4-5.0) gm/dl Procalcitonin (0-0.5) ng/ml Urine Color Urine Appearance (Clear) Urine pH (4.5-7.5) Ur Specific Arrey (1.000-1.030) Urine Protein (Negative) Urine Glucose (UA) (Negative) Urine Ketones (Negative) Urine Blood (Negative) Urine Nitrite (Negative) Urine Bilirubin (Negative) Urine Urobilinogen (Negative) Ur Leukocyte Esterase (Negative) Urine WBC (Auto) (0-5) /hpf Urine RBC (Auto) (0-2) /hpf U Hyaline Cast (Auto) (0-2) /lpf U Epithel Cells (Auto) (0-2) /hpf Urine Bacteria (Auto) (None Seen) Urine Comment Nasal Screen MRSA (PCR) Negative (Negative) Anaplasma Smear Babesia Smear Lyme Disease Screen (Negative) Lyme Tier 2 IgG Confirm (Negative) Lyme Tier 2 IgM Confirm (Negative) SARS-CoV-2 (PCR) (Negative) Influenza Type A (PCR) (Neg) Influenza Type B (PCR) (Neg) RSV (RT-PCR) (Neg) Administered Medications Discontinued Medications Acetaminophen (Acetaminophen 500 Mg Tab) 1,000 mg PO NOW STA Stop: 04/02/25 16:06 Last Admin: 04/02/25 16:40 Dose: 1,000 mg Documented By: MOI Sodium Chloride (Nss) 1,000 mls @ 999 mls/hr IV .Q1H1M FILIPE Stop: 04/02/25 13:45 Last Infusion: 04/02/25 16:27 Dose: Infused Documented By: Admin: 04/02/25 13:08 Dose: 999 mls/hr Documented By: RAJAN Cefepime HCl (Maxipime 2000mg) 2,000 mg in 20 mls @ 5 mls/min IV NOW STA; Protocol Stop: 04/02/25 15:52 Last Admin: 04/02/25 16:39 Dose: 5 mls/min Documented By: MOI Daptomycin 500 mg/ Syringe 10 mls @ 5 mls/min IV NOW ONE; Protocol Stop: 04/02/25 16:01 Last Admin: 04/02/25 17:02 Dose: 5 mls/min Documented By: MOI Sodium Chloride (Nss) 1,000 mls @ 999 mls/hr IV .Q1H1M ONE Stop: 04/02/25 17:18 Last Admin: 04/02/25 16:42 Dose: 999 mls/hr Documented By: MOI Ioversol (Optiray 320 100ml) 90 ml IV ONCE ONE Stop: 04/02/25 17:35 Last Admin: 04/02/25 17:34 Dose: 90 ml Documented By: THANH Metoprolol Succinate (Metoprolol Succ 50mg Ext Rel Tab) 100 mg PO NOW STA Stop: 04/02/25 16:10 Last Admin: 04/02/25 17:05 Dose: 100 mg Documented By: MOI Oxycodone HCl (Oxycodone Hcl Ir 5 Mg Tab (Immediate Release)) 5 mg PO NOW STA Stop: 04/02/25 18:24 Last Admin: 04/02/25 18:29 Dose: 5 mg Documented By: MOI Imaging Data Radiologist's Impression: Chest X-Ray 04/02/25 12:45 XR chest 1V portable CLINICAL HISTORY: Sepsis. COMPARISON STUDY: Chest radiograph and chest CT January 27, 2024. FINDINGS: Left subclavian pacer remains in place. Cardiomegaly is unchanged. There is no evidence for pulmonary edema. No pneumothorax or pleural effusion. There is no consolidation to suggest pneumonia. IMPRESSION: No acute cardiopulmonary findings. No change in appearance of chest. ACT 112: Negative or not required by law. Electronically signed by: Rian Simon M.D. 04/02/2025 1:20 PM Discharge Plan Visit Data Chief Complaint: Back Injury/Pain Stated Complaint: BACK PAIN,DIZZY ED Provider: Anibal Canchola Discharge Problem: COVID-19, Ambulatory dysfunction Patient Disposition: Home - Self-Care Condition: Fair Forms Stand Alone Forms: [facility], Important Visit Information Prescriptions Prescriptions: No Action Eliquis 5 mg tablet 5 mg PO BID furosemide 40 mg tablet 40 mg PO BID atorvastatin 40 mg tablet 40 mg PO DAILY metoprolol succinate 100 mg tablet extended release 24 hr 100 mg PO BID metformin 1,000 mg tablet 1,000 mg PO BID gabapentin 300 mg capsule 300 mg PO BID buspirone 15 mg tablet 15 mg PO BID oxycodone 5 mg tablet 5 mg PO Q6H PRN (Reason: Severe Pain (Scale Score 7-10)) insulin aspart U-100 [Novolog FlexPen U-100 Insulin] 100 unit/mL (3 mL) insulin pen 7 unit SUBCUT DAILYBB insulin aspart U-100 [Novolog FlexPen U-100 Insulin] 100 unit/mL (3 mL) insulin pen 5 unit SUBCUT UD Rx Instructions: daily before lunch insulin aspart U-100 [Novolog FlexPen U-100 Insulin] 100 unit/mL (3 mL) insulin pen 9 unit SUBCUT UD Rx Instructions: daily before dinner insulin glargine [Lantus Solostar U-100 Insulin] 100 unit/mL (3 mL) insulin pen 38 unit SUBCUT DAILY insulin glargine [Lantus Solostar U-100 Insulin] 100 unit/mL (3 mL) insulin pen 32 unit SUBCUT HS Jardiance 10 mg tablet 10 mg PO DAILY sennosides 8.6 mg Tablet 8.6 mg PO BID PRN (Reason: Constipation) sertraline 100 mg tablet 200 mg PO DAILY valsartan 80 mg tablet 80 mg PO DAILY spironolactone 25 mg tablet 12.5 mg PO MOWEFR cyanocobalamin (vitamin B-12) 500 mcg Tablet 500 mcg PO DAILY pantoprazole 40 mg tablet,delayed release (DR/EC) 40 mg PO DAILY ropinirole 4 mg tablet 4 mg PO HS Vitron-C 65 mg iron- 125 mg Tablet,Delayed Release (Dr/Ec) 1 tab PO DAILY Trulicity 3 mg/0.5 mL pen injector 3 mg SUBCUT WK Referrals Referrals: Yoshi Buitrago MD [Primary Care Provider] -
[2025-04-02 13:24] LABS: Hematocrit (blood only) 44.2 % (42.0-52.0); Hemoglobin 14.5 g/dl (14.0-18.0); Mean Corpuscular Hemoglobin 29.9 pg (25.0-34.0); Mean Corpuscular Volume 91.1 fL (80.0-100.0); Platelet Count 100 K/uL (130-400); RDW Standard Deviation 48.9 fL (36.4-46.3); Red Blood Count 4.85 M/uL (4.70-6.10); White Blood Count 1.05 K/ul (4.8-10.8)
[2025-04-02 13:43] LABS: Alanine Aminotransferase 22 U/L (7-52); Alkaline Phosphatase 153 U/L (34-104); Anion Gap 7 (3-11); Bilirubin,Total 0.9 mg/dl (0.2-1.0); Blood Urea Nitrogen 26 mg/dl (6-23); Calcium 9.5 mg/dl (8.6-10.3); Carbon Dioxide 30 mmol/L (21-32); Chloride 99 mmol/L (98-107); Glucose 177 mg/dl (70-99(Fasting)); Magnesium 2.1 mg/dl (1.7-2.4); Potassium 4.8 mmol/L (3.5-5.1); Sodium 136 mmol/L (136-145); Total Protein 7.1 gm/dl (6.0-8.3)
[2025-04-02 13:58] LABS: Appearance Urine Clear (Clear); Bacteria Urine Automated None Seen (None Seen); Cast Urine Automated 0-2 /lpf (0-2); Epithelial Cell Urine Auto 0-2 /hpf (0-2); Glucose Urine UA 2+ (Negative); RBC Urine Automated 0-2 /hpf (0-2); WBC Urine Automated 0-5 /hpf (0-5)
[2025-04-02 14:05] LABS: Influenza A virus by PCR Negative (Neg); Influenza B virus by PCR Negative (Neg); SARS CoV2 RNA(COVID-19) Ceph POSITIVE (Negative)
[2025-04-02 14:08] LABS: ALC (manual) 0.28 K/uL (1.2-3.4); ANC (manual) 0.43 K/uL (1.4-6.5); Large Granular Lymph # (manua 0.14 K/uL; Large Granular Lymph % (manual) 13 %
--- NOTE | 2025-04-02 15:00 | History & Physical Report ---
Date of Service April 02, 2025 Assessment & Plan (1) Sepsis: (2) COVID-19: (3) Metabolic encephalopathy: (4) Generalized weakness: (5) Chronic diastolic (congestive) heart failure: (6) Diabetes mellitus type 2, insulin dependent: (7) HTN (hypertension): (8) HLD (hyperlipidemia): Plan: Patient is 70-year-old male with PMH insulin dependent DM II, HTN, HLD, CAD, PAF anticoagulated on Eliquis, chronic HFpEF, sinus node dysfunction s/p pacemaker, COPD, anxiety, depression, history pancytopenia, iron deficiency anemia, and others listed below presented to ER with c/o weakness and confusion today. #Sepsis #COVID-19 #Metabolic Encephalopathy #Generalized weakness #Neutropenia In ER initially afebrile, P: 101, R: 19, BP 133/90, 95% on room air WBC: 1.0 (was 2.3 on 02/08/2025). ANC: 430. (was 1000's in 12/2024) Lactate: 2.1-->2.8. Procalcitonin: 0.05 CXR: no infiltrate +SARS-CoV-2 PCR In ER Given 1L NSS Repeat eval at 16:00 febrile with T: 39.3C, P: 92, R: 20, BP: 124/79, 91% on RA. Lungs clear to auscultation, brisk capillary refill, HR tachycardia rate 96, alert, oriented to person Give additional IVF now and Tylenol peripheral smear, Lyme, anaplasma, babesia, ehrlichia pending UA not consistent with UTI Blood cultures pending MRSA swab pending CT Head pending to r/o intracranial etiology CT abd pelvis: pending to r/o intraabdominal etiology/abscess CT Lumbar spine: pending to r/o abscess Airborne isolation. Neutropenic isolation. Supplemental oxygen prn Remdesivir Xopenex prn Incentive spirometry, flutter valve Start cefepime, daptomycin Has known pancytopenia, however more neutropenic today Suspect metabolic encephalopathy and generalized weakness secondary to infection Will hold home oxycodone and gabapentin with current AMS and reassess tomorrow Fall precautions PT/OT eval CBC, CMP in am ID consult #Recent lumbar spine fusion 03/04/25 lumbar spine [place] [facility] [place] Hold gabapentin and prn oxycodone at this time secondary to AMS #Chronic HFpEF Currently dehydrated. Hold home lasix, spironolactone #PAF Anticoagulated on Eliquis Continue Eliquis, metoprolol succinate #Sinus node dysfunction S/P pacemaker #Insulin dependent DM II A1c: 7.7 on 02/08/25 Continue basal bolus insulin. Monitor for adjustments Hold home metformin, Jardiance, Trulicity #HTN Continue valsartan, metoprolol succinate with holding parameters #HLD Holding atorvastatin while on daptomycin #History iron deficiency anemia Completed IV Venofer x 4 on 10/21/24 Hgb: 14.5 Monitor #Anxiety. Depression Continue home sertraline, buspirone DVT Prophylaxis On Eliquis Admit telemetry Full Code as per discussion with pt & pt's Follows with Dr Buitrago for routine care Pt was seen and care coordinated with Dr Higgins See addendum I spent a total of 80 minutes reviewing notes, outpatient records, labs, medication, coordinating, documenting and providing care for this patient excluding time spent in the performance of separately billed services and excluding time spent by another provider/QHP. History of Present Illness Chief Complaint: Weakness and confusion Primary Care Provider: Yoshi Buitrago MD Patient is 70-year-old male with PMH insulin dependent DM II, HTN, HLD, CAD, PAF anticoagulated on Eliquis, chronic HFpEF, sinus node dysfunction s/p pacemaker, COPD, anxiety, depression, history pancytopenia, iron deficiency anemia, and others listed below presented to ER with c/o weakness and confusion today. History obtained from patient, patient's , as well as outpatient chart review secondary to patient's current confusion. S/P lumbar spinal fusion at [facility] [place] on [place]/04/2025. Reports ongoing low back pain since operation and does not feel any increased back pain. Using brace with ambulation for 6 weeks. States wound appears to be healed and denies any erythema, edema or discharge. Was on Medrol Dosepak started on 03/09/25 post op and finished. Followed up with surgeon post op and reports felt low back pain was expected post op. Patient states past couple of days he noticed his blood sugars were more elevated than baseline however seemed to be feeling in normal state of health. Patient states today when he woke up he felt "dizzy" but is unable to further describe. He states today started with rhinorrhea and nonproductive cough. reports patient woke up today and seemed more tired than usual. Patient states had trouble ambulating as he felt like both legs were weak. noticed patient seemed confused and noted he had chills and felt hot to touch. states this morning was reporting had frontal AZEVEDO. Currently patient denies AZEVEDO but states had one earlier. states ate 2 pieces of toast and had maricel alvaro this morning. Currently patient denies nausea but states he c/o nausea this morning. Denies ill contacts. Denies syncope, vision changes, neck pain, neck stiffness, CP, SOB, palpitations, hemoptysis, sore throat, otalgia, abdominal pain, vomiting, diarrhea, hematochezia, melena, upper extremity weakness, denies paresthesias, extremity edema, rashes, urinary symptoms. Allergies Allergy/AdvReac Type Severity Reaction Status Date / Time No Known Allergies Allergy Verified 04/02/25 15:21 Home Medications Medication Instructions Recorded Confirmed Type apixaban 5 mg tablet (Eliquis) 5 mg PO BID 04/02/25 04/02/25 History atorvastatin 40 mg tablet 40 mg PO DAILY 04/02/25 04/02/25 History buspirone 15 mg tablet 15 mg PO BID 04/02/25 04/02/25 History cyanocobalamin (vitamin B-12) 500 500 mcg PO DAILY 04/02/25 04/02/25 History mcg tablet dulaglutide 3 mg/0.5 mL 3 mg subcut WK 04/02/25 04/02/25 History subcutaneous pen injector (Trulicity) empagliflozin 10 mg tablet 10 mg PO DAILY 04/02/25 04/02/25 History (Jardiance) furosemide 40 mg tablet 40 mg PO BID 04/02/25 04/02/25 History gabapentin 300 mg capsule 300 mg PO BID 04/02/25 04/02/25 History insulin aspart U-100 100 unit/mL 5 unit subcut UD 04/02/25 04/02/25 History (3 mL) subcutaneous pen (Novolog FlexPen U-100 Insulin aspart) insulin aspart U-100 100 unit/mL 7 unit subcut DAILYBB 04/02/25 04/02/25 History (3 mL) subcutaneous pen (Novolog FlexPen U-100 Insulin aspart) insulin aspart U-100 100 unit/mL 9 unit subcut UD 04/02/25 04/02/25 History (3 mL) subcutaneous pen (Novolog FlexPen U-100 Insulin aspart) insulin glargine 100 unit/mL (3 32 unit subcut HS 04/02/25 04/02/25 History mL) subcutaneous pen (Lantus Solostar U-100 Insulin) insulin glargine 100 unit/mL (3 38 unit subcut DAILY 04/02/25 04/02/25 History mL) subcutaneous pen (Lantus Solostar U-100 Insulin) iron,carbonyl 65 mg-vitamin C 125 1 tab PO DAILY 04/02/25 04/02/25 History mg tablet,delayed release (Vitron-C) metformin 1,000 mg tablet 1,000 mg PO BID 04/02/25 04/02/25 History metoprolol succinate 100 mg 100 mg PO BID 04/02/25 04/02/25 History tablet,extended release 24 hr oxycodone 5 mg tablet 5 mg PO Q6H PRN Severe Pain (Scale 04/02/25 04/02/25 History Score 7-10) pantoprazole 40 mg tablet,delayed 40 mg PO DAILY 04/02/25 04/02/25 History release ropinirole 4 mg tablet 4 mg PO HS 04/02/25 04/02/25 History sennosides 8.6 mg tablet 8.6 mg PO BID PRN Constipation 04/02/25 04/02/25 History sertraline 100 mg tablet 200 mg PO DAILY 04/02/25 04/02/25 History spironolactone 25 mg tablet 12.5 mg PO MOWEFR 04/02/25 04/02/25 History valsartan 80 mg tablet 80 mg PO DAILY 04/02/25 04/02/25 History Past Med/Surg History Problem List Generalized weakness Metabolic encephalopathy Sepsis Morbid obesity COVID-19 COPD (chronic obstructive pulmonary disease) Acute on chronic diastolic CHF (congestive heart failure) BPH (benign prostatic hyperplasia) History of heart block Chronic diastolic (congestive) heart failure Atrial fibrillation Chest pain (Acute) Depression (Chronic) CAD in [place] artery (Chronic) HLD (hyperlipidemia) (Chronic) Diabetes mellitus type 2, insulin dependent (Chronic) Pacemaker (Chronic) HTN (hypertension) (Chronic) H/O renal calculi (Chronic) Medical History SBO (small bowel obstruction) Diabetes Effusion of knee joint right Surgical History (Updated 04/02/25 @ 16:56 by Dariana Pinto PA-C) History of lumbar fusion 03/04/25. [facility] [place]. [place] Dudley Hx of cholecystectomy S/P cholecystectomy Status post laparoscopic hernia repair History of esophagogastroduodenoscopy (EGD) Family History (Updated 04/02/25 @ 16:56 by Dariana Pinto PA-C) Other Coronary heart disease Diabetes Social History Smoking Status: Former smoker Tobacco Type: Cigarettes Cigarettes Per Day: 2; Second Hand Exposure: No; Do You Dip or Chew Tobacco: Yes; Hx Alcohol Use: Yes Alcohol type: beer Hx Substance Use: No Preferred Language: Cuban Communication Ability: Effective [employer] Required: No Beliefs That Will Affect Care: None marital status: Current Living Situation: Spouse Feels Safe at Home: Yes Assistive Devices: Glasses Review of Systems Review of Systems: All systems reviewed & are unremarkable except as noted in HPI & below Physical Exam Physical Exam: General: no acute distress, ill appearing, obese elderly male Head: normocephalic, atraumatic Eyes: PERRL, EOM's intact, conjunctiva non-injected, anicteric ENT: normal inspection external ears, nose, mucous membranes dry Neck: supple, trachea midline, non-tender, full active ROM intact without rigidity Lungs: clear, no respiratory distress, no wheezing/rhonchi/rales CV: tachycardia, rate 104, No JVD, no pretibial edema Abd: protuberant, normal BS, soft, non-tender to palpation Back: +healed surgical incision lumbar spine without erythema, edema or disch arge noted Ext: no cyanosis, no calf tenderness, ROM bilateral upper and lower extremities intact, sensation to light touch intact Neuro: Alert, oriented to person, currently not oriented to time or place, no focal deficits noted, normal affect Skin: hot to touch, dry Results & Data Results & Data Vital Signs (Past 12 Hours) Vital Signs Temp Pulse Resp BP Pulse Ox 04/02/25 14:30 103 H 22 04/02/25 14:00 107 H 20 04/02/25 13:42 105 H 23 04/02/25 13:30 132/80 04/02/25 13:27 105 H 15 04/02/25 13:09 97 H 18 04/02/25 13:03 114/76 04/02/25 12:48 90 04/02/25 12:44 122/87 04/02/25 12:26 36.8 C 101 H 19 133/90 95 Laboratory Results Short CBC 04/02/25 Range/Units 13:02 WBC 1.05 L (4.8-10.8) K/ul Hgb 14.5 (14.0-18.0) g/dl Hct 44.2 (42.0-52.0) % Plt Count 100 L (130-400) K/uL BMP 04/02/25 13:02 Sodium 136 Potassium 4.8 Chloride 99 Carbon Dioxide 30 BUN 26 H Creatinine 1.11 Glucose 177 H Calcium 9.5 Liver Function 04/02/25 Range/Units 13:02 Total Bilirubin 0.9 (0.2-1.0) mg/dl Direct Bilirubin 0.2 (0-0.2) mg/dl AST 18 (13-39) U/L ALT 22 (7-52) U/L Alkaline Phosphatase 153 H (34-104) U/L Albumin 4.2 (3.4-5.0) gm/dl Urine 04/02/25 Range/Units 13:39 Urine Color Yellow Urine Appearance Clear (Clear) Urine pH >= 9.0 H (4.5-7.5) Ur Specific [place] 1.028 (1.000-1.030) Urine Protein Trace H (Negative) Urine Glucose (UA) 2+ H (Negative) Diagnostic Findings Chest X-Ray 04/02/25 12:45 XR chest 1V portable CLINICAL HISTORY: Sepsis. COMPARISON STUDY: Chest radiograph and chest CT January 27, 2024. FINDINGS: Left subclavian pacer remains in place. Cardiomegaly is unchanged. There is no evidence for pulmonary edema. No pneumothorax or pleural effusion. There is no consolidation to suggest pneumonia. IMPRESSION: No acute cardiopulmonary findings. No change in appearance of chest. ACT 112: Negative or not required by law. Electronically signed by: Rian Simon M.D. 04/02/2025 1:20 PM ECG Additional Comments: EKG: paced rhythm, rate 90 per my interpretation
[2025-04-02 16:06] LABS: Lyme Screen Rflx Confirmation Positive (Negative)
[2025-04-02] MEDS: CEFEPIME 2000MG 2,000 MG/20 ML SYR IV STA (16:39)
[2025-04-02] MEDS: ACETAMINOPHEN 500 MG TAB PO STA (16:40)
[2025-04-02] MEDS: SODIUM CHLORIDE 0.9% 1,000 ML IV ONE (16:42)
[2025-04-02 16:49] LABS: Lyme Ab IgG 2nd Tier Confirm Positive (Negative); Lyme Ab IgM 2nd Tier Confirm Negative (Negative)
[2025-04-02] MEDS: DAPTOmycin 500 MG in SYRINGE 0 ML IV ONE (17:02)
[2025-04-02] MEDS: METOPROLOL SUCC 50MG EXT REL TAB PO STA (17:05)
--- NOTE | 2025-04-02 17:10 | Communication Note ---
Date of Service: April 02, 2025 Attending Addendum: Case reviewed with the advanced practitioner. I have personally performed a history and physical examination on the patient. I have reviewed the advanced practitioner's documentation on the date of service referenced in note, and I agree with, and take responsibility for the plan of care. please refer to her notes for full details patient seen and examined, records reviewed by myself as well on exam, patient seen resting in bed, comfortable, not in distress patient's at bedside oriented x 2, answers most questions appropriately, has intermittent episodes of confusion (+) fever/chills at home earlier today states he has a frontal headache, no photophobia, no neck pain has dry cough, no shortness of breath no abdominal pain, problems with urination/diarrhea has been having chronic lower back pain after lumbar spine surgery last month- pain not worsening no leg weakness/numbness no other symptoms VS noted and reviewed oriented x3, occasionally gets confused. not in distress, speaks in sentences with no effort nor accessory muscle use (+) mild tachycardia, regular rhythm, no murmurs clear breath sounds bilaterally non distended, soft, nontender no bipedal edema, erythema, warmth back: midline surgical scar over lumbar spine well healed, no signs of infection, tenderness, discharge no gross focal neuro deficits except for intermittent confusion, no nuchal rigidity all labs, imaging noted and reviewed ASSESSMENT AND PLAN> SEPSIS, WITH MILD ENCEPHALOPATHY, COVID 19 INFECTION FEBRILE NEUTROPENIA, CHRONIC NEUTROPENIA BP stable, on room air ANC 430 (baseline 1200s) lactic acid 2.1--> 2.8 CXR: no pneumonia CT abd/pelvis with IV contrast: pending to r/o intraabdominal source CT lumbar spine: pending to r/o lumbar spine infection given lumbar spine surgery last month Nasal MRSA screen Tick borne panel IV Dapto + Cefepime IV Remdesivir in light of risk factors for possible disease progression ID consult Hematology consult Chronic Medical Problems: CAD CHF, DIASTOLIC S/P PACEMAKER FOR HEART BLOCK ATRIAL FIBRILLATION DM 2 HTN other diagnoses and plan of care as per advanced practitioner's notes I spent a total of 35 minutes coordinating, documenting, and providing care for this patient, excluding time spent in the performance of separately billed services or time spent by another provider/QHP. Fransico Higgins MD
[2025-04-02] MEDS: OPTIRAY 320 100ml IV ONE (17:34)
--- NOTE | 2025-04-02 19:29 | CT Scan Report ---
EXAM: CT abd pelvis IV con only CLINICAL HISTORY: sepsis r/o abd etiol TECHNIQUE: Contrast-enhanced CT of the abdomen and pelvis was performed, with the following protocol: axial images with, and reconstructed coronal and sagittal images. 90 ml optiray 320 intravenous contrast was administered. One of the following dose reduction techniques was utilized for this exam: Automated exposure control, adjustment of the mA and/or kV according to patient size, and use of iterative reconstruction. DLP: 2110.18 mGy.cm COMPARISON: CT dated 04/05/2022. FINDINGS: Abdomen: Liver: Enlarged measuring 19.5 cm. Normal in shape, and density. No focal lesions, cysts, or masses were identified. Hepatic vasculature and biliary ducts are unremarkable. Gallbladder and Biliary System: The gallbladder is surgically excised. Stable finding. The common bile duct is normal in caliber without dilation. Pancreas: Pancreatic head, body, and tail are visualized and appear normal in size and density. No pancreatic masses or calcifications were noted. The pancreatic duct is not dilated. Spleen: Enlarged measuring 14.7 cm. Normal in shape, and density. No splenic lesions or masses were identified. Appendix: The appendix is normal in size without hayder appendiceal fat stranding, and without an appendicolith. No evidence of appendiceal abscess or perforation. Kidneys and Adrenal Glands: Both kidneys are normal in size, shape, and position. Cortical thickness is within normal limits. Few left renal cortical hypodense lesions measuring up to 1.4 cm. Stable finding. No renal calculi or hydronephrosis on the right side. Few nonobstructive stones are seen scattered within the left calyces largest seen in the lower calyx measuring 6 mm. No hydronephrosis. Mild bilateral perinephric fat stranding more on the right side. Slightly increased since the last study. Adrenal glands are unremarkable with no evidence of masses or hyperplasia. Pelvis: Urinary Bladder: Normal in contour and wall thickness. No intraluminal lesions identified. Prostate: Normal in size and contour. No focal lesions or masses identified. Seminal Vesicles: Normal in size and appearance. No abnormalities noted. Rectum and Sigmoid Colon: Normal wall thickness and no evidence of mass. Few sigmoid diverticula without evidence of acute diverticulitis. Stable finding. Peritoneal and Retroperitoneal Structures: No free fluid or abnormal fluid collections were identified within the abdomen or pelvis. No lymphadenopathy was noted. Bowel: The visualized bowel loops are normal in caliber and appearance. No evidence of bowel obstruction or wall thickening. Bones and Soft Tissues: Newly developed a spine postoperative changes showing L2 down to L5 internal fixation using metallic rods and transpedicular screws. Paraspinal soft tissue scarring in the fat stranding is noted. Pelvic bones and soft tissues are unremarkable. No fractures or abnormal masses were identified. Vascular calcification of the aorta and its branches. Right neck fatty epigastric/periumbilical hernia. IMPRESSION: 1. Hepatosplenomegaly. Stable finding. 2. Left renal cortical cysts and nonobstructive calyceal stones. Stable finding. 3. Slightly increased perinephric fat stranding more evident on the right side. 4. Newly performed spinal operation with paraspinal scarring and fat stranding. Referred for dedicated study. 5. Correlate with clinical findings. Electronically signed by Moncho Rao 04-02-2025 7:29 PM
[2025-04-02] MEDS ORDERED: LEVALBUTEROL 1.25 MG/3 ML NEB NEB PRN (19:32)
[2025-04-02] MEDS ORDERED: DEXTROSE 50% 50 ML SYRINGE IV PRN (19:32)
[2025-04-02] MEDS ORDERED: SENNA 8.6 MG TAB PO PRN (19:32)
[2025-04-02] MEDS ORDERED: GLUCOSE 10 TAB/TUBE PO PRN (19:32)
[2025-04-02] MEDS ORDERED: MAGNESIUM HYDROXIDE SUSP 30 ML UDC PO PRN (19:32)
[2025-04-02] MEDS ORDERED: GLUCAGON FOR INJ 1 MG VIAL SQ PRN (19:32)
[2025-04-02] MEDS ORDERED: GLUCOSE 40% GEL 15 GM TUBE PO PRN (19:32)
[2025-04-02] MEDS ORDERED: POLYETHYLENE (MIRALAX) 17 GM PACK PO PRN (19:32)
--- NOTE | 2025-04-02 19:43 | CT Scan Report ---
EXAM: CT lumbar spine w con CLINICAL HISTORY: recent L back surg r/o abscess TECHNIQUE: CT non-contrast scan of lumbar spine done. Axial images obtained with reformatted coronal and sagittal images and submitted for interpretation. 90 ml optiray 320 intravenous contrast was administered. One of the following dose reduction techniques were utilized for this exam: Automated exposure control, adjustment of the mA and/or kV according to patient size, use of iterative reconstruction. DLP: 2110.18 mGy.cm COMPARISON: MRI 04/20/2024 FINDINGS: Vertebrae: Straightening of the lumbar curvature, denoting muscle spasm. Mild lumbar scoliosis, convex to the left side. Minimal foorward sliggae of L4 over L5 secondary to bilateral L4-5 facet arthropathy. Internal fixation of L3 down to S1 vertebrae using metallic plates and transpedicular screws. Operative bed posterior paraspinal soft tissue swelling, thickening, and smudging. Diffuse osteopenia. Degenrative changes of the spine with marginal bone hypertrophy of the vertebral endplates, and narrowed disc spaces with L5-S1 intradiscal vaccum. Modic type III subchondral slcerlosis of L5 and S1 opposiing vertebral endplates. Normal alignment of the lumbar vertebrae. No fractures, lytic or sclerotic lesions. Intervertebral Discs: At L4-L5, L5-S1, and to a lesser extent L3-L4 disc levels, there are epidural soft tissue thickening, encasing the theca and entangling the exiting nerve roots. L2-L3 down to L5-S1 posterior disc bulge, causing bilateral moderate foraminal stenosis and compressing the exiting nerve roots. Facet Joints: Bilateral L2-L3 down to L5-S1 facet arthropathy, causing bilateral moderate foraminal narrowing. Soft Tissues: Normal appearance of the paraspinal soft tissues. No abnormal masses, fluid collections, or signs of inflammation. Bilateral degenrative sacroiliitis. Aorto-iliac atherosclerotic calcification. IMPRESSION: 1. Status postoperative showing operative bed posterior paraspinal muscular swelling with soft tissue thickening and smudging, yet with no absess collection, which could be postoperative granulation tissue or an early inflammatory process. Need clinical correlation and post-contrast MRI assessment. 2. At L4-L5 and L5-S1, and to a lesser extent L3-L4, epidural soft tissue thickening, encasing the theca and entangling the exiting nerve, which could reprsent post-operative granulation tissue . Need contrast-enhanced MRI assessment. 3. Straightening of the lumbar curve, denoting muscle spasm. 4. 1st degree degenrative spondylolithesis of L4 over L5. 5. Mild lumbar soliosis, convex to the left side. 6. Diffuse osteopenia. 7. Degenerative changes of the lumbar spine with multiple disc bulges and multilevel facet arthropathy, causing varying degrees of bilateral moderate foraminal stenosis, resulting in compression of the exiting nerve roots. 8. The previous MRI study had beed reviewed. Electronically signed by Moncho Rao 04-02-2025 7:43 PM
--- NOTE | 2025-04-02 19:44 | CT Scan Report ---
EXAM: CT head/brain wo con CLINICAL HISTORY: AMS TECHNIQUE: Axial non-contrast CT scan of the brain was performed from the skull base to the high parietal region. One of the following dose reduction techniques were utilized for this exam: Automated exposure control, adjustment of the mA and/or kV according to patient size, use of iterative reconstruction. COMPARISON: None. FINDINGS: Imaging of the middle and posterior cranial fossae is degraded by patient's involuntary movement. Brain Parenchyma: Normal attenuation of the cerebral hemispheres, cerebellum, and brainstem. No evidence of acute infarct, hemorrhage, or mass effect. No abnormal areas of hypo- or hyperattenuation. Ventricular System: Ventricles are normal in size and configuration. No evidence of hydrocephalus or ventricular enlargement. Subarachnoid Spaces: Accentuated cortical sulci and cisterns. No evidence of subarachnoid hemorrhage or extra-axial fluid collections. Cerebellum and Brainstem: No masses, lesions, or areas of abnormal density. Orbits: Normal appearance of the globes, optic nerves, and extraocular muscles. No evidence of orbital masses or abnormal density. Sinuses: Opacification of the bilateral mastoid air cells Mildly deviated nasal septum with convexity towards the right side The rest of the sinuses are within normal limits Mastoid Air Cells: Clear mastoid air cells. No evidence of mastoiditis. Skull: Normal skull morphology. Mildly deviated nasal septum with convexity towards the right side IMPRESSION: 1. Mild involutional brain changes. 2. No evidence of acute territorial infarction or significant intracranial hemorrhage. 3. Correlate with clinical findings. Electronically signed by Moncho Rao 04-02-2025 7:44 PM
[2025-04-02] MEDS: REMDESIVIR 200 MG in SODIUM CHLORIDE 0.9% 210 ML IV STA (21:20)
--- NOTE | 2025-04-02 22:01 | Electrocardiogram Report ---
Test Reason : Blood Pressure : */* mmHG Vent. Rate : 90 BPM Atrial Rate : 96 BPM P-R Int : * ms QRS Dur : 134 ms QT Int : 384 ms P-R-T Axes : * 19 260 degrees QTcB Int : 469 ms Ventricular-paced rhythm Underlying atrial fibrillation Abnormal ECG When compared with ECG of 27-Jan-2024 16:53, Vent. rate has decreased by 2 bpm Confirmed by Quang Calderón ([id number]) on 04/02/2025 10:00:47 PM Referred By: REFERRED SELF Confirmed By: Quang Calderón
[2025-04-02] MEDS: INSULIN ASPART PER UNIT CHARGE SC SCH (22:25)
[2025-04-02] MEDS: guaiFENesin 600 MG TABCR PO SCH (22:39)
[2025-04-02] MEDS: LANTUS PER UNIT CHARGE SQ SCH (22:40)
[2025-04-02] MEDS: busPIRone 15 MG TAB PO SCH (22:40)
[2025-04-02] MEDS: APIXABAN 5 MG TABLET PO SCH (22:40)
[2025-04-02] MEDS: CEFEPIME 2000MG 2,000 MG/20 ML SYR IV SCH (22:41)
[2025-04-02] MEDS: METOPROLOL SUCC 50MG EXT REL TAB PO SCH (22:55)
[2025-04-03] MEDS: ONDANSETRON INJ 2 MG/ML 2 ML VIAL IV PRN (00:43)
[2025-04-03] MEDS: ACETAMINOPHEN 325 MG TAB PO PRN (00:43)
[2025-04-03 07:14] VITALS: RESP 18
[2025-04-03 07:41] LABS: Hematocrit (blood only) 36.3 % (42.0-52.0); Hemoglobin 11.9 g/dl (14.0-18.0); Mean Corpuscular Hemoglobin 30.4 pg (25.0-34.0); Mean Corpuscular Volume 92.6 fL (80.0-100.0); Platelet Count 88 K/uL (130-400); RDW Standard Deviation 50.5 fL (36.4-46.3); Red Blood Count 3.92 M/uL (4.70-6.10); White Blood Count 1.11 K/ul (4.8-10.8)
[2025-04-03 07:55] LABS: Alanine Aminotransferase 14.0 U/L (7-52); Albumin Globulin Ratio 1.5 (0.9-2); Alkaline Phosphatase 104.0 U/L (34-104); Anion Gap 6.0 (3-11); Bilirubin,Total 0.7 mg/dl (0.2-1.0); Blood Urea Nitrogen 23.0 mg/dl (6-23); Calcium 8.2 mg/dl (8.6-10.3); Carbon Dioxide 25.0 mmol/L (21-32); Chloride 107.0 mmol/L (98-107); Creatinine Clr Calc Pharmacy 78.1 ml/min; Globulin 2.2 gm/dl (2.5-4.0); Glucose 98.0 mg/dl (70-99(Fasting)); Potassium 4.2 mmol/L (3.5-5.1); Sodium 138.0 mmol/L (136-145); Total Protein 5.6 gm/dl (6.0-8.3)
[2025-04-03 08:20] LABS: ALC (manual) 0.58 K/uL (1.2-3.4); ANC (manual) 0.24 K/uL (1.4-6.5); Large Granular Lymph # (manua 0.38 K/uL; Large Granular Lymph % (manual) 34 %
[2025-04-03] MEDS: FERROUS SULFATE 325 MG TAB PO SCH (08:58)
[2025-04-03] MEDS: ASCORBIC ACID 500 MG TAB PO SCH (08:58)
[2025-04-03] MEDS: CYANOCOBALAMIN (B-12) 500 MCG TABLET PO SCH (08:58)
[2025-04-03] MEDS: VALSARTAN 80 MG TAB PO SCH (08:59)
[2025-04-03] MEDS: SERTRALINE HCL 100 MG TABLET PO SCH (08:59)
[2025-04-03] MEDS ORDERED: NON-FORMULARY MEDICATION (Iron,Carbonyl-Vitamin C [Vitron-C] 65 mg iron- 125 mg Tablet,Del PO SCH (09:00)
--- NOTE | 2025-04-03 12:58 | Hospitalist Progress Note ---
Date of Service April 03, 2025 Assessment & Plan (1) Sepsis due to COVID-19: (2) Pancytopenia: (3) Metabolic encephalopathy: Plan: Resolved (4) History of lumbar fusion: (5) Diabetes mellitus type 2, insulin dependent: (6) History of Lyme disease: (7) Chronic diastolic (congestive) heart failure: (8) HTN (hypertension): (9) HLD (hyperlipidemia): Plan Patient with sepsis-like presentation most likely due to COVID-19 infection exacerbating his back pain related to his recent surgery. Also exacerbating his pancytopenia Imaging does not reveal any definitive infection or abscess lumbar spine Discontinue IV antibiotics Testing positive for IgG, IgM negative, unclear whether he has been treated will continue oral doxycycline Continue remdesivir for treatment of COVID Restart pain medications, metabolic encephalopathy improved Therapies as tolerated Continue other supportive care Admission and Anticipated Discharge Date Admission Date: April 02, 2025 Subjective Patient feeling a little bit better today. Still with headache and generalized arthralgias and myalgias and exacerbating his back pain is resulting from his recent surgery. Physical Exam Physical Exam: Constitutional: Alert, nontoxic in appearance HEENT: Mucous membranes moist. Lungs: Clear to auscultation, decreased, no wheezes rales or rhonchi CV: S1-S2, regular Abdomen: Soft, nontender, nondistended Extremities: No significant edema Musculoskeletal: Large plastic back brace in place Neuro: No focal deficits Psych: Cooperative, normal mood Results & Data Results & Data Vital Signs (Past 12 Hours) Vital Signs Temp Pulse Pulse Resp BP Pulse Ox O2 Del Method 04/03/25 10:50 37.3 C 75 18 111/67 90 Room Air 04/03/25 09:18 Room Air 04/03/25 07:51 90 04/03/25 07:14 36.6 C 84 18 108/69 93 Room Air Diagnostic Findings Reviewed imaging, laboratory and diagnostic studies. Pertinent findings as below. WBCs 1.1 Hemoglobin 11.9 Platelets of 88 Electrolytes stable Creatinine 0.94 MRSA nasal screen negative Lyme screen positive, IgG positive, however IgM negative Reviewed lumbar spine CT, overall believe this represents anticipated and expected postoperative findings. No definitive evidence of infection or abscess Blood cultures pending
[2025-04-03] MEDS ORDERED: DAPTOmycin 600 MG in SYRINGE 0 ML IV SCH (16:00)
[2025-04-03] MEDS: REMDESIVIR 100 MG in SODIUM CHLORIDE 0.9% 230 ML IV SCH (16:44)
[2025-04-03] MEDS: FUROSEMIDE 40 MG TAB PO SCH (18:16)
[2025-04-03] MEDS: DOXYCYCLINE HYCLATE 100 MG CAP PO SCH (20:04)
[2025-04-03] MEDS: GABAPENTIN 300 MG CAP PO SCH (20:05)
[2025-04-03] MEDS: HYDROmorphone INJ 0.5 MG/0.5 ML SYR IV STA (21:23)
[2025-04-03] MEDS: HYDROmorphone INJ 0.5 MG/0.5 ML SYR IV PRN (23:32)
[2025-04-04 06:57] LABS: Alanine Aminotransferase 19 U/L (7-52)
[2025-04-04] MEDS: CARBOHYDRATES FOR HYPOGLYCEMIA PO PRN (08:06)
[2025-04-04] MEDS: ATORVASTATIN 40 MG TAB PO SCH (09:41)
[2025-04-04] MEDS: EMPAGLIFLOZIN 10 MG TAB PO SCH (09:41)
--- NOTE | 2025-04-04 14:26 | Hospitalist Progress Note ---
Date of Service April 04, 2025 Assessment & Plan (1) Sepsis due to COVID-19: Plan: Presented with extreme weakness and confusion on the day of admission Noted to be COVID-19 virus positive Sepsis is considered likely due to COVID-19 virus infection Has been getting remdesivir, nebulized bronchodilator as needed Has been on Airborne Isolation and neutropenic precaution Started on intravenous cefepime and daptomycin which discontinued as suspicion for bacterial infection is low. blood cultures have been negative and MRSA swab is negative Lyme screen has been positive and the patient remains on doxycycline He saturation is dropping with activity and will put him on IV dexamethasone He has been feeling much better Other serological tests are pending (2) Pancytopenia: Plan: Pancytopenia with neutropenia Remains pancytopenic with minimal improvement and will monitor (3) Metabolic encephalopathy: Plan: Resolved (4) History of lumbar fusion: Plan: Status post lumbar spine fusion at [facility] on 03/04/2025 His gabapentin has been on hold due to acute change in mental status Has been on oxycodone as needed for pain and will give additional IV pain medications for breakthrough pain Will restart gabapentin (5) Diabetes mellitus type 2, insulin dependent: (6) History of Lyme disease: Plan: Lyme screen is positive with immunoglobin G with history of Lyme disease in the past Lyme titer IgM has been negative Will continue doxycycline for any atypical infection but not for Lyme disease (7) Chronic diastolic (congestive) heart failure: Plan: Remains stable (8) HTN (hypertension): (9) HLD (hyperlipidemia): Plan Patient with sepsis-like presentation most likely due to COVID-19 infection exacerbating his back pain related to his recent surgery. Also exacerbating his pancytopenia Imaging does not reveal any definitive infection or abscess lumbar spine Discontinue IV antibiotics Testing positive for IgG, IgM negative, unclear whether he has been treated will continue oral doxycycline Continue remdesivir for treatment of COVID Restart pain medications, metabolic encephalopathy improved Therapies as tolerated Continue other supportive care Admission and Anticipated Discharge Date Admission Date: April 02, 2025 Subjective 04/04/2025 The patient was seen and examined in medical floor and in the COVID room He complains to have ongoing back pain Minimal cough without any phlegm and denies any shortness of breath at rest Has been getting physical therapy Review of Systems Review of Systems: All systems reviewed and are unremarkable except as noted below Physical Exam Physical Exam: Lying in bed without any acute distress Constitutional: well developed, well nourished, + ill appearing and average body habitus Eyes: PERRL, conjunctivae normal, anicteric sclerae ENMT: external ear and nose normal, oropharynx normal Neck: trachea midline, no thyromegaly Respiratory: no respiratory distress Auscultation: + diminished lung sounds ( at the bases); no crackles Cardiovascular: Rate/Rhythm: regular rate and regular rhythm; not tachycardic Heart Sounds: normal S1 and normal S2; no murmur Extremities: + edema ( trace edema bilaterally) Gastrointestinal (Abdomen): Inspection/Auscultation: normal bowel sounds; abdomen not distended Percussion/Palpation: abdomen soft; abdomen nontender Musculoskeletal: No acute arthritis involving any of the joint Neurologic: normal touch/pain/proprioception and moves all extremities; no focal motor deficits Lymphatic: no cervical or axillary lymphadenopathy Results & Data Results & Data Vital Signs (Past 12 Hours) Vital Signs Temp Pulse Resp BP Pulse Ox Pulse Ox Pulse Ox 04/04/25 12:00 93 87 L 04/04/25 08:56 98 H 18 160/94 H 97 04/04/25 07:15 36.6 C 98 H 18 174/126 H 93 O2 Del Method O2 Flow Rate O2 Flow Rate O2 Flow Rate 04/04/25 12:00 3 0 04/04/25 08:56 Nasal Cannula 2 04/04/25 07:15 Nasal Cannula 2 Laboratory Results Liver Function 04/04/25 Range/Units 06:01 AST 25 (13-39) U/L ALT 19 (7-52) U/L Medications Administered Current Inpatient Medications Acetaminophen (Acetaminophen 325 Mg Tab) 650 mg PO Q4H PRN PRN Reason: Pain or Fever Stop: 05/02/25 19:31 Last Admin: 04/03/25 23:33 Dose: 650 mg Apixaban (Apixaban 5 Mg Tablet) 5 mg PO BID FILIPE Stop: 05/02/25 20:59 Last Admin: 04/04/25 09:41 Dose: 5 mg Ascorbic Acid (Ascorbic Acid 500 Mg Tab) 250 mg PO DAILY FILIPE Stop: 05/03/25 08:59 Last Admin: 04/04/25 09:41 Dose: 250 mg Atorvastatin Calcium (Atorvastatin 40 Mg Tab) 40 mg PO DAILY FILIPE Stop: 05/04/25 08:59 Last Admin: 04/04/25 09:41 Dose: 40 mg Buspirone HCl (Buspirone 15 Mg Tab) 15 mg PO BID FILIPE Stop: 05/02/25 20:59 Last Admin: 04/04/25 09:42 Dose: 15 mg Cyanocobalamin (Cyanocobalamin (B-12) 500 Mcg Tablet) 500 mcg PO DAILY FILIPE Stop: 05/03/25 08:59 Last Admin: 04/04/25 09:41 Dose: 500 mcg Dextrose (Dextrose 50% 50 Ml Syringe) 25 - 50 ml IV UD PRN; Protocol PRN Reason: Hypoglycemia Protocol Stop: 05/02/25 19:31 Doxycycline Hyclate (Doxycycline Hyclate 100 Mg Cap) 100 mg PO BID FILIPE Stop: 04/13/25 20:59 Last Admin: 04/04/25 09:39 Dose: 100 mg Empagliflozin (Empagliflozin 10 Mg Tab) 10 mg PO DAILY FILIPE Stop: 05/04/25 08:59 Last Admin: 04/04/25 09:41 Dose: 10 mg Ferrous Sulfate (Ferrous Sulfate 325 Mg Tab) 325 mg PO DAILY FILIPE Stop: 05/03/25 08:59 Last Admin: 04/04/25 09:41 Dose: 325 mg Furosemide (Furosemide 40 Mg Tab) 40 mg PO BID17 FILIPE Stop: 05/03/25 16:59 Last Admin: 04/04/25 09:40 Dose: 40 mg Gabapentin (Gabapentin 300 Mg Cap) 300 mg PO BID FILIPE Stop: 05/03/25 20:59 Last Admin: 04/04/25 09:42 Dose: 300 mg Glucagon (Glucagon For Inj 1 Mg Vial) 1 mg SQ UD PRN; Protocol PRN Reason: Hypoglycemia Protocol Stop: 05/02/25 19:31 Glucose (Glucose 40% Gel 15 Gm Tube) 15 - 30 gm PO UD PRN; Protocol PRN Reason: Hypoglycemia Protocol Stop: 05/02/25 19:31 Glucose (Glucose 10 Tab/Tube) 4 - 8 tab PO UD PRN; Protocol PRN Reason: Hypoglycemia Protocol Stop: 05/02/25 19:31 Guaifenesin (Guaifenesin 600 Mg Tabcr) 600 mg PO Q12 FILIPE Stop: 05/02/25 20:59 Last Admin: 04/04/25 09:41 Dose: 600 mg Hydromorphone HCl (Hydromorphone Inj 0.5 Mg/0.5 Ml Syr) 0.5 mg IV Q3H PRN PRN Reason: Breakthrough Pain Stop: 04/17/25 20:44 Last Admin: 04/04/25 09:34 Dose: 0.5 mg Remdesivir 100 mg/ Sodium (Chloride) 250 mls @ 250 mls/hr IV Q24H [facility] Stop: 04/04/25 17:14 Last Infusion: 04/03/25 19:13 Dose: Infused Insulin Aspart (Insulin Aspart Per Unit Charge) 0 units SC ACHS FILIPE Stop: 05/02/25 20:59 Last Admin: 04/04/25 12:56 Dose: 5 units Insulin Glargine (Lantus Per Unit Charge) 35 units SQ BID FILIPE Stop: 05/02/25 20:59 Last Admin: 04/04/25 10:37 Dose: Not Given Levalbuterol HCl (Levalbuterol 1.25 Mg/3 Ml Neb) 1.25 mg NEB Q6H PRN PRN Reason: Shortness Of Breath Or Wheezing Stop: 05/02/25 19:31 Magnesium Hydroxide (Magnesium Hydroxide Susp 30 Ml Udc) 30 ml PO Q12H PRN PRN Reason: Constipation Stop: 05/02/25 19:31 Metoprolol Succinate (Metoprolol Succ 50mg Ext Rel Tab) 100 mg PO BID [facility] Stop: 05/02/25 20:59 Last Admin: 04/04/25 09:42 Dose: 100 mg Miscellaneous (Carbohydrates For Hypoglycemia ) 15 - 30 gm PO UD PRN PRN Reason: Hypoglycemia Protocol Stop: 05/02/25 19:31 Last Admin: 04/04/25 08:06 Dose: 15 gm Ondansetron HCl (Ondansetron Inj 2 Mg/Ml 2 Ml Vial) 4 mg IV Q6H PRN PRN Reason: Nausea Stop: 05/02/25 19:31 Last Admin: 04/03/25 20:19 Dose: 4 mg Oxycodone HCl (Oxycodone Hcl Ir 5 Mg Tab (Immediate Release)) 5 mg PO Q4H PRN PRN Reason: Moderate Pain (Scale 4, 5, 6) Stop: 04/17/25 01:13 Last Admin: 04/03/25 16:42 Dose: 5 mg Oxycodone HCl (Oxycodone Hcl Ir 5 Mg Tab (Immediate Release)) 10 mg PO Q4H PRN PRN Reason: Severe Pain (Scale 7, 8, 9,10) Stop: 04/17/25 16:28 Last Admin: 04/04/25 13:08 Dose: 10 mg Pantoprazole Sodium (Pantoprazole 40 Mg Tab) 40 mg PO DAILY FILIPE Stop: 05/03/25 08:59 Last Admin: 04/04/25 09:39 Dose: 40 mg Polyethylene Glycol (Polyethylene (Miralax) 17 Gm Pack) 17 gm PO DAILY PRN PRN Reason: Constipation Stop: 05/02/25 19:31 Ropinirole HCl (Ropinirole Hcl 2 Mg Tablet) 4 mg PO HS FILIPE Stop: 05/02/25 20:59 Last Admin: 04/03/25 20:17 Dose: 4 mg Sennosides (Senna 8.6 Mg Tab) 8.6 mg PO BID PRN PRN Reason: Constipation Stop: 05/02/25 19:31 Sertraline HCl (Sertraline Hcl 100 Mg Tablet) 200 mg PO DAILY FILIPE Stop: 05/03/25 08:59 Last Admin: 04/04/25 09:39 Dose: 200 mg Valsartan (Valsartan 80 Mg Tab) 80 mg PO DAILY FILIPE Stop: 05/03/25 08:59 Last Admin: 04/04/25 09:39 Dose: 80 mg
[2025-04-04] MEDS ORDERED: HYDROmorphone INJ 0.5 MG/0.5 ML SYR IV PRN (14:44)
[2025-04-04] MEDS ORDERED: DEXAMETHASONE SOD INJ 4 MG/ML VIAL IV SCH (14:45)
[2025-04-04] MEDS: dexAMETHasone 6 MG in SYRINGE 0 ML IV SCH (16:30)
[2025-04-05 08:51] LABS: Hematocrit (blood only) 41.5 % (42.0-52.0); Hemoglobin 13.9 g/dl (14.0-18.0); Mean Corpuscular Hemoglobin 30.7 pg (25.0-34.0); Mean Corpuscular Volume 91.6 fL (80.0-100.0); Platelet Count 100 K/uL (130-400); RDW Standard Deviation 49.3 fL (36.4-46.3); Red Blood Count 4.53 M/uL (4.70-6.10); White Blood Count 1.47 K/ul (4.8-10.8)
[2025-04-05 09:12] LABS: Alanine Aminotransferase 22.0 U/L (7-52); Albumin Globulin Ratio 1.4 (0.9-2); Alkaline Phosphatase 115.0 U/L (34-104); Anion Gap 6.0 (3-11); Bilirubin,Total 0.9 mg/dl (0.2-1.0); Blood Urea Nitrogen 31.0 mg/dl (6-23); Calcium 9.0 mg/dl (8.6-10.3); Carbon Dioxide 30.0 mmol/L (21-32); Chloride 102.0 mmol/L (98-107); Creatinine Clr Calc Pharmacy 74.2 ml/min; Globulin 2.8 gm/dl (2.5-4.0); Glucose 223.0 mg/dl (70-99(Fasting)); Magnesium 2.1 mg/dl (1.7-2.4); Potassium 4.2 mmol/L (3.5-5.1); Sodium 138.0 mmol/L (136-145); Total Protein 6.6 gm/dl (6.0-8.3)
[2025-04-05 09:42] LABS: Immature Granulocytes # (auto) 0.01 K/uL (0.01-0.20); Immature Granulocytes % (auto) 0.7 %
--- NOTE | 2025-04-05 13:19 | Hospitalist Progress Note ---
Date of Service April 05, 2025 Assessment & Plan (1) Sepsis due to COVID-19: (2) Pancytopenia: (3) Metabolic encephalopathy: Plan: Resolved (4) History of lumbar fusion: (5) Diabetes mellitus type 2, insulin dependent: (6) History of Lyme disease: (7) Chronic diastolic (congestive) heart failure: (8) HTN (hypertension): (9) HLD (hyperlipidemia): Plan Patient with acute symptoms related to COVID, slowly improving. Able to titrate off oxygen today Complete 5-day course of remdesivir Transition to oral Decadron Oral pain control Anticipate discharge tomorrow after received 5 days of remdesivir. Admission and Anticipated Discharge Date Admission Date: April 02, 2025 Subjective Patient denies shortness of breath. Pain is intermittently controlled Physical Exam Physical Exam: Constitutional: Alert, sitting up on edge of the bed, nontoxic HEENT: Mucous membranes moist. Lungs: Clear to auscultation, decreased, no wheezes rales or rhonchi CV: S1-S2, regular Abdomen: Soft, nontender, nondistended Extremities: No significant edema Musculoskeletal: Wearing rigid back brace Neuro: No focal deficits Psych: Cooperative, normal mood Results & Data Results & Data Vital Signs (Past 12 Hours) Vital Signs Temp Pulse Resp BP Pulse Ox O2 Del Method O2 Flow Rate 04/05/25 13:14 36.6 C 81 18 153/94 H 95 Room Air 04/05/25 08:02 36.6 C 85 18 168/98 H 97 Nasal Cannula 3 04/05/25 07:57 Room Air Diagnostic Findings Reviewed imaging, laboratory and diagnostic studies. Pertinent findings as below. WBCs 1.47, slightly improved BMP stable
--- NOTE | 2025-04-05 14:29 | Infectious Disease Consult ---
Date of Service April 05, 2025 Telehealth Information I performed this visit using a real-time telehealth connection between my location and the patients location ([facility]). After connecting through interactive tele-video, patient was identified by name and date of and/or wristband check.Patient (or authorized healthcare key account representative) was informed that this was a telemedicine visit and it was being conducted confidentially over secure lines. My office door was closed and no one else was present in the room with me.Patient (or authorized healthcare key account representative) provided consent to proceed with the visit, expressed an understanding of privacy and security of the telemedicine visit, and gave permission to have a hospital key account representative in the room in order to assist with the visit and to conduct portions of the visit, as needed. I informed the patient (or authorized healthcare key account representative) that I reviewed their record and presented the opportunity for them to ask any questions regarding the visit today. The patient agreed to participate. Assessment & Plan (1) Sepsis due to COVID-19: Plan: Assessment: Covid-19 infection Acute hypoxic respiratory failure - resolved Neutropenic fever fever resolved and WBC improving Hx of Lyme disease Hx of IDDM II, HTN, HLD, CAD, PAF on Eliquis, chronic HFpEF, sinus node dysfunction s/p PPM, COPD, pancytopenia, and iron deficiency anemia Recommendations: - Discontinue doxycycline as the positive test likely represents prior Lyme disease. - Continue conservative and supportive care for the Covid-19 infection: I agree w/ a course of dexamethasone (10 days) and remdesivir (3 days) - ID signing off The patient appears to be doing well w/ the [id number] therapy at the moment. I do not recommend any additional work-up or abx therapy. It is difficult to interpret the significance of the neutropenia for this patient who has known chronic pancytopenia. During this patient encounter, one or more of the following was provided in addition to my in person visit: disease transmission risk assessment and mitigation; public health investigation, analysis, and testing; and/or complex antimicrobial therapy counseling and treatment. I spent a total of 81 minutes coordinating, documenting, and providing care for this patient excluding time spent in the performance of separately billed services or time spent by another provider/QHP. History of Present Illness History of Present Illness This is a 70 y/o male (Ray) w/ hx of IDDM II, HTN, HLD, CAD, prior Lyme disease, PAF on Eliquis, chronic HFpEF, sinus node dysfunction s/p PPM, COPD, anxiety, depression, spine fixation (05/2024, 02/2025), pancytopenia, and iron deficiency anemia, presented to ER with c/o weakness and confusion on 04/02/25: the symptoms started in the morning of 04/02/25. Low grade fever was noted on presentation w/ ANC 430. Found to have covid-19 infection w/ positive PCR for SARS-CoV-2. He did not have any sick contact prior to the onset of symptoms. He had slight coughing (nonproductive) w/ the above symptoms. The patient previously required O2 supplement but not requiring any oxygen. Denies CARBONE/SOB, cp, vomting, f/c, abd pain, diarrhea or chest pain. He has dry heaves at times and back aches (chronic). He feels much improved now. Allergies Allergy/AdvReac Type Severity Reaction Status Date / Time No Known Allergies Allergy Verified 04/02/25 15:21 Home Medications Medication Instructions Recorded Confirmed Type apixaban 5 mg tablet (Eliquis) 5 mg PO BID 04/02/25 04/02/25 History atorvastatin 40 mg tablet 40 mg PO DAILY 04/02/25 04/02/25 History buspirone 15 mg tablet 15 mg PO BID 04/02/25 04/02/25 History cyanocobalamin (vitamin B-12) 500 500 mcg PO DAILY 04/02/25 04/02/25 History mcg tablet dulaglutide 3 mg/0.5 mL 3 mg subcut WK 04/02/25 04/02/25 History subcutaneous pen injector (Trulicity) empagliflozin 10 mg tablet 10 mg PO DAILY 04/02/25 04/02/25 History (Jardiance) furosemide 40 mg tablet 40 mg PO BID 04/02/25 04/02/25 History gabapentin 300 mg capsule 300 mg PO BID 04/02/25 04/02/25 History insulin aspart U-100 100 unit/mL 5 unit subcut UD 04/02/25 04/02/25 History (3 mL) subcutaneous pen (Novolog FlexPen U-100 Insulin aspart) insulin aspart U-100 100 unit/mL 7 unit subcut DAILYBB 04/02/25 04/02/25 History (3 mL) subcutaneous pen (Novolog FlexPen U-100 Insulin aspart) insulin aspart U-100 100 unit/mL 9 unit subcut UD 04/02/25 04/02/25 History (3 mL) subcutaneous pen (Novolog FlexPen U-100 Insulin aspart) insulin glargine 100 unit/mL (3 32 unit subcut HS 04/02/25 04/02/25 History mL) subcutaneous pen (Lantus Solostar U-100 Insulin) insulin glargine 100 unit/mL (3 38 unit subcut DAILY 04/02/25 04/02/25 History mL) subcutaneous pen (Lantus Solostar U-100 Insulin) iron,carbonyl 65 mg-vitamin C 125 1 tab PO DAILY 04/02/25 04/02/25 History mg tablet,delayed release (Vitron-C) metformin 1,000 mg tablet 1,000 mg PO BID 04/02/25 04/02/25 History metoprolol succinate 100 mg 100 mg PO BID 04/02/25 04/02/25 History tablet,extended release 24 hr oxycodone 5 mg tablet 5 mg PO Q6H PRN Severe Pain (Scale 04/02/25 04/02/25 History Score 7-10) pantoprazole 40 mg tablet,delayed 40 mg PO DAILY 04/02/25 04/02/25 History release ropinirole 4 mg tablet 4 mg PO HS 04/02/25 04/02/25 History sennosides 8.6 mg tablet 8.6 mg PO BID PRN Constipation 04/02/25 04/02/25 History sertraline 100 mg tablet 200 mg PO DAILY 04/02/25 04/02/25 History spironolactone 25 mg tablet 12.5 mg PO MOWEFR 04/02/25 04/02/25 History valsartan 80 mg tablet 80 mg PO DAILY 04/02/25 04/02/25 History Patient History Medical History (Updated 04/03/25 @ 12:55 by Darien Garay DO) SBO (small bowel obstruction) Diabetes Effusion of knee joint right Surgical History (Updated 04/02/25 @ 16:56 by Dariana Pinto PA-C) History of lumbar fusion 03/04/25. [facility]. Dr Dudley Hx of cholecystectomy S/P cholecystectomy Status post laparoscopic hernia repair History of esophagogastroduodenoscopy (EGD) Family History (Updated 04/02/25 @ 16:56 by Dariana Pinto PA-C) Other Coronary heart disease Diabetes Social History Smoking Status: Former smoker Tobacco Type: Cigarettes Cigarettes Per Day: 2; Second Hand Exposure: No; Do You Dip or Chew Tobacco: Yes; Hx Alcohol Use: Yes Alcohol type: beer Hx Substance Use: No Preferred Language: Mexican Communication Ability: Effective Talent Sourcer Required: No Beliefs That Will Affect Care: None marital status: Current Living Situation: Spouse Other Information That Helps Us Care for You: No Feels Safe at Home: Yes Safety Concerns: Feels Safe At This Time Assistive Devices: Denture - Upper, Denture - Lower and Glasses Review of Systems as HPI and all others negative Physical Exam Gen: no acute distress Lungs: breathing comfortably on room air Neuro: alert, awake and oriented x3 Results & Data Vital Signs (Past 12 Hours) Vital Signs Temp Pulse Resp BP Pulse Ox O2 Del Method O2 Flow Rate 04/05/25 13:14 36.6 C 81 18 153/94 H 95 Room Air 04/05/25 08:02 36.6 C 85 18 168/98 H 97 Nasal Cannula 3 04/05/25 07:57 Room Air Laboratory Results WBC ANC 430 -> 680 H 13.9 Plt 100K Cr 0.99 LFT unremarkable LA 2.8 Blood smear (04/02): no evidence of anaplasma/babesia MRSA screen (04/02): neg Lyme disease (04/02): pos SARS-CoV-2 PCR (04/02): pos Lumbar spine CT (04/02): no abscess CT head: no acute findings CT A/P: heptosplenomegaly, L renal cortical cysts and nonobstructive stones, lightly increased perinephric fat stranding CXR: No acute cardiopulmonary findings. No change in appearance of chest.
[2025-04-05 20:52] VITALS: TEMP 97.7
--- NOTE | 2025-04-06 05:56 | Electrocardiogram Report ---
Test Reason : Blood Pressure : */* mmHG Vent. Rate : 89 BPM Atrial Rate : 375 BPM P-R Int : * ms QRS Dur : 82 ms QT Int : 390 ms P-R-T Axes : * 17 127 degrees QTcB Int : 474 ms Suspect unspecified pacemaker failure Atrial fibrillation with frequent ventricular-paced complexes Abnormal ECG When compared with ECG of 02-Apr-2025 12:42, No significant change was found Confirmed by Alfred Evans ([id number]) on 04/06/2025 5:55:56 AM Referred By: REFERRED SELF Confirmed By: Alfred Evans
[2025-04-06 08:17] LABS: Hematocrit (blood only) 40.5 % (42.0-52.0); Hemoglobin 14.0 g/dl (14.0-18.0); Immature Granulocytes # (auto) 0.02 K/uL (0.01-0.20); Immature Granulocytes % (auto) 0.9 %; Mean Corpuscular Hemoglobin 31.0 pg (25.0-34.0); Mean Corpuscular Volume 89.8 fL (80.0-100.0); Platelet Count 112 K/uL (130-400); RDW Standard Deviation 47.4 fL (36.4-46.3); Red Blood Count 4.51 M/uL (4.70-6.10); White Blood Count 2.34 K/ul (4.8-10.8)
[2025-04-06 08:47] VITALS: BP 124/80; PULSE 89; O2SAT 94
[2025-04-06 09:26] LABS: Alanine Aminotransferase 29 U/L (7-52)
--- NOTE | 2025-04-06 11:11 | Discharge Summary ---
Discharge Summary Date of Service April 06, 2025 Principal Dx & Hospital Course #1 = Principal Diagnosis (1) Sepsis due to COVID-19: (2) Pancytopenia: (3) Metabolic encephalopathy: Resolved (4) History of lumbar fusion: (5) Diabetes mellitus type 2, insulin dependent: (6) History of Lyme disease: (7) Chronic diastolic (congestive) heart failure: (8) HTN (hypertension): (9) HLD (hyperlipidemia): Plan Patient 70-year-old gentleman presents to the emergency room with headache, confusion, increasing myalgias and arthralgias and increasing back pain in the setting of recent lumbar surgery. Diagnosed with COVID in the emergency room was referred for further evaluation. Patient admitted to the hospital. Initially started on broad-spectrum antibiotics for concern of his increased back pain and possible spinal infection. Additional imaging of the spine revealed no obvious source of infection. He was treated with remdesivir for his COVID-19. He did test positive for Lyme. This was indicative of remote or history of Lyme disease is unclear whether he was treated for Lyme. He was started on doxycycline. Patient was meant metabolic encephalopathy improved. He did require some support with oxygen as he was managing his COVID. He was treated with Decadron and he rapidly improved and was titrated off oxygen. He was seen by infectious disease. They felt that he did not need any type of antibiotic treatment. Did not need treatment for probable history of Lyme that was cleared and recommend just treating him with remdesivir. He completed the course of remdesivir. His myalgias, his arthralgias, and his headache all resolved. He was ambulating within the room. He had his usual expected back pain from his back surgery. Other vital signs were stable. He will be discharged home to for ongoing follow-up with his back surgeon and his PCP. Notes For Next Care Provider Follow-up with back surgeon as previously arranged Medication Changes From Visit Decadron for 3 more days Admission HPI Per Admitting Provider Patient is 70-year-old male with PMH insulin dependent DM II, HTN, HLD, CAD, PAF anticoagulated on Eliquis, chronic HFpEF, sinus node dysfunction s/p pacemaker, COPD, anxiety, depression, history pancytopenia, iron deficiency anemia, and others listed below presented to ER with c/o weakness and confusion today. History obtained from patient, patient's , as well as outpatient chart review secondary to patient's current confusion. S/P lumbar spinal fusion at [facility] [place] on 03/04/2025. Reports ongoing low back pain since operation and does not feel any increased back pain. Using brace with ambulation for 6 weeks. States wound appears to be healed and denies any erythema, edema or discharge. Was on Medrol Dosepak started on 03/09/25 post op and finished. Followed up with surgeon post op and reports felt low back pain was expected post op. Patient states past couple of days he noticed his blood sugars were more elevated than baseline however seemed to be feeling in normal state of health. Patient states today when he woke up he felt "dizzy" but is unable to further describe. He states today started with rhinorrhea and nonproductive cough. reports patient woke up today and seemed more tired than usual. Patient states had trouble ambulating as he felt like both legs were weak. noticed patient seemed confused and noted he had chills and felt hot to touch. states this morning was reporting had frontal AZEVEDO. Currently patient denies AZEVEDO but states had one earlier. states ate 2 pieces of toast and had maricel alvaro this morning. Currently patient denies nausea but states he c/o nausea this morning. Denies ill contacts. Denies syncope, vision changes, neck pain, neck stiffness, CP, SOB, palpitations, hemoptysis, sore throat, otalgia, abdominal pain, vomiting, diarrhea, hematochezia, melena, upper extremity weakness, denies paresthesias, extremity edema, rashes, urinary symptoms. Admission Exam Per Admitting Provider See H&P Discharge Exam Constitutional: Alert, nontoxic, no acute distress HEENT: Mucous membranes moist. Lungs: Clear to auscultation, decreased, no wheezes rales or rhonchi CV: S1-S2, regular Abdomen: Soft, nontender, nondistended Extremities: No significant edema Musculoskeletal, patient wearing rigid clamshell back brace Neuro: No focal deficits Psych: Cooperative, normal mood Updated Medication List Medication Instructions Recorded Confirmed Type apixaban 5 mg tablet (Eliquis) 5 mg PO BID 04/02/25 04/02/25 History atorvastatin 40 mg tablet 40 mg PO DAILY 04/02/25 04/02/25 History buspirone 15 mg tablet 15 mg PO BID 04/02/25 04/02/25 History cyanocobalamin (vitamin B-12) 500 500 mcg PO DAILY 04/02/25 04/02/25 History mcg tablet dulaglutide 3 mg/0.5 mL 3 mg subcut WK 04/02/25 04/02/25 History subcutaneous pen injector (Trulicity) empagliflozin 10 mg tablet 10 mg PO DAILY 04/02/25 04/02/25 History (Jardiance) furosemide 40 mg tablet 40 mg PO BID 04/02/25 04/02/25 History gabapentin 300 mg capsule 300 mg PO BID 04/02/25 04/02/25 History insulin aspart U-100 100 unit/mL 5 unit subcut UD 04/02/25 04/02/25 History (3 mL) subcutaneous pen (Novolog FlexPen U-100 Insulin aspart) insulin aspart U-100 100 unit/mL 7 unit subcut DAILYBB 04/02/25 04/02/25 History (3 mL) subcutaneous pen (Novolog FlexPen U-100 Insulin aspart) insulin aspart U-100 100 unit/mL 9 unit subcut UD 04/02/25 04/02/25 History (3 mL) subcutaneous pen (Novolog FlexPen U-100 Insulin aspart) insulin glargine 100 unit/mL (3 32 unit subcut HS 04/02/25 04/02/25 History mL) subcutaneous pen (Lantus Solostar U-100 Insulin) insulin glargine 100 unit/mL (3 38 unit subcut DAILY 04/02/25 04/02/25 History mL) subcutaneous pen (Lantus Solostar U-100 Insulin) iron,carbonyl 65 mg-vitamin C 125 1 tab PO DAILY 04/02/25 04/02/25 History mg tablet,delayed release (Vitron-C) metformin 1,000 mg tablet 1,000 mg PO BID 04/02/25 04/02/25 History metoprolol succinate 100 mg 100 mg PO BID 04/02/25 04/02/25 History tablet,extended release 24 hr oxycodone 5 mg tablet 5 mg PO Q6H PRN Severe Pain (Scale 04/02/25 04/02/25 History Score 7-10) pantoprazole 40 mg tablet,delayed 40 mg PO DAILY 04/02/25 04/02/25 History release ropinirole 4 mg tablet 4 mg PO HS 04/02/25 04/02/25 History sennosides 8.6 mg tablet 8.6 mg PO BID PRN Constipation 04/02/25 04/02/25 History sertraline 100 mg tablet 200 mg PO DAILY 04/02/25 04/02/25 History spironolactone 25 mg tablet 12.5 mg PO MOWEFR 04/02/25 04/02/25 History valsartan 80 mg tablet 80 mg PO DAILY 04/02/25 04/02/25 History dexamethasone 6 mg tablet 6 mg PO DAILY #3 tabs 04/06/25 Rx Hospital Stay Data Consultations 04/02/25 14:49 ED Decision to Admit Stat 04/02/25 16:07 Consult Hematology Routine Diagnostic Imagining Performed 04/02/25 15:35 CT Abd and Pelvis [CT abd pelvis IV con only] Stat CT head/brain wo con Stat CT lumbar spine w con Stat Reviewed imaging, laboratory and diagnostic studies. Pertinent findings as below. WBCs 2.3 Hemoglobin 14.0 Platelets of 112, pancytopenia is improving AST [address] lumbar spine essentially showing expected post surgical findings Electrolytes within normal range Creatinine 0.99 Lyme IgG positive Lyme IgM negative Pending Results Patient Have Any Pending Studies at Discharge: No Discharge Instructions Given to Patient (Per Discharging Provider) Follow-up with your back surgeon as previously scheduled Anticipate you will continue to improve as you continue to recover from COVID Total Time Total Time Spent Total Time Spent (In Minutes): 26
== END 2025-04-06 11:51 | disposition home or self-care (01) | DRG 871 ==
LOC: ED 12:18 → SUATTDRO 15:48 → EDINP 15:48 → 2W 19:33 → 3W 04-03 13:16